=== PATIENT | female | born 1995 | race Caucasian/White ===

== ENCOUNTER → 2017-12-20 13:58 | Outpatient (CLI) | payer BC, MEDICAID, SELFPAY ==
[2017-12-20 13:04] VITALS: BP 137/67; BMI 50.1
[2017-12-20 15:01] LABS: Absolute Lymphocyte Count 2.05 X10^3/ul (0.83-4.51); Absolute Neutrophil Count 4.3 X10^3/uL (2.0-7.7); Basophil# 0.03 X10^3/uL; Basophil% 0.4 % (0-1); Eosinophil# 0.12 X10^3/uL; Eosinophils% 1.8 % (0-5); Hematocrit 33.7 % (37-47); Hemoglobin 10.8 g/dl (12.0-15.0); Lymphocyte # 2.05 X10^3/ul (4.0); Mean Corpuscular Hgb 23.4 pg (27.0-32.0); Mean Corpuscular Volume 72.9 fL (81-99); Mean Platelet Vol. 9.4 fl (6.2-12.0); Monocyte% 4.4 % (0-10); Neutrophil # 4.32 X10^3/uL (2.7-7.7); Neutrophil % 63.3 % (47-70); Platelet Count 311 K/mm3 (150-450); RBC Distribution Width CV 17.3 % (11.6-14.6); RBC Distribution Width SD 44.9 fl (35.1-43.9); Red Blood Count 4.62 M/mm3 (4.2-5.4); White Blood Count 6.8 K/mm3 (4.4-11.0)
[2017-12-20 15:02] LABS: POSITIVE COUNT NO; POSITIVE DIFFERENTIAL NO; POSITIVE MORPHOLOGY NO
[2017-12-20 15:17] LABS: Glucose Challenge Gest 1H 50g 105 mg/dL (70-140)
== END ==
PROVIDERS: Visit Provider Obstetrics & Gynecology
DX: Z34.90 Encounter for supervision of normal pregnancy, unspecified, unspecified trimester (principal)
CPT/HCPCS: 36415; 82950; 85025

== ENCOUNTER → 2018-01-10 18:23 | Outpatient (CLI) | payer BC, MEDICAID, SELFPAY | PROVIDERS: Visit Provider Nurse Practitioner Women's Health | DX: Z34.90 Encounter for supervision of normal pregnancy, unspecified, unspecified trimester (principal) | CPT/HCPCS: 87086; 87088 ==

== ENCOUNTER → 2018-01-18 20:34 | Outpatient (CLI) | payer BC, MEDICAID, SELFPAY | PROVIDERS: Visit Provider Obstetrics & Gynecology | DX: O23.41 Unspecified infection of urinary tract in pregnancy, first trimester (principal); Z3A.00 Weeks of gestation of pregnancy not specified | CPT/HCPCS: 87086; 87088 ==

== ENCOUNTER → 2018-01-23 18:42 | Outpatient (CLI) | payer BC, MEDICAID, SELFPAY ==
--- NOTE | 2018-01-23 18:52 | US_ITS ---
STUDY: RENAL ULTRASOUND - COMPLETE REASON FOR EXAM: Female, 22 years old. Left flank pain, TECHNIQUE: Transverse and longitudinal imaging of the kidneys and bladder was obtained using real-time ultrasound. COMPARISON: None. FINDINGS: RIGHT KIDNEY: The right kidney is normal in location. The right kidney measures 10.6 x 4.7 x 5.9 cm. The renal cortex is normal in appearance. The renal cortex measures 1.6 cm. There is a subcentimeter cyst in the upper pole of the right kidney. There is no significant dilatation of the collecting system. LEFT KIDNEY: The left kidney is normal in location. The left kidney measures 10.0 x 5.6 x 5.1 cm. The renal cortex is normal in appearance. The renal cortex measures 1.7 cm. There is no demonstrated renal mass. There is no dilatation of the collecting system. BLADDER: The urinary bladder has a volume of 44 ml. The bladder shows a normal wall thickness. There is no demonstrated mass in the bladder. The right ureteral jet was not demonstrated. The left ureteral jet was not demonstrated. US/Kidney and Bladder IMPRESSION: There is no hydronephrosis bilaterally. Electronically Signed: Rosanna Mccrary MD at 13:48 EDT Tel Direct: [phone], Service support ,
== END ==
PROVIDERS: Visit Provider Obstetrics & Gynecology
DX: Z34.90 Encounter for supervision of normal pregnancy, unspecified, unspecified trimester (principal)
CPT/HCPCS: 76770

== ENCOUNTER → 2018-02-07 16:21 | Outpatient (CLI) | payer BC, MEDICAID, SELFPAY ==
--- NOTE | 2018-02-07 16:22 | US_ITS ---
STUDY: SECOND AND THIRD TRIMESTER OBSTETRICAL ULTRASOUND REASON FOR EXAM: Female, 22 years old. anatomy. LMP: 09/17/2017 TECHNIQUE: Transabdominal PRIOR ULTRASOUND: None. FINDINGS: There is a single intrauterine fetus. The fetus is in a cephalic presentation. There is demonstrated cardiac activity with a heart rate of 170 bpm. There is a normal amniotic fluid volume. The largest amniotic fluid pocket measures 6.7 cm. The placenta is anterior in location and is not low lying. There are Grade 0 placental changes. The cervix measures 3.4 cm in length. The adnexal regions are not visualized. BIOMETRY: BPD: 4.8: 20 weeks, 3 days HC: 18.2: 20 weeks, 4 days AC: 15.5: 20 weeks, 5 days FL: 3.2: 20 weeks, 1 days CI: FL/BPD: FL/HC: FL/AC: HC/AC: age by current US: 20 weeks, 4 days. ADA by current US: 06/23/2018. Estimated weight: 353 grams, +/- 52 grams, 45 %. age by prior US: weeks, days. ADA by prior US: . Age by LMP: 20 weeks, 3 days. ADA by LMP: 06/24/2018. ANATOMY: Gender: Female Cranium: Normal lateral ventricles. Normal choroid plexus. Normal cerebellum. Normal cisterna magna. Normal face, nose and lips. Chest: Normal 4-chamber heart. Abdomen/Pelvis: Normal diaphragm. Normal stomach. Normal abdominal wall. Normal cord insertion. Normal 3 vessel cord. Normal kidneys. Normal bladder. Spine: Normal cervical spine. Normal thoracic spine. Normal lumbar spine. Normal sacrum. Extremities: Normal bilateral upper extremities. Normal bilateral lower extremities. US/OB Anatomy Scan IMPRESSION: Single live fetus in a vertex presentation. No demonstrated anatomic abnormality. Placenta is grade 0 and is not low-lying. Cervix is closed. age by current US: 20 weeks, 4 days. ADA by current US: 06/23/2018. Estimated weight: 353 grams, +/- 52 grams, 45 %. Electronically Signed: Cain Callahan MD at 0:02 EDT , Service support ,
== END ==
PROVIDERS: Visit Provider Obstetrics & Gynecology
DX: Z34.90 Encounter for supervision of normal pregnancy, unspecified, unspecified trimester (principal)
CPT/HCPCS: 76805

== ENCOUNTER 2018-02-22 16:52 | Outpatient (CLI) | payer BC, MEDICAID, SELFPAY ==
[2018-02-22] MEDS: Dextrose 5%-Lactated Ringers 1,000 ML 1000 ML IV (17:05)
[2018-02-22] MEDS: Ondansetron 4 MG/2 ML Vial IV (18:08)
[2018-02-22 18:24] VITALS: BP 137/69; PULSE 105; RESP 14; TEMP 36.8; O2SAT 14
== END 2018-02-22 18:32 | disposition home or self-care (01) ==
LOC: MEDOUTP 16:53 → MS3 16:59
PROVIDERS: Visit Provider Obstetrics & Gynecology
DX: E86.0 Dehydration (principal)
CPT/HCPCS: 96361; 96374; J2405

== ENCOUNTER → 2018-03-22 13:39 | Outpatient (CLI) | payer BC, MEDICAID, SELFPAY ==
[2018-03-22 14:34] LABS: Absolute Lymphocyte Count 2.25 X10^3/ul (0.83-4.51); Absolute Neutrophil Count 6.2 X10^3/uL (2.0-7.7); Basophil# 0.02 X10^3/uL; Basophil% 0.2 % (0-1); Eosinophil# 0.09 X10^3/uL; Hematocrit 31.8 % (37-47); Hemoglobin 9.8 g/dl (12.0-15.0); Lymphocyte # 2.25 X10^3/ul (4.0); Lymphocyte % 25.1 % (19-41); Mean Corp Hgb Conc 30.8 g/gl (32-36); Mean Corpuscular Hgb 22.8 pg (27.0-32.0); Mean Platelet Vol. 8.8 fl (6.2-12.0); Monocyte# 0.36 X10^3/uL; Neutrophil # 6.23 X10^3/uL (2.7-7.7); Neutrophil % 69.5 % (47-70); Platelet Count 307 K/mm3 (150-450); RBC Distribution Width CV 18.1 % (11.6-14.6); RBC Distribution Width SD 48.4 fl (35.1-43.9)
[2018-03-22 14:35] LABS: POSITIVE COUNT NO; POSITIVE DIFFERENTIAL NO
[2018-03-22 14:36] LABS: Differential Indicated SCAN CRITERIA MET; POSITIVE MORPHOLOGY YES
[2018-03-22 14:47] LABS: Glucose Challenge Gest 1H 50g 128 mg/dL (70-140)
[2018-03-22 15:41] LABS: Differential Comment SCANNED
== END ==
PROVIDERS: Family Provider Nurse Practitioner Adult Health; PCP Nurse Practitioner Adult Health; Visit Provider Obstetrics & Gynecology
DX: Z34.02 Encounter for supervision of normal first pregnancy, second trimester (principal)
CPT/HCPCS: 82950; 85025; 86850; 86900

== ENCOUNTER → 2018-04-05 14:13 | Outpatient (CLI) | payer BC, MEDICAID, SELFPAY ==
[2018-04-05 14:33] LABS: Protein, Urine (Random) 27.3 mg/dL (<11.9); Protein:Creat Ratio 110 mg/g CRE (0-200)
== END ==
PROVIDERS: Family Provider Nurse Practitioner Adult Health; PCP Nurse Practitioner Adult Health; Visit Provider Nurse Practitioner Women's Health
DX: R80.9 Proteinuria, unspecified (principal)
CPT/HCPCS: 82570; 84156

== ENCOUNTER → 2018-05-08 16:45 | Outpatient (CLI) | payer BC, MEDICAID, SELFPAY ==
[2018-05-08 17:13] LABS: Absolute Lymphocyte Count 2.34 X10^3/ul (0.83-4.51); Absolute Neutrophil Count 7.2 X10^3/uL (2.0-7.7); Basophil# 0.03 X10^3/uL; Basophil% 0.3 % (0-1); Hematocrit 31.5 % (37-47); Hemoglobin 9.8 g/dl (12.0-15.0); Lymphocyte # 2.34 X10^3/ul (4.0); Lymphocyte % 22.7 % (19-41); Mean Corp Hgb Conc 31.1 g/gl (32-36); Mean Corpuscular Hgb 22.7 pg (27.0-32.0); Mean Corpuscular Volume 72.9 fL (81-99); Mean Platelet Vol. 8.8 fl (6.2-12.0); Monocyte# 0.55 X10^3/uL; Monocyte% 5.3 % (0-10); Neutrophil # 7.22 X10^3/uL (2.7-7.7); Neutrophil % 70.2 % (47-70); Platelet Count 394 K/mm3 (150-450); RBC Distribution Width SD 44.3 fl (35.1-43.9); Red Blood Count 4.32 M/mm3 (4.2-5.4); White Blood Count 10.3 K/mm3 (4.4-11.0)
[2018-05-08 17:14] LABS: POSITIVE COUNT NO; POSITIVE DIFFERENTIAL NO; POSITIVE MORPHOLOGY NO
== END ==
PROVIDERS: Nurse Practitioner Women's Health; Family Provider Nurse Practitioner Adult Health; PCP Nurse Practitioner Adult Health; Visit Provider Obstetrics & Gynecology
DX: O99.019 Anemia complicating pregnancy, unspecified trimester (principal); Z3A.00 Weeks of gestation of pregnancy not specified
CPT/HCPCS: 36415; 85025

== ENCOUNTER → 2018-05-17 15:20 | Outpatient (CLI) | payer BC, MEDICAID, SELFPAY ==
--- NOTE | 2018-05-17 15:22 | US_ITS ---
STUDY: SECOND AND THIRD TRIMESTER OBSTETRICAL ULTRASOUND - LIMITED REASON FOR EXAM: Female, 22 years old. Follow-up LMP: PRIOR ULTRASOUND: February 07, 2018 TECHNIQUE: Transabdominal ultrasound evaluation was performed. FINDINGS: There is a single intrauterine fetus. The fetus is in a cephalic presentation. There is demonstrated cardiac activity with a heart rate of 145 bpm. There is a normal amniotic fluid volume. The largest amniotic fluid pocket measures 3.3 x 9.2 cm. The amniotic fluid index (CORAL) is 13 cm. The placenta is anterior in location There are Grade 1 placental changes. The cervix measures cm in length. BIOMETRY: BPD: 8.5 cm: 34 weeks, 3 days HC: 3.8 cm: 34 weeks, 3 days AC: 30.4 cm: 34 weeks, 3 days FL: 6.7 cm: 34 weeks, 2 days . age by current US: 34 weeks, 3 days. ADA by current US: 06/25/2018. Estimated weight: 2469 grams, +/- grams, 35 percentile. US/OB Limited With Biometrics IMPRESSION: There has been normal growth of the fetus is in last examination of February 07, 2018. The fetus is currently in a cephalic presentation and longitudinal lie with composite measurements averaging out to be equivalent to to 34 weeks 3 days +/- 5 days with an expected date of delivery of 06/25/2018. There is an estimated weight of 246 9 g. This is in the 35th percentile. There is an CORAL of 13 cm Electronically Signed: Anastacio Wray, at 7:11 EDT Tel , Service support ,
== END ==
PROVIDERS: Family Provider Nurse Practitioner Adult Health; PCP Nurse Practitioner Adult Health; Visit Provider Obstetrics & Gynecology
DX: Z36.89 Encounter for other specified antenatal screening (principal)
CPT/HCPCS: 76816

== ENCOUNTER → 2018-05-31 15:10 | Outpatient (CLI) | payer BC, MEDICAID, SELFPAY ==
[2018-05-31 16:44] LABS: Group B Strep DNA By PCR Negative (Negative); Internal Control PASS; Probe Check PASS; Specimen Processing Control PASS
== END ==
PROVIDERS: Visit Provider Obstetrics & Gynecology
DX: Z34.90 Encounter for supervision of normal pregnancy, unspecified, unspecified trimester (principal)
CPT/HCPCS: 87081; 87653

== ENCOUNTER 2018-06-27 17:15 | Outpatient (CLI) | payer BC, MEDICAID, SELFPAY ==
[2018-06-27 18:22] VITALS: BMI 51.7
--- NOTE | 2018-06-28 04:39 | OB.TRI.NOTE ---
- Problem List (1) False labor Status: Acute History of Present Illness Reason For Visit: R/O LABOR History of Present Illness: co ctx Allergies iodine Allergy (Verified 06/28/18 00:19) Rash - Pertinent Past Medical History Medical History: Past Medical History (Last Reviewed 06/20/18 @ 13:18 by Anupama Santos) Anxiety Surgical History: Past Surgical History (Last Reviewed 06/20/18 @ 13:18 by Anupama Santos) gallbladder surgery NST - FHR Rate Baby A Baseline: 140 Variability:: Moderate Accelerations:: 15 x 15 NST Reactive:: Yes FHR Category:: Category I Impression/Plan reactive nst false labor dc home
== END 2018-06-27 19:10 | disposition home or self-care (01) ==
LOC: WPOUT 17:35 → WP 17:35
PROVIDERS: Family Provider Nurse Practitioner Adult Health; PCP Nurse Practitioner Adult Health; Visit Provider Obstetrics & Gynecology
DX: O47.9 False labor, unspecified (principal); Z3A.00 Weeks of gestation of pregnancy not specified
CPT/HCPCS: 59025; 59050; 99218; G0378

== ENCOUNTER 2018-06-28 03:45 | Inpatient (IN) | payer BC, MEDICAID, SELFPAY ==
[2018-06-28 00:08] VITALS: BMI 51.7
[2018-06-28] MEDS: proMETHazine 25 MG Tablet 12.5 MG PO (01:36)
[2018-06-28] MEDS: Nalbuphine 10 MG/ML Ampul 5 MG IM (01:56)
--- NOTE | 2018-06-28 04:07 | PCM.HP.OB ---
- Problem List (1) Active labor at term Status: Acute (2) Anemia affecting Status: Acute Qualifiers: Comment: iron supplement monthly cbc (3) BMI 50.0-59.9, adult Status: Acute Comment: growth us after 32 weeks and weekly nsts (4) Supervision of normal Status: Acute Qualifiers: Comment: PRR ADA 06/24/18 Girl Yasmin Heaton declines STD testing; No HIV done History Date of Admission: 06/28/18 Final ADA: 06/24/18 Gestational age: 40 Weeks and 4 Days History of this : This is a 22 year-old, G [], P [], at weeks gestational age. Medical History: Medical History (Last Reviewed 06/20/18 @ 13:18 by Anupama Santos) Anxiety F41.9 Surgical History: Surgical History (Last Reviewed 06/20/18 @ 13:18 by Anupama Santos) gallbladder surgery Allergies iodine Allergy (Verified 06/28/18 00:19) Rash Home Medications: Home Medications vitamin #56-iron 35 mg and 5 mg-folic acid 1 mg-dha capsule 1 cap PO QHS 06/27/18 Smoking Status: Never smoker Alcohol: None Number of Fetus(es): 1 Heart Tracin - 140 moderate variability reactive cat I TOCO Analysis: q 3-4 History Past Pregnancies: Past Pregnancies Delivery Date Name GA/Weeks Outcome Route Weight Infant Gender Labor Length Anesthesia Delivery Location Provider FOB Labs: Social History Hx Smoking No Smoking Status Never smoker Expected Delivery Method: Spontaneous Vaginal Review of Systems Constitutional: Denies: Fever, Malaise Eyes: Denies: Blurred vision, Vision Change HEENT: Denies: Head Aches, Visual Changes Cardiovascular: Denies: Chest Pain, Palpitations Respiratory: Denies: Cough, Shortness of Breath, Wheezing Gastrointestinal: Denies: Abdominal Pain, Diarrhea, Nausea, Vomiting Genitourinary: Denies: Dysuria, Hematuria Musculoskeletal: Denies: Joint Pain, Muscle pain Skin: Denies: Lesions, Rash Neurological: Denies: Blurred vision, Focal weakness, Headaches Psychiatric: Denies: Anxiety, Depression Endocrine: Denies: Heat/ Cold Intolerance Hematologic/ Lymphatic: Denies: Easy Bruising, Easy Bleeding Physical Exam General: Alert, Cooperative, No apparent distress HEENT: Atraumatic, Normocephalic. Negative for: Thyromegaly, Lymphadenopathy Cardiovascular: Regular rate Lungs: Normal air movement Abdomen: Soft, Non Tender, Gravid Neurological: Deep Tendon Reflexes 2+/4 and Symmetrical, Neuro grossly intact. Negative for: Clonus CAR USHER: Normal external genitalia. Negative for: Vulvar lesions Estimated gestational size: Appropriate for gestational size Presentation: Cephalic Assessment/Plan All Active Problems (Last Reviewed 06/20/18 @ 13:18 by Anupama Santos) Active labor at term (Acute) Anemia affecting (Acute) BMI 50.0-59.9, adult (Acute) Left lateral abdominal pain (Acute) UTI in (Acute) Supervision of normal (Acute) 22 yo 40w4d IAL Patient presents IAL, plan expectant management for , pitocin/AROM PRN if needed. Pain management: plans epidural. GBS positive plan IV PCN. Management of any complications: none I have reviewed the [facility] and made any clinically relevant updates.
[2018-06-28] MEDS: Lactated Ringers 1,000 ML 50 ML IV ×5 (04:10→14:53)
[2018-06-28 04:25] LABS: Hematocrit 31.9 % (37-47); Mean Corp Hgb Conc 31.3 g/gl (32-36); Mean Corpuscular Hgb 21.6 pg (27.0-32.0); Mean Corpuscular Volume 68.8 fL (81-99); Mean Platelet Vol. 9.4 fl (6.2-12.0); Platelet Count 374 K/mm3 (150-450); RBC Distribution Width CV 18.1 % (11.6-14.6); RBC Distribution Width SD 44.7 fl (35.1-43.9); Red Blood Count 4.64 M/mm3 (4.2-5.4); White Blood Count 17.9 K/mm3 (4.4-11.0)
[2018-06-28 04:33] LABS: Scan Indicated on CBC? Y/N NO
[2018-06-28] MEDS: Oxytocin 30 units/NS 500 ml 30 UNITS/500 ML IV.SOLN IV (10:00)
[2018-06-28] MEDS: Amnioinfusion- 0.9% NS 1,000 ML IV.SOLN. INTRA-UTER (13:00)
[2018-06-28] MEDS: fentaNYL-bupivacaine (epidural) 100 ML BAG EPIDURAL (15:03)
[2018-06-28] MEDS: Oxytocin 30 units/NS 500 ml 30 UNITS/500 ML IV.SOLN 334 UNITS IV (17:55)
[2018-06-28] MEDS: Oxytocin 30 units/NS 500 ml 30 UNITS/500 ML IV.SOLN 167 UNITS IV (18:25)
[2018-06-28] MEDS: Acetaminophen 325 MG Tablet PO (18:25)
[2018-06-28] MEDS: 0.9% Saline Lock 10 ML Syringe IV (19:25)
[2018-06-28] MEDS: Naproxen 250 MG Tablet PO (22:10)
[2018-06-29] VITALS: BP 122/79; PULSE 122; RESP 19; TEMP 36.2
[2018-06-29] MEDS: oxyCODONE 5 MG Tablet PO ×2 (00:26→13:17)
[2018-06-29 03:30] VITALS: BP 117/73; PULSE 92; RESP 18; TEMP 36.3
[2018-06-29 09:40] VITALS: BP 132/82; PULSE 91; RESP 18; TEMP 36.1; O2SAT 97
[2018-06-29] MEDS: Naproxen 250 MG Tablet PO ×2 (09:51→18:30)
--- NOTE | 2018-06-29 10:35 | PCM.PN.OB ---
Patient Problems: Active and Suspected Problems (Last Reviewed 06/20/18 @ 13:18 by Anupama Santos) Active labor at term (Acute) Subjective: doing well n ocomplaints - Physical Exam General: Alert, Oriented x3 Vital Signs Temp Pulse Resp BP 97.3 F L 92 18 117/73 06/29/18 03:30 06/29/18 03:30 06/29/18 03:30 06/29/18 03:30 Oxygen Delivery Method Room Air Weight: 301 lb 9.478 oz Body Mass Index (BMI) 51.7 Intake and Output for Last 24 Hours 06/27/18 06/28/18 06/29/18 23:59 23:59 23:59 Output Total 600 / 600 Balance -600 / -600 Medical Necessity - Tobacco Use Smoking Status: Never smoker Assessment/Plan All Active Problems (Last Reviewed 06/20/18 @ 13:18 by Anupama Santos) Active labor at term (Acute) False labor (Acute) Anemia affecting (Acute) BMI 50.0-59.9, adult (Acute) Left lateral abdominal pain (Acute) UTI in (Acute) Supervision of normal (Acute) s/p routine care
[2018-06-29 13:00] VITALS: BP 125/60; PULSE 95; RESP 16; TEMP 36.2; O2SAT 98
[2018-06-29 16:30] VITALS: BP 129/66; PULSE 88; RESP 16; TEMP 36.6; O2SAT 97
[2018-06-29 20:24] VITALS: BP 148/73; PULSE 97; RESP 16; TEMP 36.4; O2SAT 98
[2018-06-29] MEDS: Acetaminophen 500 MG Tablet 1000 MG PO (22:42)
[2018-06-30 02:15] VITALS: BP 137/89; PULSE 89; RESP 18; TEMP 36.3; O2SAT 96
--- NOTE | 2018-06-30 03:22 | PCM.OB.VAG ---
- Problem List (1) Active labor at term Status: Acute (2) Anemia affecting Status: Acute Qualifiers: Comment: iron supplement monthly cbc (3) BMI 50.0-59.9, adult Status: Acute Comment: growth us after 32 weeks and weekly nsts (4) Supervision of normal Status: Acute Qualifiers: Comment: PRR ADA 06/24/18 Scar Heaton declines STD testing; No HIV done Vaginal Delivery Maternal Presentation: Active Labor ial 40w4d Amniotic Membrane Rupture Type: Artificial Amniotic Fluid Description: Clear Final ADA: 06/24/18 Gestational age: 40 Weeks and 4 Days Date of Procedure: 06/28/18 Pre-Operative Diagnosis: ial Post-Operative Diagnosis: same Surgery/ Procedure Performed: Spontaneous Vaginal Delivery Type of Anesthesia: Epidural Description of Procedure: Patient began pushing and delivered the head in the FREDDY presentation. The head was delivered atraumatically. The anterior and posterior shoulders delivered without complication followed by the rest of the infant and the infant was placed on the maternal abdomen. Delayed cord clamping was employed for approximately 60 seconds. Cord was clamped and cut and gentle traction was applied to the cord and the placenta delivered spontaneously immediately following it was noted to be intact with three-vessel cord. The perineum and vagina were inspected and noted to have a 1st degree laceration which was repaired in the usual fashion with 3-0 vicryl rapide. EBL was 200 cc. Patient and infant tolerated delivery well. Presentation: FREDDY Placental Delivery Description: Spontaneous Placenta Disposition: [facility] Cord Entanglement: None Estimated Blood Loss: 200 Episiotomy Description: None Laceration: Perineal Extension/lac, 1st degree Medications given after delivery: IV Pitocin Complications: None
[2018-06-30] MEDS: Naproxen 250 MG Tablet PO ×2 (04:36→16:32)
--- NOTE | 2018-06-30 06:51 | PCM.PN.OB ---
Patient Problems: Active and Suspected Problems (Last Reviewed 06/20/18 @ 13:18 by Anupama Santos) Active labor at term (Acute) Subjective: doing well no complaints pain controlled no CP SOB N V ambulating well tolerating po lochia moderate, going well - Physical Exam General: Alert, Oriented x3 Vital Signs Temp Pulse Resp BP Pulse Ox 97.3 F L 89 18 137/89 H 96 06/30/18 02:15 06/30/18 02:15 06/30/18 02:15 06/30/18 02:15 06/30/18 02:15 Oxygen Delivery Method Room Air Weight: 301 lb 9.478 oz Body Mass Index (BMI) 51.7 Intake and Output for Last 24 Hours 06/28/18 06/29/18 06/30/18 23:59 23:59 23:59 Output Total 600 / 600 Balance -600 / -600 Medical Necessity - Tobacco Use Smoking Status: Never smoker Assessment/Plan All Active Problems (Last Reviewed 06/20/18 @ 13:18 by Anupama Santos) Active labor at term (Acute) False labor (Acute) Anemia affecting (Acute) BMI 50.0-59.9, adult (Acute) Left lateral abdominal pain (Acute) UTI in (Acute) Supervision of normal (Acute) s/p PPD # 2 1. routine post delivery care 2. breast feeding- support given 3. rh positive 4. rubella immune
[2018-06-30 09:05] VITALS: BP 123/72; PULSE 68; RESP 16; TEMP 36.3; O2SAT 97
[2018-06-30 13:10] VITALS: BP 136/79; PULSE 86; RESP 16; TEMP 36.6
[2018-06-30] MEDS: Acetaminophen 500 MG Tablet 1000 MG PO (13:27)
--- NOTE | 2018-06-30 18:04 | PCM.DCVAG ---
Discharge Diet: No Restrictions Discharge Activity: Return to Normal Activity, May not drive while taking narcotic pain medications., May Shower May resume sexual activity in: 4-6 weeks Call your doctor if your incision/area has: Continuous Slow Oozing, Sudden Increased Bleeding, Increased Pain/ Swelling, Increased Redness, Foul Smelling Discharge Instructions: After a Vaginal , After Delivery: When to Call the Health Care Provider, Understanding Depression, : Caring for Yourself Additional Instructions: If you experience any of the following, contact your healthcare provider. Bleeding that soaks a pad every hour for 2 hours Fever 100.4 or higher Unrelieved incision or abdominal pain Swelling, redness, discharge or bleeding from your incision or episiotomy site Your incision begins to separate Problems urinating (including inability to urinate or burning while urinating). Visual changes Severe headache Flu-like symptoms Pain or redness in one of both of your breasts Pain, warmth, tenderness or swelling in your legs, especially the calf area Frequent nausea and vomiting Symptoms of depression or anxiety If you experience any of the following, call 911 or go to the nearest Emergency Room. Chest pain Problems breathing Seizure activity Partial or complete paralysis of a body part, slurred speech, weakness or drooping of the face, or a sudden inability to walk or hold your balance Allergies/Adverse Reactions: Allergies iodine Allergy (Verified 06/28/18 00:19) Rash Medications to take at Discharge vitamin #56-iron 35 mg and 5 mg-folic acid 1 mg-dha capsule 1 cap PO QHS 06/27/18 Please Follow Up With: Ellie Toledo MD - [phone] When: Call to make an appointment with your doctor in 6 weeks. If you had elevated Blood pressure or 4th degree laceration you will need to be seen in 2 weeks. Primary Care Physician: Cheli Simms NP-C [Primary Care Provider] - Test Results: Test results from this visit will be discussed in further detail at your follow-up appointment, if applicable.
[2018-06-30 18:10] VITALS: BP 134/76; PULSE 65; RESP 20; TEMP 36.4; O2SAT 98
[2018-06-30] MEDS: oxyCODONE 5 MG Tablet PO (18:46)
== END 2018-06-30 20:10 | disposition home or self-care (01) | DRG 775 ==
LOC: WPOUT 03:47
PROVIDERS: Admitting Provider Obstetrics & Gynecology; Family Provider Nurse Practitioner Adult Health; PCP Nurse Practitioner Adult Health; Visit Provider Obstetrics & Gynecology
DX: O99.02 Anemia complicating childbirth (principal); D64.9 Anemia, unspecified; O70.0 First degree perineal laceration during delivery; O99.824 Streptococcus B carrier state complicating childbirth; Z3A.40 40 weeks gestation of pregnancy; Z37.0 Single live birth
CPT/HCPCS: 59025; 59050; 85027; 86850; 86900; J7030; J7120; A4216

== ENCOUNTER 2018-07-01 15:47 | Outpatient (CLI) | payer BC, MEDICAID, SELFPAY ==
[2018-07-01 15:51] VITALS: BP 152/114; PULSE 66; RESP 20; O2SAT 96
--- NOTE | 2018-07-01 16:28 | ED.RN ---
PT PRESENTS WITH COLON, 3 DAYS POST . PT MEET CRITERIA TO [facility] AND WAS ESCORTED TO OB AT 1555. DR SLOAN WAS NOTIFIED OF PT SX AND HX AND AGREED PT NEEDED TO BE SEEN IN OB. CELINA RANDOLPH IN OB CALLED AND NOTIFIED.
[2018-07-01] MEDS: Lactated Ringers 1,000 ML 999 ML IV (17:05)
[2018-07-01 17:25] VITALS: BMI 50.8
--- NOTE | 2018-07-01 17:31 | NURSING ---
1555 pt received in room 11 via w/c from ER with c/o severe headache 10 0f 10 on pain scale. pt tearful and anxious. placed in bed flat on back states h/a slightly better a 6 of 10. BP 140/67 . [address] Toledo about pt c/o and BP order for anesthesia consult to r/o spinal headache.1625 Dr Natasha Ramos called for anesthesia consult. 1640 Dr Ramos in room for consult and planning to do epidural blood patch. 1705 IV blood patch completed and IV bolus LR started at 999cc/hr.
--- NOTE | 2018-07-01 17:47 | NURSING ---
Dr Toledo on floor notified of blood patch and pt stated h/a pain gone. states pt can be discharged per anesthesia orders. BP 142/68
--- NOTE | 2018-07-02 21:53 | OB.TRI.NOTE ---
- Problem List (1) Spinal headache Status: Acute History of Present Illness Reason For Visit: ELEVATED BLOOD PRESSURE History of Present Illness: spinal hedache ppd 4 Allergies iodine Allergy (Verified 06/28/18 00:19) Rash - Pertinent Past Medical History Medical History: Past Medical History (Last Reviewed 06/20/18 @ 13:18 by Anupama Santos) Anxiety Surgical History: Past Surgical History (Last Reviewed 06/20/18 @ 13:18 by Anupama Santos) gallbladder surgery Physical Exam Vitals: Vital Signs Pulse Resp BP Pulse Ox 66 20 H 152/114 H 96 07/01/18 15:51 07/01/18 15:51 07/01/18 15:51 07/01/18 15:51 Impression/Plan spinal headache- blood patch placed
== END 2018-07-01 18:45 | disposition home or self-care (01) ==
LOC: WPOUT 16:08 → WP 16:08
PROVIDERS: Family Provider Nurse Practitioner Adult Health; PCP Nurse Practitioner Adult Health; Visit Provider Obstetrics & Gynecology
DX: O89.4 Spinal and epidural anesthesia-induced headache during the puerperium (principal)
CPT/HCPCS: 62273; 99218; J7120; G0378

== ENCOUNTER 2018-07-04 13:10 | Outpatient (CLI) | payer BC, MEDICAID, SELFPAY | END 2018-07-04 14:10 | disposition home or self-care (01) | LOC: WPOUT 13:16 → WP 13:17 | PROVIDERS: Family Provider Nurse Practitioner Adult Health; PCP Nurse Practitioner Adult Health; Visit Provider Obstetrics & Gynecology | DX: Z39.1 Encounter for care and examination of lactating mother (principal) | CPT/HCPCS: 96152 ==

== ENCOUNTER → 2021-01-12 | Outpatient (CLI) | payer BC, SELFPAY ==
[2021-01-12 15:28] VITALS: BMI 54.1
[2021-01-15 14:09] LABS: Chlamydia By Nucleic Acid AMP Negative (Negative)
[2021-01-15 15:41] LABS: Gonococcus By Nucleic Acid AMP Negative (Negative)
[2021-01-17 15:52] LABS: HPV Reflexed? NOT INDICATED
== END | disposition home or self-care (01) ==
LOC: LABSPEC 16:58
PROVIDERS: PCP Nurse Practitioner Adult Health; Referring Provider Nurse Practitioner Women's Health; Visit Provider Nurse Practitioner Women's Health
DX: Z12.4 Encounter for screening for malignant neoplasm of cervix (principal); Z11.3 Encounter for screening for infections with a predominantly sexual mode of transmission; R30.9 Painful micturition, unspecified
CPT/HCPCS: 87086; 87088; 87186; 87491; 87591; 88175; G0145

== ENCOUNTER → 2021-06-21 16:30 | Outpatient (CLI) | payer BC, SELFPAY ==
[2021-01-19 14:02] VITALS: BMI 53.8
--- NOTE | 2021-06-21 16:33 | RAD_ITS ---
STUDY: X-RAY - CERVICAL SPINE REASON FOR EXAM: Female, 25 years old. PARESTHESIA TECHNIQUE: 5 view(s) of the cervical spine were obtained. COMPARISON: None FINDINGS: Normal anterior atlantoaxial articulation. Normal odontoid process. Normal cervical lordosis. Normal vertebral bodies and endplates. Normal disc space heights. Normal visualized intervertebral neuroforamina. The soft tissue structures are unremarkable. RAD/Cerv Spine 4 or 5 Views IMPRESSION: Normal x-ray examination of the visualized cervical spine. Electronically Signed: Chaparro Alexis MD at 8:06 EDT Tel , Service support ,
[2021-06-21 17:52] LABS: Hematocrit 39.5 % (37-47); Hemoglobin 11.6 g/dL (12.0-15.0); Mean Corp Hgb Conc 29.4 g/dL (32-36); Mean Corpuscular Hgb 22.3 pg (27.0-32.0); Mean Platelet Vol. 9.5 fl (6.2-12.0); Platelet Count 349 K/mm3 (150-450); RBC Distribution Width CV 16.9 % (11.6-14.6); RBC Distribution Width SD 46.1 fl (35.1-43.9); RET-HE 25.2 pg (30-35); Reticulocyte Count 0.99 % (0.5-1.5); White Blood Count 10.3 K/mm3 (4.4-11.0)
[2021-06-21 18:16] LABS: ALB/GLOB Ratio 0.9 RATIO (0.9-2.4); AST(SGOT) 13 U/L (15-37); Alanine Aminotransfer ALT/SGPT 22 U/L (13-56); Albumin, Serum 3.7 g/dL (3.2-5.0); Alkaline Phosphatase 82 U/L (45-117); Anion Gap 7 (5-15); BUN 11 mg/dL (7-18); Calcium,Total 8.8 mg/dL (8.5-10.1); Chloride 107 mmol/L (98-107); Creatinine, Serum 0.78 mg/dL (0.55-1.02); EST Glomerular Filtration Rate 96 mL/min (>60); Est Glom Filt Rate - Afr Amer 116 mL/min (>60); Ferritin 11 ng/mL (8-252); Globulin 4.2 g/dL (2.2-4.2); Glucose 88 mg/dL (74-106); Iron 23 ug/dL (50-170); Potassium 3.9 mmol/L (3.5-5.1); Protein, Total 7.9 g/dL (6.4-8.2); Sodium Level 139 mmol/L (136-145); Thyroid Stim Hormone (TSH) 1.06 uIU/mL (0.358-3.74)
[2021-06-21 19:07] LABS: Vitamin B12 > 2000 pg/mL (211-911); Vitamin D,25 Hydroxy 26.5 ng/mL
== END ==
PROVIDERS: PCP Family Medicine; Referring Provider Family Medicine; Visit Provider Family Medicine
DX: R20.2 Paresthesia of skin (principal); R53.83 Other fatigue; D64.9 Anemia, unspecified
CPT/HCPCS: 36415; 72050; 80053; 82306; 82607; 82728; 83540; 84443; 85027; 85045

== ENCOUNTER → 2021-07-26 | Outpatient (CLI) | payer BC, SELFPAY | END | disposition home or self-care (01) | LOC: MFPLAB 14:06 → LABSPEC 14:07 | PROVIDERS: PCP Family Medicine; Referring Provider Family Medicine; Visit Provider Family Medicine | DX: Z20.822 Contact with and (suspected) exposure to COVID-19 (principal) | CPT/HCPCS: 87635; U0005; U0003 ==

== ENCOUNTER → 2021-10-17 | Outpatient (CLI) | payer BC, SELFPAY ==
[2021-10-17 21:15] LABS: Probe Check PASS
== END | disposition home or self-care (01) ==
PROVIDERS: PCP Family Medicine; Referring Provider Family Medicine; Visit Provider Family Medicine
DX: Z20.822 Contact with and (suspected) exposure to COVID-19 (principal)
CPT/HCPCS: 87635; U0005; U0003

== ENCOUNTER 2021-11-24 16:17 | Emergency (ER) | payer BC, SELFPAY ==
[2021-11-24 16:18] VITALS: BP 119/90; PULSE 103; RESP 24; TEMP 36.9; O2SAT 100; BMI 52.9
--- NOTE | 2021-11-24 16:27 | EKG12_ITS ---
Test Reason : TRAUMA Blood Pressure : / mmHG Vent. Rate : 109 BPM Atrial Rate : 105 BPM P-R Int : 136 ms QRS Dur : 076 ms QT Int : 338 ms P-R-T Axes : 072 023 057 degrees QTc Int : 455 ms Undetermined rhythm : Consider Sinus vs Ectopic Atrial Rhythm Nonspecific T wave abnormality Abnormal ECG Confirmed by ELIZABETH ZHANG, GIACOMO ([id number]), photographic editor PITER SHARIF ([id number]) on 11/28/2021 11:26:18 AM Referred By: MEKA Confirmed By:GIACOMO JOHNSON MD
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
[2021-11-24] MEDS: Ondansetron 4 MG/2 ML Vial IV (16:42)
[2021-11-24] MEDS: HYDROmorphone 1 MG/ML Syringe IV (16:45)
[2021-11-24] MEDS: DiphenhydrAMINE 50 MG/ML Syringe 25 MG IV (16:45)
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
[2021-11-24] MEDS: Diphth,Pertuss(Acell),Tet Vac 0.5 ML Vial IM (16:53)
--- NOTE | 2021-11-24 16:55 | RAD_ITS ---
STUDY: X-RAY - RIGHT KNEE REASON FOR EXAM: Female, 26 years old. Injury/Pain TECHNIQUE: 2 view(s) of the knee. COMPARISON: None. FINDINGS: Normal visualized distal femur. Normal visualized proximal tibia and fibula. Normal proximal tibiofibular articulation. Normal medial femorotibial compartment. Normal lateral femorotibial compartment. Normal patellofemoral articulation. The soft tissue structures are unremarkable. RAD/Knee 1 or 2 Views IMPRESSION: Normal x-ray examination of the knee. Electronically Signed: Chaparro Alexis MD at 17:13 EST Tel , Service support ,
--- NOTE | 2021-11-24 16:55 | RAD_ITS ---
STUDY: X-RAY - RIGHT ANKLE REASON FOR EXAM: Female, 26 years old. Injury/Pain TECHNIQUE: 3 view(s) of the ankle. COMPARISON: None. FINDINGS: Acute comminuted laterally displaced oblique fracture of the distal tibia extending through the medial aspect of the tibial plafond with distal displacement of the tibia and fibula with a probable open fracture. Normal medial and lateral malleoli. Normal tibiotalar articulation and ankle mortise. Normal visualized talus and calcaneus. The visualized subtalar, talonavicular, calcaneocuboid and tarsal articulations are normal. Subcutaneous emphysema likely consistent with an open fracture. RAD/Ankle min 3 Views IMPRESSION: Acute comminuted open fracture of the distal tibia with significant distal and lateral displacement of the distal tibia and fibula. Electronically Signed: Chaparro Alexis MD at 17:12 EST Tel , Service support ,
--- NOTE | 2021-11-24 16:55 | RAD_ITS ---
STUDY: X-RAY CHEST REASON FOR EXAM: Female, 26 years old. Trauma TECHNIQUE: Single AP portable view of the chest. COMPARISON: None. FINDINGS: The lungs are clear and expanded. There is no demonstrated pleural abnormality. Normal size heart. Normal mediastinum and stefanie. Normal visualized pulmonary arteries. Normal visualized aortic arch and descending thoracic aorta. Normal visualized thoracic spine. Normal visualized ribs, clavicles, and shoulders. There is no demonstrated abnormality of the visualized soft tissue structures of the upper abdomen. RAD/Chest 1 View (Portable) IMPRESSION: Normal x-ray examination of the chest. Electronically Signed: Chaparro Alexis MD at 17:12 EST Tel , Service support ,
--- NOTE | 2021-11-24 16:55 | RAD_ITS ---
STUDY: X-RAY - RIGHT TIBIA AND FIBULA REASON FOR EXAM: Female, 26 years old. Injury/Pain TECHNIQUE: 2 view(s) of the tibia and fibula were obtained. COMPARISON: None. FINDINGS: Acute distally and laterally displaced oblique fracture of the distal tibia with subcutaneous emphysema likely consistent with an open fracture. Normal visualized fibula. The soft tissue structures are unremarkable. RAD/Tibia & Fibula 2 Views IMPRESSION: Acute open fracture of the distal tibia with significant lateral displacement. Electronically Signed: Chaparro Alexis MD at 17:14 EST Tel , Service support ,
[2021-11-24] MEDS: Cefazolin 1 GM/50 ML BAG IV (17:18)
[2021-11-24 17:20] LABS: Absolute Lymphocyte Count 2.89 X10^3/uL (0.83-4.51); Basophil# 0.04 X10^3/uL; Basophil% 0.5 % (0-1); Eosinophil# 0.13 X10^3/uL; Eosinophils% 1.5 % (0-5); Hematocrit 38.1 % (37-47); Hemoglobin 11.7 g/dL (12.0-15.0); Lymphocyte # 2.89 X10^3/ul (0.83-4.51); Lymphocyte % 34.2 % (19-41); Mean Corp Hgb Conc 30.7 g/dL (32-36); Mean Platelet Vol. 8.9 fl (6.2-12.0); Monocyte# 0.36 X10^3/uL; Monocyte% 4.3 % (0-10); NRBC Flagged by Analyzer 0 % (0-5); Neutrophil # 5.01 X10^3/uL (2.7-7.7); Neutrophil % 59.3 % (47-70); Platelet Count 289 K/mm3 (150-450); RBC Distribution Width CV 16.7 % (11.6-14.6); RBC Distribution Width SD 45.3 fl (35.1-43.9); Red Blood Count 5.08 M/mm3 (4.2-5.4); White Blood Count 8.5 K/mm3 (4.4-11.0)
[2021-11-24 17:32] LABS: Bacteria 0 SEEN /hpf (None Seen); Mucous, Urine 0 SEEN /hpf (<or=2+); Red Blood Cells-Urine 0 SEEN /hpf (0-5); White Blood Cells 0 SEEN /hpf (0-5)
[2021-11-24 17:33] LABS: Prothrombin Time (Protime)PT. 12.5 SECONDS (11.7-14.9)
[2021-11-24 17:37] VITALS: BP 100/59; PULSE 98; RESP 20; O2SAT 100
[2021-11-24 17:40] LABS: AST(SGOT) 10 U/L (15-37); Alanine Aminotransfer ALT/SGPT 19 U/L (13-56); Albumin, Serum 3.5 g/dL (3.2-5.0); Alkaline Phosphatase 72 U/L (45-117); Anion Gap 5 (5-15); BUN 12 mg/dL (7-18); BUN/Creat Ratio 17.2 RATIO (10-20); Bilirubin, Direct 0.09 mg/dL (0.00-0.30); Calcium,Total 8.9 mg/dL (8.5-10.1); Chloride 109 mmol/L (98-107); EST Glomerular Filtration Rate 109 mL/min (>60); Est Glom Filt Rate - Afr Amer 132 mL/min (>60); Estimated Creatinine Clearance 111.51 ml/min; Globulin 4.1 g/dL (2.2-4.2); Glucose 96 mg/dL (74-106); Potassium 3.5 mmol/L (3.5-5.1); Protein, Total 7.6 g/dL (6.4-8.2); Sodium Level 139 mmol/L (136-145)
[2021-11-24 17:43] LABS: Color, Urine Yellow (Yellow); Glucose, Dipstick Normal (Normal); Ketone-Dipstick Negative (Negative); Leukocyte Esterase-Dipstick Negative /ul (Negative); Nitrite-Dipstick Negative (Negative); Occult Blood-Urine Negative /ul (Negative); Protein-Dipstick Negative (Negative); Urine Bilirubin Dipstick Negative (Negative); Urine Clarity Clear (Clear); Urine Urobilinogen Normal (Normal)
[2021-11-24 18:39] LABS: Internal QC Validated? YES +Cl - CLEAR BKGD
[2021-11-24 18:40] LABS: Pregnancy, Serum, hCG Quali. NEGATIVE Negative
[2021-11-24 18:43] LABS: Alcohol, Blood (Medical)-Serum < 3.0 mg/dL
[2021-11-24 18:44] LABS: Squamous Epithelial Cells - UA 0-5 SEEN /hpf (5-10)
== END 2021-11-24 17:30 | disposition short-term general hospital (02) ==
PROVIDERS: Emergency Provider Emergency Medicine; PCP Family Medicine; Visit Provider Emergency Medicine
DX: S06.9X9A Unspecified intracranial injury with loss of consciousness of unspecified duration, initial encounter (principal); Z68.43 Body mass index [BMI] 50.0-59.9, adult; S39.91XA Unspecified injury of abdomen, initial encounter; S82.301B Unspecified fracture of lower end of right tibia, initial encounter for open fracture type I or II; S93.04XA Dislocation of right ankle joint, initial encounter; V03.90XA Pedestrian on foot injured in collision with car, pick-up truck or van, unspecified whether traffic or nontraffic accident, initial encounter; Y93.9 Activity, unspecified; Y92.9 Unspecified place or not applicable; E66.9 Obesity, unspecified
CPT/HCPCS: 27752; 51702; 70450; 71045; 71260; 72125; 73560; 73590; 73610; 74177; 80048; 80076; 81001; 82077; 84703; 85025; 85610; 85730; 87426; 90715; 93005; 96365; 96375; 99285; J7030; Q9967; A4216; J2405; J3490

== ENCOUNTER → 2022-06-06 | Outpatient (CLI) | payer BC, SELFPAY ==
--- NOTE | 2022-06-06 06:53 | RAD_ITS ---
EXAM: XR ABDOMEN, 2 VIEWS AND XR CHEST, 1 VIEW CLINICAL INDICATION: STOMACH PAIN TECHNIQUE: Frontal view of the chest, frontal view of the abdomen/pelvis and upright or decubitus view of the abdomen. This report was created using [employer] report generation technology. COMPARISON: None. FINDINGS: CHEST: LUNGS AND PLEURAL SPACES: Unremarkable. No consolidation or edema. No pneumothorax. No effusion. HEART: Unremarkable. Cardiac silhouette not enlarged. MEDIASTINUM: Central airways and mediastinal contour are unremarkable. ABDOMEN: INTRAPERITONEAL SPACE: No free air. GASTROINTESTINAL TRACT: There is moderate stool in the colon which may represent constipation. Non-obstructive. No bowel or stomach distention. ORGANS: Unremarkable as visualized. No organomegaly. No abnormal calcifications. TUBES, LINES AND DEVICES: None. BONES/JOINTS: Mild curvature of the thoracolumbar spine. SOFT TISSUES: No acute findings. RAD/Acute Abdomen Inc Chest IMPRESSION: Moderate stool in the colon which may represent constipation. No other abnormalities are identified. Electronically Signed: Angel Rivera MD at 1:23 EDT ,
== END | disposition home or self-care (01) ==
PROVIDERS: PCP Family Medicine; Referring Provider Family Medicine; Visit Provider Family Medicine
DX: R10.9 Unspecified abdominal pain (principal); K58.9 Irritable bowel syndrome, unspecified
CPT/HCPCS: 74022

== ENCOUNTER → 2022-06-16 | Outpatient (CLI) | payer BC, SELFPAY ==
[2022-06-16 12:12] LABS: Erythrocyte Sedimentation Rate 67 mm/hr (0-30)
[2022-06-16 12:34] LABS: ALB/GLOB Ratio 0.8 RATIO (0.9-2.4); AST(SGOT) 15 U/L (15-37); Alanine Aminotransfer ALT/SGPT 19 U/L (13-56); Albumin, Serum 3.5 g/dL (3.2-5.0); Alkaline Phosphatase 84 U/L (45-117); Anion Gap 7 (5-15); BUN 11 mg/dL (7-18); BUN/Creat Ratio 16.6 RATIO (10-20); Calcium,Total 9.2 mg/dL (8.5-10.1); Chloride 106 mmol/L (98-107); Creatinine, Serum 0.66 mg/dL (0.55-1.02); EST Glomerular Filtration Rate 116 mL/min (>60); Est Glom Filt Rate - Afr Amer 140 mL/min (>60); Globulin 4.3 g/dL (2.2-4.2); Glucose 86 mg/dL (74-106); Potassium 3.8 mmol/L (3.5-5.1); Protein, Total 7.8 g/dL (6.4-8.2); Sodium Level 137 mmol/L (136-145)
[2022-06-16 12:42] LABS: Absolute Lymphocyte Count 3.16 X10^3/uL (0.83-4.51); Absolute Neutrophil Count 4.5 X10^3/uL (2.0-7.7); Basophil# 0.07 X10^3/uL; Basophil% 0.8 % (0-1); Eosinophil# 0.19 X10^3/uL; Eosinophils% 2.3 % (0-5); Hematocrit 37.4 % (37-47); Hemoglobin 11.3 g/dL (12.0-15.0); Lymphocyte # 3.16 X10^3/ul (0.83-4.51); Lymphocyte % 38.1 % (19-41); Mean Corp Hgb Conc 30.2 g/dL (32-36); Mean Corpuscular Hgb 21.6 pg (27.0-32.0); Mean Corpuscular Volume 71.5 fL (81-99); Mean Platelet Vol. 9.4 fl (6.2-12.0); Monocyte# 0.35 X10^3/uL; Monocyte% 4.2 % (0-10); NRBC Flagged by Analyzer 0 % (0-5); Neutrophil % 54.2 % (47-70); Platelet Count 358 K/mm3 (150-450); RBC Distribution Width CV 17.2 % (11.6-14.6); RBC Distribution Width SD 43.5 fl (35.1-43.9); Red Blood Count 5.23 M/mm3 (4.2-5.4); White Blood Count 8.3 K/mm3 (4.4-11.0)
[2022-06-19 15:08] LABS: Endomysial Antibody IgA Negative (Negative)
[2022-06-19 16:56] LABS: Immunoglobulin A 217 mg/dL (87-352); t-Transglutaminase IgA <2 U/mL (0-3)
[2022-06-21 17:07] LABS: Alternaria alternata <0.10 kU/L (Class 0); Aspergillus fumigatus <0.10 kU/L (Class 0); Bahia Grass <0.10 kU/L (Class 0); Bermuda Grass <0.10 kU/L (Class 0); Bluegrass, Kentucky <0.10 kU/L (Class 0); Cat Hair/Dander, Standard <0.10 kU/L (Class 0); Cedar, Mountain <0.10 kU/L (Class 0); Cladosporium herbarum <0.10 kU/L (Class 0); Cockroach, American <0.10 kU/L (Class 0); D farinae Mite <0.10 kU/L (Class 0); D pteronyssinus <0.10 kU/L (Class 0); Dog Epithelia <0.10 kU/L (Class 0); Elm, American White <0.10 kU/L (Class 0); Hazelnut Tree <0.10 kU/L (Class 0); Hickory, White <0.10 kU/L (Class 0); Johnson Grass <0.10 kU/L (Class 0); Maple/Box Elder 0.14 kU/L (Class 0/I); Mucor racemosus <0.10 kU/L (Class 0); Mugwort <0.10 kU/L (Class 0); Mulberry, White <0.10 kU/L (Class 0); Oak, White <0.10 kU/L (Class 0); Penicillium chrysogen <0.10 kU/L (Class 0); Pigweed, Rough <0.10 kU/L (Class 0); Plantain, English <0.10 kU/L (Class 0); Ragweed, Short/Common 0.23 kU/L (Class 0/I); Sheep Sorrel(Dock) <0.10 kU/L (Class 0); Stemphylium herbarum <0.10 kU/L (Class 0); Sweet Gum <0.10 kU/L (Class 0); Sycamore, American <0.10 kU/L (Class 0)
[2022-06-21 17:58] LABS: Nettle <0.10 kU/L (Class 0)
== END | disposition home or self-care (01) ==
LOC: PAVLAB 11:38
PROVIDERS: PCP Family Medicine; Visit Provider Family Medicine
DX: K58.9 Irritable bowel syndrome, unspecified (principal)
CPT/HCPCS: 36415; 80053; 82784; 83516; 85025; 85652; 86003; 86255

== ENCOUNTER → 2022-06-17 | Outpatient (CLI) | payer BC, SELFPAY ==
[2022-06-20 17:45] LABS: Pancreatic Elastase, Fecal 331 (>200)
== END | disposition home or self-care (01) ==
LOC: LABSPEC 08:55
PROVIDERS: PCP Family Medicine; Visit Provider Family Medicine
DX: K58.9 Irritable bowel syndrome, unspecified (principal)
CPT/HCPCS: 82653

== ENCOUNTER 2022-06-20 16:30 | Outpatient (RCR) | payer BC, SELFPAY ==
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
--- NOTE | 2022-02-17 12:45 | HP.PTREVAL ---
LUCY WELDON, It has been my pleasure to treat GENNY GOODEN over the last 9 visits for displaced pilon fracture of R tibia with ORIF 11/25. Please see the progress note below for an update on the physical therapy plan of care! Subjective: Pt. reports overall doing a bit better. She is still having touble with walking in shoe at home. She reports being hesitant to increase walking due to being fearful. I have urged her to work on DF ROM as well. No pain noted pre treatment today. Objective/Function: ROM: R ankle: DF 2deg, PF 28deg, INV 4deg, EVR 4deg. Pt. continues to be very stiff with DF. I am concerned with her lack of progress with DF ROM. Consider dynamic splinting to increase constant stretching at home. Her strength is decent 4+/5 throughout RLE. GAIT: She is able to walk with shoe on, but has limited L step length with early R heel off and heavy use of AD. We have tried in // bars with similar success. She is working on stretching and wt shifting and walking at home. She does need to be more consistent with this and she reports she is. Plan Plan: Pt. is progress. Might benefit from dynamic splinting for DF ROM. Cont. to work on DF ROM and progress gait in shoe as tolerated. Balance/Gait/Functional tests - Balance/Special Test Scores Lower Extremity Functional Score: 14 Goals Goal 1:: LTG: Pt. to be I with HEP. Goal Time Frame: 4-6 Weeks Goal Progress: Progressing Goal 2:: STG: Pt. to have increased R ankle ROM to at least 10deg of DF allowing for increased tolerance with ambulation. Goal Time Frame: 2 Weeks Goal Progress: Progressing Goal 3:: STG: Pt. tolerate standing with FWW with foot flat on floor. Goal Time Frame: 2 Weeks Goal Progress: Goal Met Goal 4:: STG: Pt. to ambulate with normal pattern with FWW for 300' without increase in symptoms. Goal Time Frame: 2 Weeks Goal Progress: Progressing Goal 5:: LTG: Pt. to ambulate without AD without use of boot with normal gait pattern for 500'. Goal Time Frame: 4-6 Weeks Goal Progress: Progressing Goal 6:: LTG: Pt. to have increased MMT of RLE to 5/5 throughout. Goal Time Frame: 4-6 Weeks Anticipated Interventions Patient/Client Instruction: Educate patient on: Condition, Plan of Care, Risk Factors, Benefits of Fitness Program For the Purpose of:: To improve health and function, To foster healthy habits, To improve decision making, To facilitate caregiver knowledge, To improve self management, To prevent re-injury, To improve ability to perform tasks related to life management Therapeutic Exercise to Include: Strength training, Power training, Balance training, Coordination, Body mechanics, Postural training, Flexibilty training, Gait and locomotor training, Passive ROM, Active ROM For the Purpose of:: To decrease pain, To decrease swelling/inflammation, To increase ROM, To improve nutrient delivery to tissue, To increase oxygenation perfusion, To improve muscle performance and motor function, To improve ability to perform ADL's, To increase tolerance to activity/condition/position, To improve performance and independence with ADL's, To improve gait and locomotor functions, To improve health of tissue, To decrease soft tissue restriction, To increase flexibility/ROM, To improve endurance, To improve balance TENS: Yes Cryotherapy (ice pack, ice massage): Yes For the Purpose of:: To decrease pain, To increase ROM Please do not hesitate to contact me at [phone] by phone or if you have questions or concerns regarding this new plan of care! Sincerely, Ankur Simpson DPT
--- NOTE | 2022-07-20 13:23 | HP.PTREVAL ---
LUCY WELDON, It has been my pleasure to treat GENNY GOODEN over the last 30 visits for displaced pilon fracture of R tibia with ORIF 11/25. Please see the progress note below for an update on the physical therapy plan of care! Subjective: Pt. reports overall doing well. She reports she is walking better, but still need the cane with longer distances. She still reports increased edema throughout her leg. Not much pain at this point in time Objective/Function: ROM: R ankle: DF 8deg with passive over pressure. PF 41deg, INV 12deg, EVR 10deg. Pt. reports no pain with testing, but tightness in her calf. MMT: 5/5 throughout her R ankle, R knee is 5/5 as well. GAIT: with cane. Pt. had better step length lose to symmetrical. She dose have early heel off with R side and still appears slightly antalgic, but has improved. She does have increased R toeing out as well. WITHOUT AD, similar issues as above, but more antalgic like and decreased R stance phase. She continues to reports minimal pain with stance phase on R side. I talked with her about current limitations and suggested she continue to stretch frequently. She does have marked edema in her RLE and I would like her to talk to physician about this. She is to follow up with PCP. Plan Plan: Pt. to follow up with PCP and continue with exercises independently at this point in time. I will be in contact with PCP about her swelling. We will progress from there. Balance/Gait/Functional tests - Balance/Special Test Scores Lower Extremity Functional Score: 48 Goals Goal 1:: LTG: Pt. to be I with HEP. Goal Time Frame: 4-6 Weeks Goal Progress: Goal Met Goal 2:: STG: Pt. to have increased R ankle ROM to at least 10deg of DF allowing for increased tolerance with ambulation. Goal Time Frame: 2 Weeks Goal Progress: Goal Met Goal 3:: STG: Pt. tolerate standing with FWW with foot flat on floor. Goal Time Frame: 2 Weeks Goal Progress: Goal Met Goal 4:: STG: Pt. to ambulate with normal pattern with FWW for 300' without increase in symptoms. Goal Time Frame: 2 Weeks Goal Progress: Goal Met Goal 5:: LTG: Pt. to ambulate without AD without use of boot with normal gait pattern for 500'. Goal Time Frame: 4-6 Weeks Goal Progress: Progressing Goal 6:: LTG: Pt. to have increased MMT of RLE to 5/5 throughout. Goal Time Frame: 4-6 Weeks Goal Progress: Goal Met Anticipated Interventions Patient/Client Instruction: Educate patient on: Condition, Plan of Care, Risk Factors, Benefits of Fitness Program For the Purpose of:: To improve health and function, To foster healthy habits, To improve decision making, To facilitate caregiver knowledge, To improve self management, To prevent re-injury, To improve ability to perform tasks related to life management Therapeutic Exercise to Include: Strength training, Power training, Balance training, Coordination, Body mechanics, Postural training, Flexibilty training, Gait and locomotor training, Passive ROM, Active ROM For the Purpose of:: To decrease pain, To decrease swelling/inflammation, To increase ROM, To improve nutrient delivery to tissue, To increase oxygenation perfusion, To improve muscle performance and motor function, To improve ability to perform ADL's, To increase tolerance to activity/condition/position, To improve performance and independence with ADL's, To improve gait and locomotor functions, To improve health of tissue, To decrease soft tissue restriction, To increase flexibility/ROM, To improve endurance, To improve balance TENS: Yes Cryotherapy (ice pack, ice massage): Yes For the Purpose of:: To decrease pain, To increase ROM Please do not hesitate to contact me at [phone] by phone or if you have questions or concerns regarding this new plan of care! Sincerely, Ankur Simpson DPT
== END 2022-06-20 19:00 | disposition home or self-care (01) ==
LOC: PT 16:30
PROVIDERS: PCP Family Medicine
DX: S82.871 Displaced pilon fracture of right tibia (principal); X58.XXXD Exposure to other specified factors, subsequent encounter
CPT/HCPCS: 97110; 97161; 97164

== ENCOUNTER → 2022-07-07 | Outpatient (CLI) | payer BC, SELFPAY | END | disposition home or self-care (01) | LOC: MTLAB 10:22 | PROVIDERS: PCP Family Medicine; Referring Provider Family Medicine; Visit Provider Family Medicine | DX: D64.9 Anemia, unspecified (principal) | CPT/HCPCS: 36415; 86140 ==

== ENCOUNTER → 2022-08-02 | Outpatient (CLI) | payer BC, SELFPAY ==
--- NOTE | 2022-08-02 17:06 | RAD_ITS ---
STUDY: X-RAY - RIGHT ANKLE REASON FOR EXAM: Female, 27 years old. PAIN TECHNIQUE: 3 view(s) of the ankle. COMPARISON: November 24, 2021 left ankle x-ray FINDINGS: There is a side plate cortical screws in the medial aspect of the right tibia transfixing a prior fracture of the distal left tibia. There is improved alignment. There are persistent lucencies in the distal tibia compatible with residual fracture lines. There is soft tissue edema about the ankle. There is visualized degenerative change of the tibiotalar joint. Normal visualized talus and calcaneus. The visualized subtalar, talonavicular, calcaneocuboid and tarsal articulations are normal. RAD/Ankle min 3 Views IMPRESSION: Status post open reduction internal fixation left ankle in anatomic position and alignment however there is degenerative change of the left ankle joint. There residual visualized fracture lines. There is mild soft tissue edema. Electronically Signed: Neyda Stevens MD at 2:35 EDT ,
== END | disposition home or self-care (01) ==
LOC: MTRAD 16:55
PROVIDERS: PCP Family Medicine; Referring Provider Family Medicine; Visit Provider Family Medicine
DX: M19.072 Primary osteoarthritis, left ankle and foot (principal)
CPT/HCPCS: 73610

== ENCOUNTER → 2022-08-16 | Outpatient (CLI) | payer BC, OTHER, SELFPAY ==
--- NOTE | 2022-08-16 11:18 | US_ITS ---
STUDY: ULTRASOUND OF THE FEMALE PELVIS - COMPLETE REASON FOR EXAM: Female, 27 years old. Ovarian cyst LMP: Unknown. TECHNIQUE: Transabdominal and Transvaginal TECHNICAL QUALITY: Adequate. COMPARISON: None. FINDINGS: The uterus is anteverted and is in a midline position. The uterus measures 7 cm x 3.8 cm x 2.8 cm. Normal uterine cervix. The endometrium measures 4.7 mm in thickness, and is heterogeneous (striated). Small amount of fluid is seen within the cervical canal. There is no demonstrated endometrial mass. There is no demonstrated myometrial mass. I.U.D. - The patient does not have an I.U.D. The right ovary is visualized. The right ovary measures 3 cm x 2.3 cm x 2 cm. There is no right ovarian cyst or ovarian mass. There is no visualized right adnexal mass or complex lesion. There is normal arterial and normal venous vascularity. The left ovary is visualized. The left ovary is enlarged and measures 7.8 cm x 4.9 cm x 4.7 cm. There is evidence of a multiseptated complex solid and cystic mass measuring 7 cm x 4.2 side by 4.6 cm. Clinical correlation is suggested and further follow-up. There is no visualized left adnexal mass or complex lesion. There is normal arterial and normal venous vascularity. There is no fluid in the cul-de-sac. The pre void volume of the bladder was 59 ml. US/Pelvic (Non ) IMPRESSION: 7 cm x 4.2 cm x 4.6 cm complex solid and cystic mass with solid components and increased vascularity in the left ovary. A neoplastic process should be ruled out. Electronically Signed: Madi Collins MD at 14:17 EDT ,
--- NOTE | 2022-08-16 11:18 | US_ITS ---
STUDY: ULTRASOUND OF THE FEMALE PELVIS - COMPLETE REASON FOR EXAM: Female, 27 years old. Ovarian cyst LMP: Unknown. TECHNIQUE: Transabdominal and Transvaginal TECHNICAL QUALITY: Adequate. COMPARISON: None. FINDINGS: The uterus is anteverted and is in a midline position. The uterus measures 7 cm x 3.8 cm x 2.8 cm. Normal uterine cervix. The endometrium measures 4.7 mm in thickness, and is heterogeneous (striated). Small amount of fluid is seen within the cervical canal. There is no demonstrated endometrial mass. There is no demonstrated myometrial mass. I.U.D. - The patient does not have an I.U.D. The right ovary is visualized. The right ovary measures 3 cm x 2.3 cm x 2 cm. There is no right ovarian cyst or ovarian mass. There is no visualized right adnexal mass or complex lesion. There is normal arterial and normal venous vascularity. The left ovary is visualized. The left ovary is enlarged and measures 7.8 cm x 4.9 cm x 4.7 cm. There is evidence of a multiseptated complex solid and cystic mass measuring 7 cm x 4.2 side by 4.6 cm. Clinical correlation is suggested and further follow-up. There is no visualized left adnexal mass or complex lesion. There is normal arterial and normal venous vascularity. There is no fluid in the cul-de-sac. The pre void volume of the bladder was 59 ml. US/Transvaginal Non- IMPRESSION: 7 cm x 4.2 cm x 4.6 cm complex solid and cystic mass with solid components and increased vascularity in the left ovary. A neoplastic process should be ruled out. Electronically Signed: Madi Collins MD at 14:17 EDT ,
== END | disposition home or self-care (01) ==
LOC: US 11:17
PROVIDERS: PCP Family Medicine; Referring Provider Obstetrics & Gynecology; Visit Provider Obstetrics & Gynecology
DX: N83.292 Other ovarian cyst, left side (principal)
CPT/HCPCS: 76830; 76856

== ENCOUNTER → 2022-08-22 | Outpatient (CLI) | payer BC, OTHER, SELFPAY ==
[2022-08-24 10:38] LABS: Cancer Antigen 125 6.5 U/mL (0.0-38.1); Carcinoembryonic Antigen 0.3 ng/mL (0.0-4.7)
== END | disposition home or self-care (01) ==
LOC: LAB 12:09
PROVIDERS: PCP Family Medicine; Visit Provider Obstetrics & Gynecology
DX: N83.202 Unspecified ovarian cyst, left side (principal)
CPT/HCPCS: 36415; 82378; 86304

== ENCOUNTER 2022-09-15 08:50 | Day surgery (SDC) | payer BC, OTHER, SELFPAY ==
--- NOTE | 2022-09-11 22:55 | PCM.HP.BLA ---
History and Physical [facility] [address] [place] [address] OFFICE VISIT Date of Service:? 08/28/22 MR#: [id number] Acct: [id number] Name:VENUS BENÍTEZ Rep #: [id number] : 1995 ? ? Provider: Dr. Ellie Toledo MD Age/Sex:? 27/F ? ? Location: [facility] – [place] Status: Signed Intake Vital Signs ? 08/28/2216:30 08/28/2216:32 Height 5 ft 5 in 5 ft 5 in Weight: 331 lb 4 oz ? BMI 55.1 ? BP 133/85 H ? Intake Visit Reasons:?ovarian cystectomy possible oophorectomy Chief Complaint: ovarian cyst/ surgery consult Clinic Lead Required: No Is patient in pain?: Yes Pain scale (1-10): 4 Allergies iodine Allergy (Verified 08/28/22 16:31) Rash Medications sertraline 50 mg tablet (Zoloft) 50 mg PO DAILY 08/03/22 [History Confirmed 08/28/22] meloxicam 7.5 mg tablet 7.5 mg PO DAILY 08/28/22 [History Confirmed 08/28/22] Post menopausal: No Patient : No : No PFSH Medical History? Anemia Anxiety Bruises easily Diarrhea Difficulty balancing Fatigue Headache Surgical History? Hx of cholecystectomy Family History? Other Arthritis Cancer Diabetes Hypertension Social History? household members:? children number of children:? 1 current occupational status:? employed current occupation:? [employer] history of recent travel:? No sexually active:? No Smoking Status:? Never smoker alcohol intake:? never substance use type:? does not use caffeine:? No frequency:? 1-2 times per week seatbelt use:? always do you feel safe at home:? Yes HPI ovarian cystectomy possible oophorectomy Details: VENUS GOODEN is a 27 year old who presents for discussion of ovarian cyst.? she has a complex solid and cystic lesion and it has increased blood flow and has intermittent pain in that area.? nl cea and ca125.? she has had intermittent lower pelvic pain and it was originally seen on ct scan and now is getting bigger and has a solid and cystic component. she has pain with intercourse also likely due to this. History ? ? ? 1 ? Elective abortions ? Hx Para ? ? ? 1 ? Spontaneous abortions ? Hx # Term Pregnancies ? Ectopic pregnancies ? Hx # Pregnancies ? Multiple births ? # of living children ? ? ? 1 Past Pregnancies Del. Date Name GA/Weeks Outcome Route Bth Weight Infant Gen Labor Lgth Anesthesia Del Locatn Provider FOB 06/28/18 Yasmin 40 live - full term 6lbs 14oz Female ? epidural [facility] ELENA Harsh ROS Const Constitutional: Reports fatigue and weight gain; Denies fever(s) Cardio Card: Denies chest pain Resp Resp: Denies cough or dyspnea GI GI: Reports as per HPI : Reports as per HPI; Denies nipple discharge Skin Skin/Breast: Denies change in hair, breast mass, breast pain, breast skin changes or nipple discharge Exam Const General: cooperative, healthy appearing, comfortable, no acute distress, well developed and well groomed Nutritional Appearance: average body habitus Orientation: alert [facility] Head: normal to inspection and normocephalic Neck Neck: normal visual inspection and trachea midline Thyroid: thyroid normal Resp Effort & Inspection: normal respiratory effort GI Inspection: normal to inspection and non-distended Palpation: soft, no hepatosplenomegaly, not firm, no guarding, no masses and tender (generalized) Skin General: no rashes or lesions noted Coding Level of Care Code Off vis,est,level 4 Diagnoses Left ovarian cyst? N83.202 Dyspareunia? Assessment and Plan Assessment and Plan (1) Left ovarian cyst: ?Status:?Acute ?Comment: 7 cm complex plan laparoscopic cystectomy (2) Dyspareunia: ?Status:?Acute ?Comment: possibly due to ovarian cyst. Plan After discussing the patient's diagnosis and treatment plan options, patient wishes to proceed with surgical management.? I have discussed with the patient the risks, benefits, and alternatives of the procedure which include but are not limited to risks of anesthesia, bleeding, infection, possible damage to bowel, bladder, or surrounding vasculature which could lead to additional surgery to evaluate any complications.? Patient agrees to procedure and wishes to proceed.? ACOG/uptodate references given for additional information regarding procedure.? UPDATE- I have seen the patient and performed any clinically relevant updates to the history and physical exam. Ellie Toledo MD
--- NOTE | 2022-09-12 12:16 | EKG12_ITS ---
Test Reason : PREOP Blood Pressure : / mmHG Vent. Rate : 068 BPM Atrial Rate : 068 BPM P-R Int : 134 ms QRS Dur : 084 ms QT Int : 396 ms P-R-T Axes : 052 006 023 degrees QTc Int : 421 ms Sinus rhythm with marked sinus arrhythmia Otherwise normal ECG Confirmed by ELIZABETH ZHANG, GIACOMO ([id number]), scientific publications editor PITER SHARIF ([id number]) on 09/13/2022 9:32:45 AM Referred By: Ellie Toledo Confirmed By:GIACOMO JOHNSON MD
[2022-09-12 13:14] LABS: Hematocrit 37.7 % (37-47); Hemoglobin 11.7 g/dL (12.0-15.0); Mean Corpuscular Volume 70.7 fL (81-99); Mean Platelet Vol. 9.2 fl (6.2-12.0); Platelet Count 331 K/mm3 (150-450); RBC Distribution Width CV 17.3 % (11.6-14.6); RBC Distribution Width SD 43.8 fl (35.1-43.9); Red Blood Count 5.33 M/mm3 (4.2-5.4); White Blood Count 8.9 K/mm3 (4.4-11.0)
[2022-09-12 13:18] LABS: Partial Thromboplast Time 33.2 Seconds (24.1-36.2)
[2022-09-12 13:26] LABS: International Normalized Ratio 0.9; Prothrombin Time (Protime)PT. 12.3 SECONDS (11.7-14.9)
[2022-09-12 13:40] LABS: AST(SGOT) 12 U/L (15-37); Alanine Aminotransfer ALT/SGPT 20 U/L (13-56); Albumin, Serum 3.5 g/dL (3.2-5.0); Alkaline Phosphatase 83 U/L (45-117); Anion Gap 5 (5-15); BUN 13 mg/dL (7-18); BUN/Creat Ratio 22.1 RATIO (10-20); Bilirubin, Direct 0.14 mg/dL (0.00-0.30); Calcium,Total 9.1 mg/dL (8.5-10.1); Chloride 109 mmol/L (98-107); Creatinine, Serum 0.59 mg/dL (0.55-1.02); EST Glomerular Filtration Rate 133 mL/min (>60); Est Glom Filt Rate - Afr Amer 161 mL/min (>60); Globulin 4.3 g/dL (2.2-4.2); Glucose 83 mg/dL (74-106); Potassium 3.8 mmol/L (3.5-5.1); Protein, Total 7.8 g/dL (6.4-8.2); Sodium Level 139 mmol/L (136-145)
[2022-09-15] VITALS (7 sets, daily range): BP systolic 113–140; BP diastolic 63–120; PULSE 80–131; RESP 16–20; TEMP 36.3–37.1; O2SAT 94–99; BMI 53.5
[2022-09-15 09:38] LABS: Internal QC Validated? YES +Cl - CLEAR BKGD; Pregnancy, Urine Negative Negative
[2022-09-15] MEDS: Lactated Ringers 1,000 ML 125 ML IV (09:56)
--- NOTE | 2022-09-15 10:25 | CYST_PTH ---
PATIENT: GENNY FELDMAN LOC: [facility] – [place] U#:[id number] AGE/SX: 27/F ROOM: RE09/15/[address]: Dr. Ellie Toledo MD : 1995 BED: DIS: 09/15/2022 SPEC #: [id number] RECD: 09/15/22 13:39 STATUS: KATEY RAMIREZ #: [id number] ENRIQUE: 09/15/22 10:[address]: Ellie Toledo DEPT: SURGICAL PATHOLOGY RECD BY: Amy Cabrera ENTERED: 09/18/22 08:38 SP TYPE: Cyst OTHR DR: MD Dr. Tyler Lott MD Tissues: Left ovary Procedures: Surgery Specimen Level V HEADER OPERATION: Laparoscopic left ovarian cystectomy, left salpingo-oophorectomy PRE-OP DIAGNOSIS: Left ovarian cyst TISSUE SUBMITTED: Left ovary, fallopian tube and cyst MICROSCOPIC DIAGNOSIS Left ovary, fallopian tube and cyst, left salpingo-oophorectomy: Mature cystic teratoma (dermoid cyst). Fallopian tube with no pathologic change. AM:codie 09/19/2022 COMMENT Reference is made to corresponding cytology case [id number]. MICROSCOPIC DESCRIPTION Slides are reviewed. GROSS DESCRIPTION Received in fixative is one container labeled with the patient's name and designated left ovary, fallopian tube, cyst. The specimen consists of a cystic ovary that has previously been excised and measuring 7 x 4 x 2.5 cm. Adjacent to this is a fallopian tube with a normal appearing fimbrial end and the fallopian tube measures 4 cm in length and 0.5 cm in average diameter. Present free in the container are multiple irregular fragments of hair and pink-yellow fibrofatty tissue measuring in aggregate 5 x 3 x 1 cm. The external surface of the ovary is inked to reveal mobile cystic cut surfaces. Supervisor Hand Silvering sections of fallopian tube are submitted in cassette 4. / AM:codie 09/18/2022 TC:1 CPT: 97848
--- NOTE | 2022-09-15 10:25 | FLU_PTH ---
PATIENT: GENNY FELDMAN LOC: [facility] – [place] U#:[id number] AGE/SX: 27/F ROOM: RE09/15/[address]: Dr. Ellie Toledo MD : 1995 BED: DIS: 09/15/2022 SPEC #: [id number] RECD: 09/15/22 13:39 STATUS: KATEY REMisael #: [id number] ENRIQUE: 09/15/22 10:[address]: Ellie Toledo DEPT: CYTOLOGY RECD BY: Amy Cabrera ENTERED: 09/18/22 08:31 SP TYPE: Fluid OTHR DR: MD Dr. Tyler Lott MD Tissues: Left ovary Procedures: Special Stain Group II Surgery Specimen Level IV Cytospin Fluid HEADER OPERATION: Laparoscopic left ovarian cystectomy, left salpingo-oophorectomy PRE-OP DIAGNOSIS: Left ovarian cyst TISSUE SUBMITTED: Left ovarian cyst fluid for cytology DIAGNOSIS CYTOLOGY Left ovarian cyst fluid for cytology (cytospin and cell block): Macrophages consistent with benign cyst contents. AM:codie 09/19/2022 COMMENT Reference is made to corresponding surgical case [id number]. CYTOLOGY STUDY Slides are reviewed. CYTOLOGY GROSS Received is 60 ml of red cloudy fluid with fatty particles labeled with the patient's name and and designated per the requisition as left ovarian cyst. Submitted for cytology preparation including cell block. / codie 09/18/2022 TC:5 CPT: 68371, 55327
--- NOTE | 2022-09-15 10:29 | OP.PCM_ITS ---
Problems Associated Problem List Diagnoses (1) Left ovarian cyst: (2) Dyspareunia: (3) H/O oophorectomy: Report of Operation Date of Procedure: 09/15/22 Pre-Operative Diagnosis: see problem list Post-Operative Diagnosis: same Surgery/Procedure Performed:: laparoscopic LEFT salpingoo-ophorectomy Description of Surgical Findings:: enlarged left abnormal ovary Surgeon: Ellie Toledo reading interventionist: Felisa Andre Type of Anesthesia: General and Local Special Medications: none Specimen's removed: tube and ovary Drains: none Estimated Blood Loss (mL): 50 Fluids Replaced: crystalloid Description of Procedure: Patient was taken in the operating room and was placed under general anesthesia was prepped and draped in normal sterile fashion in the dorsal lithotomy position. Bladder was drained of clear urine and SCDs were on preoperatively. Uterus was sounded and a uterine manipulator was placed after dilating. Attention was then paid to the abdominal portion of the procedure and the umbilicus was elevated with towel clamps and injected with Marcaine and after a 5 mm incision was made and the Veress needle was entered into the abdomen confirmed to be intra-abdominal with a low opening pressure of less than 5 mmHg. Abdomen was insufflated with CO2 gas and a 5 mm optical trocar was placed under direct visualization. A right 5 and left lower 12mm quadrant ports were placed under direct visualization. Uterus was well visualized and bilateral fallopian tubes and ovaries were identified and the left infundibulopelvic ligament was transected across using the LigaSure device followed by transecting across the mesosalpinx to the attachment to the uterine corpus the left tube and ovary was removed without complication. Excellent hemostasis was noted. Specimens were removed through the umbilical port site through a bag without any intra- abdominal spillage of contents. dermoid contents were seen. The fascial incision was closed externally using o vicryl. ace placed over raw areas and hemostasis noted. Liver and upper abdomen were visualized notably within normal limits and no other gross abnormalities were seen in the abdomen. All instruments removed from the abdomen after gas was desufflated. Port sites were closed with 3-0 Monocryl Steri's and op sites were applied. All instruments removed from the vagina and patient was awoken and taken recovery in stable condition. Grafts/Implants Used: none Complications none Admit VTE Documentation VTE Present on Admission: No VTE Mechan Device Prophylaxis: SCD's Procedures Urinary/Genital 52xxx-59xxx: 61547 Laproscopic BS/O
--- NOTE | 2022-09-15 10:30 | DCINST_ITS ---
Discharge Instructions Diet Discharge Diet: No restrictions Activity Discharge Activity: Return to Normal Activity, May Drive (when pain free) and May Shower May resume sexual activity in: 1 week Weight Bearing Status: Full weight bearing Lifting Restrictions: 30 lbs for 2 weeks Dressing / Incision Call your doctor if your incision/area has: Continuous Slow Oozing, Sudden Increased Bleeding, Increased Pain/ Swelling, Increased Redness and Foul Smelling Discharge Call your doctor if you observe: Fever of 101 or Higher, Using more than 1 pad per hour, Shortness of breath, Chest pain and Uncontrolled pain Suture Line Care: Avoid Pulling/Pushing and Avoid Pinching/Bending Remove Dressing in: 1 week (if present) Cleanse incision/area with: Soap & Water and Keep Dressing Clean & Dry Follow Up Care Please Follow Up With: Ellie Toledo MD When: Call to make an appointment with your doctor for a postop visit in 2 weeks Test Results: Test results from this visit will be discussed in further detail at your follow- up appointment, if applicable. Discharge Plan Admission Attending Provider: Ellie Toledo Primary Care Provider: Zbigniew Mathis Consulting Providers: Karri Ramos Discharge Orders/Prescriptions Prescriptions: New oxycodone-acetaminophen [Percocet] 5-325 mg tablet 1 tab PO Q6H PRN (Reason: pain) 7 Days Qty: 20 0RF Continued sertraline [Zoloft] 50 mg tablet 50 mg PO DAILY meloxicam 7.5 mg tablet 7.5 mg PO DAILY Referrals / Follow Up: Zbigniew Mathis MD [Primary Care Provider] - Disposition Disposition (needs filled in before D/C Order can be placed): Home, Self Care
[2022-09-15] MEDS: HYDROcodone Bitartrate/Apap 5/325 Tablet PO (13:22)
== END 2022-09-15 15:06 | disposition home or self-care (01) ==
LOC: SDC 08:53 → AC 08:53
PROVIDERS: Anesthesiology; PCP Family Medicine; Referring Provider Obstetrics & Gynecology; Visit Provider Obstetrics & Gynecology
PROC: (CPT 58720; principal; 2022-09-15 10:10)
DX: D27.1 Benign neoplasm of left ovary (principal); N94.10 Unspecified dyspareunia; F32.A Depression, unspecified; F41.9 Anxiety disorder, unspecified; Z90.721 Acquired absence of ovaries, unilateral; Z79.899 Other long term (current) drug therapy; Z86.16 Personal history of COVID-19
CPT/HCPCS: 58661; 00840; 36415; 80048; 80076; 81025; 85027; 85610; 85730; 86850; 86900; 86901; 88108; 88305; 88307; 88313; 93005; J7120; J2405

== ENCOUNTER 2022-09-18 19:31 | Emergency (ER) | payer BC, OTHER, SELFPAY ==
[2022-09-18 19:32] VITALS: BP 169/90; PULSE 141; RESP 18; TEMP 36.7; O2SAT 97; BMI 53.4
[2022-09-18 19:45] VITALS: BP 169/90; PULSE 141; RESP 18; TEMP 36.7; O2SAT 97
--- NOTE | 2022-09-18 20:03 | EDS_ITS ---
HPI History of Present Illness Chief Complaint: Wound Check Narrative Narrative: Patient presents with concerns for an infection in one of her abdominal incision sites. She is post-op day 3 after having a laparoscopic left ovarian cyst removal. Patient states the incision site feels warm, painful, and tender. She had a 100.3 degree fever that she treated with Tylenol before coming to the ED. She denies discharge from the incision site, nausea, vomiting, difficulty urinating, and painful urination. PFSH PFS Medical History Ambulates with cane Anemia Anxiety Arthritis Depression Dermoid cyst Difficulty balancing History of edema History of steroid therapy Hx of fracture of ankle Migraine headache Non-smoker PTSD (post-traumatic stress disorder) Shortness of breath on exertion Wears glasses Home Medications sertraline 50 mg tablet (Zoloft) 50 mg PO DAILY 08/03/22 [History Last Taken Unknown] oxycodone-acetaminophen 5 mg-325 mg tablet (Percocet) 1 tab PO Q6H PRN pain 7 days #20 tabs 09/15/22 [Rx Last Taken Unknown] Allergy/AdvReac Type Severity Reaction Status Date / Time iodine Allergy Rash Verified 09/18/22 19:34 Family History Other Arthritis Cancer Diabetes Hypertension Surgical History Hx of cholecystectomy Hx of wisdom tooth extraction Social History household members: children number of children: 1 current occupational status: employed current occupation: [employer] history of recent travel: No sexually active: No Smoking Status: Never smoker alcohol intake: never substance use type: does not use caffeine: No frequency: 1-2 times per week seatbelt use: always do you feel safe at home: Yes ROS ROS ED Constitutional Constitutional ED: Reports fever(s); Denies chills or sweats Eyes Eyes: Denies change in vision ENT ENT ED: Denies rhinorrhea or sore throat Cardiovascular Cardiovascular: Denies chest pain Respiratory/Chest Respiratory/Chest: Denies cough, dyspnea, shortness of breath at rest or shortness of breath with exertion Gastrointestinal Gastrointestinal: Denies abdominal pain, constipation, diarrhea, nausea or vomiting Genitourinary Genitourinary ED: Denies dysuria or hematuria Musculoskeletal Musculoskeletal: Denies myalgias Integumentary Denies abscess, Abrasions or rash Neurologic Neurologic: Denies headache(s) or weakness Hematologic/Lymphatic Hematologic/Lymphatic: Denies easy bleeding or easy bruising EXAM Physical Exam Const Vital Signs: 09/18/22 19:32 09/18/22 19:45 Temperature 98.0 F 98.0 F Temperature Source Oral Oral Pulse Rate 141 H 141 H Respiratory Rate 18 18 Blood Pressure 169/90 H 169/90 H Blood Pressure Mean 116 116 Pulse Ox 97 97 Oxygen Delivery Method Room Air Room Air Positive well developed and obese General Appearance ED: well developed Nutritional Appearance: obese HEENT Reports moist mucous membranes Negative for trauma or tenderness Eyes PERRL and EOMs intact bilaterally Neck supple General: Negative for tenderness Resp normal respiratory effort and clear to auscultation bilaterally Auscultation: Negative for rales, rhonchi, wheezes or diminished lung sounds Cardio regular rate, regular rhythm and no murmurs GI normal to inspection, nondistended, normoactive bowel sounds; Negative for hepatosplenomegaly or no masses GI Narrative: Tenderness to palpation along lower left incision site. Extremity normal to inspection General Extremety ED: Negative for edema General Extremity: Negative for edema Neuro oriented x3 and no sensory deficits noted Sensorium / Orientation: alert Psych mental status grossly normal Skin Skin Narrative: Patient has 3 abdominal incision sites. Mild ecchymosis surrounding the left lower incision site. No purulent discharge, erythema, or signs of infection in any of the incision sites. Rashes: No rashes noted MDM MDM MDM Narrative Medical decision making narrative: Because patient had a fever postop, I have ordered basic labs and a UA. Because she is tachycardic with a heart rate of 141 I will be giving her normal saline IV. Lab Data Attestation: I reviewed the patient's lab results. Labs: Laboratory Results - last 24 hr 09/18/22 09/18/22 09/18/22 20:35 20:35 21:00 WBC 10.7 RBC 5.72 H Hgb 12.6 Hct 41.3 MCV 72.2 L MCH 22.0 L MCHC 30.5 L RDW Std Deviation 44.4 H RDW Coeff of [place]ed[place] 17.5 H Plt Count 319 MPV 9.7 Immature Gran % (Auto) 0.400 Neut % (Auto) 65.6 Lymph % (Auto) 26.2 Terrell % (Auto) 3.8 Eos % (Auto) 3.5 Baso % (Auto) 0.5 Absolute Neuts (auto) 7.0 Absolute Lymphs (auto) 2.79 Nucleated RBC % 0 Sodium 140 Potassium 3.4 L Chloride 109 H Carbon Dioxide 24.0 Anion Gap 7 BUN 10 Creatinine 0.97 Estim Creat Clear Calc 79.78 Est GFR (MDRD) Af Amer 90 Est GFR (MDRD) Non-Af 74 BUN/Creatinine Ratio 10.3 Glucose 86 Calcium 9.6 Total Bilirubin 0.60 AST 15 ALT 22 Alkaline Phosphatase 88 Total Protein 8.2 Albumin 3.6 Globulin 4.6 H Albumin/Globulin Ratio 0.8 L Urine Color Yellow Urine Clarity Clear Urine pH 6.0 Ur Specific [place] 1.025 Urine Protein 15 H Urine Glucose (UA) Normal Urine Ketones 5 H Urine Occult Blood 10 H Urine Nitrite Negative Urine Bilirubin Negative Urine Urobilinogen Normal Ur Leukocyte Esterase 100 H Discharge Plan Triage Chief Complaint: Wound Check ED Midlevel Provider: Annemarie Cortes ED Provider: Zack Hinds Dx/Rx/DC Orders Prescriptions: No Action sertraline [Zoloft] 50 mg tablet 50 mg PO DAILY oxycodone-acetaminophen [Percocet] 5-325 mg tablet 1 tab PO Q6H PRN (Reason: pain) 7 Days Qty: 20 0RF Primary Care Provider: Zbigniew Mathis Referrals: Zbigniew Mathis MD [Primary Care Provider] -
[2022-09-18] MEDS: 0.9% Normal Saline 1,000 ML 999 ML IV (20:37)
[2022-09-18 21:10] LABS: Absolute Lymphocyte Count 2.79 X10^3/uL (0.83-4.51); Basophil# 0.05 X10^3/uL; Basophil% 0.5 % (0-1); Eosinophil# 0.37 X10^3/uL; Eosinophils% 3.5 % (0-5); Hematocrit 41.3 % (37-47); Hemoglobin 12.6 g/dL (12.0-15.0); Lymphocyte # 2.79 X10^3/ul (0.83-4.51); Lymphocyte % 26.2 % (19-41); Mean Corp Hgb Conc 30.5 g/dL (32-36); Mean Corpuscular Volume 72.2 fL (81-99); Mean Platelet Vol. 9.7 fl (6.2-12.0); Monocyte# 0.41 X10^3/uL; Monocyte% 3.8 % (0-10); NRBC Flagged by Analyzer 0 % (0-5); Neutrophil % 65.6 % (47-70); Platelet Count 319 K/mm3 (150-450); RBC Distribution Width CV 17.5 % (11.6-14.6); RBC Distribution Width SD 44.4 fl (35.1-43.9); Red Blood Count 5.72 M/mm3 (4.2-5.4); White Blood Count 10.7 K/mm3 (4.4-11.0)
[2022-09-18 21:23] LABS: ALB/GLOB Ratio 0.8 RATIO (0.9-2.4); AST(SGOT) 15 U/L (15-37); Alanine Aminotransfer ALT/SGPT 22 U/L (13-56); Albumin, Serum 3.6 g/dL (3.2-5.0); Alkaline Phosphatase 88 U/L (45-117); Anion Gap 7 (5-15); BUN 10 mg/dL (7-18); BUN/Creat Ratio 10.3 RATIO (10-20); Calcium,Total 9.6 mg/dL (8.5-10.1); Chloride 109 mmol/L (98-107); Creatinine, Serum 0.97 mg/dL (0.55-1.02); EST Glomerular Filtration Rate 74 mL/min (>60); Est Glom Filt Rate - Afr Amer 90 mL/min (>60); Estimated Creatinine Clearance 79.78 ml/min; Globulin 4.6 g/dL (2.2-4.2); Glucose 86 mg/dL (74-106); Potassium 3.4 mmol/L (3.5-5.1); Protein, Total 8.2 g/dL (6.4-8.2); Sodium Level 140 mmol/L (136-145)
[2022-09-18 21:45] LABS: Red Blood Cells-Urine 0 SEEN /hpf (0-5)
[2022-09-18 21:58] LABS: Color, Urine Yellow (Yellow); Glucose, Dipstick Normal (Normal); Urine Bilirubin Dipstick Negative (Negative); Urine Clarity Clear (Clear)
[2022-09-18 21:59] LABS: Bacteria 1+ /hpf (None Seen); Ketone-Dipstick 5 mg/dl (Negative); Leukocyte Esterase-Dipstick 100 /ul (Negative); Mucous, Urine 1+ /hpf (<or=2+); Nitrite-Dipstick Negative (Negative); Occult Blood-Urine 10 /ul (Negative); Protein-Dipstick 15 mg/dl (Negative); Specific Gravity, Urine 1.025 (1.002-1.030); Squamous Epithelial Cells - UA 0-5 SEEN /hpf (5-10); Urine Urobilinogen Normal (Normal); White Blood Cells 0-5 SEEN /hpf (0-5)
== END 2022-09-18 22:29 | disposition home or self-care (01) ==
PROVIDERS: Physician Assistant; Emergency Provider Emergency Medicine; PCP Family Medicine; Visit Provider Emergency Medicine
DX: Z48.01 Encounter for change or removal of surgical wound dressing (principal); R50.9 Fever, unspecified; Z90.721 Acquired absence of ovaries, unilateral; M19.90 Unspecified osteoarthritis, unspecified site; F32.9 Major depressive disorder, single episode, unspecified; F41.9 Anxiety disorder, unspecified; F43.10 Post-traumatic stress disorder, unspecified; Z79.899 Other long term (current) drug therapy
CPT/HCPCS: 80053; 81001; 85025; 96360; 96361; 99282; J7030

== ENCOUNTER 2022-09-25 19:47 | Inpatient (IN) | payer BC, OTHER, SELFPAY ==
[2022-09-25 19:48] VITALS: BP 134/72; PULSE 133; RESP 22; TEMP 37.2; O2SAT 96; BMI 53.2
--- NOTE | 2022-09-25 20:38 | CT_ITS ---
INDICATION: pain, postop EXAMINATION: CT Abdomen And Pelvis W/ Contrast Injection TECHNIQUE: Helically acquired images were obtained of the abdomen and pelvis after IV contrast. A radiation dose optimization technique was used for this scan. IV Contrast dosage and agent: IV 100mL Isovue-370 Oral contrast: None. COMPARISON: None. FINDINGS: Visualized lung bases: Unremarkable Liver: Unremarkable Gallbladder: Unremarkable Spleen: Unremarkable Pancreas: Unremarkable Adrenal Glands: Unremarkable Kidneys: Unremarkable Vasculature: Unremarkable GI Tract: Unremarkable Lymphadenopathy: None Peritoneum: No ascites. Bladder: Unremarkable Reproductive organs: Unremarkable Bones/Soft tissues: Postsurgical changes in the subcutaneous tissue of the left lower anterior abdomen including a 4.9 x 7.7 x 7.[address]/Abdomen/Pelvis W IV Cont ONLY IMPRESSION: Postsurgical changes in the subcutaneous tissue of the left lower anterior abdomen including an 8 cm fluid collection which could represent an abscess versus seroma. Electronically Signed: Tyler Velazco MD at 23:25 EST ,
--- NOTE | 2022-09-25 20:38 | EKG12_ITS ---
Test Reason : DYSRHYTHMIA Blood Pressure : / mmHG Vent. Rate : 123 BPM Atrial Rate : 123 BPM P-R Int : 132 ms QRS Dur : 080 ms QT Int : 322 ms P-R-T Axes : 065 015 046 degrees QTc Int : 460 ms Sinus tachycardia Otherwise normal ECG Confirmed by ELIZABETH ZHANG, GIACOMO ([id number]), design editor PITER SHARIF ([id number]) on 09/26/2022 11:44:22 AM Referred By: RADHA Confirmed By:GIACOMO JOHNSON MD
--- NOTE | 2022-09-25 20:39 | CT_ITS ---
INDICATION: PE EXAMINATION: CTA Chest WO/W Contrast Injection TECHNIQUE: Helically acquired images were obtained of the chest following administration of IV contrast. A radiation dose optimization technique was used for this scan. 3D postprocessing images including MIPS were reviewed. IV Contrast dosage and agent: IV 100mL Isovue-370 COMPARISON: None. FINDINGS: Lungs: Unremarkable Mediastinum: The cardiomediastinal silhouette is not enlarged. No mediastinal, hilar or axillary adenopathy. The thoracic aorta is unremarkable. No obvious filling defect seen within the visualized pulmonary arteries. Pleura: Unremarkable Bones/Soft tissues: No suspicious osseous or soft tissue lesions Upper abdomen: No visualized abnormalities in the upper abdomen. CT/CTA Chest W/WO Contrast IMPRESSION: Very limited study for the evaluation of acute pulmonary emboli due to inadequate opacification of the pulmonary arteries. Despite limitations: No acute abnormalities in the chest. Specifically, no evidence of acute pulmonary emboli to the segmental level. Electronically Signed: Tyler Velazco MD at 23:20 EST ,
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
[2022-09-25 21:43] LABS: Lactic Acid 0.8 mmol/L (0.4-1.9)
[2022-09-25] MEDS: 0.9% Normal Saline 1,000 ML 1000 ML IV ×2 (21:44→23:29)
[2022-09-25] MEDS: DiphenhydrAMINE 50 MG/ML Syringe 25 MG IV (21:44)
[2022-09-25 21:47] VITALS: BP 130/77; PULSE 110; RESP 19; TEMP 37.2; O2SAT 99
[2022-09-25 21:56] LABS: Troponin-I HS 3 pg/mL (3.0-54.0)
[2022-09-26] VITALS (15 sets, daily range): BP systolic 116–149; BP diastolic 52–94; PULSE 99–130; RESP 16–21; TEMP 36.8–37.5; O2SAT 96–100; BMI 53.1
--- NOTE | 2022-09-26 00:29 | CT_ITS ---
PROCEDURE: CT DIRECTED ABSCESS DRAINAGE, left subcutaneous abscess collection. DATE OF EXAMINATION: 09/26/2022 INDICATION: Female, 27 years old. 5 cm x 7.7 cm abscess in the deep left lower quadrant subcutaneous tissues. PHYSICIAN: Dr. KEITH ZHANG CONSENT: Written informed consent was obtained having explained the risks, benefits and alternatives in detail with the patient who accepted the risks and agreed to proceed. Laboratory review and clinical assessment was performed. CONSCIOUS SEDATION PROTOCOL: The Drugs used were: 2 mg Versed, IV., and 75 mcg Fentanyl, IV. The sedation time was: 17 minutes. Conscious sedation was started at 9:10 AM and terminated at 9:27 AM. The conscious sedation protocol was independently monitored. RADIATION DOSAGE (If Supplied By Facility): CTDIvol = ( 29.14 ) mGy, DLP = ( 1461.93 ) mGycm Individualized dose optimization techniques were used for this CT. TECHNIQUE: CT sections were made through the abdomen and pelvis revealing an abscess in the deep subcutaneous tissues of the left lower anterior abdominal wall. The skin surface was prepped and draped in a sterile fashion. Puncture of this collection was performed initially with a 8 [place]oc[place] catheter and fluid was aspirated. A drainage catheter was then inserted into the collection and formed into position. Additional fluid was aspirated for a total of approximately 170 mL of cloudy red fluid. The catheter was sutured into position to allow for continued drainage. Followup CT reveals good position of the catheter. CT/CT Guidance Abscess Drg w/Cath IMPRESSION: 1. CT directed drainage of a fluid collection using CT image guidance and image documentation as described. 2. Conscious Sedation protocol utilized with independent monitoring Electronically Signed: Madi Collins MD at 10:00 EST ,
[2022-09-26] MEDS: 0.9% Saline Lock 10 ML Syringe IV ×2 (01:57→05:49)
[2022-09-26] MEDS: Acetaminophen 500 MG Tablet 1000 MG PO (02:00)
[2022-09-26 05:14] LABS: International Normalized Ratio 1.2
[2022-09-26 05:15] LABS: Partial Thromboplast Time 32.9 Seconds (24.1-36.2)
--- NOTE | 2022-09-26 06:58 | PCM.HP.STD ---
HPI - General General Date of Admission: 09/26/22 HPI Narrative GENNY GOODEN, is a 27 F who presents with left lower quadrant subcutaneous 4 x 7 cm abscess s/p laparoscopic oophorectomy dermoid cyst removal 10 days ago presented with tachyacardia and leukocytosis last night and ct scan with abscess. she co pain in the area and redness, warmth. [facility] Medical History Ambulates with cane Anemia Anxiety Arthritis Depression Dermoid cyst Difficulty balancing History of edema History of steroid therapy Hx of fracture of ankle Migraine headache Non-smoker PTSD (post-traumatic stress disorder) Shortness of breath on exertion Wears glasses Home Medications sertraline 50 mg tablet (Zoloft) 50 mg PO DAILY Check with primary doctor 08/03/22 [History Last Taken 09/24/22 21:00] oxycodone-acetaminophen 5 mg-325 mg tablet (Percocet) 1 tab PO Q6H PRN pain 7 days #20 tabs 09/15/22 [Rx Last Taken 09/22/22 20:00] Allergy/AdvReac Type Severity Reaction Status Date / Time iodine Allergy Rash Verified 09/25/22 19:48 Family History Other Arthritis Cancer Diabetes Hypertension Surgical History Hx of cholecystectomy Hx of wisdom tooth extraction S/P ovarian cystectomy Social History household members: children number of children: 1 current occupational status: employed current occupation: [employer] history of recent travel: No sexually active: No Smoking Status: Never smoker alcohol intake: never substance use type: does not use caffeine: No frequency: 1-2 times per week seatbelt use: always do you feel safe at home: Yes ROS Review of Systems ROS Unobtainable: due to mental status and other Constitutional Constitutional: Reports systems reviewed and no addt'l complaints, except as documented, fatigue and fever(s); Denies as per HPI, change in weight, malaise, weakness or other Eyes Eyes: Reports systems reviewed and no addt'l complaints, except as documented; Denies as per HPI, change in vision or other ENT HEENT: Reports systems reviewed and no addt'l complaints, except as documented Respiratory/Chest Respiratory/Chest: Reports systems reviewed and no addt'l complaints, except as documented Gastrointestinal Gastrointestinal: Reports systems reviewed and no addt'l complaints, except as documented and as per HPI Genitourinary Genitourinary: Reports as per HPI Musculoskeletal Musculoskeletal: Reports systems reviewed and no addt'l complaints, except as documented Neurologic Neurologic: Reports systems reviewed and no addt'l complaints, except as documented Psychiatric Psychiatric: Reports systems reviewed and no addt'l complaints, except as documented Endocrine Endocrinology: Reports systems reviewed and no addt'l complaints, except as documented Hematologic/Lymphatic Hematologic/Lymphatic: Reports systems reviewed and no addt'l complaints, except as documented Vital Signs Vital Signs Vital Signs: 09/25/22 19:48 09/25/22 21:47 09/25/22 21:47 Temperature 99 F 98.9 F 98.9 F Temperature Source Temporal Temporal Temporal Pulse Rate 133 H 110 H 110 H Respiratory Rate 22 H 19 H 19 H Respiratory Effort Respiratory Depth Respiratory Pattern Blood Pressure 134/72 H 130/77 H 130/77 H Blood Pressure Mean 92 94 94 Blood Pressure Source Blood Pressure Position Blood Pressure Location Pulse Ox 96 99 99 Oxygen Delivery Method Room Air Room Air Room Air 09/26/22 00:10 09/26/22 00:10 09/26/22 00:26 Temperature 98.7 F 99.5 F H Temperature Source Temporal Temporal Pulse Rate 130 H 130 H Respiratory Rate 20 H 21 H Respiratory Effort Respiratory Depth Respiratory Pattern Blood Pressure 149/90 H 149/90 H Blood Pressure Mean 109 109 Blood Pressure Source Blood Pressure Position Blood Pressure Location Pulse Ox 100 99 97 Oxygen Delivery Method Room Air Room Air Room Air 09/26/22 01:19 09/26/22 00:26 09/26/22 01:08 Temperature 99 F 99 F Temperature Source Temporal Temporal Pulse Rate 101 H 101 H Respiratory Rate 18 18 Respiratory Effort Normal Non-Labored Respiratory Depth Normal Respiratory Pattern Normal Blood Pressure 131/94 H 131/94 H Blood Pressure Mean 106 106 Blood Pressure Source Monitor Blood Pressure Position Semi-Fowlers Blood Pressure Location Left Forearm Pulse Ox 100 100 Oxygen Delivery Method Room Air Room Air Room Air 09/26/22 05:50 09/26/22 05:50 Temperature 99 F 99 F Temperature Source Temporal Temporal Pulse Rate 100 100 Respiratory Rate 16 16 Respiratory Effort Respiratory Depth Respiratory Pattern Blood Pressure 116/76 116/76 Blood Pressure Mean 89 89 Blood Pressure Source Monitor Blood Pressure Position Semi-Fowlers Blood Pressure Location Left Forearm Pulse Ox 98 98 Oxygen Delivery Method Room Air Room Air Weight Weight: 319 lb 6.4 oz Body Mass Index (BMI) 53.1 Physical Exam Const alert, oriented x3 and no apparent distress HEENT normocephalic Head and Scalp: atraumatic Eyes EOMs intact bilaterally and conjunctivae normal Neck full ROM, no lymphadenopathy, supple and thyroid normal General: trachea midline Lymph Lymphatic: no lymphadenopathy noted Resp normal respiratory effort, no retractions, no use of accessory muscles and clear to auscultation bilaterally Cardio Rate: tachycardic GI normal to inspection, nondistended, normoactive bowel sounds, soft to palpation, non-distended and no masses Inspection: Negative for abdominal distention Palpation: soft and other Other Details: left lower redness warmth tender swollen Back/Spine no CVA tenderness Extremity normal to inspection Skin no rashes or lesions noted Neuro moves all extremities and deep tendon reflexes 2+ bilaterally Psych mental status grossly normal Results Lab / Micro Data Result Diagrams: 09/26/22 04:23 09/26/22 04:23 Labs: Laboratory Results - last 24 hr 09/25/22 21:05: Lactic Acid 0.8 09/25/22 21:05: Troponin I High Sens 3 09/26/22 04:23: PT 15.0 H, INR 1.2, APTT 32.9 Radiology Impression Abdomen/Pelvis CT 09/25/22 20:38 IMPRESSION: Postsurgical changes in the subcutaneous tissue of the left lower anterior abdomen including an 8 cm fluid collection which could represent an abscess versus seroma. Electronically Signed: Tyler Velazco MD at 23:25 EST , Chest CTA 09/25/22 20:39 IMPRESSION: Very limited study for the evaluation of acute pulmonary emboli due to inadequate opacification of the pulmonary arteries. Despite limitations: No acute abnormalities in the chest. Specifically, no evidence of acute pulmonary emboli to the segmental level. Electronically Signed: Tyler Velazco MD at 23:20 EST , Assessment & Plan Assessment/Plan (1) Subcutaneous abscess: (2) Postoperative wound infection: (3) Tachycardia: (4) Sepsis: (5) H/O oophorectomy: (6) Class 3 severe obesity without serious comorbidity with body mass index (BMI) of 50.0 to 59.9 in adult: PLAN: Plan admit for IV zosyn, consult IR for ct guided drainage. npo for now with IVFs, scds. Charges/Coding Visit Charges Inpatient E&M: 70175 Init Hosp L3
[2022-09-26 07:44] LABS: Absolute Lymphocyte Count 2.51 X10^3/uL (0.83-4.51); Absolute Neutrophil Count 8.8 X10^3/uL (2.0-7.7); Basophil# 0.06 X10^3/uL; Basophil% 0.5 % (0-1); Eosinophils% 0.8 % (0-5); Hematocrit 33.3 % (37-47); Lymphocyte # 2.51 X10^3/ul (0.83-4.51); Lymphocyte % 20.2 % (19-41); Mean Corpuscular Hgb 21.6 pg (27.0-32.0); Mean Corpuscular Volume 71.9 fL (81-99); Mean Platelet Vol. 9.8 fl (6.2-12.0); Monocyte# 0.94 X10^3/uL; Monocyte% 7.6 % (0-10); NRBC Flagged by Analyzer 0 % (0-5); Neutrophil # 8.77 X10^3/uL (2.7-7.7); Neutrophil % 70.6 % (47-70); Platelet Count 292 K/mm3 (150-450); RBC Distribution Width CV 17.2 % (11.6-14.6); RBC Distribution Width SD 43.8 fl (35.1-43.9); Red Blood Count 4.63 M/mm3 (4.2-5.4); White Blood Count 12.4 K/mm3 (4.4-11.0)
[2022-09-26 07:49] LABS: ALB/GLOB Ratio 0.6 RATIO (0.9-2.4); AST(SGOT) 15 U/L (15-37); Alanine Aminotransfer ALT/SGPT 26 U/L (13-56); Albumin, Serum 2.6 g/dL (3.2-5.0); Alkaline Phosphatase 73 U/L (45-117); Anion Gap 4 (5-15); BUN 7 mg/dL (7-18); BUN/Creat Ratio 10.3 RATIO (10-20); Calcium,Total 8.7 mg/dL (8.5-10.1); Chloride 112 mmol/L (98-107); Creatinine, Serum 0.68 mg/dL (0.55-1.02); EST Glomerular Filtration Rate 112 mL/min (>60); Est Glom Filt Rate - Afr Amer 136 mL/min (>60); Globulin 4.5 g/dL (2.2-4.2); Glucose 129 mg/dL (74-106); Potassium 3.3 mmol/L (3.5-5.1); Protein, Total 7.1 g/dL (6.4-8.2); Sodium Level 142 mmol/L (136-145)
[2022-09-26] MEDS: Lactated Ringers 1,000 ML 999 ML IV (07:49)
[2022-09-26] MEDS: fentaNYL 100 MCG/2 ML Ampul IV ×2 (09:10→09:20)
[2022-09-26] MEDS: Midazolam 2 MG/2 ML Syringe IV (09:10)
[2022-09-26] MEDS: Lidocaine 2% (20 ml mdv) 20 ML Vial INFILT (09:12)
--- NOTE | 2022-09-26 10:20 | CASEMGMT ---
RN CM Face to Face with patient for initial transition planning/care coordination assessment. RN CM introduced self and role at [facility]. Patient lying in bed, alert and oriented. Patient willing to participate in assessment and is able to answer all questions appropriately. Care providers, pharmacy, and demographics verified. Patient wishes to discharge home, denies need for home health at this time. Patient states she has no further needs or concerns at this time. CM to follow for discharge planning needs that may arise. PCP: Delfina Specialists: Tre Sandra Pharmacy: [facility] Insurance: Bhavani Jimenes Prescription Benefit: yes Living Will/HPOA: none LNOK: Mother, Perez Living Arrangements: Patient lives with perez in a mobile home with 3 steps and railing to enter the home. Patient states she is independent at home. Transportation: self, fiance DME/HHC: Patient states she has cane at home. No previous HHC or SNF. Disposition Plan: Patient to discharge home with family support and follow-up plans in place. Lexii MACIAS, RN, CM
[2022-09-26] MEDS: Benzonatate 100 MG Capsule PO (11:54)
--- NOTE | 2022-09-26 14:00 | DCINST_ITS ---
Discharge Instructions Activity Discharge Activity: Return to Normal Activity Follow Up Care Test Results: Test results from this visit will be discussed in further detail at your follow- up appointment, if applicable. Discharge Plan Admission Admit Date/Time: 09/26/22 00:21 Attending Provider: Ellie Toledo Primary Care Provider: Zbigniew Mathis Instructions Patient Instructions: Spike Valadez Drain Tube Dc, Post Op Drain Emptying Steps, AN RN Procedural Sedation Discharge Orders/Prescriptions Prescriptions: New oxycodone-acetaminophen [Percocet] 5-325 mg tablet 1 tab PO Q6H PRN (Reason: pain) 7 Days Qty: 20 0RF amoxicillin-pot clavulanate 875-125 mg tablet 1 tab PO BID 14 Days Qty: 28 0RF ciprofloxacin HCl [Cipro] 500 mg tablet 500 mg PO BID 14 Days Qty: 28 0RF Continued sertraline [Zoloft] 50 mg tablet 50 mg PO DAILY oxycodone-acetaminophen [Percocet] 5-325 mg tablet 1 tab PO Q6H PRN (Reason: pain) 7 Days Qty: 20 0RF Referrals / Follow Up: Zbigniew Mathis MD [Primary Care Provider] - Disposition Disposition (needs filled in before D/C Order can be placed): Home, Self Care
== END 2022-09-26 16:15 | disposition home or self-care (01) | DRG 863 ==
LOC: ED 09-26 00:08 → MS3 09-26 04:21
PROVIDERS: Admitting Provider Obstetrics & Gynecology; Emergency Provider Emergency Medicine; PCP Family Medicine; Visit Provider Obstetrics & Gynecology
DX: T81.41XA Infection following a procedure, superficial incisional surgical site, initial encounter (principal); Z68.43 Body mass index [BMI] 50.0-59.9, adult; E66.01 Morbid (severe) obesity due to excess calories; F41.9 Anxiety disorder, unspecified; Z90.721 Acquired absence of ovaries, unilateral; Y83.6 Removal of other organ (partial) (total) as the cause of abnormal reaction of the patient, or of later complication, without mention of misadventure at the time of the procedure; F32.A Depression, unspecified; Z79.899 Other long term (current) drug therapy
CPT/HCPCS: 36415; 71275; 74177; 75989; 80053; 83605; 84484; 85025; 85610; 85730; 87040; 87070; 87075; 87077; 87186; 87205; 93005; 99156; 99284; J7030; J7050; J7120; Q9967; A4216

== ENCOUNTER → 2022-09-25 | Outpatient (CLI) | payer BC, OTHER, SELFPAY ==
--- NOTE | 2022-09-25 16:28 | RAD_ITS ---
EXAM: XR CHEST, 2 VIEWS CLINICAL INDICATION: SHORTNESS OF BREATH -- STAT TECHNIQUE: Frontal and lateral views of the chest. This report was created using [employer] report generation technology. COMPARISON: None. FINDINGS: LUNGS AND PLEURAL SPACES: Unremarkable. No consolidation or edema. No pneumothorax. No effusion. HEART: Unremarkable. Cardiac silhouette not enlarged. MEDIASTINUM: Central airways and mediastinal contour are unremarkable. BONES/JOINTS: Unremarkable. SOFT TISSUES: Unremarkable. RAD/Chest PA and Lateral IMPRESSION: No radiographic evidence of acute cardiopulmonary disease. Electronically Signed: Eduardo Jackson MD at 16:54 EST ,
[2022-09-25 18:21] LABS: Absolute Lymphocyte Count 2.87 X10^3/uL (0.83-4.51); Absolute Neutrophil Count 11.6 X10^3/uL (2.0-7.7); Basophil# 0.06 X10^3/uL; Basophil% 0.4 % (0-1); Eosinophil# 0.06 X10^3/uL; Eosinophils% 0.4 % (0-5); Hematocrit 38.6 % (37-47); Hemoglobin 11.6 g/dL (12.0-15.0); Lymphocyte # 2.87 X10^3/ul (0.83-4.51); Lymphocyte % 18.5 % (19-41); Mean Corp Hgb Conc 30.1 g/dL (32-36); Mean Corpuscular Hgb 21.5 pg (27.0-32.0); Mean Corpuscular Volume 71.6 fL (81-99); Mean Platelet Vol. 9.7 fl (6.2-12.0); Monocyte# 0.91 X10^3/uL; Monocyte% 5.9 % (0-10); NRBC Flagged by Analyzer 0 % (0-5); Neutrophil # 11.55 X10^3/uL (2.7-7.7); Neutrophil % 74.3 % (47-70); Platelet Count 356 K/mm3 (150-450); RBC Distribution Width CV 17.2 % (11.6-14.6); RBC Distribution Width SD 43.8 fl (35.1-43.9); Red Blood Count 5.39 M/mm3 (4.2-5.4); White Blood Count 15.5 K/mm3 (4.4-11.0)
[2022-09-25 18:47] LABS: D-Dimer Quantitative (DVT/PE) 1.49 FEU/ug/m (0.27-0.49)
== END | disposition home or self-care (01) ==
LOC: MTLAB 16:27
PROVIDERS: PCP Family Medicine; Referring Provider Family Medicine; Visit Provider Family Medicine
DX: R06.02 Shortness of breath (principal)
CPT/HCPCS: 36415; 71046; 85025; 85379; 86140

== ENCOUNTER → 2022-11-24 | Outpatient (CLI) | payer OTHER, BC, SELFPAY ==
--- NOTE | 2022-11-24 06:51 | MRI_ITS ---
STUDY: MRI RIGHT ANKLE WITHOUT CONTRAST REASON FOR EXAM: Female, 27 years old. Leg swelling TECHNIQUE: Standardized fat and water weighted pulse sequences were obtained in all 3 orthogonal planes. COMPARISON: X-ray August 02, 2022. FINDINGS: There is swelling and subcutaneous edema of the lower leg an dorsum of the foot.. There is susceptibility artifact associated with fixation plate and screws in the distal tibia. Normal posterior tibialis tendon. Normal flexor digitorum longus tendon. Normal flexor hallucis longus tendon. Normal peroneus longus and brevis tendons. Normal tibialis anterior tendon. Normal extensor hallucis longus tendon. Normal extensor digitorum longus tendons. Normal Achilles tendon and teno-osseous insertion. Normal plantar fascia. Normal plantar calcaneal tubercles. Normal intrinsic muscles of the rearfoot. Normal distal tibiofibular syndesmotic ligamentous complex. Normal lateral ligamentous complex. Normal subtalar ligaments and sinus tarsi. Normal deltoid ligamentous complexes. Normal plantar calcaneonavicular (spring) ligament. There is joint space narrowing and mild spurring of the tibiotalar articulation. There is cortical irregularity of the tibial plafond. Normal talar dome. Normal subtalar articulations. Normal talonavicular articulation. Normal calcaneocuboid articulation. Normal navicular-cuneiform articulations. MRI/Lower Ext Joint Only (Routine) IMPRESSION: Postoperative change. Irregularity of the tibial plafond. Electronically Signed: Alex Bernal MD at 10:58 EST ,
== END | disposition home or self-care (01) ==
PROVIDERS: PCP Family Medicine; Referring Provider Podiatrist; Visit Provider Podiatrist
DX: M19.071 Primary osteoarthritis, right ankle and foot (principal)
CPT/HCPCS: 73721

== ENCOUNTER → 2022-12-15 | Outpatient (CLI) | payer OTHER, BC, SELFPAY ==
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
== END | disposition home or self-care (01) ==
LOC: CT 06:34
PROVIDERS: PCP Family Medicine; Referring Provider Podiatrist; Visit Provider Podiatrist
DX: M19.071 Primary osteoarthritis, right ankle and foot (principal)
CPT/HCPCS: 73700

== ENCOUNTER → 2023-01-10 | Outpatient (CLI) | payer OTHER, BC, SELFPAY ==
[2023-01-10 15:33] LABS: International Normalized Ratio 0.9; Partial Thromboplast Time 30.6 Seconds (24.1-36.2)
[2023-01-10 15:37] LABS: Anion Gap 7 (5-15); BUN 12 mg/dL (7-18); BUN/Creat Ratio 15.6 RATIO (10-20); Calcium,Total 8.8 mg/dL (8.5-10.1); Chloride 109 mmol/L (98-107); Creatinine, Serum 0.77 mg/dL (0.55-1.02); EST Glomerular Filtration Rate 97 mL/min (>60); Est Glom Filt Rate - Afr Amer 117 mL/min (>60); Ferritin 13 ng/mL (8-252); Glucose 111 mg/dL (74-106); Iron 20 ug/dL (50-170); Potassium 4.1 mmol/L (3.5-5.1); Sodium Level 142 mmol/L (136-145)
[2023-01-10 16:14] LABS: Hematocrit 39.4 % (37-47); Hemoglobin 11.5 g/dL (12.0-15.0); Mean Corp Hgb Conc 29.2 g/dL (32-36); Mean Corpuscular Hgb 21.5 pg (27.0-32.0); Mean Corpuscular Volume 73.6 fL (81-99); Mean Platelet Vol. 9.5 fl (6.2-12.0); Platelet Count 382 K/mm3 (150-450); RBC Distribution Width CV 17.2 % (11.6-14.6); RBC Distribution Width SD 45.3 fl (35.1-43.9); Red Blood Count 5.35 M/mm3 (4.2-5.4); White Blood Count 8.8 K/mm3 (4.4-11.0)
[2023-01-10 16:22] LABS: Vitamin D,25 Hydroxy 14.3 ng/mL
== END | disposition home or self-care (01) ==
LOC: PAVLAB 15:07
PROVIDERS: PCP Family Medicine; Referring Provider Family Medicine; Visit Provider Family Medicine
DX: Z01.818 Encounter for other preprocedural examination (principal); F41.9 Anxiety disorder, unspecified; D64.9 Anemia, unspecified; E55.9 Vitamin D deficiency, unspecified
CPT/HCPCS: 36415; 80048; 82306; 82728; 83540; 85027; 85610; 85730

== ENCOUNTER 2023-02-02 05:43 | Day surgery (SDC) | payer OTHER, BC, SELFPAY ==
[2023-02-02 06:11] LABS: Internal QC Validated? YES +Cl - CLEAR BKGD; Pregnancy, Urine Negative Negative
[2023-02-02 06:21] VITALS: BP 129/90; PULSE 108; RESP 16; TEMP 36.8; O2SAT 96; BMI 56.8
[2023-02-02] MEDS: Lactated Ringers 1,000 ML 15 ML IV ×2 (06:21→09:01)
[2023-02-02] MEDS: Bacitracin 500 UNITS/GM PACKET (09:30)
[2023-02-02 09:36] VITALS: BP 129/90; BP 131/81; PULSE 109; RESP 16; TEMP 37.2; O2SAT 97
--- NOTE | 2023-02-02 09:41 | PCM.OPRPT ---
Problems Associated Problem List Diagnoses (1) Other acute postprocedural pain: (2) Right ankle pain: (3) Primary osteoarthritis, right ankle and foot: (4) Equinus contracture of right ankle: Report of Operation Date of Procedure: 02/02/23 Pre-Operative Diagnosis: 1) Right lower extremity Equinus 2) Anterior ankle impingement in setting of post-traumatic right ankle osteoarthritis Post-Operative Diagnosis: same Surgery/Procedure Performed:: 1) Right Lower Extremity Gastrocnemius Recession (endoscopic) 2) Arthroscopic debridement, Right ankle Joint Description of Surgical Findings:: Upon release of gastrocnemius aponeurosis there is noted to be slight improvement in ankle joint dorsiflexion going from approximately 5 degrees of plantarflexion limited to 90 degrees with the foot relative to the leg. The remaining limitation of the ankle joint appeared to have an osseous and stopped. Arthroscopic debridement of the ankle joint yielded diffuse scarring and chronic and acute synovitis throughout the ankle joint with severe loss of tibial articular surface articular cartilage. There is a bleeder upon initial incision which was initially cauterized. Throughout the case it started bleeding again at the end of the case. Hemostasis obtained with application of Ace topical thrombin and compression. Surgeon: Francisco Goodrich unified communications architect: None (Devang Ugarte, PGYIII) Type of Anesthesia: General/Regional Estimated Blood Loss (mL): 100cc Description of Procedure: Patient was brought back the operating placed comfortably in supine position on the operating room table. Patient was induced under general anesthesia. Right lower extremity had a well-padded thigh tourniquet applied a hip bump was placed to knock out any external rotation of the hip. Right lower extremity was scrubbed prepped and draped using typical aseptic fashion. Right lower extremity was elevated exsanguinated tourniquet was inflated to 300 mmHg total tourniquet time was noted to be 84 minutes. Once cleared by anesthesia the gastroc aponeurosis was palpated after palpation of the gastrocnemius muscle belly was noted. A superficial incision was stab incision was made with a #15 blade through epidermis dermis into subcutaneous tissue blunt dissection was taken from the level of subcutaneous tissue down to the gastroc aponeurosis. An obturator with trocar were supplied just superficial to the gastrocnemius aponeurosis and placed from medial to lateral across the leg a second portal was made along the lateral incision at the site of trocar penetration. Trocar was placed from medial lateral across the leg just superficial to the gastrocnemius aponeurosis this was cleansed with multiple sterile Q-tips. Endoscope was applied and the gastrocnemius aponeurosis was able to be visualized completely from medial to lateral. This was then recessed using a hook blade until there is herniation of the underlying soleus muscle belly. Care was taken to avoid the sural nerve as well as any deep vasculature penetration of the deep soleus muscle belly. Upon release of the gastrocnemius aponeurosis this was confirmed using the endoscope and range of motion did improve from limitation to 5 degrees of plantarflexion to 0 degrees of dorsiflexion with the foot is perpendicular relative to the leg. The incisional sites were flushed with copious amounts of normal sterile saline and closed with 3-0 Prolene. Attention was taken to the ankle joint where the medial talar dome was palpated and using a spinal needle the joint was penetrated atraumatically. Joint was insufflated with 25 cc of normal sterile saline. Approximately 7 and half cc of quarter percent Marcaine plain was applied into the ankle joint itself for local anesthesia a stab incision was made with a 15 blade to this site. Initially there is noted to be a superficial bleeder noted. This was cauterized at this time deeper dissection was extended down to the level of joint capsule using blunt hemostats. Ankle joint was then penetrated with obturator and trocar in the ankle joint was difficult to access due to diffuse scarring to the site. Upon penetration with the trocar and obturator and a camera was applied and the ankle joint could be visualized from the medial gutter across the anterior surface to the lateral gutter. Camera was then transversed from medial to lateral across the ankle joint and a second stab incision was made for an anterior lateral ankle portal avoiding the superficial peroneal nerve. Once this was performed, a shaver was applied in the anterolateral ankle portal. Once the shaver was triangulated there is noted to be diffuse chronic and acute synovitis throughout the anterior lateral ankle joint with significant scarring across the joint limiting joint exposure. Examination of the distal tibial articular surface demonstrates severe loss of articular surface cartilage. No obvious areas that could be drilled or penetrated to allow for fibrocartilage formation as the loss was too severe. Approximately 30 minutes was taken debrided diffuse synovitic tissue throughout the course of the ankle joint. Upon removal of our arthroscopic devices there is noted be some bleeding to the anterior medial incision at site of initial bleeder. Attempted cauterization was performed but was unable to be performed. Topical Ace was applied to the site along with compression hemostasis was then noted. Sites were flushed with copious july normal sterile saline. Incisional sites closed with simple interrupted 3-0 Prolene. Sites were dressed with bacitracin Adaptic 4 x 4's Kerlix ABD pads 8 and a Jozef bandage and a well-padded Garner posterior splint tourniquet was deflated total time was noted to be 84 minutes. Patient tolerated procedure and anesthesia well in apparent satisfactory condition. Patient was transferred to PACU vital signs stable vascular status intact all digits for further monitoring prior to discharge. Due to severity of articular cartilage loss patient may require additional reconstructive surgery to restore function of the ankle for the patient to return to normal activities of daily living. Patient is difficult to brace due to contour leg secondary to obesity but this was to be considered in the meantime is conservative treatment. We will keep a close eye on the patient consider referral for additional reconstruction if recovery from this procedure does not provide adequate relief to return to activities of daily living. Patient's initial injury was severe as well as an open pilon fracture which required emergent treatment. It is expected that after an injury such patient would have significant pain and dysfunction despite ORIF. My attempt today was to clean out any anterior ankle impingement and lengthen posterior musculature to allow the patient to ambulate better with less pain. He did slightly improve the patient's ability to dorsiflex the foot; however, due to extent of articular injury from initial patient may have significant dysfunction after this procedure. Grafts/Implants Used: topical ace Complications some bleeding, hemostasis obtained after failed cauterization with use of topical ace and compression. Admit VTE Documentation VTE Present on Admission: Yes
[2023-02-02 09:45] VITALS: BP 129/90; BP 132/64; PULSE 115; RESP 16; O2SAT 99
[2023-02-02 10:00] VITALS: BP 123/80; BP 129/90; PULSE 94; RESP 16; O2SAT 94
[2023-02-02 10:15] VITALS: BP 117/84; BP 129/90; PULSE 87; RESP 16; TEMP 37.2; O2SAT 99
[2023-02-02 12:00] VITALS: BP 129/90; BP 133/63; PULSE 88; RESP 18; TEMP 36.8; O2SAT 98
== END 2023-02-02 12:18 | disposition home or self-care (01) ==
LOC: SDC 05:44 → AC 05:45
PROVIDERS: Anesthesiology; PCP Family Medicine; Referring Provider Podiatrist; Visit Provider Podiatrist
PROC: (CPT 29999; principal; 2023-02-02 07:15)
DX: M19.071 Primary osteoarthritis, right ankle and foot (principal); M25.871 Other specified joint disorders, right ankle and foot; G89.18 Other acute postprocedural pain; M24.571 Contracture, right ankle; F41.9 Anxiety disorder, unspecified; F32.A Depression, unspecified; E66.9 Obesity, unspecified; Z79.899 Other long term (current) drug therapy; Z86.16 Personal history of COVID-19
CPT/HCPCS: 29897; 29999; 01464; 64445; 81025; J7120; J2405

== ENCOUNTER → 2023-03-13 | Outpatient (CLI) | payer OTHER, BC, SELFPAY ==
[2023-03-13 16:04] LABS: Hemoglobin A1c 5.2 % (3.8-5.6)
== END | disposition home or self-care (01) ==
LOC: PAVLAB 15:07
PROVIDERS: PCP Family Medicine; Referring Provider Family Medicine; Visit Provider Family Medicine
DX: E66.9 Obesity, unspecified (principal)
CPT/HCPCS: 36415; 83036

== ENCOUNTER 2023-07-02 15:30 | Outpatient (RCR) | payer OTHER, BC, SELFPAY ==
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
--- NOTE | 2023-04-23 16:06 | HP.PTREVAL ---
Dr. Francisco Goodrich, DPM, It has been my pleasure to treat GENNY GOODEN over the last 16 visits for R ankle arthroscopy with gastrocnemius recession 02/02/23. Please see the progress note below for an update on the physical therapy plan of care! Subjective: PATIENT REPORTS SHE IS WORKING [employer] FULL DUTY. STATES THE FIRST WEEKEND OF APRIL WENT TO [employer] AT [facility] AND DID BETTER THAN SHE THOUGHT SHE WOULD BUT PAID FOR IT THE NEXT DAY. [place]ACH TRIP PENDING JUL 2023. [place] PENDING AUG 2023. PATIENT REPORTS THAT ABOUT 1-2 HOURS AFTER STRETCHING IT STIFFENS RIGHT BACK UP. PATIENT REPORTS SHE IS WALKING WITHOUT HER CANE MORE AND REALLY DOESN'T USE HER CANE IN HER HOME ANYMORE. USING QUAD CANE OUTDOORS. GOING UP AND DOWN STEPS INTO HOME WITH HANDRAIL AND CANE. PATIENT REPORTS FOLLOW UP WITH DR. GOODRICH IS PENDING IN JUNE. PATIENT REPORTS SHE IS BUSY AT HOME WITH 6 YEAR OLD AND DOESN'T ALWAYS GET STRETCHED OUT AT HOME MUCH SHE SHOULD. FEELS SHE IS benefitting FROM PHYSICAL THERAPY. Objective/Function: PATIENT WAS SEEN TODAY FOR RE-ASSESSMENT OF PROGRESS TOWARD THE SET PT GOALS AND THE NEED FOR FURTHER PHYSICAL THERAPY VS READINESS FOR DISCHARGE. PATIENT IS MAKING SLOW PROGRESS TOWARD ALL PT GOALS AND IS A GOOD CANDIDATE TO CONTINUE PT BASED ON PROGRESS MADE AND ROOM FOR FURHTER IMPROVEMENT. PATIENT IS AGREEABLE. UPON EXAM TODAY: ROM: PROM: R ankle: DF 6 deg, PF 35deg, INV 8deg, EVR 8deg. GAIT: Pt. ambulates with quad cane with R hip in ER positioning. She is not dependent upon the cane on level surfaces into PT today. Pt. is able to partially correct. Patient locks knee in extension during RLE stance phase. [ End ] Plan Plan: Continue PT 2x's a wk x 5 wks for stretching into DF, ankle strengthening and gait progression. Patient agreeable. Balance/Gait/Functional tests - Balance/Special Test Scores Lower Extremity Functional Score: 53 Goals Goal 1:: LTG: Pt. to be I with HEP. Goal Time Frame: 4-6 Weeks Goal Progress: Progressing Goal 2:: STG: Pt. to have increased R ankle DF to 10deg. Goal Time Frame: 2-4 Weeks Goal Progress: Progressing Goal 3:: STG: Pt. to be able to walk with normal gait pattern with use of quad cane. Goal Time Frame: 2-4 Weeks Goal Progress: Progressing Goal 4:: LTG: Pt. to ambulate with normal gait pattern without AD. Goal Time Frame: 4-6 Weeks Goal 5:: LTG: Pt. to have 5/5 strength throuhgout BLEs. Goal Time Frame: 4-6 Weeks Goal 6:: LTG: Pt. to negotiate steps with reciprocal pattern with use of 1 hR. Goal Time Frame: 4-6 Weeks Anticipated Interventions Patient/Client Instruction: Educate patient on: Condition, Plan of Care, Risk Factors, Benefits of Fitness Program For the Purpose of:: To improve health and function, To foster healthy habits, To improve decision making, To facilitate caregiver knowledge, To improve self management, To prevent re-injury, To improve ability to perform tasks related to life management, To improve tolerance to ADL's Therapeutic Exercise to Include: Strength training, Power training, Endurance training, Balance training, Postural training, Flexibilty training, Gait and locomotor training, Passive ROM, Active ROM For the Purpose of:: To decrease pain, To decrease swelling/inflammation, To increase ROM, To improve nutrient delivery to tissue, To increase oxygenation perfusion, To improve muscle performance and motor function, To improve ability to perform ADL's, To increase tolerance to activity/condition/position, To improve performance and independence with ADL's, To improve ability of physical actions for home/community/work/leisure, To improve gait and locomotor functions, To decrease soft tissue restriction, To increase flexibility/ROM Manual Therapy Techniques to Include: Mobilization, Passive ROM For the Purpose of:: To decrease pain, To decrease swelling/inflammation, To increase ROM, To improve nutrient delivery to tissue, To increase oxygenation perfusion, To improve muscle performance and motor function, To improve ability to perform ADL's Please do not hesitate to contact me at [phone] by phone or if you have questions or concerns regarding this new plan of care! Sincerely, Amelia Stroud, PT, Cert MDT
--- NOTE | 2023-05-18 14:27 | HP.PTREVAL_ITS ---
Re-Evaluation Intro: Dr. Francisco Goodrich, DPM, It has been my pleasure to treat GENNY GOODEN over the last 22 visits for R ankle arthroscopy with gastrocnemius recession 02/02/23. Please see the progress note below for an update on the physical therapy plan of care! Subjective Subjective: Pt. reports overall doing well, no major pain today. She does continue to report increased stiffness in her ankle. Pt. still using a cane for stability, but does walk a little bit without it. Objective Objective/Function: R ankle ROM: pt. has 7 deg of DF, 32deg ankle PF, INV and EVR 6deg. Pt. has slight increase in ROM with PT over pressure, but not a ton. Pt. is tight. She reports most of her issues are at anterior ankle with increased DF. Pt. is walking better, but still lacks appropriate rocker moment on her R ankle going from stance to pre swing. She does more of knee hyper extension to make up for this loss. STAIRS: Ascending with 1 HR with minimal issues. pt. descending as difficulty with rocker moment when loading the R ankle. I would like to work on more aggressive ankle mobilizations to increase DF/PF, progressing gait without AD. Plan Plan Plan: Work on more aggressive ankle mobilizations with focus on improving DF and PF. Progress gait to no AD as tolerated. Balance/Gait/Functional tests Balance/Special Test Scores Lower Extremity Functional Score: 53 Goals Goals Goal 1:: LTG: Pt. to be I with HEP. Goal Time Frame: 4-6 Weeks Goal Progress: Progressing Goal 2:: STG: Pt. to have increased R ankle DF to 10deg. Goal Time Frame: 2-4 Weeks Goal Progress: Progressing Goal 3:: STG: Pt. to be able to walk with normal gait pattern with use of quad cane. Goal Time Frame: 2-4 Weeks Goal Progress: Progressing Goal 4:: LTG: Pt. to ambulate with normal gait pattern without AD. Goal Time Frame: 4-6 Weeks Goal Progress: Progressing Goal 5:: LTG: Pt. to have 5/5 strength throuhgout BLEs. Goal Time Frame: 2-4 Weeks Goal Progress: Goal Met Goal 6:: LTG: Pt. to negotiate steps with reciprocal pattern with use of 1 hR. Goal Time Frame: 4-6 Weeks Goal Progress: Progressing Anticipated Interventions Anticipated Interventions Patient/Client Instruction: Educate patient on: Condition, Plan of Care, Risk Factors and Benefits of Fitness Program For the Purpose of:: To improve health and function, To foster healthy habits, To improve decision making, To facilitate caregiver knowledge, To improve self management, To prevent re-injury, To improve ability to perform tasks related to life management and To improve tolerance to ADL's Therapeutic Exercise to Include: Strength training, Power training, Endurance training, Balance training, Postural training, Flexibilty training, Gait and locomotor training, Passive ROM and Active ROM For the Purpose of:: To decrease pain, To decrease swelling/inflammation, To increase ROM, To improve nutrient delivery to tissue, To increase oxygenation perfusion, To improve muscle performance and motor function, To improve ability to perform ADL's, To increase tolerance to activity/condition/position, To improve performance and independence with ADL's, To improve ability of physical actions for home/community/work/leisure, To improve gait and locomotor functions, To decrease soft tissue restriction and To increase flexibility/ROM Manual Therapy Techniques to Include: Mobilization and Passive ROM For the Purpose of:: To decrease pain, To decrease swelling/inflammation, To increase ROM, To improve nutrient delivery to tissue, To increase oxygenation perfusion, To improve muscle performance and motor function and To improve ability to perform ADL's Re-Evaluation Ending Re-evaluation ending: Please do not hesitate to contact me at [phone] by phone or Fax: if you have questions or concerns regarding this new plan of care! Sincerely, Ankur Simpson DPT
--- NOTE | 2023-05-28 16:41 | HP.PTREVAL ---
Re-Evaluation Intro: Dr. Francisco Goodrich, DPM, It has been my pleasure to treat VENUS GOODEN over the last 24 visits for R ankle arthroscopy with gastrocnemius recession 02/02/23. Please see the progress note below for an update on the physical therapy plan of care! Subjective Subjective: Venus came in today and was reporting increased R ankle pain. She reports that she has been having some increased pain for ~3-4 weeks now, but has been gradual. Pt. Objective Objective/Function: Due to patient having some increased symptoms with pain when walking, but also reports I feel like the hai is wiggly, I did recommend that she follow up with physician. We talked and in the mean time we are going to try some mobility exercises and progress walking tolerance to strengthening in the aquatic setting. She is still able to tolerate walking and work activities, but she feels like her symptoms are going slightly in the wrong direction. Due to this I recommended that she follow up with her physician. Plan Plan Plan: Try gait, R ankle mobility, functional strengthening in aquatic setting. pt. to call physician to determine if further imaging is needed or to determine how to proceed. Balance/Gait/Functional tests Balance/Special Test Scores Lower Extremity Functional Score: 53 Goals Goals Goal 1:: LTG: Pt. to be I with HEP. Goal Time Frame: 4-6 Weeks Goal Progress: Progressing Goal 2:: STG: Pt. to have increased R ankle DF to 10deg. Goal Time Frame: 2-4 Weeks Goal Progress: Progressing Goal 3:: STG: Pt. to be able to walk with normal gait pattern with use of quad cane. Goal Time Frame: 2-4 Weeks Goal Progress: Progressing Goal 4:: LTG: Pt. to ambulate with normal gait pattern without AD. Goal Time Frame: 4-6 Weeks Goal Progress: Progressing Goal 5:: LTG: Pt. to have 5/5 strength throuhgout BLEs. Goal Time Frame: 2-4 Weeks Goal Progress: Goal Met Goal 6:: LTG: Pt. to negotiate steps with reciprocal pattern with use of 1 hR. Goal Time Frame: 4-6 Weeks Goal Progress: Progressing Anticipated Interventions Anticipated Interventions Patient/Client Instruction: Educate patient on: Condition, Plan of Care, Risk Factors and Benefits of Fitness Program For the Purpose of:: To improve health and function, To foster healthy habits, To improve decision making, To facilitate caregiver knowledge, To improve self management, To prevent re-injury, To improve ability to perform tasks related to life management and To improve tolerance to ADL's Therapeutic Exercise to Include: Strength training, Power training, Endurance training, Balance training, Postural training, Flexibilty training, Gait and locomotor training, Passive ROM and Active ROM For the Purpose of:: To decrease pain, To decrease swelling/inflammation, To increase ROM, To improve nutrient delivery to tissue, To increase oxygenation perfusion, To improve muscle performance and motor function, To improve ability to perform ADL's, To increase tolerance to activity/condition/position, To improve performance and independence with ADL's, To improve ability of physical actions for home/community/work/leisure, To improve gait and locomotor functions, To decrease soft tissue restriction and To increase flexibility/ROM Manual Therapy Techniques to Include: Mobilization and Passive ROM For the Purpose of:: To decrease pain, To decrease swelling/inflammation, To increase ROM, To improve nutrient delivery to tissue, To increase oxygenation perfusion, To improve muscle performance and motor function and To improve ability to perform ADL's Re-Evaluation Ending Re-evaluation ending: Please do not hesitate to contact me at [phone] by phone or if you have questions or concerns regarding this new plan of care! Sincerely, Ankur Simpson DPT
== END 2023-07-02 19:00 | disposition home or self-care (01) ==
LOC: PT 15:30
PROVIDERS: PCP Family Medicine; Referring Provider Podiatrist; Visit Provider Podiatrist
DX: M25.571 Pain in right ankle and joints of right foot (principal)
CPT/HCPCS: 97110; 97113; 97140; 97161; 97164; 97530

== ENCOUNTER → 2023-10-16 | Outpatient (CLI) | payer OTHER, SELFPAY ==
--- NOTE | 2023-10-16 15:18 | US_ITS ---
STUDY: ULTRASOUND OF THE FEMALE PELVIS - COMPLETE REASON FOR EXAM: Female, 28 years old. Right pelvic pain, history of ovarian cyst LMP: TECHNIQUE: Transabdominal and Transvaginal TECHNICAL QUALITY: Adequate. COMPARISON: None. FINDINGS: The uterus is anteverted and is tilted to the right side of the pelvis. The uterus measures 7.5 x 4.0 x 3.1 cm. Normal uterine cervix. The endometrium measures 4 mm in thickness, and is hyperechoic. There is no demonstrated endometrial mass. There is no demonstrated myometrial mass. I.U.D. - The patient does not have an I.U.D. The right ovary is visualized. The right ovary measures 2.6 x 2.4 x 1.9 cm. There is no right ovarian cyst or ovarian mass. There is no visualized right adnexal mass or complex lesion. There is a simple 1.1 cm follicular cyst. No specific follow-up is needed. There is normal arterial and normal venous vascularity. The left ovary is was previously removed There is no fluid in the cul-de-sac. The bladder is sonographically normal with estimated capacity of 420.46 mL US/Pelvic w/ Transvaginal IMPRESSION: No suspicious sonographic findings Electronically Signed: Roland Tapia MD at 15:08 EST ,
== END | disposition home or self-care (01) ==
LOC: OPUS 15:17
PROVIDERS: PCP Family Medicine; Referring Provider Family Medicine; Visit Provider Family Medicine
DX: R10.31 Right lower quadrant pain (principal)
CPT/HCPCS: 76830; 76856

== ENCOUNTER → 2024-02-12 | Outpatient (CLI) | payer OTHER, SELFPAY | END | disposition home or self-care (01) | LOC: SL 13:23 | PROVIDERS: PCP Family Medicine; Referring Provider Nurse Practitioner Acute Care; Visit Provider Nurse Practitioner Acute Care | DX: G47.10 Hypersomnia, unspecified (principal) | CPT/HCPCS: 95806 ==

== ENCOUNTER → 2024-03-21 | Outpatient (CLI) | payer OTHER, SELFPAY | END | disposition home or self-care (01) | LOC: SL 20:40 | PROVIDERS: PCP Family Medicine; Referring Provider Nurse Practitioner Acute Care; Visit Provider Nurse Practitioner Acute Care | DX: G47.33 Obstructive sleep apnea (adult) (pediatric) (principal) | CPT/HCPCS: 95811 ==

== ENCOUNTER → 2024-04-25 | Outpatient (CLI) | payer OTHER, SELFPAY ==
[2024-04-28 20:08] LABS: Chlamydia By Nucleic Acid AMP Negative (Negative); Gonococcus By Nucleic Acid AMP Negative (Negative)
[2024-05-01 18:25] LABS: HPV Reflexed? NOT INDICATED
== END | disposition home or self-care (01) ==
LOC: LABSPEC 17:11
PROVIDERS: PCP Family Medicine; Referring Provider Registered Nurse; Visit Provider Registered Nurse
DX: O09.90 Supervision of high risk pregnancy, unspecified, unspecified trimester (principal); Z3A.00 Weeks of gestation of pregnancy not specified
CPT/HCPCS: 87086; 87088; 87491; 87591; 88175; G0145

== ENCOUNTER → 2024-05-27 | Outpatient (CLI) | payer OTHER, SELFPAY ==
[2024-05-27 16:16] LABS: Absolute Lymphocyte Count 2.62 X10^3/uL (0.83-4.51); Absolute Neutrophil Count 5.2 X10^3/uL (2.0-7.7); Basophil# 0.05 X10^3/uL; Basophil% 0.6 % (0-1); Eosinophil# 0.12 X10^3/uL; Eosinophils% 1.4 % (0-5); Hematocrit 34.6 % (37-47); Hemoglobin 10.3 g/dL (12.0-15.0); Lymphocyte # 2.62 X10^3/ul (0.83-4.51); Lymphocyte % 31.2 % (19-41); Mean Corp Hgb Conc 29.8 g/dL (32-36); Mean Corpuscular Hgb 20.2 pg (27.0-32.0); Mean Corpuscular Volume 67.7 fL (81-99); Monocyte% 4.8 % (0-10); NRBC Flagged by Analyzer 0 % (0-5); Neutrophil # 5.18 X10^3/uL (2.7-7.7); Neutrophil % 61.8 % (47-70); Platelet Count 355 K/mm3 (150-450); RBC Distribution Width CV 19.1 % (11.6-14.6); RBC Distribution Width SD 45.1 fl (35.1-43.9); Red Blood Count 5.11 M/mm3 (4.2-5.4); White Blood Count 8.4 K/mm3 (4.4-11.0)
[2024-05-27 16:43] LABS: Hemoglobin A1c 4.9 % (3.8-5.6)
[2024-05-27 17:22] LABS: HIV - WCH Non-Reactive (Nonreactive); Hepatitis B Surface Antigen Non-Reactive (Nonreactive); Hepatitis C Antibody Non-Reactive (Nonreactive); Rubella IgG Reactive (Nonreactive); Syphilis Antibodies Non-reactive
== END | disposition home or self-care (01) ==
PROVIDERS: PCP Family Medicine; Referring Provider Registered Nurse; Visit Provider Registered Nurse
DX: O09.90 Supervision of high risk pregnancy, unspecified, unspecified trimester (principal); Z3A.00 Weeks of gestation of pregnancy not specified
CPT/HCPCS: 36415; 83036; 85025; 86703; 86762; 86780; 86803; 86850; 86900; 86901; 87340

== ENCOUNTER → 2024-06-23 | Outpatient (CLI) | payer OTHER, SELFPAY ==
[2024-06-23 16:41] LABS: Absolute Lymphocyte Count 2.39 X10^3/uL (0.83-4.51); Absolute Neutrophil Count 4.3 X10^3/uL (2.0-7.7); Basophil# 0.03 X10^3/uL; Basophil% 0.4 % (0-1); Eosinophil# 0.12 X10^3/uL; Eosinophils% 1.7 % (0-5); Hematocrit 32.2 % (37-47); Hemoglobin 9.4 g/dL (12.0-15.0); Lymphocyte # 2.39 X10^3/ul (0.83-4.51); Lymphocyte % 33.3 % (19-41); Mean Corp Hgb Conc 29.2 g/dL (32-36); Mean Corpuscular Hgb 19.8 pg (27.0-32.0); Mean Corpuscular Volume 67.8 fL (81-99); Mean Platelet Vol. 9.1 fl (6.2-12.0); Monocyte# 0.31 X10^3/uL; Monocyte% 4.3 % (0-10); NRBC Flagged by Analyzer 0 % (0-5); Neutrophil # 4.29 X10^3/uL (2.7-7.7); Neutrophil % 59.9 % (47-70); Platelet Count 341 K/mm3 (150-450); RBC Distribution Width CV 19.1 % (11.6-14.6); RBC Distribution Width SD 46.6 fl (35.1-43.9); Red Blood Count 4.75 M/mm3 (4.2-5.4); White Blood Count 7.2 K/mm3 (4.4-11.0)
[2024-06-23 17:32] LABS: ALB/GLOB Ratio 0.6 RATIO (0.9-2.4); AST(SGOT) 12 U/L (15-37); Alanine Aminotransfer ALT/SGPT 19 U/L (13-56); Albumin, Serum 2.6 g/dL (3.2-5.0); Alkaline Phosphatase 77 U/L (45-117); Anion Gap 7 (5-15); BUN 7 mg/dL (7-18); BUN/Creat Ratio 11.6 RATIO (10-20); Chloride 108 mmol/L (98-107); EST Glomerular Filtration Rate 127 mL/min (>60); Est Glom Filt Rate - Afr Amer 154 mL/min (>60); Globulin 4.4 g/dL (2.2-4.2); Glucose 106 mg/dL (74-106); Potassium 3.4 mmol/L (3.5-5.1); Sodium Level 137 mmol/L (136-145)
[2024-06-23 18:16] LABS: Protein, Urine (Random) 20.6 mg/dL (<11.9); Protein:Creat Ratio 73 mg/g CRE (0-200)
== END | disposition home or self-care (01) ==
PROVIDERS: PCP Family Medicine; Referring Provider Nurse Practitioner Women's Health; Visit Provider Nurse Practitioner Women's Health
DX: I10 Essential (primary) hypertension (principal); D64.9 Anemia, unspecified
CPT/HCPCS: 36415; 80053; 82570; 84156; 85025

== ENCOUNTER → 2024-06-30 | Outpatient (CLI) | payer OTHER, SELFPAY ==
[2024-06-30 16:44] LABS: Ferritin 4 ng/mL (8-252); Iron 25 ug/dL (50-170); Iron Binding Capacity,Total 555 ug/dL (250-450); PERCENT IRON SATURATION 4.5 % (15.0-55.0)
== END | disposition home or self-care (01) ==
PROVIDERS: PCP Family Medicine; Referring Provider Obstetrics & Gynecology; Visit Provider Nurse Practitioner Women's Health
DX: O09.92 Supervision of high risk pregnancy, unspecified, second trimester (principal); D50.9 Iron deficiency anemia, unspecified; O99.019 Anemia complicating pregnancy, unspecified trimester; Z3A.00 Weeks of gestation of pregnancy not specified
CPT/HCPCS: 36415; 82728; 83540; 83550

== ENCOUNTER → 2024-07-11 | Outpatient (CLI) | payer OTHER, SELFPAY ==
--- NOTE | 2024-07-11 12:19 | US_ITS ---
EXAM: US SECOND OR THIRD TRIMESTER , TRANSABDOMINAL CLINICAL INDICATION: anatomy TECHNIQUE: Transabdominal obstetrical ultrasound of the maternal pelvis and a second or third trimester with image documentation. COMPARISON: 10/16/2023 FINDINGS: Examination is limited due to patient body habitus and positioning. FETUS: Single viable IUP. HEART RATE: heart rate: 130 bpm. PRESENTATION: Breech presentation. PLACENTA: Anterior fundal placenta. No placenta previa. AMNIOTIC FLUID: Amniotic fluid volume appears normal with large vertical pocket of 6.6 cm. ANATOMY: Intracranial structures including the cerebellum appear normal. Bilateral kidneys appear normal. Poor visualization of the four-chamber heart. Three-vessel umbilical cord with normal cord insertion. Spine is poorly visualized. BIOMETRICS GESTATIONAL AGE: Estimated gestational age: 19 weeks, 6 days. ADA: 11/29/2024. EFW: Estimated weight: 324 g. BPD: 4.1 cm. HC: 17.53 cm. AC: 15.03 cm. FL: 3.02 cm. MATERNAL: UTERUS: No significant abnormality. No myometrial mass. CERVIX: The cervix is closed measuring 3.8 cm. ADNEXA: No significant abnormality. No adnexal masses. FREE FLUID: None. US/OB Anatomy Scan IMPRESSION: 1. Examination is limited due to patient body habitus and positioning. 2. Single viable IUP with a weight of 324 g. No definite acute abnormality. Limited anatomic assessment. Electronically Signed: Ishaan Farooq DO at 15:33 EDT ,
== END | disposition home or self-care (01) ==
LOC: OPUS 12:18
PROVIDERS: PCP Family Medicine; Referring Provider Obstetrics & Gynecology; Visit Provider Obstetrics & Gynecology
DX: O09.90 Supervision of high risk pregnancy, unspecified, unspecified trimester (principal)
CPT/HCPCS: 76805; 76817

== ENCOUNTER → 2024-08-14 | Outpatient (CLI) | payer OTHER, SELFPAY ==
[2024-08-14 16:14] LABS: Absolute Lymphocyte Count 2.05 X10^3/uL (0.83-4.51); Absolute Neutrophil Count 6.4 X10^3/uL (2.0-7.7); Basophil# 0.04 X10^3/uL; Basophil% 0.4 % (0-1); Eosinophil# 0.09 X10^3/uL; Hematocrit 30.5 % (37-47); Hemoglobin 9.2 g/dL (12.0-15.0); Lymphocyte # 2.05 X10^3/ul (0.83-4.51); Lymphocyte % 22.8 % (19-41); Mean Corp Hgb Conc 30.2 g/dL (32-36); Mean Corpuscular Hgb 20.2 pg (27.0-32.0); Mean Platelet Vol. 8.6 fl (6.2-12.0); Monocyte# 0.44 X10^3/uL; Monocyte% 4.9 % (0-10); NRBC Flagged by Analyzer 0 % (0-5); Neutrophil # 6.35 X10^3/uL (2.7-7.7); Neutrophil % 70.6 % (47-70); Platelet Count 374 K/mm3 (150-450); RBC Distribution Width SD 44.8 fl (35.1-43.9); Red Blood Count 4.55 M/mm3 (4.2-5.4)
[2024-08-14 16:30] LABS: Glucose Challenge Gest 1H 50g 93 mg/dL (70-140)
[2024-08-14 17:02] LABS: HIV - WCH Non-Reactive (Nonreactive); Syphilis Antibodies Non-reactive
== END | disposition home or self-care (01) ==
LOC: LAB 15:35
PROVIDERS: PCP Family Medicine; Referring Provider Obstetrics & Gynecology; Visit Provider Obstetrics & Gynecology
DX: O09.92 Supervision of high risk pregnancy, unspecified, second trimester (principal); Z13.1 Encounter for screening for diabetes mellitus; Z3A.00 Weeks of gestation of pregnancy not specified
CPT/HCPCS: 36415; 82950; 85025; 86703; 86780

== ENCOUNTER 2024-08-25 11:04 | Outpatient (CLI) | payer OTHER, SELFPAY ==
[2024-08-25] VITALS (11 sets, daily range): BP systolic 125–142; BP diastolic 72–92; PULSE 96–134; BMI 59.1
--- NOTE | 2024-08-25 12:13 | US_ITS ---
INDICATION: decreased movement EXAMINATION: Ultrasound US Biophysical Profile W/O Nonst TECHNIQUE: Transabdominal pelvic ultrasound was performed. COMPARISON: July 11, 2024 FINDINGS: INTRAUTERINE GESTATION(s): Single. HEART MOTION is 145 bpm. AMNIOTIC FLUID INDEX (CORAL): 17.49 BIOPHYSICAL PROFILE (BPP): 6/8 -- Breathin/2. -- Movement: 2/2. -- Tone: 2/2. --CORAL: 2/2. PRESENTATION: Cephalic PLACENTA: Anterior. US/Biophysical Prof W/O Non Stres IMPRESSION: Single live intrauterine with biophysical profile of 6/8. Electronically Signed: Christina Victor MD at 14:11 EDT ,
[2024-08-25] MEDS: Acetaminophen 500 MG Tablet 1000 MG PO (13:48)
--- NOTE | 2024-08-25 14:02 | OB.TRI.PN ---
Progress Notes Progress Note: Patient presents for triage evaluation secondary to elevated bps, goldman improved with tylenol FHT: 150 Moderate variability 10x 10reactive no decelerations category I tracing GA appropriate [place]: no regular Contractions Assessment and plan: 04/19 bpp 26 weeks elevated bps htn in Reactive NST, reassuring maternal and status patient discharged to home to follow-up as scheduled start on procardia monitor bps. See problem list details for additional plan information. Charges/Coding Procedures Urinary/Genital [id number]: [id number] non-stress test Interp Assessment & Plan (1) : QUALIFIERS: Weeks of gestation: 26 weeks Qualified Code(s): Z3A.26 - 26 weeks gestation of COMMENT: NIPT low risk, discussed carrier testing. nl anatomy (2) Supervision of high-risk : QUALIFIERS: Trimester: second trimester Qualified Code(s): O09.92 - Supervision of high risk , unspecified, second trimester COMMENT: [id number], ADA 11/27/24, PC ion, Harsh, anatomy at [facility] (3) HTN (hypertension): QUALIFIERS: Hypertension type: unspecified Qualified Code(s): I10 - Essential (primary) hypertension COMMENT: started on Procardia 08/25. Pre E labs WNL. Will check at work(pulmonary). Set up home BP monitoring. recommend 81 mg ASA. growth US q 4 weeks. weekly bpp after 32. delivery at 37-38
== END 2024-08-25 15:03 | disposition home or self-care (01) ==
LOC: WPOUT 11:10 → WP 11:10
PROVIDERS: PCP Family Medicine; Referring Provider Advanced Practice Midwife; Visit Provider Advanced Practice Midwife
DX: O10.012 Pre-existing essential hypertension complicating pregnancy, second trimester (principal); O09.92 Supervision of high risk pregnancy, unspecified, second trimester; O36.8120 Decreased fetal movements, second trimester, not applicable or unspecified; O99.212 Obesity complicating pregnancy, second trimester; O99.012 Anemia complicating pregnancy, second trimester; D50.9 Iron deficiency anemia, unspecified; O99.352 Diseases of the nervous system complicating pregnancy, second trimester; G47.33 Obstructive sleep apnea (adult) (pediatric); Z3A.24 24 weeks gestation of pregnancy
CPT/HCPCS: 59025; 59050; 76819; 99221; G0378

== ENCOUNTER → 2024-08-25 | Outpatient (CLI) | payer OTHER, SELFPAY ==
[2024-08-25 12:28] LABS: Absolute Lymphocyte Count 1.91 X10^3/uL (0.83-4.51); Absolute Neutrophil Count 6.7 X10^3/uL (2.0-7.7); Basophil# 0.04 X10^3/uL; Basophil% 0.4 % (0-1); Eosinophil# 0.11 X10^3/uL; Eosinophils% 1.2 % (0-5); Hematocrit 31.3 % (37-47); Hemoglobin 8.9 g/dL (12.0-15.0); Lymphocyte # 1.91 X10^3/ul (0.83-4.51); Lymphocyte % 20.8 % (19-41); Mean Corp Hgb Conc 28.4 g/dL (32-36); Mean Corpuscular Hgb 19.5 pg (27.0-32.0); Mean Corpuscular Volume 68.5 fL (81-99); Mean Platelet Vol. 9.2 fl (6.2-12.0); Monocyte# 0.37 X10^3/uL; NRBC Flagged by Analyzer 0 % (0-5); Neutrophil # 6.68 X10^3/uL (2.7-7.7); Neutrophil % 72.9 % (47-70); Platelet Count 399 K/mm3 (150-450); RBC Distribution Width CV 18.9 % (11.6-14.6); Red Blood Count 4.57 M/mm3 (4.2-5.4); White Blood Count 9.2 K/mm3 (4.4-11.0)
[2024-08-25 13:18] LABS: Protein, Urine (Random) < 6.0 mg/dL (<11.9)
[2024-08-25 13:20] LABS: ALB/GLOB Ratio 0.5 RATIO (0.9-2.4); AST(SGOT) 8 U/L (15-37); Alanine Aminotransfer ALT/SGPT 9 U/L (13-56); Albumin, Serum 2.4 g/dL (3.2-5.0); Alkaline Phosphatase 98 U/L (45-117); Anion Gap 7 (5-15); BUN 6 mg/dL (7-18); BUN/Creat Ratio 11.2 RATIO (10-20); Calcium,Total 9.2 mg/dL (8.5-10.1); Chloride 108 mmol/L (98-107); Creatinine, Serum 0.54 mg/dL (0.55-1.02); EST Glomerular Filtration Rate 145 mL/min (>60); Est Glom Filt Rate - Afr Amer 175 mL/min (>60); Globulin 4.8 g/dL (2.2-4.2); Glucose 112 mg/dL (74-106); Potassium 3.6 mmol/L (3.5-5.1); Protein, Total 7.2 g/dL (6.4-8.2); Sodium Level 135 mmol/L (136-145)
== END | disposition home or self-care (01) ==
LOC: WOBLAB 10:51
PROVIDERS: PCP Family Medicine; Referring Provider Nurse Practitioner Women's Health; Visit Provider Nurse Practitioner Women's Health
DX: O10.012 Pre-existing essential hypertension complicating pregnancy, second trimester (principal); Z3A.24 24 weeks gestation of pregnancy
CPT/HCPCS: 36415; 80053; 82570; 84156; 85025

== ENCOUNTER 2024-09-03 15:30 | Outpatient (CLI) | payer OTHER, SELFPAY ==
[2024-09-03 16:05] VITALS: BP 124/67; PULSE 110; RESP 16; TEMP 36.6; O2SAT 99
[2024-09-03 16:06] VITALS: PULSE 113; O2SAT 98
[2024-09-03 16:08] VITALS: RESP 16; TEMP 36.6; O2SAT 98
[2024-09-03 16:20] VITALS: BP 122/69; PULSE 100
[2024-09-03 16:24] LABS: Hematocrit 30.9 % (37-47); Hemoglobin 8.9 g/dL (12.0-15.0); Mean Corp Hgb Conc 28.8 g/dL (32-36); Mean Corpuscular Hgb 19.5 pg (27.0-32.0); Mean Corpuscular Volume 67.8 fL (81-99); Mean Platelet Vol. 9.1 fl (6.2-12.0); Platelet Count 407 K/mm3 (150-450); RBC Distribution Width SD 46.2 fl (35.1-43.9); Red Blood Count 4.56 M/mm3 (4.2-5.4); White Blood Count 9.3 K/mm3 (4.4-11.0)
[2024-09-03 16:39] LABS: AST(SGOT) 8 U/L (15-37); Alanine Aminotransfer ALT/SGPT 13 U/L (13-56); Creatinine, Serum 0.55 mg/dL (0.55-1.02); EST Glomerular Filtration Rate 140 mL/min (>60); Est Glom Filt Rate - Afr Amer 170 mL/min (>60); Uric Acid 2.9 mg/dL (2.6-6.0)
--- NOTE | 2024-09-03 16:39 | US_ITS ---
STUDY: SECOND AND THIRD TRIMESTER OBSTETRICAL ULTRASOUND - LIMITED REASON FOR EXAM: Female, 29 years old growth -- 28 weeks LMP: 02/21/2024 PRIOR ULTRASOUND: Prior study dated: 07/11/2024 TECHNIQUE: Transabdominal TECHNICAL QUALITY: Adequate. FINDINGS: There is a single intrauterine fetus. The fetus is in a cephalic presentation. There is demonstrated cardiac activity with a heart rate of 129 bpm. There is a normal amniotic fluid volume. The largest amniotic fluid pocket measures 9.7 cm. The amniotic fluid index (CORAL) is 15.8 cm. The placenta is anterior in location and is not low lying. There are Grade 1 placental changes. The cervix measures 3 cm in length. BIOMETRY: BPD: 7.3 cm: 29 weeks, 1 days HC: 27.1 cm: 29 weeks, 4 days OFD: 9.4 cm, 28 weeks, 6 days AC: 23.1 cm: 27 weeks, 3 days FL: 5 cm: 27 weeks, 0 days Age by LMP: 27 weeks, 6 days. ADA by LMP: 11/27/2024. age by current US: 28 weeks, 3 days. ADA by current US: 11/23/2024. Estimated weight: 1099 grams, +/- 165 grams, 29 percentile. US/OB Limited With Biometrics IMPRESSION: Single live intrauterine fetus in cephalic presentation with an estimated gestational age of 28 weeks and 3 days. Electronically Signed: Conor Benson MD at 9:40 EDT ,
[2024-09-03 16:40] LABS: Protein:Creat Ratio 85 mg/g CRE (0-200)
--- NOTE | 2024-09-03 16:40 | OB.TRI.HP_ITS ---
HPI - General HPI Narrative VENUS FELDMAN, is a 29 F who presents with dizziness and seeing some spots in her vision, not feelign well. no COLON. bps borderline eleveted at work. she has been taking her medicine. Maternal Data Information ADA Calculator Estimated Delivery Date Method Current WG Current Estimate 11/27/24 LMP (Certain) 28w 4d PFSH PFSH Medical History Dyspareunia Left ovarian cyst Bone spur of right ankle Contraceptive management Low iron Dermoid cyst Wears glasses PTSD (post-traumatic stress disorder) Depression Ambulates with cane Arthritis Migraine headache Non-smoker Shortness of breath on exertion History of edema Hx of fracture of ankle Difficulty balancing Anemia Anxiety Home Medications ?Medication ?Instructions ?Recorded ?Last Taken ?Type multivitamin no.47-iron fum 27 cap PO 04/25/24 Unknown History mg-folate no.1 1 mg-dha 300 mg capsule (PNV-DHA) promethazine 12.5 mg tablet 12.5 mg PO Q6H PRN headache and 05/29/24 Unknown Rx nausea #30 tabs labetalol 100 mg tablet 100 mg PO BID #60 tabs 08/27/24 Unknown Rx Allergy/AdvReac Type Severity Reaction Status Date / Time iodine Allergy Rash Verified 08/25/24 10:32 Family History Mother Hypertension Cancer leg Grandmother Diabetes Maternal Other Arthritis Surgical History History of ankle surgery S/P ovarian cystectomy Hx of wisdom tooth extraction Hx of cholecystectomy Social History adopted: No household members: spouse and children number of children: 1 current occupational status: employed current occupation: Formerly [employer] current occupational exposures/hazards: No pets and animals: Yes (Avoid litterbox) pets and animals: cat(s) history of recent [place]: [place] ([place]) out of state: Yes out of country: No sexually active: Yes Smoking Status: Never smoker alcohol intake: never substance use type: does not use well-balanced diet: daily or most days caffeine: No eating out: 1-3 times/week during the past year weight has: increased > 10 lbs what type of physical activity do you participate in: walking and bicycling frequency: 1-2 times per week duration: 45-60 minutes/day britta/confucianist: Tenriism seatbelt use: always do you feel safe at home: Yes additional social history: - Harsh History 2 Elective abortions Hx Para 1 Spontaneous abortions Hx # Term Pregnancies Ectopic pregnancies Hx # Pregnancies Multiple births # of living children 1 Past Pregnancies Del. Date Name GA/Weeks Outcome Route Bth Weight Gen Labor Lgth Anesthesia Del Locatn Provider FOB 06/28/18 Yasmin 40 live - full term 6lbs 14oz Female epidural WC ROSA ELENA Harsh Visit Details Expected Delivery Route/Plan Labor Preferences- CB/BF classes: [] labor support person: [] labor intervention preferences: no right ankle manipulation pain management options preferred: [] cut cord/dad catch: [] : [] PP control planned: [] discussed possible routes of delivery and associated risks: [] special requests: [] Plans Covid status: [] Flu vaccine: [] Tdap vaccine: [] Rhogam: [] LARC form signed: [] Problem list reviewed and updated with the most current plan of care details and appropriate orders placed. Relevant counseling for the gestational age provided. Continue routine care and follow up unless otherwise noted in visit notes/problem list details OB Flowsheet Initial Weight: 351 lb Date -?-?-?-?-?-?-?-?-?-?-?-?- EGA Weight BP Urine Prot -?-?-?-?-?-?-?-?-?-?-?-?- Glucose FHR FuHt Pres Dilation -?-?-?-?-?-?-?-?-?-?-?-?- Effaced St Visit Note 04/25/24 -?-?-?-?-?-?-?-?-?-?-?-?- 9w 1d 351 lb (+0 oz) 142/80 -?-?-?-?-?-?-?-?-?-?-?-?- 180 -?-?-?-?-?-?-?-?-?-?-?-?- LC- CRL con with LMP. desires nipt. obtain hgba1c with nob labs for obesity. 05/29/24 -?-?-?-?-?-?-?-?-?-?-?-?- 14w 0d 349 lb (-2 lb) 133/82 Negative -?-?-?-?-?-?-?-?-?-?-?-?- Negative 145 -?-?-?-?-?-?-?-?-?-?-?-?- JV-no complaints other than headaches. JV-no complaints other than headaches. will start slow FE. results of new ob labs reviewed. nipt pending. 06/23/24 -?-?-?-?-?-?-?-?-?-?-?-?- 17w 4d 347 lb (-4 lb) 146/64 Trace -?-?-?-?-?-?-?-?-?-?-?-?- Negative 149 -?-?-?-?-?-?-?-?-?-?-?-?- MH-No VB. No he adache today but does have off and on with dizziness. Persistent elevated BP large cuff/electronic and manual. Pre E labs. 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 Reviewed Pre E S&S. Arrange for home BP monitoring. 07/23/24 -?-?-?-?-?-?-?-?-?-?-?-?- 21w 6d 347 lb (-4 lb) 144/85 -?-?-?-?-?-?-?-?-?-?-?-?- 145 -?-?-?-?-?-?-?-?-?-?-?-?- SM- no vb crampi ng, bps at home all WNL. 08/13/24 -?-?-?-?-?-?-?-?-?-?-?-?- 24w 6d 351 lb (+0 oz) 137/79 Negative -?-?-?-?-?-?-?--?-?-?-?-?- Negative 160 -?-?-?-?-?-?-?-?-?-?-?-?- SM- having heada ches, and some intermittent upper abdominal pain intermittently at night. 08/25/24 -?-?-?-?-?-?-?-?-?-?-?-?- 26w 4d 352 lb (+16 oz) 142/88 Negative -?-?-?-?-?-?-?-?-?-?-?-?- Negative 148 -?-?-?-?-?-?-?-?-?-?-?--?- MH-No VB, LOF. W ork in for headache, seeing spots and home BP elevated 175/103 then with rest 155/85. Did not report until this AM. MH-No VB, LOF. Work in for h eadache, seeing spots and home BP elevated 175/103 then with rest 155/85. Did not report until this AM. Pre E labs and to for monitoring. Some dec movement. Physical Exam Const alert, oriented x3 and no apparent distress HEENT Head and Scalp: normocephalic and atraumatic Eyes EOMs intact bilaterally Neck full ROM and no lymphadenopathy Chest inspection of chest normal Resp normal respiratory effort GI GI Narrative: gravid, abdomen nontender, AGA Neuro no focal motor deficits Motor Exam: clonus absent NST FHR Rate Baby A Baseline: 140 Variability:: Moderate Accelerations:: 15 x 15 Decelerations:: None NST Reactive:: Yes FHR Category:: Category I Uterine Activity:: no regular Assessment & Plan (1) : QUALIFIERS: Weeks of gestation: 26 weeks Qualified Code(s): Z3A.26 - 26 weeks gestation of COMMENT: NIPT low risk, discussed carrier testing. anatomy (2) Supervision of high-risk : QUALIFIERS: Trimester: second trimester Qualified Code(s): O09.92 - Supervision of high risk , unspecified, second trimester COMMENT: [id number], ADA 11/27/24, IRINEO lemon, Harsh, anatomy at [facility] (3) HTN (hypertension): QUALIFIERS: Hypertension type: unspecified Qualified Code(s): I10 - Essential (primary) hypertension COMMENT: started on Procardia 08/25. Pre E labs WNL. Will check at work(pulmonary). Set up home BP monitoring. recommend 81 mg ASA. growth US q 4 weeks. weekly bpp after 32. delivery at 37-38 (4) Obesity affecting : QUALIFIERS: Obesity type affecting : unspecified obesity Trimester: second trimester Qualified Code(s): O99.212 - Obesity complicating , second trimester COMMENT: BMI 58. HgA1C in 1 TM. PLAN: Plan monitored, bps stable and labs WNL. reviewed would recommend reduced work hours and close follow up. Charges/Coding Procedures Urinary/Genital [id number]: 70482-10 non-stress test Interp Multi Select Codes Visit Charges Office Visit/Consults: 82073 OV L3 Est 20min
== END 2024-09-03 18:55 | disposition home or self-care (01) ==
LOC: WPOUT 15:34 → WP 15:35
PROVIDERS: PCP Family Medicine; Referring Provider Obstetrics & Gynecology; Visit Provider Obstetrics & Gynecology
DX: O13.2 Gestational [pregnancy-induced] hypertension without significant proteinuria, second trimester (principal); O09.92 Supervision of high risk pregnancy, unspecified, second trimester; O99.212 Obesity complicating pregnancy, second trimester; Z3A.26 26 weeks gestation of pregnancy
CPT/HCPCS: 59025; 59050; 76816; 82565; 82570; 84156; 84450; 84460; 84550; 85027; 99221; G0378

== ENCOUNTER → 2024-09-11 | Outpatient (CLI) | payer OTHER, SELFPAY ==
--- OUTSIDE RECORDS SUMMARY | 2024-09-11 09:37 | XMS RPT_ITS | CCD ---
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 138.1 kg (304 lb 6.4 oz) LMP 09/12/2017 SpO2 98% BMI 52.25 kg/m? Hr 92 Review of Systems Constitutional: Negative for chills, fever and malaise/fatigue. HENT: Negative for congestion, ear discharge, ear pain, sinus pain and sore throat. Eyes: Negative for blurred vision, pain, discharge and redness. Respiratory: Negative for cough, sputum production, shortness of breath and wheezing. Cardiovascular: Negative for chest pain. Gastrointestinal: Positive for nausea and vomiting. Negative for abdominal pain and diarrhea. Musculoskeletal: Negative for myalgias. Skin: Negative for itching and rash. Neurological: Positive for headaches. Negative for dizziness. Objective Physical Exam Constitutional: General: She is not in acute distress. Appearance: She is not diaphoretic. HENT: Head: Normocephalic. Mouth/Throat: Mouth: Mucous membranes are moist. Eyes: Extraocular Movements: Extraocular movements intact. Conjunctiva/sclera: Conjunctivae normal. Pupils: Pupils are equal, round, and reactive to light. Cardiovascular: Rate and Rhythm: Normal rate and regular rhythm. Heart sounds: Normal heart sounds. Pulmonary: Effort: Pulmonary effort is normal. No tachypnea, accessory muscle usage or respiratory distress. Breath sounds: Normal breath sounds. Abdominal: General: Bowel sounds are normal. Palpations: Abdomen is soft. Tenderness: There is no abdominal tenderness. Musculoskeletal: General: Normal range of motion. Cervical back: Normal range of motion and neck supple. No rigidity or tenderness. Lymphadenopathy: Cervical: No cervical adenopathy. Skin: General: Skin is warm and dry. Neurological: Mental Status: She is alert and oriented to person, place, and time. ASSESSMENT/PLAN: 1. Headache, unspecified headache type - ICD9: 784.0, ICD10: R51.9 - KETOROLAC 60 MG/2 ML INTRAMUSCULAR SOLUTION Headache pattern and severity similar to previous migraine. No acute onset. No blood in vomit. No abdominal pain with palpatio (more content not included)... Normal [facility] No Panel Information [facility] Vital Signs Date Time Vital Sign Value Performing Clinician John luke 08-10-2022 15:16-0400 Body height 165.1 cm Sagar Simons MD Work Phone: [facility] 08-10-2022 15:16-0400 Body weight 146.06 kg Sagar Simons MD Work Phone: [facility] 08-10-2022 15:16-0400 Respiratory rate 20 /min Sagar Simons MD Work Phone: [facility] 04-20-2022 13:57-0400 Body height 165.1 cm Sagar Simons MD Work Phone: [facility] 04-20-2022 13:57-0400 Body weight 134.26 kg Sagar Simons MD Work Phone: [facility] 04-20-2022 13:57-0400 Respiratory rate 20 /min Sagar Simons MD Work Phone: [facility] 02-16-2022 14:03-0400 Body height 165.1 cm Sagar Simons MD Work Phone: [facility] 02-16-2022 14:03-0400 Body weight 134.26 kg Sagar Simons MD Work Phone: [facility] 02-16-2022 14:03-0400 Respiratory rate 16 /min Sagar Simons MD Work Phone: [facility] Encounters Encounter Date Encounter Type Care Provider Facility Start: 07-28-2024 End: 07-28-2024 ambulatory ASHLEY MATHIS [facility] Start: 10-12-2023 End: 10-12-2023 ambulatory ALEX ESPAÑA Facility:[facility] Start: 09-20-2023 Telephone encounter Alex España DPTonya Work Phone: [facility] Comment on above: Appointment Start: 06-25-2023 Telephone encounter Alex royal Taco DPM Work Phone: [facility] Comment on above: Appointment Start: 08-10-2022 End: 08-10-2022 Patient encounter procedure Sagar Simons MD Work Phone: [facility] Comment on above: Type I or II open di splaced pilon fracture of right tibia with routine healing, subsequent encounter (Primary Dx); Post-traumatic arthritis of ankle, right Start: 08-04-2022 Telephone encounter Ag Orth Work Phone: [facility] Comment on above: Xray Results Start: 06-19-2022 Telephone encounter Ag Orth Work Phone: [facility] Comment on above: Letter Start: 06-02-2022 Telephone encounter Ag Orth Work Phone: [facility] Comment on above: Patient Update Start: 04-20-2022 End: 04-20-2022 Patient encounter procedure Sagar Simons MD Work Phone: [facility] Comment on above: Type I or II open di splaced pilon fracture of right tibia with routine healing, subsequent encounter (Primary Dx) Start: 03-16-2022 Telephone encounter Sagar Simons MD Work Phone: [facility] Comment on above: Patient Request Start: 02-16-2022 End: 02-16-2022 Patient encounter procedure Sagar Simons MD Work Phone: [facility] Comment on above: Type I or II open di splaced pilon fracture of right tibia with routine healing, subsequent encounter (Primary Dx) Start: 10-30-2017 End: 10-31-2017 Ambulatory Tree Ibanez [place] Date Procedure Procedure Detail Performing Clinician Start: 04-20-2022 Radex ankle complete minimum 3 views Sagar Simons MD Work Phone: Start: 03-01-2022 Radex ankle complete minimum 3 views Sagar Simons MD Work Phone: Start: 06-22-2017 Adult depression screening assessment Sagar Simons MD Work Phone: Plan of Treatment Date Care Activity Detail Author Start: 11-24-2031 Urine microalbumin profile DTa P,Tdap,Td Vaccine (5 - Td or Tdap) [facility] Start: 01-13-2024 PAP TESTING PAP TESTING [facility] Start: 07-13-2023 Covid-19 Vaccine ( season) Covid-19 Vaccine ( season) [facility] Start: 07-13-2023 Influenza vaccination C [facility] Start: 11-12-2022 [facility] Start: 07-13-2022 Influenza vaccination C [facility] Start: 05-03-2022 COVID-19 VACCINE (2 - Moderna series) COVID-19 VACCINE (2 - Moderna series) [facility] Start: 04-05-2022 COVID-19 VACCINE (2 - Moderna series) COVID-19 VACCINE (2 - Moderna series) [facility] Start: 11-12-2021 [facility] Start: 06-22-2018 Adult depression scr [facility] assessment DEPRESSION SCREENING [facility] Start: 2016 Urine microalbumin profile DTAP,TDAP ,TD (1 - Tdap) [facility] Start: 2015 HEPATITIS C SCREENING HEPATITIS C SC REENING [facility] Start: 2015 HIV SCREENING HIV SCREENING [facility] Start: 2011 PEDS TO ADULT TRANSI TION ANNUAL ASSESSMENT PEDS TO ADULT TRANSITION ANNUAL ASSESSMENT [facility] Start: 2009 PEDS TO ADULT TRANSI TION INITIAL DISCUSSION PEDS TO ADULT TRANSITION INITIAL DISCUSSION [facility] Start: 2008 HPV VACCINE (1 - 2-d ose series) HPV VACCINE (1 - 2-dose series) [facility] Start: 2007 MENINGOCOCCAL B: Con medical records auditor based on risk (1 of 2 - Risk Bexsero 2-dose series) MENINGOCOCCAL B: Consider based on risk (1 of 2 - Risk Bexsero 2-dose series) [facility] Start: 2006 HPV VACCINE (1 - 2-d ose series) HPV VACCINE (1 - 2-dose series) [facility] Start: 2002 COVID-19 VACCINE (1) COVID-19 VACCIN E (1) [facility] Start: 1997 HEPATITIS B (1 of 3 - 3-dose series) HEPATITIS B (1 of 3 - 3-dose series) [facility] Start: 1997 Hepatitis B Vaccine (1 of 3 - 3-dose series) Hepatitis B Vaccine (1 of 3 - 3-dose series) [facility] Immunizations Immunization Date Immunization Notes Care Provider Fa cili 11-21-2017 influenza virus vacc ine, unspecified formulation Alex España DPM Work Phone: [facility] Payers Date Payer Category Payer Private Health Insurance [employer] 20/20 [employer] [id number] 2022-Present [phone] [address] [place] [address] PPO [id number] 2022 Private Health Insurance [id number] 2020 Unknown [employer] PPO OOS [id number] 2020-Present [phone] [address] [place] [address] PPO [id number] 2017 Unknown 1995 Unknown [id number] Social History Date Type Detail Facility Start: 10-23-2013 End: 08-10-2022 Tobacco smoking status NHIS Never smoked tobacco [facility] Work Phone: Start: 10-23-2013 End: 08-10-2022 Tobacco use and exposure Smokeless tobacco non-user [facility] Work Phone: Start: 02-16-2022 End: 08-10-2022 Alcohol intake Current non-drinker of alcohol (finding) [facility] Start: 1995 Sex Assigned At Not on file C [facility] Start: 02-06-2022 End: 08-10-2022 Exposure to SARS-CoV-2 (event) Not sure [facility] Start: 07-28-2022 End: 08-07-2022 Exposure to SARS-CoV-2 (event) Unable to assess [facility] Start: 08-10-2022 End: 09-20-2023 History of Social function [facility] Start: 08-10-2022 End: 09-20-2023 Tobacco use panel [facility] National Score (1-100), lower number is lower risk 70 [facility] Medical Equipment Procedure Code Equipment Code Equipment Origin al Text Equipment Identifier Dates Medial Distal Ti douglas Plate 8 Hole [id number] Start: 11-25-2021 Screw Lcp 3.5mm Stainless Steel 24mm Bone Self Tapping Small Fragment - [id number] Start: 11-25-2021 Screw Dcp Lc-Dcp 3.5mm Stainless Steel 28mm Bone Self Tapping Hexagonal - [id number] Start: 11-25-2021 Screw Lc-Dcp Dcp 3.5mm 6mm Full Thread Hexagon Stainless Steel 30mm Bone - [id number] Start: 11-25-2021 Screw Lcp 3.5mm T15 Full Thread Cone Low Profile Stainless Steel 35mm Bone - [id number] Start: 11-25-2021 Screw Lcp 3.5mm Full Thread Stainless Steel 36mm Bone T15 Stardrive Self - [id number] Start: 11-25-2021 Screw Lcp 3.5mm Full Thread Stainless Steel 38mm Bone T15 [employer] Self - [id number] Start: 11-25-2021 Screw Lcp 3.5mm Full Thread Stainless Steel 45mm Bone [employer] Self Tap - [id number] Start: 11-25-2021 Clinical Notes 06-07-2021 to 10-12-2023 Telephone Encounter - Merna Pringle - 09/20/2023 11:52 AM ESTTelephone Encounter - Nasreen Bowie Jessica White - 06/25/2023 3:44 PM EDTPatient InstructionsPatient Instructions Note Date & Type Note Facility 10-12-2023 Note HNO ID: [id number] Author: Florinda Ronquillo LPN Service: ? Author Type: LICENSED NURSE Type: Progress Notes Filed: 10/17/2023 10:11 AM Note Text: Prepared 3 cc syringe with 2 cc Bupivacaine and 0.5 cc Depo Medrol and 0.5 cc Kenalog with 25 gauge needle and gave to MD for injection - Florinda Ronquillo LPN [facility] 10-12-2023 Note HNO ID: [id number] Author: Alex España DPM Service: ? Author Type: Physician Type: Progress Notes Filed: 10/17/2023 10:11 AM Note Text: Chief Complaint: right ankle pain HPI: This 28 year old female with PMH indicated below presents complaining of right ankle pain for second opinion. She states that she broke the ankle in November 2021 and it was fixed by Dr. Simons. She had a pilon fx. Has since followed up and went through the post operative care. Had an ankle scope done by [facility]. States that did not provide any relief either. Has tried lace up ankle brace to the ankle and didn't get much relief. She has gotten a rx for custom brace but was not able to fill in secondary to cost. She is here for further options. PCP: Ashley Mathis MD: PAST MEDICAL HISTORY Diagnosis Date Migraine : Current Outpatient Medications Medication Sig cyclobenzaprine (FLEXERIL) 10 mg tablet Take 1 tablet by mouth twice daily as needed for muscle spasm. Wheel Chair hien 1 bariatric wheelchair; Elevated legs; Desk length arms etonogestrel (NEXPLANON) 68 mg impl subdermal implant 68 mg by SUBDERMAL route. ondansetron orally disintegrating (ZOFRAN ODT) 4 mg disintegrating tablet Take 1 tablet by mouth every 6 hours as needed for nausea/vomiting. sertraline (ZOLOFT) 100 mg tablet Take 1 tablet by mouth once daily. No current facility-administered medications for this visit. : ALLERGIES Allergen Reactions Iodine Hives, Rash : PAST SURGICAL HISTORY Procedure Laterality Date LAPS SURG CHOLECYSTECTOMY W/CHOLANGIOGRAPHY 11/10/2013 PAST SURGICAL HISTORY OF Right ankle Dr. Simons 2021 FAMILY HISTORY Problem Relation Age of Onset Heart Mother issue with rapid arrhythmia, needs heart surgery None Father Diabetes Maternal Grandmother Cancer Maternal Aunt lung : Social History Tobacco Use Smoking status: Never Smokeless tobacco: Never Substance Use Topics Alcohol use: No Drug use: No REVIEW OF SYSTEMS See tech note MSK: + as noted in HPI. Physical Exam: Patient is alert and oriented x 3 in NAD. Patient is a 28 year old female who appears well developed, well nourished and with good attention to hygiene and body habitus. Resp 16 Ht 165.1 cm (5' 5 ) Wt (!) 146.1 kg (322 lb) LMP 09/12/2017 BMI 53.58 kg/m? Vascular: DP and PT pulses are palpable. CFT less than 3 seconds to all digits bilateral. Skin temperature is warm to warm from proximal to distal bilateral. Hair growth is noted. edema noted b/l. No varicosities noted. Neuro: Light touch intact bilateral. Protective sensation intact at all pedal sites via [place] 5.07 monofilament bilateral. Derm: Skin texture and turgor within normal limits. Toenails normal in appearance. Webspaces 1-4 clean, dry, intact b/l. No rashes, subcutaneous nodules, or open lesions noted. No hyperkeratotic tissue. Well healed surgical scars around the ankle. Musculoskeletal/Orthopaedic: +5/5 muscle strength Dorsiflexion, Plantarflexion, Inversion, Eversion bilateral ROM of the 1st MTPJ is full without pain or crepitus b/l. Ankle joint ROM is decreased B/L (R>L). Pain with ROM of the ankle. Pain with palpation of global ankle. Negative syndesmotic squeeze and external rotation test. Ankle ligaments stable to testing. Mild pain with palpation of the stj. Radiographs: 3 views AP, MO, Lat of the Right ankle were taken and evaluated. Radiographic evaluation: No soft tissue gas. No discernible mass noted. Bone density appear typical for age of patient. S/p pilon fracture ORIF. Tibial fracture lines apparent. Hardware intact without breakage or lucency. Joint space narrowing of the ankle joint. ASSESSMENT: This 28 year old female patient presents today with post traumatic arthritis of right ankle, equinus, and obesity Plan: - A comprehensive history and physical examination were preformed. The patient was educated on clinical and radiographic findings, diagnosis and treatment plans. Patient state that she understands all that has been explained and all questions were answered to her apparent satisfaction. - Etiology and treatment options were discussed with the patient. - xrays taken and discussed with patient - Rx for Solid AFO - Use lace up ankle brace if will now tolerate - OTC meds prn for pain - Discussed risks, benefits, complications, and post injection course of steroid shot to the right ankle. Patient elects to proceed. See procedure note below. Shot #1. - Activities as dictated by symptoms. - Discussed good supportive shoe gear. - RTC 6 weeks Medium Joint Arthro/Inj: R ankle joint Informed Consent Consent Obtained: Verbal Heth Protocol SIGN IN Sign in communication not applicable due to emergent procedure. Special Equipment: N/A Patient/Surrogate Stated/Verified: Patient name, Date of , Relevant allergies and In (more content not included)... [facility] 09-20-2023 Miscellaneous Notes Called to reschedule PT's cancelled appt for 2nd opinion with Dr. España ([facility]). Scheduled 10/12/23. Merna Pringle ----- Message from Anastasia Dexter sent at 09/20/2023 8:22 AM EST ----- Regarding: Orthopedics / [facility], Ankle: Pain / Est. Pt. Non RFV Reason/[facility] Contact: Subject Line Format: Orthopedics / [Provider Name or Open & Body Part ] / [Issue] Patient has been identified by name and Date of (Y/N): Y Patient: Venus Black Date of : 1995 Previous Provider Seen: Dr Simons Body Part(s) Identified: Right ankle Diagnosis/Reason For Visit: pain Reason for the call/escalation: can not schedule per tool If reason for call/escalation is discharge from ED/ER or Hospital, which facility was the patient seen at: N Was an appointment scheduled (Y/N): N Person calling if other than patient: PT Return call to if other than patient: PT Best contact number: [phone] Patient would like to see Dr España for a second opinion at the [facility] Thank you, Anastasia Dexter September 20, 2023 8:22 AM documented in this encounter [facility] 06-25-2023 Miscellaneous Notes Returned call to make the appointment for the 2nd opinion Spoke with patient she need to work out things with her work then call us back Jessica White ----- Message from Mayelin Enriquez sent at 06/22/2023 3:31 PM EDT ----- Regarding: Orthopedics / Sagar Simons) R Ankle: Pain / Prev SX - Non RFV Reason Contact: Patient has been identified by name and Date of (Y/N): y Patient: Venus Black Date of : 1995 Previous Provider Seen: Dr Simons Body Part(s) Identified: Right Ankle Diagnosis/Reason For Visit: R Ankle Reason for the call/escalation: Right Ankle SX 11/25/2021 then went to [facility] and had surgery again January 2023 referred to [facility]/ Please reach out If reason for call/escalation is discharge from ED/ER or Hospital, which facility was the patient seen at: n/a Was an appointment scheduled (Y/N): n Person calling if other than patient: n Return call to if other than patient: n Best contact number: [phone] Thank you, Mayelin Enriquez June 22, 2023 3:31 PM documented in this encounter [facility] 08-10-2022 Instructions Sagar Simons MD - 08/10/2022 3:47 PM EDT Office will contact you with information for the [facility] referral or follow-up with one of our foot and ankle surgeons. documented in this encounter [facility] 08-10-2022 History of Presen t illness Narrative Images from the original note were not included. ORTHOPAEDIC OFFICE NOTE CHIEF COMPLAINT: right ankle stiffness, swelling HISTORY OF PRESENT ILLNESS: Venus Black is a 27 year old female who presents for reevaluation after irrigation and debridement and operative stabilization open right tibial pilon fracture 11/25/2021. She continues to note swelling in the ankle with activity and stiffness with extended use. Uses a quad cane for assistance with ambulation. Obtained imaging through primary care office and had questions prompting follow-up scheduling. Noted previously 02/2022 to have appearance of early post-traumatic arthritis of the ankle imaging secondary to severe joint injury. No wound problems, including redness and drainage. No new injury mechanism. 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 Reviewed nursing note and current pain scale. PAST MEDICAL HISTORY Diagnosis Date Migraine PAST SURGICAL HISTORY Procedure Laterality Date LAPS SURG CHOLECYSTECTOMY W/CHOLANGIOGRAPHY 11/10/2013 PAST SURGICAL HISTORY OF Right ankle Dr. Simons 2021 FAMILY HISTORY Problem Relation Age of Onset Heart Mother issue with rapid arrhythmia, needs heart surgery None Father Diabetes Maternal Grandmother Cancer Maternal Aunt lung Social History Tobacco Use Smoking status: Never Smokeless tobacco: Never Substance Use Topics Alcohol use: No Drug use: No MEDICATIONS: Current Outpatient Medications Medication Sig cyclobenzaprine (FLEXERIL) 10 mg tablet Take 1 tablet by mouth twice daily as needed for muscle spasm. Wheel Chair hien 1 bariatric wheelchair; Elevated legs; Desk length arms etonogestrel (NEXPLANON) 68 mg impl subdermal implant 68 mg by SUBDERMAL route. ondansetron orally disintegrating (ZOFRAN ODT) 4 mg disintegrating tablet Take 1 tablet by mouth every 6 hours as needed for nausea/vomiting. sertraline (ZOLOFT) 100 mg tablet Take 1 tablet by mouth once daily. meloxicam (MOBIC) 15 mg tablet Take 1 tablet by mouth once daily. Take with breakfast. No current facility-administered medications for this visit. ALLERGIES: ALLERGIES Allergen Reactions Iodine Hives, Rash PHYSICAL EXAMINATION: Resp 20 Ht 5' 5 (1.65m) Wt 322 lb (146.1kg) LMP 09/12/2017 BMI 53.58 kg/(m^2). General Appearance: Well appearing, alert, in no acute distress, well-hydrated, well nourished. Morbid obesity. Skin: Skin color, texture, turgor normal, no suspicious rashes or lesions. Extremities: Right ankle with global edema and obese habitus. Incision well healed. No erythema. Right leg and foot compartments soft and compressible. Passive right foot DF/PF in functional arc of motion with occasional crepitance. Has less arc of active motion. Guards with passive foot eversion and inversion. Ambulatory with antalgic gait right side. Peripheral Pulses: Normal. Neurologic: Intact light touch sensation right lower extremity. IMAGES: No results found for this or any previous visit (from the past 36 hour(s)). Outside ankle imaging 07/2022 reviewed demonstrating no change in hardware position compared to prior films. Alignment of ankle maintained with evidence of healing throughout metaphyseal region of prior comminution. The plafond has subsided consistent with initial appearance of articular fracture, consistent with post-traumatic arthritis of the joint. ASSESSMENT AND PLAN: 1. Type I or II open displaced pilon fracture of right tibia with routine healing, subsequent encounter - ICD9: V54.19, ICD10: S82.871E (primary diagnosis) 2. Post-traumatic arthritis of ankle, right - ICD9: 716.17, ICD10: M19.171 Functional Plan: No restrictions with weight bearing or range of motion right lower extremity. Assistance Devices: Cane as above. Boot discontinued previously. Physical/Occupational Therapy: Has performed therapy extensively. Wound Care: None. Pain Control: Discussed short consistent use of NSAID to address current symptoms; recommended meloxicam once daily with breakfast and discontinuation of OTC NSAIDs. Reviewed risks and benefits. Discussed short versus senior living use, would try not to take as chronic medication. Administered prescription. Fragility Fracture: Not applicable. Additional: Again reviewed severity of joint injury with patient and progression to post-traumatic arthritis. Discussed senior living ramifications in context of joint appearance, weight, activity. May respond to corticosteroid injection but will not change joint appearance. May benefit from brace wear. Recommended referral to foot/ankle surgeon; patient wants to remain close to home and requests referral to [facility] [place] (they are not known). If that facility is unable to provide care, recommended available foot/ankle surgeons at [facility]. Answered all questions. Return if symptoms worsen or fail to improve. Medical Decision Making: Problems: Moderate: 1+ chronic illnesses with change Data: Unique source(s) for external note(s) reviewed: 1 Risk: Low: Low risk from testing/treatment Moderate: Drug management Medical Decision Making Level: 4 - Moderate Sagar Simons MD documented in this encounter [facility] 08-07-2022 Miscellaneous Notes Patient contacted and scheduled in office on 08/10/22 at 3:15 pm. Maria Del Carmen Hernandez Bowie Ppg August 07, 2022 8:41 AM Electronically signed by Maria Del Carmen Hernandez Bowie [facility] at 08/07/2022 8:41 AM EDT Images from the original note were not included. Sagar Simons MD You 2 days ago Yes, an office visit would be best for her to review the images and symptoms of post traumatic arthritis after tibial pilon fracture. NJD Electronically signed by Maria Del Carmen Whtiear Filter Tender Jelly [facility] at 08/07/2022 8:41 AM EDT Patient's ankle xrays from [place] are in Epic and viewable. Would you still like to see her in office? Maria Del Carmen Hernandez Filter Tender Jelly Ppg August 04, 2022 4:18 PM documented in this encounter [facility] 06-22-2022 Miscellaneous Notes Letter completed and routed in [employer] to the patient. Maria Del Carmen Hernandez Bowie Ppg June 22, 2022 10:15 AM Patient called stating that she is scheduled for Jury Duty and she does not believe she can physically participate. She claims she can not sit that long. 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 She also states she can not walk the distance required from the parking lot to the courtroom (has a handicapped placard from you). She currently has no orthopedic restrictions, but states this is an issue that you should write her off for and not her PCP. Are you agreeable to excusing her from Jury Duty? Maria Del Carmen Hernandez Bowie Ppg June 19, 2022 3:33 PM documented in this encounter [facility] 06-02-2022 Miscellaneous Notes Images from the original note were not included. Sagar Simons MD You 24 minutes ago (10:24 AM) Patient had traumatic injury to ankle and has post-traumatic arthritis of ankle. She may also benefit from other modalities to address ankle edema with baseline BMI 48. NJD Message text The patient's PCP called because she has presented there with some edema and pitting in her right ankle and foot. They are requesting her medical records to see if this is related to her original injury in 2021. Maria Del Carmen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 protected by the Federal Confidentiality of Alcohol and Drug Abuse Patient Records regulations: The Federal rules restrict any use of the information to criminally investigate or prosecute any alcohol or drug abuse patient.[facility] the event this information is protected by the Federal Confidentiality of Alcohol and Drug Abuse Patient Records regulations: The Federal rules restrict any use of the information to criminally investigate or prosecute any alcohol or drug abuse patient.[facility] the event this information is protected by the Federal Confidentiality of Alcohol and Drug Abuse Patient Records regulations: The Federal rules restrict any use of the information to criminally investigate or prosecute any alcohol or drug abuse patient.[facility] the event this information is protected by the Federal Confidentiality of Alcohol and Drug Abuse Patient Records regulations: The Federal rules restrict any use of the information to criminally investigate or prosecute any alcohol or drug abuse patient.[facility] the event this information is protected by the Federal Confidentiality of Alcohol and Drug Abuse Patient Records regulations: The Federal rules restrict any use of the information to criminally investigate or prosecute any alcohol or drug abuse patient.[facility] the event this information is protected by the Federal Confidentiality of Alcohol and Drug Abuse Patient Records regulations: The Federal rules restrict any use of the information to criminally investigate or prosecute any alcohol or drug abuse patient.[facility] the event this information is protected by the Federal Confidentiality of Alcohol and Drug Abuse Patient Records regulations: The Federal rules restrict any use of the information to criminally investigate or prosecute any alcohol or drug abuse patient.[facility] the event this information is protected by the Federal Confidentiality of Alcohol and Drug Abuse Patient Records regulations: The Federal rules restrict any use of the information to criminally investigate or prosecute any alcohol or drug abuse patient.[facility] Reason for Visit (unrecogniz ed section and content) Reason Comments Established Patient Reason Comments Patient Request Reason Comments Follow Up Reason Comments Patient Update Reason Comments Letter Reason Comments Xray Results Reason Comments Established Patient Follow Up Reason Comments Appointment Care Teams (unrecognized sec tion and content) 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 Start Date End Date Ashley Mathis MD [address] [place] [address] PCP - General Family Practice 11/25/21 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 Start Date End Date Ashley Mathis MD [address], [place] [id number] PCP - General Family Practice 11/25/21 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 Start Date End Date Ashley Mathis MD [address] [facility] [place] [address] PCP - General Family Practice 11/25/21 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 Start Date End Date Ashley Mathis MD [address] [facility] [place] [address] PCP - General Family Practice 11/25/21 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 Start Date End Date Ashley Mathis MD [address] [facility] [place], [place] [id number] PCP - General Family Practice 11/25/21 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 Start Date End Date Ashley Mathis MD [address] [facility] [place], [place] [id number] PCP - General Family Medicine 11/25/21 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 Start Date End Date Ashley Mathis MD [address] [place], [place] [address] [phone] PCP - General Family Medicine 11/25/21 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 This clinical summary was aggregated from multiple sources. Caution should be exercised in using it in the provision of clinical care. This summary normalizes information from multiple sources, and as a consequence, information in this document may materially change the coding, format and clinical context of patient data. In addition, data may be omitted in some cases. CLINICAL DECISIONS SHOULD BE BASED ON THE PRIMARY CLINICAL RECORDS. [employer] [facility]. provides no warranty or guarantee of the accuracy or completeness of information in this document.
[2024-09-11 10:29] LABS: Glucose Challenge Gest 1H 50g 145 mg/dL (70-140)
[2024-09-11 11:10] LABS: HIV - WCH Non-Reactive (Nonreactive); Syphilis Antibodies Non-reactive
== END | disposition home or self-care (01) ==
LOC: WOBLAB 08:59
PROVIDERS: PCP Family Medicine; Referring Provider Obstetrics & Gynecology; Visit Provider Obstetrics & Gynecology
DX: O09.92 Supervision of high risk pregnancy, unspecified, second trimester (principal); Z13.1 Encounter for screening for diabetes mellitus; Z3A.00 Weeks of gestation of pregnancy not specified
CPT/HCPCS: 36415; 82950; 86703; 86780

== ENCOUNTER → 2024-09-15 | Outpatient (CLI) | payer OTHER, SELFPAY ==
[2024-09-15 07:49] LABS: Bedside Glucose 88 mg/dL (74-106)
[2024-09-15 08:20] LABS: Glucose GTT-Gestation. Fasting 91 mg/dL (<105)
[2024-09-15 08:45] LABS: Glucose GTT-Gestational 1 Hr 174 mg/dL (<190)
[2024-09-15 10:27] LABS: Glucose GTT-Gestational 2 Hr 153 mg/dL (<165)
[2024-09-15 11:30] LABS: Glucose GTT-Gestational 3 Hr 140 L (<145)
== END | disposition home or self-care (01) ==
LOC: LAB 06:58
PROVIDERS: PCP Family Medicine; Referring Provider Obstetrics & Gynecology; Visit Provider Obstetrics & Gynecology
DX: R73.09 Other abnormal glucose (principal)
CPT/HCPCS: 36415; 82951; 82952; 82962

== ENCOUNTER → 2024-10-01 | Outpatient (CLI) | payer OTHER, SELFPAY ==
--- NOTE | 2024-10-01 16:14 | US_ITS ---
EXAM: US BIOPHYSICAL PROFILE WITHOUT NON-STRESS TESTING CLINICAL INDICATION: 32 weeks -- well being TECHNIQUE: Real-time ultrasound of the maternal pelvis for biophysical profile evaluation with image documentation. COMPARISON: September 03, 2024, at sonographic age estimated to be 28 weeks 3 days. FINDINGS: heart rate 149 bpm. 4 quadrant CORAL 19.1 cm. Anterior grade 0 placenta. BREATHING MOVEMENTS: Present. Score 2/2. GROSS BODY MOVEMENTS: Present. Score 2/2. TONE: Present. Score 2/2. QUALITATIVE AMNIOTIC FLUID VOLUME: Within normal limits. Score 2/2. IMPRESSION: Normal biophysical profile ultrasound. Score 8/8. Electronically Signed: Tracy Pascual MD at 2:45 EST , EXAM: US SECOND OR THIRD TRIMESTER , TRANSABDOMINAL CLINICAL INDICATION: 32 weeks -- well being TECHNIQUE: Transabdominal obstetrical ultrasound of the maternal pelvis and a second or third trimester with image documentation. COMPARISON: September 03, 2024. FINDINGS: FETUS: HEART RATE: 149 bpm. PRESENTATION: Cephalic. PLACENTA: Anterior. Grade 0. No placenta previa. No abruption. AMNIOTIC FLUID: Unremarkable. 4 quadrant CORAL 19.1 cm. ANATOMY: Stomach is seen. Anatomy was not specifically evaluated. BIOMETRICS GESTATIONAL AGE: 32 weeks 3 days. Consistent with previous sonographically estimated age. ADA: November 23, 2024. EFW: 1949 g +/- 292 g, 54th percentile. BPD: 33 weeks 3 days. HC: 32 weeks 6 days. AC: 32 weeks 4 days. FL: 31 weeks 0 days. MATERNAL: UTERUS: Unremarkable. No myometrial mass. CERVIX: Not seen. ADNEXA: Not seen. FREE FLUID: None. BIOPHYSICAL PROFILE: 88. US/Biophysical Prof W/O Non Stres IMPRESSION: Single live intrauterine fetus. Cephalic presentation. Symmetric measurements. Appropriate interval change. Electronically Signed: Tracy Pascual MD at 2:52 EST ,
== END | disposition home or self-care (01) ==
LOC: US 16:12
PROVIDERS: PCP Family Medicine; Referring Provider Obstetrics & Gynecology; Visit Provider Obstetrics & Gynecology
DX: O10.013 Pre-existing essential hypertension complicating pregnancy, third trimester (principal); Z3A.32 32 weeks gestation of pregnancy
CPT/HCPCS: 76816; 76819

== ENCOUNTER 2024-10-07 15:48 | Outpatient (CLI) | payer OTHER, SELFPAY ==
[2024-10-07] VITALS (12 sets, daily range): BP systolic 125–166; BP diastolic 57–84; PULSE 86–121; RESP 18; TEMP 36.9; BMI 58.9
[2024-10-07 16:06] LABS: Absolute Lymphocyte Count 2.29 X10^3/uL (0.83-4.51); Absolute Neutrophil Count 6.7 X10^3/uL (2.0-7.7); Basophil# 0.04 X10^3/uL; Basophil% 0.4 % (0-1); Eosinophil# 0.07 X10^3/uL; Eosinophils% 0.7 % (0-5); Hematocrit 29.9 % (37-47); Hemoglobin 8.6 g/dL (12.0-15.0); Lymphocyte # 2.29 X10^3/ul (0.83-4.51); Lymphocyte % 24.2 % (19-41); Mean Corp Hgb Conc 28.8 g/dL (32-36); Mean Corpuscular Hgb 19.1 pg (27.0-32.0); Mean Corpuscular Volume 66.3 fL (81-99); Mean Platelet Vol. 8.5 fl (6.2-12.0); Monocyte# 0.39 X10^3/uL; Monocyte% 4.1 % (0-10); NRBC Flagged by Analyzer 0 % (0-5); Neutrophil # 6.65 X10^3/uL (2.7-7.7); Neutrophil % 70.2 % (47-70); Platelet Count 418 K/mm3 (150-450); RBC Distribution Width CV 19.2 % (11.6-14.6); RBC Distribution Width SD 44.6 fl (35.1-43.9); Red Blood Count 4.51 M/mm3 (4.2-5.4); White Blood Count 9.5 K/mm3 (4.4-11.0)
[2024-10-07 16:16] LABS: Protein, Urine (Random) 28.4 mg/dL (<11.9); Protein:Creat Ratio 116 mg/g CRE (0-200)
[2024-10-07 16:17] LABS: ALB/GLOB Ratio 0.5 RATIO (0.9-2.4); AST(SGOT) 8 U/L (15-37); Alanine Aminotransfer ALT/SGPT 12 U/L (13-56); Albumin, Serum 2.4 g/dL (3.2-5.0); Alkaline Phosphatase 119 U/L (45-117); Anion Gap 9 (5-15); BUN 7 mg/dL (7-18); BUN/Creat Ratio 13.8 RATIO (10-20); Calcium,Total 8.9 mg/dL (8.5-10.1); Chloride 108 mmol/L (98-107); Creatinine, Serum 0.51 mg/dL (0.55-1.02); EST Glomerular Filtration Rate 155 mL/min (>60); Est Glom Filt Rate - Afr Amer 187 mL/min (>60); Globulin 4.7 g/dL (2.2-4.2); Glucose 121 mg/dL (74-106); Potassium 3.4 mmol/L (3.5-5.1); Protein, Total 7.1 g/dL (6.4-8.2); Sodium Level 137 mmol/L (136-145)
[2024-10-07] MEDS: Betamethasone/Betamethasone 30 MG/5 ML Vial 12 MG IM (17:34)
--- NOTE | 2024-10-07 18:32 | US_ITS ---
We are attempting to reach an attending provider to discuss findings. An addendum with communication details will be sent when the communication is complete. INDICATION: BP EXAMINATION: Ultrasound US Biophysical Profile W/O Nonst TECHNIQUE: Transabdominal pelvic ultrasound was performed. COMPARISON: Prior study dated: 10/01/2024 LMP: 02/21/2024. FINDINGS: Single fetus identified in the uterus. Cephalic presentation. heart rate: 133 bpm. Amniotic fluid index: 14.1 cm. Placenta: Anterior. Not low-lying. BIOPHYSICAL PROFILE (BPP): -- Breathin. -- Movement: 2. -- Tone: 2. --Fluid: 2. Total: 04/19. US/Biophysical Prof W/O Non Stres IMPRESSION: Biophysical profile score 6 out of 8. 0 for breathing. Prior study was 8 out of 8. Electronically Signed: Loretta Saini MD at 21:56 EST ,
[2024-10-07] MEDS: proMETHazine 25 MG Tablet PO (19:07)
[2024-10-07] MEDS: Acetaminophen 500 MG Tablet 1000 MG PO (19:08)
--- NOTE | 2024-10-07 20:00 | OB.TRI.HP_ITS ---
HPI - General HPI Narrative VENUS FELDMAN, is a 29 F who presents with headache and elevated bps. she has chtn on labetalol, ove rhte last week she has a history of migraines but has been having headaches and today had elevate dbps in the office. Maternal Data Information AAD Calculator Estimated Delivery Date Method Current WG Current Estimate 11/27/24 LMP (Certain) 32w 6d PFSH PFSH Medical History Dyspareunia Left ovarian cyst Bone spur of right ankle Contraceptive management Low iron Dermoid cyst Wears glasses PTSD (post-traumatic stress disorder) Depression Ambulates with cane Arthritis Migraine headache Non-smoker Shortness of breath on exertion History of edema Hx of fracture of ankle Difficulty balancing Anemia Anxiety Home Medications ?Medication ?Instructions ?Recorded ?Last Taken ?Type multivitamin no.47-iron fum 27 cap PO 04/25/24 Unknown History mg-folate no.1 1 mg-dha 300 mg capsule (PNV-DHA) promethazine 12.5 mg tablet 12.5 mg PO Q6H PRN headache and 05/29/24 Unknown Rx nausea #30 tabs labetalol 100 mg tablet 100 mg PO BID blood pressure #60 08/27/24 10/07/24 07:00 Rx tabs aspirin 81 mg capsule 81 mg PO DAILY 10/07/24 10/06/24 History Allergy/AdvReac Type Severity Reaction Status Date / Time iodine Allergy Rash Verified 10/07/24 17:04 Family History Mother Hypertension Cancer leg Grandmother Diabetes Maternal Other Arthritis Surgical History History of ankle surgery S/P ovarian cystectomy Hx of wisdom tooth extraction Hx of cholecystectomy Social History adopted: No household members: spouse and children number of children: 1 current occupational status: employed current occupation: [employer] current occupational exposures/hazards: No pets and animals: Yes (Avoid litterbox) pets and animals: cat(s) history of recent [place]) out of state: Yes out of country: No sexually active: Yes Smoking Status: Never smoker alcohol intake: never substance use type: does not use well-balanced diet: daily or most days caffeine: No eating out: 1-3 times/week during the past year weight has: increased > 10 lbs what type of physical activity do you participate in: walking and bicycling frequency: 1-2 times per week duration: 45-60 minutes/day britta/anabaptism: Anabaptist seatbelt use: always do you feel safe at home: Yes additional social history: - Harsh History 2 Elective abortions Hx Para 1 Spontaneous abortions Hx # Term Pregnancies Ectopic pregnancies Hx # Pregnancies Multiple births # of living children 1 Past Pregnancies Del. Date Name GA/Weeks Outcome Route Bth Weight Gen Labor Lgth Anesthesia Del Locatn Provider FOB 06/28/18 Yasmin 40 live - full term 6lbs 14oz Female epidural [facility] Harsh Visit Details Expected Delivery Route/Plan Labor Preferences- CB/BF classes: [] labor support person: [] labor intervention preferences: no right ankle manipulation pain management options preferred: [] cut cord/dad catch: [] : [] PP control planned: [] discussed possible routes of delivery and associated risks: [] special requests: [] Plans Covid status: [] Flu vaccine: [] Tdap vaccine: [] Rhogam: [] LARC form signed: [] Problem list reviewed and updated with the most current plan of care details and appropriate orders placed. Relevant counseling for the gestational age provided. Continue routine care and follow up unless otherwise noted in visit notes/problem list details OB Flowsheet Initial Weight: 351 lb Date -?-?-?-?-?-?-?-?-?-?-?-?- EGA Weight BP Urine Prot -?-?-?-?-?-?-?-?-?-?-?-?- Glucose FHR FuHt Pres Dilation -?-?-?-?-?-?-?-?-?-?-?-?- Effaced St Visit Note 04/25/24 -?-?-?-?-?-?-?-?-?-?-?-?- 9w 1d 351 lb (+0 oz) 142/80 -?-?-?-?-?-?-?-?-?-?-?-?- 180 -?-?-?-?-?-?-?-?-?-?-?-?- LC- CRL con with LMP. desires nipt. obtain hgba1c with nob labs for obesity. 05/29/24 -?-?-?-?-?-?-?-?-?-?-?-?- 14w 0d 349 lb (-2 lb) 133/82 Negative -?-?-?-?-?-?-?-?--?-?-?-?- Negative 145 -?-?-?-?-?-?-?-?-?-?-?-?- JV-no complaints other than headaches. JV-no complaints other than headaches. will start slow FE. results of new ob labs reviewed. nipt pending. 06/23/24 -?-?-?-?-?-?-?-?-?-?-?-?- 17w 4d 347 lb (-4 lb) 146/64 Trace -?-?-?-?-?-?-?-?-?-?-?-?- Negative 149 -?-?-?-?-?-?-?-?-?-?-?-?- MH-No VB. No he adache today but does have off and on with dizziness. Persistent elevated BP large cuff/electronic and manual. Pre E labs. 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 Reviewed Pre E S&S. Arrange for home BP monitoring. 07/23/24 -?-?-?-?-?-?-?-?-?-?-?-?- 21w 6d 347 lb (-4 lb) 144/85 -?-?-?-?-?-?-?-?-?-?-?-?- 145 -?-?-?-?-?-?-?-?-?-?-?-?- SM- no vb crampi ng, bps at home all WNL. 08/13/24 -?-?-?-?-?-?-?-?-?-?-?-?- 24w 6d 351 lb (+0 oz) 137/79 Negative -?-?-?-?-?-?-?-?-?-?-?-?- Negative 160 -?-?-?-?-?-?-?-?-?-?-?-?- SM- having heada ches, and some intermittent upper abdominal pain intermittently at night. 08/25/24 -?-?-?-?-?-?-?-?-?-?-?-?- 26w 4d 352 lb (+16 oz) 142/88 Negative -?-?-?-?-?-?-?-?-?-?-?-?- Negative 148 -?-?-?-?-?-?-?-?-?-?-?-?- MH-No VB, LOF. W ork in for headache, seeing spots and home BP elevated 175/103 then with rest 155/85. Did not report until this AM. MH-No VB, LOF. Work in for h eadache, seeing spots and home BP elevated 175/103 then with rest 155/85. Did not report until this AM. Pre E labs and to for monitoring. Some dec movement. 09/11/24 -?-?-?-?-?-?-?-?-?-?-?-?- 29w 0d 351 lb (+0 oz) 128/71 Negative -?-?-?-?-?-?-?-?-?-?-?-?- Negative 150 -?-?-?-?-?-?-?-?-?-?-?-?- SM- no vb lof go od fm no regular ctx SM- no vb lof good fm no reg ular ctx bps better with reduced hours, goldman yesterday but resovled. 09/25/24 -?-?-?-?-?-?-?-?-?-?-?-?- 31w 0d 354 lb (+3 lb) 113/74 Negative -?-?-?-?-?--?-?-?-?-?-?-?- Negative 133 -?-?-?-?-?-?-?-?-?-?-?-?- JV- bp's are sta ble. Pt still walking with a cane. No coplaints today. JV- bp's are stable. Pt stil l walking with a cane. No coplaints today. passed 3 hr gtt 10/07/24 -?-?-?-?-?-?-?-?-?-?-?-?- 32w 5d 352 lb 4 oz (+1 lb 4 oz) 138/92 Trace -?-?-?-?-?-?-?-?-?-?-?-?- Negative -?-?-?-?-?-?-?-?-?-?-?-?- MH-Headache toda y not relieved with tylenol. No vision changes. Trace protein in urine and elevated BP: consult SM: to for prolonged monitoring. Pre E labs pending. Physical Exam Const alert, oriented x3 and no apparent distress HEENT Head and Scalp: normocephalic and atraumatic Eyes EOMs intact bilaterally Neck full ROM and no lymphadenopathy Chest inspection of chest normal Resp normal respiratory effort GI GI Narrative: gravid, abdomen nontender, AGA Neuro no focal motor deficits Motor Exam: clonus absent NST FHR Rate Baby A Baseline: 140 Variability:: Moderate Accelerations:: 15 x 15 Decelerations:: None NST Reactive:: Yes FHR Category:: Category I Uterine Activity:: no regular Assessment & Plan (1) HTN (hypertension): QUALIFIERS: Hypertension type: unspecified Qualified Code(s): I10 - Essential (primary) hypertension COMMENT: started on labetalol. Pre E labs WNL. Will check at work(pulmonary). Set up home BP monitoring. recommend 81 mg ASA. growth US q 4 weeks. weekly bpp after 32. delivery at 37 weeks (2) Obesity affecting : QUALIFIERS: Trimester: second trimester Obesity type affecting : unspecified obesity Qualified Code(s): O99.212 - Obesity complicating , second trimester COMMENT: BMI 58. HgA1C in 1 TM. (3) Abnormal glucose: COMMENT: nl 3 hr GTT (4) THONG (obstructive sleep apnea): COMMENT: AHI 90 (5) : QUALIFIERS: Weeks of gestation: 31 weeks Qualified Code(s): Z3A.31 - 31 weeks gestation of COMMENT: NIPT low risk, discussed carrier testing. nl anatomy (6) Supervision of high-risk : QUALIFIERS: Trimester: second trimester Qualified Code(s): O09.92 - Supervision of high risk , unspecified, second trimester COMMENT: [id number], ADA 11/27/24, IRINEO lemon, Harsh, anatomy at [facility] (7) Anemia: QUALIFIERS: Anemia type: iron deficiency Iron deficiency anemia type: unspecified iron deficiency Qualified Code(s): D50.9 - Iron deficiency anemia, unspecified COMMENT: iron supplement. repeat cbc in 4 weeks (06/30), iron studies ordered. PLAN: Plan normal labs, STO overnight for BMZ and bp monitoring due to initial severe elevation. now nl to mildly elevated. goldman improved with tylenol and phenergan. Charges/Coding Procedures Urinary/Genital [id number]: [id number] non-stress test Interp Multi Select Codes
[2024-10-07] MEDS: Labetalol 200 MG Tablet PO (22:34)
[2024-10-07] MEDS: DiphenhydrAMINE 25 MG Capsule 50 MG PO (22:35)
[2024-10-08] VITALS (21 sets, daily range): BP systolic 114–170; BP diastolic 58–87; PULSE 79–115; RESP 15–18; TEMP 36.6–37.1; O2SAT 97
[2024-10-08] MEDS: Acetaminophen 500 MG Tablet 1000 MG PO ×3 (02:02→16:16)
[2024-10-08] MEDS: proMETHazine 25 MG Tablet PO ×2 (02:03→07:58)
[2024-10-08] MEDS: Aspirin 81 MG TAB.CHEW PO (06:09)
[2024-10-08 06:29] LABS: Absolute Lymphocyte Count 1.18 X10^3/uL (0.83-4.51); Absolute Neutrophil Count 7.9 X10^3/uL (2.0-7.7); Basophil# 0.01 X10^3/uL; Basophil% 0.1 % (0-1); Hematocrit 27.3 % (37-47); Lymphocyte # 1.18 X10^3/ul (0.83-4.51); Lymphocyte % 12.5 % (19-41); Mean Corp Hgb Conc 29.3 g/dL (32-36); Mean Corpuscular Hgb 19.4 pg (27.0-32.0); Mean Corpuscular Volume 66.1 fL (81-99); Monocyte# 0.26 X10^3/uL; Monocyte% 2.8 % (0-10); NRBC Flagged by Analyzer 0 % (0-5); Neutrophil # 7.87 X10^3/uL (2.7-7.7); Neutrophil % 83.2 % (47-70); Platelet Count 385 K/mm3 (150-450); RBC Distribution Width CV 18.9 % (11.6-14.6); RBC Distribution Width SD 44.2 fl (35.1-43.9); Red Blood Count 4.13 M/mm3 (4.2-5.4); White Blood Count 9.5 K/mm3 (4.4-11.0)
[2024-10-08 06:48] LABS: ALB/GLOB Ratio 0.5 RATIO (0.9-2.4); AST(SGOT) 8 U/L (15-37); Alanine Aminotransfer ALT/SGPT 8 U/L (13-56); Albumin, Serum 2.3 g/dL (3.2-5.0); Alkaline Phosphatase 117 U/L (45-117); Anion Gap 6 (5-15); BUN 8 mg/dL (7-18); BUN/Creat Ratio 16.9 RATIO (10-20); Calcium,Total 8.7 mg/dL (8.5-10.1); Chloride 111 mmol/L (98-107); Creatinine, Serum 0.47 mg/dL (0.55-1.02); EST Glomerular Filtration Rate 167 mL/min (>60); Est Glom Filt Rate - Afr Amer 202 mL/min (>60); Estimated Creatinine Clearance 279.41 ml/min; Globulin 4.4 g/dL (2.2-4.2); Glucose 134 mg/dL (74-106); Potassium 3.8 mmol/L (3.5-5.1); Protein, Total 6.7 g/dL (6.4-8.2); Sodium Level 137 mmol/L (136-145)
--- NOTE | 2024-10-08 07:30 | US_ITS ---
EXAM: US SECOND OR THIRD TRIMESTER , TRANSABDOMINAL CLINICAL INDICATION: BP TECHNIQUE: Transabdominal obstetrical ultrasound of the maternal pelvis and a second or third trimester with image documentation. COMPARISON: No relevant prior studies available. FINDINGS: FETUS: Single fetus. Composite menstrual age by measurements is 33 weeks 3 days. HEART RATE: cardiac rate is 164 bpm. PRESENTATION: Cephalic presentation. PLACENTA: Anterior placenta. No placenta previa. No abruption. AMNIOTIC FLUID: Amniotic fluid index is 14 cm. BIOMETRICS GESTATIONAL AGE: Clinical gestational age is 32 weeks 6 days. ADA: The established ADA is November 27, 2024. Normal interval growth. EFW: Estimated weight is 2198 g which is at the 60th percentile. BPD: Biparietal diameter is 8.5 cm. HC: Head circumference is 30.6 cm. AC: Abdominal circumference is 29.9 cm. FL: Femur length is 6.1 cm. MATERNAL: UTERUS: Normal. No myometrial mass. CERVIX: Cervix is not imaged. ADNEXA: Normal. No adnexal masses. FREE FLUID: None. US/OB Limited With Biometrics IMPRESSION: Single live third trimester intrauterine gestation as described above. Normal interval growth. Electronically Signed: Luis Manuel Umanzor MD at 11:41 EST ,
--- NOTE | 2024-10-08 07:40 | PCM.PN.OB ---
Subjective Subjective patient is sitting up in bed. She states that her headache is just mild as it has been for most of the . We reviewed that her labs are all so far normal this am. Her 24 hour urine is completed tonight around 6p and that is also when she is due for her 2nd dose of celestone. She denies nausea, ruq pain, or visual changes. Objective Data Objective Data Vital Signs: Vital Signs Temp Pulse Resp BP 98.5 F 100 18 142/84 H 10/07/24 17:11 10/08/24 07:08 10/07/24 17:11 10/08/24 07:08 Weight: 354 lb 0.998 oz Body Mass Index (BMI) 58.9 Lab / Micro Data 10/08/24 06:10 10/08/24 06:10 Labs: Laboratory Results - last 24 hr 10/07/24 15:49: WBC 9.5, RBC 4.51, Hgb 8.6 L, Hct 29.9 L, MCV 66.3 L, MCH 19.1 L, MCHC 28.8 L, RDW Std Deviation 44.6 H, RDW Coeff of Enedina 19.2 H, Plt Count 418, MPV 8.5, Immature Gran % (Auto) 0.400, Neut % (Auto) 70.2 H, Lymph % (Auto) 24.2, Villalba % (Auto) 4.1, Eos % (Auto) 0.7, Baso % (Auto) 0.4, Absolute Neuts (auto) 6.7, Absolute Lymphs (auto) 2.29, Nucleated RBC % 0, Sodium 137, Potassium 3.4 L, Chloride 108 H, Carbon Dioxide 19.0 L, Anion Gap 9, BUN 7, Creatinine 0.51 L, Est GFR (MDRD) Af Amer 187, Est GFR (MDRD) Non-Af 155, BUN/Creatinine Ratio 13.8, Glucose 121 H, Calcium 8.9, Total Bilirubin 0.40, AST 8 L, ALT 12 L, Alkaline Phosphatase 119 H, Total Protein 7.1, Albumin 2.4 L, Globulin 4.7 H, Albumin/Globulin Ratio 0.5 L 10/07/24 : U Random Total Protein 28.4 H, Urine Creatinine 245.00, Protein/Creatinin Ratio 116 10/08/24 06:10: WBC 9.5, RBC 4.13 L, Hgb 8.0 L, Hct 27.3 L, MCV 66.1 L, MCH 19.4 L, MCHC 29.3 L, RDW Std Deviation 44.2 H, RDW Coeff of Enedina 18.9 H, Plt Count 385, MPV 9.0, Immature Gran % (Auto) 1.400 H, Neut % (Auto) 83.2 H, Lymph % (Auto) 12.5 L, Villalba % (Auto) 2.8, Eos % (Auto) 0.0, Baso % (Auto) 0.1, Absolute Neuts (auto) 7.9 H, Absolute Lymphs (auto) 1.18, Nucleated RBC % 0, Sodium 137, Potassium 3.8, Chloride 111 H, Carbon Dioxide 20.0 L, Anion Gap 6, BUN 8, Creatinine 0.47 L, Estim Creat Clear Calc 279.41, Est GFR (MDRD) Af Amer 202, Est GFR (MDRD) Non-Af 167, BUN/Creatinine Ratio 16.9, Glucose 134 H, Calcium 8.7, Total Bilirubin 0.30, AST 8 L, ALT 8 L, Alkaline Phosphatase 117, Total Protein 6.7, Albumin 2.3 L, Globulin 4.4 H, Albumin/Globulin Ratio 0.5 L Radiography Diagnostic Testing: Radiology Impression Biophysical Profile Ultrasound 10/07/24 18:32 IMPRESSION: Biophysical profile score 6 out of 8. 0 for breathing. Prior study was 8 out of 8. Electronically Signed: Loretta Saini MD at 21:56 EST Reading Location ID and State: [facility] in [place] / [place] Tel , Service support , ADDENDUM: 10/07/24 [id number] IMPRESSION: Biophysical profile score 6 out of 8. 0 for breathing. Prior study was 8 out of 8. N.B. : The above Results were Read Back by Loretta Saini MD to DAVIN STEVEN RN, and understanding confirmed on 10/07/2024 22:24:16 (ET). Electronically Signed: Loretta Saini MD at 21:56 EST Reading Location ID and State: [facility] in [place] / [place] Tel , Service support , ROS Constitutional Constitutional: Denies chills, fatigue, fever(s), poor appetite or weakness Eyes Eyes: Denies blurry vision, change in vision, seeing flashes or spots in vision ENT HEENT: Denies dizziness, headache(s), loss taste/smell or sore throat Cardiovascular Cardiovascular: Denies chest pain, dizziness, dyspnea, irregular heart rhythm, palpitations or rapid heart rate Respiratory/Chest Respiratory/Chest: Denies chest tightness, cough, dyspnea or breast pain Gastrointestinal Gastrointestinal: Denies abdominal pain, constipation or vomiting Genitourinary Genitourinary: Denies dysuria or flank pain Musculoskeletal Musculoskeletal: Denies difficulty walking, joint pain, limited range of motion or numbness Neurologic Neurologic: Denies abnormal movements, abnormal speech, dizziness, numbness, seizure-like activity or syncope Psychiatric Psychiatric: Denies anxiety, behavioral changes, change in appetite, confusion, depression or suicidal thoughts Physical Exam Const alert, oriented x3 and no apparent distress General Appearance: cooperative and comfortable Resp normal respiratory effort Back/Spine no CVA tenderness and thoraco-lumbar ROM normal Extremity normal to inspection, no clubbing, cyanosis or edema, no calf tenderness and no pedal edema Psych mental status grossly normal, thought process normal, cooperative, affect normal, speech normal, activity/motor behavior normal, denies homicidal ideation and denies suicidal ideation NST FHR Rate Baby A Baseline: 140 Variability:: Moderate Accelerations:: 15 x 15 Decelerations:: None NST Reactive:: Yes FHR Category:: Category I Uterine Activity:: no contractions Assessment & Plan (1) Abnormal glucose: COMMENT: nl 3 hr GTT (2) Obesity affecting : QUALIFIERS: Trimester: second trimester Obesity type affecting : unspecified obesity Qualified Code(s): O99.212 - Obesity complicating , second trimester COMMENT: BMI 58. HgA1C in 1 TM. (3) HTN (hypertension): QUALIFIERS: Hypertension type: unspecified Qualified Code(s): I10 - Essential (primary) hypertension COMMENT: started on labetalol. Pre E labs WNL. Will check at work(pulmonary). Set up home BP monitoring. recommend 81 mg ASA. growth US q 4 weeks. weekly bpp after 32. delivery at 37 weeks (4) Anemia: QUALIFIERS: Anemia type: iron deficiency Iron deficiency anemia type: unspecified iron deficiency Qualified Code(s): D50.9 - Iron deficiency anemia, unspecified COMMENT: iron supplement. repeat cbc in 4 weeks (06/30), iron studies ordered. (5) Supervision of high-risk : QUALIFIERS: Trimester: second trimester Qualified Code(s): O09.92 - Supervision of high risk , unspecified, second trimester COMMENT: [id number], ADA 11/27/24, IRINEO lemon, Harsh, anatomy at [facility] (6) : QUALIFIERS: Weeks of gestation: 31 weeks Qualified Code(s): Z3A.31 - 31 weeks gestation of COMMENT: NIPT low risk, discussed carrier testing. nl anatomy (7) THONG (obstructive sleep apnea): COMMENT: AHI 90 (8) Headache in : PLAN: Plan Suspect the headache could be due to severe anemia. hg down to 8 today- starting iron infusion therapy today. plan to complete the 24 hour urine either outpatient or in house. patient may decide. Bp's are her baseline.
[2024-10-08] MEDS: Iron Sucrose Complex 200 MG in 0.9% Normal Saline (100mL Bag) 100 ML 220 MG IV (08:45)
[2024-10-08] MEDS: Labetalol 200 MG Tablet PO (10:49)
[2024-10-08] MEDS: Ondansetron 4 MG/2 ML Vial IV (16:08)
[2024-10-08] MEDS: Lactated Ringers 1,000 ML 999 ML IV (16:09)
[2024-10-08] MEDS: Betamethasone/Betamethasone 30 MG/5 ML Vial 12 MG IM (17:15)
[2024-10-08] MEDS: cycloBENZAPRine HCl 10 MG Tablet PO (17:16)
[2024-10-08 20:41] LABS: 24HR. UA Prot. Total Volume 750 mL; Creat.Clear Total Volume 750 mL; Creatinine Clearance 248 ml/min (100-200); Creatinine Serum Creat 0.5 mg/dL (0.6-1.0); EST Glomerular Filtration Rate 169 mL/min (>60); Est Glom Filt Rate - Afr Amer 204 mL/min (>60)
== END 2024-10-08 09:31 | disposition home or self-care (01) ==
LOC: BWCLAB 15:48 → WPOUT 16:30 → WP 16:32
PROVIDERS: PCP Family Medicine; Referring Provider Nurse Practitioner Women's Health; Visit Provider Obstetrics & Gynecology
DX: O10.913 Unspecified pre-existing hypertension complicating pregnancy, third trimester (principal); O99.213 Obesity complicating pregnancy, third trimester; O99.353 Diseases of the nervous system complicating pregnancy, third trimester; G47.33 Obstructive sleep apnea (adult) (pediatric); O99.013 Anemia complicating pregnancy, third trimester; D50.9 Iron deficiency anemia, unspecified; O99.891 Other specified diseases and conditions complicating pregnancy; R51.9 Headache, unspecified; Z3A.31 31 weeks gestation of pregnancy; Z79.899 Other long term (current) drug therapy
CPT/HCPCS: 96365; 96361; 96375; 96372 ×2; 36415; 59025; 59050; 76816; 76819; 80053; 81050; 82570; 82575; 84156; 85025; J1756; J7120; J0702; J2405

== ENCOUNTER → 2024-10-15 | Outpatient (CLI) | payer OTHER, SELFPAY ==
--- NOTE | 2024-10-15 16:48 | US_ITS ---
STUDY: OBSTETRICAL ULTRASOUND - BIOPHYSICAL PROFILE REASON FOR EXAM: Female, 29 years old well being -- 34 weeks LMP: 02/21/2024 PRIOR ULTRASOUND: 10/08/2024 TECHNIQUE: Transabdominal TECHNICAL QUALITY: Adequate. FINDINGS: There is a single intrauterine fetus. The fetus is in a cephalic presentation. There is demonstrated cardiac activity with a heart rate of 152 bpm. There is a normal amniotic fluid volume. The largest amniotic fluid pocket measures 6.3 cm. The amniotic fluid index (CORAL) is 14.3 cm. The placenta is anterior in location and is not low lying. There are Grade 0 placental changes. Age by LMP: 33 weeks, 6 days. ADA by LMP: 11/27/2024. BIOPHYSICAL PROFILE: Breathing Movements (FBM): 2 Gross Body Movements (GBM): 2 Tone (FT): 2 Amniotic Fluid Volume (AFV): 2 TOTAL SCORE: US/Biophysical Prof W/O Non Stres IMPRESSION: Normal biophysical profile of 06/19. Electronically Signed: Chaparro Alexis MD at 13:08 EST ,
== END | disposition home or self-care (01) ==
LOC: US 16:46
PROVIDERS: PCP Family Medicine; Referring Provider Obstetrics & Gynecology; Visit Provider Obstetrics & Gynecology
DX: O10.013 Pre-existing essential hypertension complicating pregnancy, third trimester (principal); Z3A.34 34 weeks gestation of pregnancy
CPT/HCPCS: 76819

== ENCOUNTER → 2024-10-22 | Outpatient (CLI) | payer OTHER, SELFPAY ==
--- NOTE | 2024-10-22 13:36 | VDLE_ITS ---
Reason For Study: Swelling RIGHT LEFT GSV is normal. CFV is compressible, spontaneous, phasic, CFV is compressible, spontaneous, phasic, competent, and demonstrates normal competent and demonstrates normal augmentation. augmentation. FV is compressible, spontaneous, phasic, competent and demonstrates normal augmentation. POP V is compressible, spontaneous, phasic, competent and demonstrates normal augmentation. T/P Trunk is compressible. PTV is compressible. RT PerV is compressible. Procedure This is a venous duplex using B-mode, color flow and spectral Doppler. Exam performed in department. A preliminary report was called and/or faxed to Dr. Yuan. VL/Venous Duplex US, Unilateral Interpretation Summary Deep veins of the right lower extremity are patent and compressible segmentally . There is no evidence of right lower extremity deep vein thrombosis. The right great sapheno us vein appears patent and compressible segmentally. Ordering Physician: Rosanna Hudson Referring Physician: Tyler Mathis MD Performed By: Lexii Means RVT and Student
--- NOTE | 2024-10-22 13:37 | US_ITS ---
EXAM: US BIOPHYSICAL PROFILE WITHOUT NON-STRESS TESTING CLINICAL INDICATION: well being -- 35 weeks TECHNIQUE: Real-time ultrasound of the maternal pelvis for biophysical profile evaluation with image documentation. COMPARISON: 10/15/2024 FINDINGS: BREATHING MOVEMENTS: Present. Score 2/2. GROSS BODY MOVEMENTS: Present. Score 2/2. TONE: Present. Score 2/2. QUALITATIVE AMNIOTIC FLUID VOLUME: Amniotic fluid volume is normal at 14.9 cm with largest pocket measuring 6.4 cm. FETUS: Single viable IUP. HEART RATE: heart rate: 137 bpm. PRESENTATION: Cephalic presentation. PLACENTA: Anterior placenta. US/Biophysical Prof W/O Non Stres IMPRESSION: No acute findings. Normal biophysical profile with score of 8/8. Electronically Signed: Ishaan Farooq DO at 22:46 EST ,
== END | disposition home or self-care (01) ==
PROVIDERS: PCP Family Medicine; Referring Provider Obstetrics & Gynecology; Visit Provider Obstetrics & Gynecology
DX: M79.89 Other specified soft tissue disorders (principal); M79.671 Pain in right foot
CPT/HCPCS: 76819; 93971

== ENCOUNTER → 2024-10-23 | Outpatient (CLI) | payer OTHER, SELFPAY | END | disposition home or self-care (01) | LOC: LABSPEC 17:00 | PROVIDERS: PCP Family Medicine; Referring Provider Obstetrics & Gynecology; Visit Provider Obstetrics & Gynecology | DX: O09.92 Supervision of high risk pregnancy, unspecified, second trimester (principal); Z3A.00 Weeks of gestation of pregnancy not specified | CPT/HCPCS: 87081 ==

== ENCOUNTER → 2024-10-29 | Outpatient (CLI) | payer OTHER, SELFPAY ==
[2024-10-29 13:10] LABS: Absolute Lymphocyte Count 2.02 X10^3/uL (0.83-4.51); Absolute Neutrophil Count 6.5 X10^3/uL (2.0-7.7); Basophil# 0.05 X10^3/uL; Basophil% 0.6 % (0-1); Eosinophil# 0.09 X10^3/uL; Hematocrit 31.8 % (37-47); Hemoglobin 9.1 g/dL (12.0-15.0); Lymphocyte # 2.02 X10^3/ul (0.83-4.51); Lymphocyte % 22.2 % (19-41); Mean Corp Hgb Conc 28.6 g/dL (32-36); Mean Corpuscular Hgb 19.2 pg (27.0-32.0); Mean Corpuscular Volume 67.2 fL (81-99); Mean Platelet Vol. 8.6 fl (6.2-12.0); Monocyte# 0.43 X10^3/uL; Monocyte% 4.7 % (0-10); NRBC Flagged by Analyzer 0 % (0-5); Neutrophil # 6.45 X10^3/uL (2.7-7.7); Neutrophil % 71.1 % (47-70); POSITIVE MORPHOLOGY YES; Platelet Count 424 K/mm3 (150-450); RBC Distribution Width CV 20.8 % (11.6-14.6); RBC Distribution Width SD 48.6 fl (35.1-43.9); Red Blood Count 4.73 M/mm3 (4.2-5.4); White Blood Count 9.1 K/mm3 (4.4-11.0)
[2024-10-29 13:37] LABS: Differential Indicated SCAN CRITERIA MET
[2024-10-29 13:40] LABS: Anisocytosis 1+; Platelet Estimate ADEQUATE (ADEQ)
--- NOTE | 2024-10-29 16:53 | US_ITS ---
INDICATION: well being -- 36 weeks EXAMINATION: Ultrasound US Biophysical Profile W/O Nonst TECHNIQUE: Transabdominal pelvic ultrasound was performed. COMPARISON: Prior study dated: 10/22/2024 LMP: 02/21/2024 Beta-hCG: Unknown. Provided EGA: 36 weeks 6 days FINDINGS: INTRAUTERINE GESTATION(s): Single. HEART MOTION is 153 bpm. AMNIOTIC FLUID INDEX (CORAL): 13.3 cm BIOPHYSICAL PROFILE (BPP): 06/19 -- Breathin/2. -- Movement: 2/2. -- Tone: 2/2. --CORAL: 2/2. PRESENTATION: Cephalic PLACENTA: Anterior. There is no placenta previa or abruption. CERVIX: The cervix is not visualized. FREE FLUID: None. US/Biophysical Prof W/O Non Stres IMPRESSION: Single live intrauterine with biophysical profile 06/19. No acute abnormality. Electronically Signed: Lucio Wilson MD at 7:07 EST ,
--- NOTE | 2024-10-29 16:53 | US_ITS ---
STUDY: SECOND AND THIRD TRIMESTER OBSTETRICAL ULTRASOUND - LIMITED REASON FOR EXAM: Female, 29 years old growth -- 36 weeks LMP: 02/21/2024 PRIOR ULTRASOUND: Prior study dated: 10/22/2024 TECHNIQUE: Abdominal pelvic ultrasound. TECHNICAL QUALITY: Adequate. FINDINGS: There is a single intrauterine fetus. The fetus is in a cephalic presentation. There is demonstrated cardiac activity with a heart rate of 141 bpm. There is a normal amniotic fluid volume. The largest amniotic fluid pocket measures 6.6 cm. The amniotic fluid index (CORAL) is 13.5 cm. The placenta is anterior in location and is not low lying. There are Grade 1 placental changes. The cervix is not visualized. BIOMETRY: BPD: 8.85 cm: 35 weeks, 5 days HC: 32.19 cm: 36 weeks, 2 days AC: 33.01 cm: 36 weeks, 6 days FL: 6.87 cm: 35 weeks, 2 days Age by LMP: 35 weeks, 6 days. ADA by LMP: 11/27/2024. age by current US: 35 weeks, 6 days. ADA by current US: 11/27/2024. Estimated weight: 2931 grams, +/- 440 grams, 66 percentile. US/OB Limited With Biometrics IMPRESSION: Single live intrauterine with gestational age by ultrasound of 35 weeks 6 days. Electronically Signed: Lucio Wilson MD at 7:09 EST ,
== END | disposition home or self-care (01) ==
LOC: US 16:52
PROVIDERS: PCP Family Medicine; Referring Provider Obstetrics & Gynecology; Visit Provider Obstetrics & Gynecology
DX: O10.013 Pre-existing essential hypertension complicating pregnancy, third trimester (principal); O99.810 Abnormal glucose complicating pregnancy; O99.213 Obesity complicating pregnancy, third trimester; O99.013 Anemia complicating pregnancy, third trimester; D50.9 Iron deficiency anemia, unspecified; Z3A.35 35 weeks gestation of pregnancy
CPT/HCPCS: 36415; 76816; 76819; 85025

== ENCOUNTER 2024-11-06 19:13 | Inpatient (IN) | payer OTHER, SELFPAY ==
[2024-11-06 19:08] VITALS: BMI 60.5
[2024-11-06 19:48] VITALS: BP 127/72; PULSE 88
[2024-11-06 19:49] VITALS: PULSE 93; O2SAT 98
[2024-11-06 20:04] LABS: Absolute Lymphocyte Count 2.07 X10^3/uL (0.83-4.51); Absolute Neutrophil Count 7.6 X10^3/uL (2.0-7.7); Basophil# 0.06 X10^3/uL; Basophil% 0.6 % (0-1); Eosinophil# 0.08 X10^3/uL; Eosinophils% 0.8 % (0-5); Hematocrit 30.2 % (37-47); Hemoglobin 8.7 g/dL (12.0-15.0); Lymphocyte # 2.07 X10^3/ul (0.83-4.51); Lymphocyte % 20.1 % (19-41); Mean Corp Hgb Conc 28.8 g/dL (32-36); Mean Corpuscular Hgb 19.3 pg (27.0-32.0); Mean Corpuscular Volume 67.1 fL (81-99); Mean Platelet Vol. 8.8 fl (6.2-12.0); Monocyte# 0.44 X10^3/uL; Monocyte% 4.3 % (0-10); NRBC Flagged by Analyzer 0 % (0-5); Neutrophil # 7.58 X10^3/uL (2.7-7.7); Neutrophil % 73.7 % (47-70); POSITIVE MORPHOLOGY YES; Platelet Count 432 K/mm3 (150-450); RBC Distribution Width CV 20.9 % (11.6-14.6); RBC Distribution Width SD 47.9 fl (35.1-43.9); White Blood Count 10.3 K/mm3 (4.4-11.0)
[2024-11-06 20:40] LABS: Syphilis Antibodies Non-reactive
[2024-11-06 20:45] LABS: Differential Indicated SCAN CRITERIA MET
[2024-11-06] MEDS: miSOPROStol 25 MCG TABLET VAGINAL (20:50)
[2024-11-06] MEDS: 0.9% Saline Lock 10 ML Syringe IV (20:52)
[2024-11-06 20:58] VITALS: BP 137/72; PULSE 89
[2024-11-06 20:59] VITALS: PULSE 88; RESP 16; RESP 17; TEMP 36.3; TEMP 36.6; O2SAT 98
[2024-11-06 21:20] LABS: Differential Comment SCANNED
[2024-11-06 21:21] LABS: Anisocytosis 2+; Polychromasia RARE
[2024-11-06 21:22] LABS: Ovalocyte RARE; Tear Drop Cell RARE
[2024-11-06 21:23] LABS: Microcytosis 2+
[2024-11-06] MEDS: Labetalol 200 MG Tablet PO (21:36)
[2024-11-07] VITALS (66 sets, daily range): BP systolic 109–149; BP diastolic 57–93; PULSE 64–110; RESP 16–19; TEMP 36.1–36.6; O2SAT 97–100
[2024-11-07] MEDS: miSOPROStol 50 MCG TABLET VAGINAL (00:59)
[2024-11-07] MEDS: Lactated Ringers 1,000 ML 999 ML IV (07:01)
--- NOTE | 2024-11-07 07:46 | HP.PCM.OB_ITS ---
HPI - General General Date of Admission: 11/06/24 HPI Narrative GENNY FELDMAN, is a 29 F who presents for IOL secondary to chtn. no vb lof good fm no regular ctx Maternal Data Information ADA Calculator Estimated Delivery Date Method Current WG Current Estimate 11/27/24 LMP (Certain) 37w 1d PFSH PFSH Medical History depression Headache Chronic hypertension Bone spur of right ankle Contraceptive management Low iron Dermoid cyst Wears glasses PTSD (post-traumatic stress disorder) Depression Ambulates with cane Arthritis Migraine headache Non-smoker Shortness of breath on exertion History of edema Hx of fracture of ankle Dyspareunia Left ovarian cyst Difficulty balancing Anemia Anxiety Home Medications ?Medication ?Instructions ?Recorded ?Last Taken ?Type multivitamin no.47-iron fum 27 1 cap PO 04/25/24 Unknown History mg-folate no.1 1 mg-dha 300 mg capsule (PNV-DHA) promethazine 12.5 mg tablet 12.5 mg PO Q6H PRN headache and 05/29/24 Unknown Rx nausea #30 tabs aspirin 81 mg capsule 81 mg PO DAILY 10/07/24 11/06/24 History labetalol 200 mg tablet 200 mg PO BID #30 tabs 10/14/24 11/06/24 Rx Allergy/AdvReac Type Severity Reaction Status Date / Time iodine Allergy Rash Verified 11/06/24 19:52 Family History Mother Hypertension Cancer leg Grandmother Diabetes Maternal Other Arthritis Surgical History History of ankle surgery S/P ovarian cystectomy Hx of wisdom tooth extraction Hx of cholecystectomy Social History adopted: No household members: spouse and children number of children: 1 current occupational status: employed current occupation: [employer] current occupational exposures/hazards: No pets and animals: Yes (Avoid litterbox) pets and animals: cat(s) history of recent travel: [place] ([place]) out of state: Yes out of country: No sexually active: Yes Smoking Status: Never smoker alcohol intake: never substance use type: does not use well-balanced diet: daily or most days caffeine: No eating out: 1-3 times/week during the past year weight has: increased > 10 lbs what type of physical activity do you participate in: walking and bicycling frequency: 1-2 times per week duration: 45-60 minutes/day britta/jainism: Orthodox seatbelt use: always do you feel safe at home: Yes additional social history: - Harsh History 2 Elective abortions Hx Para 1 Spontaneous abortions Hx # Term Pregnancies Ectopic pregnancies Hx # Pregnancies Multiple births # of living children 1 Past Pregnancies Del. Date Name GA/Weeks Outcome Route Bth Weight Infant Gen Labor Lgth Anesthesia Del Locatn Provider FOB 06/28/18 Yasmin 40 live - full term 6lbs 14oz Female epidural [facility]arsh Visit Details Expected Delivery Route/Plan Labor Preferences- CB/BF classes: [] labor support person: [] labor intervention preferences: no right ankle manipulation pain management options preferred: [] cut cord/dad catch: [] : [] PP control planned: [] discussed possible routes of delivery and associated risks: [] special requests: [] Plans Covid status: [] Flu vaccine: [] Tdap vaccine: [] Rhogam: [] LARC form signed: [] Problem list reviewed and updated with the most current plan of care details and appropriate orders placed. Relevant counseling for the gestational age provided. Continue routine care and follow up unless otherwise noted in visit notes/problem list details OB Flowsheet Initial Weight: 351 lb Date -?-?-?-?-?-?-?-?-?-?-?-?- EGA Weight BP Urine Prot -?-?-?-?-?-?-?-?-?-?-?-?- Glucose FHR FuHt Pres Dilation -?-?-?-?-?-?-?-?-?-?-?-?- Effaced St Visit Note 04/25/24 -?-?-?-?-?-?-?-?-?--?-?-?- 9w 1d 351 lb (+0 oz) 142/80 -?-?-?-?-?-?-?-?-?-?-?-?- 180 -?-?-?-?-?-?-?-?-?-?-?-?- LC- CRL con with LMP. desires nipt. obtain hgba1c with nob labs for obesity. 05/29/24 -?-?-?-?-?-?-?-?-?-?-?-?- 14w 0d 349 lb (-2 lb) 133/82 Negative -?-?--?-?-?-?-?-?-?-?-?-?- Negative 145 -?-?-?-?-?-?-?-?-?-?-?-?- JV-no complaints other than headaches. JV-no complaints other than headaches. will start slow FE. results of new ob labs reviewed. nipt pending. 06/23/24 -?-?-?-?-?-?-?-?-?-?-?-?- 17w 4d 347 lb (-4 lb) 146/64 Trace -?-?-?-?-?-?-?-?-?-?-?-?- Negative 149 -?-?-?-?-?-?-?-?-?-?-?-?- MH-No VB. No he adache today but does have off and on with dizziness. Persistent elevated BP large cuff/electronic and manual. Pre E labs. 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 Reviewed Pre E S&S. Arrange for home BP monitoring. 07/23/24 -?-?-?-?-?-?-?-?-?-?-?-?- 21w 6d 347 lb (-4 lb) 144/85 -?-?-?-?-?-?-?-?-?-?-?-?- 145 -?-?-?-?-?-?-?-?-?-?-?-?- SM- no vb crampi ng, bps at home all WNL. 08/13/24 -?-?-?-?-?-?-?-?-?-?-?-?- 24w 6d 351 lb (+0 oz) 137/79 Negative -?-?-?-?-?-?-?-?-?-?-?-?- Negative 160 -?-?-?-?-?-?-?-?-?--?-?-?- SM- having heada ches, and some intermittent upper abdominal pain intermittently at night. 08/25/24 -?-?-?-?-?-?-?-?-?-?-?-?- 26w 4d 352 lb (+16 oz) 142/88 Negative -?-?-?-?-?-?-?-?-?-?-?-?- Negative 148 -?-?-?-?-?-?-?-?-?-?-?-?- MH-No VB, LOF. W ork in for headache, seeing spots and home BP elevated 175/103 then with rest 155/85. Did not report until this AM. MH-No VB, LOF. Work in for h eadache, seeing spots and home BP elevated 175/103 then with rest 155/85. Did not report until this AM. Pre E labs and to for monitoring. Some dec movement. 09/11/24 -?-?-?-?-?-?-?-?-?-?-?-?- 29w 0d 351 lb (+0 oz) 128/71 Negative -?-?-?-?-?-?-?-?-?-?-?-?- Negative 150 -?-?-?-?-?-?-?-?-?-?-?-?- SM- no vb lof go od fm no regular ctx SM- no vb lof good fm no reg ular ctx bps better with reduced hours, goldman yesterday but resovled. 09/25/24 -?-?-?-?-?-?-?-?-?-?-?-?- 31w 0d 354 lb (+3 lb) 113/74 Negative -?-?-?-?-?-?-?-?-?-?-?-?- Negative 133 -?-?-?-?-?-?-?-?-?-?-?-?- JV- bp's are sta ble. Pt still walking with a cane. No coplaints today. JV- bp's are stable. Pt stil l walking with a cane. No coplaints today. passed 3 hr gtt 10/07/24 -?-?-?-?-?-?-?-?-?-?-?-?- 32w 5d 352 lb 4 oz (+1 lb 4 oz) 138/92 Trace -?-?-?-?-?-?-?-?-?-?-?-?- Negative -?-?-?-?-?-?-?-?-?-?-?-?- MH-Headache toda y not relieved with tylenol. No vision changes. Trace protein in urine and elevated BP: consult : to for prolonged monitoring. Pre E labs pending. 10/14/24 -?-?-?-?-?-?-?-?-?-?-?-?- 33w 5d 356 lb (+5 lb) 128/79 Negative -?-?-?-?-?-?-?-?-?-?-?-?- Negative 143 -?-?-?-?-?-?-?-?-?-?-?-?- JV- pt complains of right leg swelling more and more painful. She injured this leg in the past but she is worried it is something worse. negative Parish sign, no pitting edema, not warm to touch but is tender. ordering a doppler. continue labetalol 200 bid, bpp's weekly. deliver 37 weeks. 10/23/24 -?-?-?-?-?-?-?-?-?-?-?-?- 35w 0d 355 lb 8 oz (+4 lb 8 oz) 130/83 Negative -?-?-?-?-?-?-?-?-?-?-?-?- Negative 140 35 -?-?-?-?-?-?-?-?-?-?-?-?- SM- no vb lof go od fm no regular ctx SM- no vb lof good fm no reg ular ctx gbs collected IOL setup 10/28/24 -?-?-?-?-?-?-?-?-?-?-?-?- 35w 5d 357 lb (+6 lb) 120/74 Trace -?-?-?-?-?-?-?-?-?-?-?-?- Negative 140 36 -?-?-?-?-?-?-?-?-?-?-?-?- SM- no vb lof go od fm no reuglar ctx IOL setup already NST FHR Rate Baby A Baseline: 130 Variability:: Moderate Accelerations:: 15 x 15 Decelerations:: None NST Reactive:: Yes FHR Category:: Category I Uterine Activity:: irregular ROS Constitutional Constitutional: Reports systems reviewed and no addt'l complaints, except as documented Eyes Eyes: Denies change in vision ENT HEENT: Reports systems reviewed and no addt'l complaints, except as documented; Denies headache(s) Cardiovascular Cardiovascular: Reports systems reviewed and no addt'l complaints, except as documented; Denies chest pain or dyspnea Respiratory/Chest Respiratory/Chest: Reports systems reviewed and no addt'l complaints, except as documented Gastrointestinal Gastrointestinal: Reports systems reviewed and no addt'l complaints, except as documented; Denies abdominal pain Genitourinary Genitourinary: Reports systems reviewed and no addt'l complaints, except as documented, contractions Details: present (irregular) and movement Details: present; Denies dysuria or genital lesions Musculoskeletal Musculoskeletal: Reports systems reviewed and no addt'l complaints, except as d ocumented Neurologic Neurologic: Reports systems reviewed and no addt'l complaints, except as documented Endocrine Endocrinology: Reports systems reviewed and no addt'l complaints, except as documented Vital Signs Vital Signs Vital Signs: 11/06/24 19:48 11/06/24 19:48 11/06/24 19:49 Temperature Temperature Source Pulse Rate 88 93 Respiratory Rate Blood Pressure 127/72 H BP Systolic 127 BP Diastolic 72 Pulse Ox 11/06/24 19:49 11/06/24 20:58 11/06/24 20:58 Temperature Temperature Source Pulse Rate 89 Respiratory Rate Blood Pressure 137/72 H BP Systolic 137 BP Diastolic 72 Pulse Ox 98 11/06/24 20:59 11/06/24 20:59 11/06/24 20:59 Temperature Temperature Source Temporal Pulse Rate 88 Respiratory Rate Blood Pressure BP Systolic BP Diastolic Pulse Ox 98 11/06/24 20:59 11/06/24 20:59 11/06/24 20:59 Temperature 97.8 F Temperature Source Temporal Pulse Rate Respiratory Rate 17 Blood Pressure BP Systolic BP Diastolic Pulse Ox 11/06/24 20:59 11/06/24 20:59 11/07/24 01:05 Temperature 97.4 F L Temperature Source Pulse Rate Respiratory Rate 16 Blood Pressure 123/60 H BP Systolic 123 BP Diastolic 60 Pulse Ox 11/07/24 01:05 11/07/24 01:05 11/07/24 01:05 Temperature Temperature Source Temporal Pulse Rate 97 Respiratory Rate 16 Blood Pressure BP Systolic BP Diastolic Pulse Ox 11/07/24 01:05 11/07/24 01:06 11/07/24 01:06 Temperature 97.5 F L Temperature Source Pulse Rate 109 H Respiratory Rate Blood Pressure BP Systolic BP Diastolic Pulse Ox 98 11/07/24 04:59 11/07/24 04:59 11/07/24 04:59 Temperature Temperature Source Temporal Pulse Rate 85 Respiratory Rate Blood Pressure 118/63 BP Systolic 118 BP Diastolic 63 Pulse Ox 11/07/24 04:59 11/07/24 04:59 11/07/24 05:00 Temperature 97.3 F L Temperature Source Pulse Rate 75 Respiratory Rate 19 H Blood Pressure BP Systolic BP Diastolic Pulse Ox 11/07/24 05:00 11/07/24 07:38 11/07/24 07:38 Temperature Temperature Source Pulse Rate 85 Respiratory Rate Blood Pressure BP Systolic BP Diastolic Pulse Ox 100 100 11/07/24 07:38 11/07/24 07:38 11/07/24 07:39 Temperature Temperature Source Temporal Pulse Rate 92 Respiratory Rate Blood Pressure 142/87 H BP Systolic 142 BP Diastolic 87 Pulse Ox 11/07/24 07:39 11/07/24 07:39 11/07/24 07:43 Temperature 97.1 F L Temperature Source Pulse Rate Respiratory Rate 16 Blood Pressure 149/75 H BP Systolic 149 BP Diastolic 75 Pulse Ox 11/07/24 07:43 11/07/24 07:43 Temperature Temperature Source Pulse Rate 95 Respiratory Rate Blood Pressure BP Systolic BP Diastolic Pulse Ox 100 Weight Weight: 363 lb 9.6 oz Body Mass Index (BMI) 60.5 Physical Exam Const alert, oriented x3, no apparent distress and healthy appearing HEENT normocephalic and moist oral mucous membranes Head and Scalp: atraumatic Neck full ROM, no lymphadenopathy, supple and thyroid normal General: trachea midline Lymph Lymphatic: no lymphadenopathy noted Chest inspection of chest normal Resp normal respiratory effort Cardio regular rate GI soft to palpation and non-tender GI Narrative: gravid Inspection: gravid external exam normal Manual OB Exam: estimated gestational size appropriate, presentation cephalic, dilated, effaced and station Extremity normal to inspection General Extremity: Negative for edema Skin no rashes or lesions noted Neuro no focal motor deficits and deep tendon reflexes 2+ bilaterally Motor Exam: strength 5/5 throughout and clonus absent Psych mental status grossly normal Labs Labs Labs: Blood Type O POSITIVE Antibody Screen NEGATIVE Hct 30.2 % (37-47) L Hgb 8.7 g/dL (12.0-15.0) L Obstetrics Ultrasound Syphilis Total Ab Non-reactive VZV IgG Antibody 910 index (Immune >165) Rubella IgG Antibody Reactive (Nonreactive) Hep Bs Antigen Non-Reactive (Nonreactive) Hepatitis C Antibody Non-Reactive (Nonreactive) Chlamydia DNA (TOMAS) Negative (Negative) N.gonorrhoeae DNA (TOMAS) Negative (Negative) HIV 1&2 Antibody Non-Reactive (Nonreactive) Glucose 1 Hr 50 gm 145 mg/dL (70-140) H Gest Glucose Tolerance MG/DL Group B Strep DNA Negative (Negative) Rhogam given: No Assessment & Plan (1) Abnormal glucose: COMMENT: nl 3 hr GTT (2) Obesity affecting : QUALIFIERS: Trimester: second trimester Obesity type affecting : unspecified obesity Qualified Code(s): O99.212 - Obesity complicating , second trimester COMMENT: BMI 58. HgA1C in 1 TM. (3) HTN (hypertension): QUALIFIERS: Hypertension type: unspecified Qualified Code(s): I10 - Essential (primary) hypertension COMMENT: started on labetalol. Pre E labs WNL. Will check at work(pulmonary). Set up home BP monitoring. recommend 81 mg ASA. growth US q 4 weeks. weekly bpp after 32. delivery at 37 weeks (4) Supervision of high-risk : QUALIFIERS: Trimester: second trimester Qualified Code(s): O09.92 - Supervision of high risk , unspecified, second trimester COMMENT: [id number], ADA 11/27/24, IRINEO lemon, Harsh, anatomy at [facility] (5) : QUALIFIERS: Weeks of gestation: 35 weeks Qualified Code(s): Z3A.35 - 35 weeks gestation of COMMENT: Neg GBS. NIPT low risk, discussed carrier testing. nl anatomy (6) THONG (obstructive sleep apnea): COMMENT: AHI 90 (7) Anemia: QUALIFIERS: Anemia type: iron deficiency Iron deficiency anemia type: unspecified iron deficiency Qualified Code(s): D50.9 - Iron deficiency anemia, unspecified COMMENT: iron supplement. repeat cbc in 4 weeks (06/30), iron studies ordered. PLAN: Plan Patient presents IOL, plan management for with cytotec then pit. Pain management: plans epidural. GBS negative. Management of any complications: chtn continue meds I have reviewed the PFSH and made any clinically relevant updates.
[2024-11-07] MEDS: fentaNYL-bupivacaine (epidural) 100 ML BAG EPIDURAL ×4 (08:00→22:00)
[2024-11-07] MEDS: Lactated Ringers 1,000 ML 50 ML IV (08:11)
[2024-11-07] MEDS: Labetalol 200 MG Tablet PO ×2 (10:53→22:00)
[2024-11-07] MEDS: Oxytocin 15 Units/NS 250ml 15 UNITS/250 ML IV.SOLN 2 UNITS IV (10:54)
[2024-11-07] MEDS: Acetaminophen 500 MG Tablet PO (15:17)
[2024-11-07] MEDS: Ondansetron 4 MG/2 ML Vial IV (15:18)
[2024-11-07] MEDS: LACTATED RINGERS 500 ML 999 ML IV (15:38)
[2024-11-07] MEDS: Amnioinfusion- 0.9% NS 1,000 ML IV.SOLN. 1000 ML INTRA-UTER (22:36)
[2024-11-07] MEDS: Lactated Ringers 1,000 ML 200 ML IV (23:15)
[2024-11-08] VITALS (43 sets, daily range): BP systolic 97–140; BP diastolic 52–87; PULSE 71–110; RESP 16; TEMP 36.1–36.8; O2SAT 91–98
[2024-11-08] MEDS: Carboprost Tromethamine 250 MCG/ML Ampul IM (01:21)
[2024-11-08] MEDS: miSOPROStol 200 MCG Tablet 1000 MCG RC (01:23)
--- NOTE | 2024-11-08 01:31 | EX.PCM.OBVAG ---
Assessment & Plan (1) Abnormal glucose: COMMENT: nl 3 hr GTT (2) Obesity affecting : QUALIFIERS: Trimester: second trimester Obesity type affecting : unspecified obesity Qualified Code(s): O99.212 - Obesity complicating , second trimester COMMENT: BMI 58. HgA1C in 1 TM. (3) HTN (hypertension): QUALIFIERS: Hypertension type: unspecified Qualified Code(s): I10 - Essential (primary) hypertension COMMENT: started on labetalol. Pre E labs WNL. Will check at work(pulmonary). Set up home BP monitoring. recommend 81 mg ASA. growth US q 4 weeks. weekly bpp after 32. delivery at 37 weeks (4) Supervision of high-risk : QUALIFIERS: Trimester: second trimester Qualified Code(s): O09.92 - Supervision of high risk , unspecified, second trimester COMMENT: [id number], ADA 11/27/24, IRINEO lemon, Harsh, anatomy at [facility] (5) : QUALIFIERS: Weeks of gestation: 35 weeks Qualified Code(s): Z3A.35 - 35 weeks gestation of COMMENT: Neg GBS. NIPT low risk, discussed carrier testing. nl anatomy (6) THONG (obstructive sleep apnea): COMMENT: AHI 90 (7) Anemia: QUALIFIERS: Anemia type: iron deficiency Iron deficiency anemia type: unspecified iron deficiency Qualified Code(s): D50.9 - Iron deficiency anemia, unspecified COMMENT: iron supplement. repeat cbc in 4 weeks (06/30), iron studies ordered. (8) Vaginal delivery: COMMENT: SM IOL chtn girl shirley Maternal Data Information ADA Calculator Estimated Delivery Date Method Current WG Current Estimate 11/27/24 LMP (Certain) 37w 2d Vaginal Delivery Maternal Presentation Maternal Presentation: see assessment and plan Vaginal Delivery Information Procedure Performed: Spontaneous Vaginal Delivery Surgeon/Practitioner: Ellie Toledo Date of Procedure: 11/08/24 Pre-Procedure Diagnosis: see assessment and plan Post-Procedure Diagnosis: same Type of anesthesia: Epidural Special Medications: hemabate cytotec Estimated Blood Loss: 300 Findings Description of procedure: Patient began pushing and delivered the head in the FREDDY presentation. The head was delivered atraumatically and a loose nuchal cord ?1 was identified and easily reduced over the infant's head. The anterior and posterior shoulders delivered without complication followed by the rest of the infant and the was placed on the maternal abdomen. Delayed cord clamping was employed for approximately 60 seconds. Cord was clamped and cut and gentle traction was applied to the cord and the placenta delivered spontaneously immediately following it was noted to be intact with three-vessel cord. The perineum and vagina were inspected and was noted to have a first -degree laceration that was repaired in the usual fashion with 3-0 vicryl rapide . EBL was 300 mild atony treated with massage and medication. Patient and tolerated delivery well. Presentation: Vertex Placental Delivery Description: Spontaneous Specimen collected: Yes Description of specimen(s) removed: placenta Digital Field Service Technician head piece assembler: No Post Vaginal Deli Medications given after delivery: Other (pitocin) Complication Complications: No Multi Select Codes Urinary/Genital Urinary/Genital CPT Codes: 75192 Vaginal Delivery [facility]
[2024-11-08] MEDS: Oxytocin 15 Units/NS 250ml 15 UNITS/250 ML IV.SOLN 83 UNITS IV (01:32)
--- NOTE | 2024-11-08 01:33 | DCINST_ITS ---
Discharge Instructions Diet Discharge Diet: No restrictions DC O2, CPAP, BIPAP needs Home O2 Discharge instructions: No Dressing / Incision Discharge Activity: Return to Normal Activity, May Not Drive (while taking narcotic pain medications.) and May Shower May resume sexual activity in: 4-6 weeks Dressing / Incision Call your doctor if your incision/area has: Continuous Slow Oozing, Sudden Increased Bleeding, Increased Pain/ Swelling, Increased Redness and Foul Smelling Discharge Follow Up Care Please Follow Up With: Ellie Toledo MD When: Call [phone] to make an appointment with your doctor in 6 weeks. If you had elevated blood pressure or 4th degree laceration, you will need to be seen in 2 weeks. Test Results: Test results from this visit will be discussed in further detail at your follow- up appointment, if applicable. Discharge Plan Admission Admit Date/Time: 11/06/24 19:13 Attending Provider: Ellie Toledo Primary Care Provider: Tyler Mathis Discharge Orders/Prescriptions Prescriptions: No Action PNV-DHA 27 mg iron-1 mg -300 mg capsule 1 cap PO promethazine 12.5 mg tablet 12.5 mg PO Q6H PRN (Reason: headache and nausea) Qty: 30 3RF labetalol 200 mg tablet 200 mg PO BID Qty: 30 6RF aspirin 81 mg capsule 81 mg PO DAILY Referrals / Follow Up: Tyler Mathis MD [Primary Care Provider] - Disposition Disposition (needs filled in before D/C Order can be placed): Home, Self Care
[2024-11-08] MEDS: Loperamide 2 MG Capsule 4 MG PO (04:14)
[2024-11-08 06:14] LABS: Absolute Lymphocyte Count 1.52 X10^3/uL (0.83-4.51); Absolute Neutrophil Count 17.7 X10^3/uL (2.0-7.7); Basophil# 0.05 X10^3/uL; Basophil% 0.2 % (0-1); Eosinophil# 0.01 X10^3/uL; Hematocrit 27.5 % (37-47); Lymphocyte # 1.52 X10^3/ul (0.83-4.51); Lymphocyte % 7.5 % (19-41); Mean Corp Hgb Conc 29.1 g/dL (32-36); Mean Corpuscular Hgb 19.5 pg (27.0-32.0); Mean Corpuscular Volume 66.9 fL (81-99); Mean Platelet Vol. 9.2 fl (6.2-12.0); Monocyte# 0.85 X10^3/uL; Monocyte% 4.2 % (0-10); NRBC Flagged by Analyzer 0 % (0-5); Neutrophil # 17.66 X10^3/uL (2.7-7.7); Neutrophil % 87.1 % (47-70); POSITIVE MORPHOLOGY YES; Platelet Count 383 K/mm3 (150-450); RBC Distribution Width CV 20.4 % (11.6-14.6); RBC Distribution Width SD 48.1 fl (35.1-43.9); Red Blood Count 4.11 M/mm3 (4.2-5.4); White Blood Count 20.3 K/mm3 (4.4-11.0)
[2024-11-08 06:25] LABS: Differential Indicated SCAN CRITERIA MET
[2024-11-08 07:54] LABS: Anisocytosis 2+; Differential Comment SCANNED; Hypochromasia 1+; Microcytosis 2+; Platelet Estimate ADEQUATE (ADEQ); Polychromasia 1+
[2024-11-08 07:56] LABS: Acanthocytes RARE; Ovalocyte 2+; Schistocytes RARE; Target Cells RARE; Tear Drop Cell 1+
[2024-11-08] MEDS: Labetalol 200 MG Tablet PO ×2 (09:08→22:02)
[2024-11-08] MEDS: Naproxen 500 MG Tablet PO (09:08)
--- NOTE | 2024-11-08 10:31 | PCM.PN.CNM ---
Subjective Subjective Patient doing well without complaints. Tolerating PO. Ambulating at baseline with a cane and voiding without difficulty. Feeding well. Denies chest pain, shortness of breath, calf pain/swelling, fevers, chills, lightheadedness. Objective Data Objective Data Vital Signs: Vital Signs Temp Pulse Resp BP Pulse Ox 98.2 F 88 16 121/59 H 94 11/08/24 09:15 11/08/24 09:15 11/08/24 09:15 11/08/24 09:15 11/08/24 03:33 Weight: 363 lb 9.6 oz Body Mass Index (BMI) 60.5 Intake & Output: Intake and Output for Last 24 Hours 11/06/24 11/07/24 11/08/24 23:59 23:59 23:59 Intake Total 2569.10 / 2569.10 762.90 / 762.90 Output Total 500 / 500 1600 / 1600 Balance 2069.10 / 2069.10 -837.10 / -837.10 Lab / Micro Data 11/08/24 06:00 Labs: Laboratory Results - last 24 hr 11/08/24 06:00: WBC 20.3 H, RBC 4.11 L, Hgb 8.0 L, Hct 27.5 L, MCV 66.9 L, MCH 19.5 L, MCHC 29.1 L, RDW Std Deviation 48.1 H, RDW Coeff of Enedina 20.4 H, Plt Count 383, MPV 9.2, Immature Gran % (Auto) 1.000 H, Neut % (Auto) 87.1 H, Lymph % (Auto) 7.5 L, Towns % (Auto) 4.2, Eos % (Auto) 0.0, Baso % (Auto) 0.2, Absolute Neuts (auto) 17.7 H, Absolute Lymphs (auto) 1.52, Nucleated RBC % 0, Differential Comment SCANNED, Platelet Estimate ADEQUATE, Polychromasia 1+, Hypochromasia 1+, Anisocytosis 2+, Microcytosis 2+, Target Cells RARE, Tear Drop Cells 1+, Ovalocytes 2+, Acanthocytes (Spur) RARE, Schistocytes RARE Physical Exam Const alert and oriented x3 Resp normal respiratory effort and no use of accessory muscles GI normal to inspection, nondistended, normoactive bowel sounds Uterus Palpation: uterus fundus firm Extremity normal to inspection and no calf tenderness Skin no rashes or lesions noted Psych mental status grossly normal Assessment & Plan (1) Vaginal delivery: COMMENT: SM IOL chtn girl shirley (2) Obesity affecting : QUALIFIERS: Trimester: second trimester Obesity type affecting : unspecified obesity Qualified Code(s): O99.212 - Obesity complicating , second trimester COMMENT: BMI 58. HgA1C in 1 TM. (3) HTN (hypertension): QUALIFIERS: Hypertension type: unspecified Qualified Code(s): I10 - Essential (primary) hypertension COMMENT: started on labetalol. Pre E labs WNL. Will check at work(pulmonary). Set up home BP monitoring. recommend 81 mg ASA. growth US q 4 weeks. weekly bpp after 32. delivery at 37 weeks (4) Anemia: QUALIFIERS: Anemia type: iron deficiency Iron deficiency anemia type: unspecified iron deficiency Qualified Code(s): D50.9 - Iron deficiency anemia, unspecified COMMENT: iron supplement. repeat cbc in 4 weeks (06/30), iron studies ordered. PLAN: IV venofer PLAN: Plan s/p PPD # 0 1. routine post delivery care 2. breast feeding- support given 3. rh positive 4. rubella immune BP stable, H&H mild drop, asymptomatic. IV venofer
[2024-11-08] MEDS: Iron Sucrose Complex 200 MG in 0.9% Normal Saline (100mL Bag) 100 ML 220 MG IV (11:15)
[2024-11-08] MEDS: Acetaminophen 500 MG Tablet 1000 MG PO ×2 (14:28→20:41)
[2024-11-09] VITALS (9 sets, daily range): BP systolic 107–120; BP diastolic 55–70; PULSE 76–90; RESP 16; TEMP 36.1–36.6; O2SAT 98–100
[2024-11-09] MEDS: Acetaminophen 500 MG Tablet 1000 MG PO (04:40)
--- NOTE | 2024-11-09 09:30 | DS.PCM_ITS ---
Providers Date of Admission: 11/06/24 Primary Care Physician: Dr. Tyler Mathis MD Reason For Visit: VAG Diagnosis Discharge Diagnosis (1) Vaginal delivery: Status: Acute Code(s): O80 - Encounter for full-term uncomplicated delivery (2) Obesity affecting : Status: Acute Code(s): O99.210 - Obesity complicating , unspecified trimester Qualifiers: Trimester: second trimester Obesity type affecting : u nspecified obesity Qualified Code(s): O99.212 - Obesity complicating , second trimester (3) HTN (hypertension): Status: Chronic Code(s): I10 - Essential (primary) hypertension Qualifiers: Hypertension type: unspecified Qualified Code(s): I10 - Essential (primary) hypertension (4) Anemia: Status: Acute Code(s): D64.9 - Anemia, unspecified Qualifiers: Anemia type: iron deficiency Iron deficiency anemia type: unspecified iron deficiency Qualified Code(s): D50.9 - Iron deficiency anemia, unspecified Plan: IV venofer Plan s/p PPD # 0 1. routine post delivery care 2. breast feeding- support given 3. rh positive 4. rubella immune BP stable, H&H mild drop, asymptomatic. IV venofer Medications at Discharge Home Medications multivitamin no.47-iron fum 27 mg-folate no.1 1 mg-dha 300 mg capsule (PNV-DHA) 1 cap PO 04/25/24 promethazine 12.5 mg tablet 12.5 mg PO Q6H PRN headache and nausea #30 tabs 05/29/24 aspirin 81 mg capsule 81 mg PO DAILY 10/07/24 labetalol 200 mg tablet 200 mg PO BID #30 tabs 10/14/24 Hospital Course Operations None Procedures None Summary of Care Provided Minutes Spent on Discharge: 15 Hospital Course: at 37 weeks for IOL for GHTN resulting in . pp H&H asymptomatic anemia, s/p x1 venofer. stable pp course. normal blood pressures. Physical Exam Const alert and oriented x3 Resp normal respiratory effort and no use of accessory muscles GI normal to inspection, nondistended, normoactive bowel sounds Uterus Palpation: uterus fundus firm Extremity normal to inspection and no calf tenderness Skin no rashes or lesions noted Psych mental status grossly normal Weight / BMI Weight Weight: 363 lb 9.6 oz Body Mass Index (BMI) 60.5 ABG / Lab / Microbiology Data 11/08/24 06:00 D/C Instructions Discharge Diet: No restrictions May resume sexual activity in: 4-6 weeks Call your doctor if your incision/area has: Continuous Slow Oozing, Sudden Increased Bleeding, Increased Pain/ Swelling, Increased Redness and Foul Smelling Discharge DC O2, CPAP, BIPAP Needs Home O2 Discharge instructions: No Please Follow Up With: Ellie Toledo MD When: Call [phone] to make an appointment with your doctor in 6 weeks. If you had elevated blood pressure or 4th degree laceration, you will need to be seen in 2 weeks. Meaningful Use Info Meaningful Use Meaningful Use Diagnoses (Choose all that apply): None applicable Ischemic Stroke Statin Dosing Therapy Reference: STATIN DOSE THERAPY REFERENCE: * Patients > 75 years receive moderate or high dose statin therapy. * Patients 75 years or YOUNGER should receive HIGH intensity statin dose unless contraindicated. You will be required to document reason for non-treatment if statin daily dose does not meet guidelines. HIGH DOSE STATIN THERAPY DAILY Atorvastatin > than or = to 40 mg Rosuvastatin > than or = to 20 mg Amlodipine + Atorvastatin > than or = to 2.5/40 mg Ezetimibe + Simvastatin 10/80 mg Simvastatin 80mg Discharge Plan Admission Admit Date/Time: 11/06/24 19:13 Attending Provider: Ellie Toledo Primary Care Provider: Tyler Mathis Discharge Orders/Prescriptions Prescriptions: No Action PNV-DHA 27 mg iron-1 mg -300 mg capsule 1 cap PO promethazine 12.5 mg tablet 12.5 mg PO Q6H PRN (Reason: headache and nausea) Qty: 30 3RF labetalol 200 mg tablet 200 mg PO BID Qty: 30 6RF aspirin 81 mg capsule 81 mg PO DAILY Referrals / Follow Up: Tyler Mathis MD [Primary Care Provider] - Disposition Disposition (needs filled in before D/C Order can be placed): Home, Self Care
--- NOTE | 2024-11-09 10:50 | CASEMGMT ---
Social Work Assessment Labor and Delivery Unit Patient Address: [address] [place] [address] [place] [address] Phone number: Date of Referral: 11/08/2024 Time of Referral: 11:21 Referred By: Ellie Toledo Date of Intervention: 11/09/2024 Time of Intervention: 10:52 Reason for Referral: Mental Health History obtained from: Medical records, mother of baby (MOB) and father of baby (FOB).? Household composition: MOB (Venus, age 27), FOB (Harsh, age 28) and their daughters Yasmin, age 6 and Viktoriya, born on 11/08/2024. Patient's parent/guardian status: MOB and FOB have been together for 7 years and for 1 year . ??Both are actively involved and will be providing care for baby. MOB denied any concerns with domestic violence and described a positive and supportive relationship with the FOB. Medical History: : 2, Para, now 2. MOB received PNC beginning at 9 weeks and 1 day. Visits appeared to have been routine. Apgars: 8 and 8. Weight: 6 pounds, 4 oz. Laminating Press Operator: Not yet named however will be through [facility] [employer] [facility]. MOB calling to get ?s park keeper secured on 10/31/24. ? Educational Status: MOB and FOB denied any issues or concerns with reading or writing. MOB is a High School graduate and has had some college and the FOB reported he has some technical training. Financial Status: MOB and FOB reported their income is sufficient to meet the needs of their family at this time. MOB is currently employed full-time with [employer] and gets 10 weeks of FMLA. 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 The FOB will get one week off. Infant Supplies: MOB and FOB reported they have all the supplies they need for baby at this time including but not limited to: Car seat, bassinet, crib, diapers, breast pump, bottles and clothing. Childcare/Caregiver(s):? MOB reported both she and the FOB will help provide care to while not working and that ?s maternal grandmother (MGM) will provide childcare during the week once the MOB returns back to work. Transportation:? MOB and FOB reported they are both licensed drivers and have a reliable vehicle to take baby to and from all medical appointments. No transportation issues identified. Programs/Agencies Involved: MOB and FOB denied any current programs or agencies involved at this time. Children Services/Legal Issues:? Denied. Behavioral Health Issues: ??Mental Health History: MOB has a history of Depression, Anxiety and PTSD.? MOB reported that she also had PDD with her first born. MOB reported her symptoms have been successfully managed with medications.? MOB went off of her medications once she found out she was and now that she has delivered is planning on getting back on them in the near future. ?The FOB reported he has a history of depression and anxiety and denied being on any medication at this time.? FOB reported symptoms are successfully being managed at this time. ?Substance Use History: Denied. ?Family History: MOB and FOB denied any alcohol or drug abuse on either side of their family.? The FOB stated his paternal aunt has depression and anxiety. ??Drug Screens: ?None obtained at the time of this admission. ?family support worker administered the [place].? MOB?s score was a 4.? family support worker provided verbal education about the screening tool as well as scores to look out for in the future which MOB reported she understood. Family/Social Stressors: ?MOB and FOB denied any current family or social stressors. Support Systems: Ample.? MINOO identified her biggest supports as the FOB as well as her sister and ?s paternal grandmother (PGM). ? Depression/Shaken Baby/Safe Sleeping: family support worker provided verbal and written education on PPD, Safe Sleeping and Shaken Baby.? Parents verbalized an understanding. ??? ASSESSMENT:? MOB and FOB provided consent to social work visit. Upon arrival, MOB was sitting upright in the hospital bed with and the FOB was sitting close-by.? Both MOB and FOB were verbally engaged and social human services assistants observed positive interaction between the MOB, the FOB and MOB towards as she was holding her to her chest throughout the assessment.? MOB was observed to be very gentle with and attentive. At the end of the assessment, social human services assistants requested to speak with the MOB alone which MOB and FOB were both agreeable to.? MOB reported feeling safe in her home, denied any previous or current DV and denied any unmanaged mental health or drug or alcohol use or abuse with either herself or the FOB. Safe Plan of Care for infant related to substance use: N/A; not needed. ? PLAN:? Baby to be discharged home when ready.? family support worker also provided written information on depression, depression resources and Help Me Grow as additional resources offered by social human services assistants which MOB and FOB accepted. No other services requested or indicated. Rosanna Nowak, CORE DROPPER, REGISTERED ACCOUNT ADMINISTRATOR
== END 2024-11-09 11:40 | disposition home or self-care (01) | DRG 807 ==
PROVIDERS: Admitting Provider Obstetrics & Gynecology; PCP Family Medicine; Referring Provider Obstetrics & Gynecology; Visit Provider Obstetrics & Gynecology
DX: O10.02 Pre-existing essential hypertension complicating childbirth (principal); Z37.0 Single live birth; D50.9 Iron deficiency anemia, unspecified; O99.214 Obesity complicating childbirth; Z3A.37 37 weeks gestation of pregnancy; O99.02 Anemia complicating childbirth; O70.0 First degree perineal laceration during delivery; O69.81X0 Labor and delivery complicated by cord around neck, without compression, not applicable or unspecified; Z79.82 Long term (current) use of aspirin; Z79.899 Other long term (current) drug therapy; Z87.59 Personal history of other complications of pregnancy, childbirth and the puerperium
CPT/HCPCS: 59025; 59050; 85025; 86780; 86850; 86900; 86901; 86920; 99221; J1756; A4216; G0378; J2405

== ENCOUNTER → 2025-02-19 | Outpatient (CLI) | payer OTHER, SELFPAY ==
[2025-02-19 17:10] LABS: Absolute Lymphocyte Count 3.24 X10^3/uL (0.83-4.51); Absolute Neutrophil Count 4.7 X10^3/uL (2.0-7.7); Basophil# 0.07 X10^3/uL; Basophil% 0.8 % (0-1); Eosinophil# 0.22 X10^3/uL; Eosinophils% 2.6 % (0-5); Hematocrit 33.9 % (37-47); Hemoglobin 9.8 g/dL (12.0-15.0); Lymphocyte # 3.24 X10^3/ul (0.83-4.51); Lymphocyte % 37.7 % (19-41); Mean Corp Hgb Conc 28.9 g/dL (32-36); Mean Corpuscular Hgb 19.7 pg (27.0-32.0); Mean Corpuscular Volume 68.1 fL (81-99); Mean Platelet Vol. 9.2 fl (6.2-12.0); Monocyte# 0.33 X10^3/uL; Monocyte% 3.8 % (0-10); NRBC Flagged by Analyzer 0 % (0-5); Neutrophil # 4.71 X10^3/uL (2.7-7.7); Neutrophil % 54.8 % (47-70); Platelet Count 455 K/mm3 (150-450); RBC Distribution Width CV 18.6 % (11.6-14.6); RBC Distribution Width SD 45.1 fl (35.1-43.9); Red Blood Count 4.98 M/mm3 (4.2-5.4); White Blood Count 8.6 K/mm3 (4.4-11.0)
[2025-02-19 17:43] LABS: hCG Titer Quant., Serum < 1 mIU/mL (<9 non-preg)
== END | disposition home or self-care (01) ==
LOC: LAB 16:10
PROVIDERS: PCP Family Medicine; Referring Provider Obstetrics & Gynecology; Visit Provider Obstetrics & Gynecology
DX: N93.9 Abnormal uterine and vaginal bleeding, unspecified (principal)
CPT/HCPCS: 36415; 84443; 84702; 85025

== ENCOUNTER → 2025-05-04 | Outpatient (CLI) | payer OTHER, SELFPAY ==
--- NOTE | 2025-05-04 07:43 | US_ITS ---
PROCEDURE: PELVIC W/ TRANSVAGINAL REASON FOR EXAM: POST ; IRREGULAR MENSRUAL BLEEDING TECHNIQUE: PELVIC W/ TRANSVAGINAL COMPARISON: None FINDINGS: Measurements: Uterus: 8.3 cm x 5.4 cm x 4 cm with a volume of 91.82 mL Endometrial Thickness: 5.9 mm. It is trilaminar. Right Ovary: 2.7 cm x 2.5 cm x 1.6 cm with a volume of 5.5 cm mL. Left Ovary: The patient is status post left salpingo-oophorectomy. TRANSABDOMINAL: Uterus: Normal size, myometrial echotexture, and contour. Endometrium: Unremarkable. Right ovary: Normal size and echotexture. Left ovary: Surgically absent. Other: No large pelvic mass identified. Transvaginal sonography was performed to better visualize the endometrium. TRANSVAGINAL: Uterus: Anteverted. Endometrium: Normal echotexture. Right ovary: Normal size and echotexture. Left ovary: Surgically absent. Other adnexal findings: None. Cul-de-sac: No free intraperitoneal fluid identified. Tenderness: No tenderness US/Pelvic w/ Transvaginal IMPRESSION: No acute abnormality is seen. Status post left salpingo-oophorectomy. Reading Location: [facility]
== END | disposition home or self-care (01) ==
LOC: OPUS 07:43
PROVIDERS: PCP Family Medicine; Referring Provider Nurse Practitioner Family; Visit Provider Nurse Practitioner Family
DX: N93.9 Abnormal uterine and vaginal bleeding, unspecified (principal)
CPT/HCPCS: 76830; 76856

== ENCOUNTER → 2025-08-17 | Outpatient (CLI) | payer OTHER, SELFPAY ==
[2025-08-17 12:19] LABS: AST(SGOT) 29 U/L (<=31); Alanine Aminotransfer ALT/SGPT 9 U/L (<=34); Albumin, Serum 4.1 g/dL (3.5-5.0); Alkaline Phosphatase 77 U/L (35-104); Anion Gap 14 (5-15); BUN 10 mg/dL (4-19); BUN/Creat Ratio 13.8 RATIO (10-20); Bilirubin, Direct < 0.08 mg/dL (0.00-0.30); Calcium,Total 9.1 mg/dL (7.6-11.0); Carbon Dioxide 18.1 mmol/L (21.0-32.0); Chloride 105 mmol/L (98-108); Globulin 3.6 g/dL (2.2-4.2); Glucose 84 mg/dL (70-99); Potassium 4.6 mmol/L (3.3-5.1)
[2025-08-17 12:31] LABS: Cholesterol 134 mg/dL (<=200); Low Density Lipoprotein Calc. 71 mg/dL; Triglycerides 106 mg/dL; Very Low Density Lipoprotein 21 mg/dL (5-40); cholesterol:hdl ratio screen 3.21
--- OUTSIDE RECORDS SUMMARY | 2025-08-17 14:11 | XMS RPT_ITS | CCD ---
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 centageOrdered By: Ellie Toledo on 11-08-2024 Nucleated RBC/100 WBC (Bld) [Ratio] 0 % 0-5 [facility] Ovalocytes LM Ql (Bld)Ordere d By: Ellie Toledo on 11-08-2024 Ovalocytes 2+ [facility] Platelet countOrdered By: Camille Toledo on 11-08-2024 Platelets (Bld) [#/Vol] 383 10*3/uL 150-450 [facility] Platelets LM Ql (Bld)Ordered By: Ellie Toledo on 11-08-2024 Platelet Estimate ADEQUATE ADEQ [facility] RBC Auto (Bld) [#/Vol]Ordere d By: Ellie Toledo on 11-08-2024 RBC (Bld) [#/Vol] 4.11 10*6/uL Low 4.2-5.4 [facility] Target cell detectionOrdered By: Ellie Toledo on 11-08-2024 Target Cells RARE Normal [facility] Comment on above: Order Comment: Comme nts: First day Performed By: #### L 100.0100 ####[facility] [address] 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 BRCon 11-06-[address] [facility] Comment on above: Result Comment: [id number] OP RC XM [id number] OP RC XM COMPATIBLE Performed By: #### B RC ####[facility] [address] [place], [address] CBC W/Diff, Automatedon 10-13 MICROCYTIC 2+ Normal [facility] Comment on above: Performed By: #### L 100.0100, BTS ####[facility] [address] [place], [address] [address] [facility] Comment on above: Performed By: #### L 100.0100, BTS ####[facility] [address] [place], [address] [address] RARE Normal [facility] Comment on above: Performed By: #### L 100.0100, BTS ####[facility] [address] [place], [address] Anisocytosis Ql (Bld) 2+ Normal [facility] Comment on above: Performed By: #### L 100.0100, BTS ####[facility] [address] [place], [address] [address] Normal [facility] Comment on above: Performed By: #### L 100.0100, BTS ####[facility] [address] [place], [address] SMEAR COMMENT SCANNED Normal [facility] Comment on above: Performed By: #### L 100.0100, BTS ####[facility] [address] [place], [address] L509.8000on 11-06-2024 Syphilis Abs Non-Reactive Normal [facility] Comment on above: Performed By: #### L 509.8000 ####[facility] [address] [place], [address] Treponema sp Ab Ql (S)Ordere d By: Ellie Toledo on 11-06-2024 Syphilis Total Antibody Non-Reactive [facility] Type AND Screenon 11-06-2024 ABO and Rh group Nom (Bld) Blood group O Rh(D) positive Normal [facility] Comment on above: Order Comment: Labor Performed By: #### L 100.0100, BTS ####[facility] [address] [place], [address] Absolute neutrophil countOrd ered By: Ellie Toledo on 10-29-2024 Neutrophils (Bld) [#/Vol] 6.5 10*3/uL 2.0-7.7 [facility] Basophil percentageOrdered B y: Ellie Toledo on 10-29-2024 Basophils/100 WBC (Bld) 0.6 % 0-1 [facility] Biophysical Prof W/O Non Str eson 10-29-2024 Biophysical Prof W/O Non Stres Normal [facility] CBC W/Diff, Automatedon 10-12 Anisocytosis Ql (Bld) 1+ Normal [facility] Comment on above: Performed By: #### L 100.0100 ####[facility] [address] [place], [address] PLT EST ADEQUATE Normal ADEQ [facility] Comment on above: Performed By: #### L 100.0100 ####[facility] [address] [place], [address] Eosinophil percentageOrdered By: Ellie Toledo on 10-29-2024 Eosinophils/100 WBC (Bld) 1.0 % 0-5 [facility] Erythrocyte distribution wid th (RBC) [Ratio]Ordered By: Ellie Toledo on 10-29-2024 Erythrocyte distribution width (RBC) [Entitic vol] 48.6 fL High 35.1-43.9 [facility] Erythrocyte distribution wid th ratioOrdered By: Ellie Toledo on 10-29-2024 Erythrocyte distribution width (RBC) [Ratio] 20.8 % High 11.6-14.6 [facility] Hematocrit Auto (Bld) [Volum e fraction]Ordered By: Ellie Toledo on 10-29-2024 Hematocrit (Bld) [Volume fraction] 31.8 % Low 37-47 [facility] Hemoglobin measurementOrdere d By: Ellie Toledo on 10-29-2024 Hemoglobin (Bld) [Mass/Vol] 9.1 g/dL Low 12.0-15.0 [facility] Immature granulocytes/100 WB C Auto (Bld)Ordered By: Ellie Toledo on 10-29-2024 Immature granulocytes/100 WBC (Bld) 0.400 % 0.0-0.9 [facility] Comment on above: IG% - Immature Granu locytes (promyelocytes, myelocytes and metamyelocytes) > 1% indicates that a LEFT SHIFT is Present. Laboratory - Hematology and Cell countsOrdered By: Ellie Toledo on 10-29-2024 Anisocytosis Ql (Bld) 1+ [facility] Lymphocytes Auto (Unsp spec) [#/Vol]Ordered By: Ellie Toledo on 10-29-2024 Lymphocytes (Bld) [#/Vol] 2.02 10*3/uL 0.83-4.51 [facility] Lymphocytes/100 WBC Auto (Un sp spec)Ordered By: Ellie Toledo on 10-29-2024 Lymphocytes/100 WBC (Bld) 22.2 % 19-41 [facility] MCV (mean corpuscular volume ) determinationOrdered By: Ellie Toledo on 10-29-2024 MCV (RBC) [Entitic vol] 67.2 fL Low 81-99 [facility] Mean corpuscular hemoglobin (MCH) determinationOrdered By: Ellie Toledo on 10-29-2024 MCH (RBC) [Entitic mass] 19.2 pg Low 27.0-32.0 [facility] Mean corpuscular hemoglobin concentration (MCHC) determinationOrdered By: Ellie Toledo on 10-29-2024 MCHC (RBC) [Mass/Vol] 28.6 g/dL Low 32-36 [facility] Mean platelet volume determi nationOrdered By: Ellie Toeldo on 10-29-2024 Platelet mean volume (Bld) [Entitic vol] 8.6 fL 6.2-12.0 [facility] Monocyte percentageOrdered B y: Ellie Toledo on 10-29-2024 Monocytes/100 WBC (Bld) 4.7 % 0-10 [facility] Neutrophil percentageOrdered By: Ellie Toledo on 10-29-2024 Neutrophils/100 WBC (Bld) 71.1 % High 47-70 [facility] Nucleated red blood cell per centageOrdered By: Ellie Toledo on 10-29-2024 Nucleated RBC/100 WBC (Bld) [Ratio] 0 % 0-5 [facility] OB Limited With Biometricson 10-29-2024 OB Limited With Biometrics Normal [facility] Platelet countOrdered By: Camille Toledo on 10-29-2024 Platelets (Bld) [#/Vol] 424 10*3/uL 150-450 [facility] Platelets LM Ql (Bld)Ordered By: Ellie Toledo on 10-29-2024 Platelet Estimate ADEQUATE ADEQ [facility] RBC Auto (Bld) [#/Vol]Ordere d By: Ellie Toledo on 10-29-2024 RBC (Bld) [#/Vol] 4.73 10*6/uL 4.2-5.4 [facility] White blood cell (WBC) count Ordered By: Ellie Toledo on 10-29-2024 WBC (Bld) [#/Vol] 9.1 10*3/uL 4.4-11.0 [facility] Laboratory - Chemistry and C hemistry - challengeon 10-28-2024 Glucose Ql (U) Negative [facility] Laboratory - Urinalysison Protein Ql (U) Trace [facility] Inspector Barrel Office Visit Reporton 10-28-2024 Inspector Barrel Office Visit Report Normal [facility] Rule out Beta Strep (Grp. B) on 10-25-2024 TING Group B Beta Streptococcus is not isolated. Normal [facility] Comment on above: Performed By: #### M 100.3400 ####[facility] [address] [place], [address] Inspector Barrel Office Visit Reporton 10-23-2024 Inspector Barrel Office Visit Report Normal [facility] Biophysical Prof W/O Non Str eson 10-22-2024 Biophysical Prof W/O Non Stres Normal [facility] Venous Duplex US, Unilateral on 10-22-2024 Venous Duplex US, Unilateral Normal [facility] Biophysical Prof W/O Non Str eson 10-15-2024 Biophysical Prof W/O Non Stres Normal [facility] Inspector Barrel Office Visit Reporton 10-14-2024 Inspector Barrel Office Visit Report Normal [facility] 24 HR UR Creatinine Clearanc yuan 10-08-2024 CREAT CLEARANCE 248 ml/min High 100-200 [facility] Comment on above: Performed By: #### L 500.9000, L500.4507 ####[facility] [address] [place], [address] Creatinine [Mass/Vol] 0.5 mg/dL Low 0.6-1.0 [facility] Comment on above: Performed By: #### L 500.9000, L500.4507 ####[facility] [address] [place], [address] EST GFR - AA 204 mL/min Normal >60 [facility] Comment on above: Result Comment: Afri can Tajik GFR Calc Performed By: #### L 500.9000, L500.4507 ####[facility] [address] [place], [address] GFR/1.73 sq M.predicted among non-blacks MDRD (S/P/Bld) [Vol rate/Area] 169 mL/min/{1.73_m2} Normal >60 [facility] Comment on above: Result Comment: Non- GFR Calc Performed By: #### L 500.9000, L500.4507 ####[facility] [address] [place], [address] UR COLLECT TIME 24.[address] [facility] Comment on above: Performed By: #### L 500.9000, L500.4507 ####[facility] [address] [place], [address] UR TOTAL VOLUME [address] [facility] Comment on above: Performed By: #### L 500.9000, L500.4507 ####[facility] [address] [place], [address] URINE CREAT 224.0 mg/dL Normal NO RANGE EST. [facility] Comment on above: Performed By: #### L 500.9000, L500.4507 ####[facility] [address] [place], [address] CBC W/Diff, Automatedon 11-2 7-2023 Absolute Lymph 1.18 X10 3/uL Normal 0.83-4.51 [facility] Comment on above: Performed By: #### L 100.0100 ####[facility] [address] [place], [address] Absolute Neut 7.9 X10 3/uL High 2.0-7.7 [facility] Comment on above: Performed By: #### L 100.0100 ####[facility] [address] [place], [address] Basophils/100 WBC (Bld) 0.1 % Normal 0-1 [facility] Comment on above: Performed By: #### L 100.0100 ####[facility] [address] [place], [address] Eosinophils/100 WBC (Bld) 0.0 % Normal 0-5 [facility] Comment on above: Performed By: #### L 100.0100 ####[facility] [address] [place], [address] Erythrocyte distribution width (RBC) [Ratio] 18.9 % High 11.6-14.6 [facility] Comment on above: Performed By: #### L 100.0100 ####[facility] [address] [place], [address] Hematocrit (Bld) [Volume fraction] 27.3 % Low 37-47 [facility] Comment on above: Performed By: #### L 100.0100 ####[facility] [address] [place], [address] Hemoglobin (Bld) [Mass/Vol] 8.0 g/dL Low 12.0-15.0 [facility] Comment on above: Performed By: #### L 100.0100 ####[facility] [address] [place], [address] IG% 1.400 High 0.0-0.9 [facility] Comment on above: Result Comment: IG% - Immature Granulocytes (promyelocytes, myelocytes andmetamyelocytes) > 1% indicates that a LEFT SHIFT is Present. Performed By: #### L 100.0100 ####[facility] [address] [place], [address] Lymphocytes/100 WBC (Bld) 12.5 % Low 19-41 [facility] Comment on above: Performed By: #### L 100.0100 ####[facility] [address] [place], [address] MCH (RBC) [Entitic mass] 19.4 pg Low 27.0-32.0 [facility] Comment on above: Performed By: #### L 100.0100 ####[facility] [address] [place], [address] MCHC (RBC) [Mass/Vol] 29.3 g/dL Low 32-36 [facility] Comment on above: Performed By: #### L 100.0100 ####[facility] [address] [place], [address] MCV (RBC) [Entitic vol] 66.1 fL Low 81-99 [facility] Comment on above: Performed By: #### L 100.0100 ####[facility] [address] [place], [address] Monocytes/100 WBC (Bld) 2.8 % Normal 0-[address] [facility] Comment on above: Performed By: #### L 100.0100 ####[facility] [address] [place], [address] Neutrophils/100 WBC (Bld) 83.2 % High 47-70 [facility] Comment on above: Performed By: #### L 100.0100 ####[facility] [address] [place], [address] Nucleated RBC (Bld) [#/Vol] 0 10*3/uL Normal 0-5 [facility] Comment on above: Performed By: #### L 100.0100 ####[facility] [address] [place], [address] Platelet mean volume (Bld) [Entitic vol] 9.0 fL Normal 6.2-12.0 [facility] Comment on above: Performed By: #### L 100.0100 ####[facility] [address] [place], [address] Platelets (Bld) [#/Vol] 385 10*3/uL Normal 150-450 [facility] Comment on above: Performed By: #### L 100.0100 ####[facility] [address] [place], [address] RBC (Bld) [#/Vol] 4.13 10*6/uL Low 4.2-5.4 [facility] Comment on above: Performed By: #### L 100.0100 ####[facility] [address] [place], [address] RDW SD 44.2 fl High 35.1-43.9 [facility] Comment on above: Performed By: #### L 100.0100 ####[facility] [address] [place], [address] WBC (Bld) [#/Vol] 9.5 10*3/uL Normal 4.4-11.0 [facility] Comment on above: Performed By: #### L 100.0100 ####[facility] [address] [place], [address] Comprehensive Metabolic Prof ilon 10-08-2024 Albumin [Mass/Vol] 2.3 g/dL Low 3.2-5.0 [facility] Comment on above: Performed By: #### L 500.4050 ####[facility] [address] [place], [address] Albumin/Globulin [Mass ratio] 0.5 {ratio} Low 0.9-2.4 [facility] Comment on above: Performed By: #### L 500.4050 ####[facility] [address] [place], [address] ALK P 117 U/L Normal 45-117 [facility] Comment on above: Performed By: #### L 500.4050 ####[facility] [address] [place], [address] ALT [Catalytic activity/Vol] 8 U/L Low 13-56 [facility] Comment on above: Performed By: #### L 500.4050 ####[facility] [address] [place], [address] AST [Catalytic activity/Vol] 8 U/L Low 15-37 [facility] Comment on above: Performed By: #### L 500.4050 ####[facility] [address] [place], [address] Bilirubin [Mass/Vol] 0.30 mg/dL Normal 0.20-1.00 [facility] Comment on above: Result Comment: For patients on eltrombopag therapy, use of Dimension Conklin TBIL is not recommended. Performed By: #### L 500.4050 ####[facility] [address] [place], [address] BUN/CRE 16.9 RATIO Normal 10-20 [facility] Comment on above: Performed By: #### L 500.4050 ####[facility] [address] [place], [address] CA,Total 8.7 mg/dL Normal 8.5-10.1 [facility] Comment on above: Performed By: #### L 500.4050 ####[facility] [address] [place], [address] Chloride [Moles/Vol] 111 mmol/L High 98-107 [facility] Comment on above: Performed By: #### L 500.4050 ####[facility] [address] [place], [address] CO2 [Moles/Vol] 20.0 mmol/L Low 21.0-32.0 [facility] Comment on above: Performed By: #### L 500.4050 ####[facility] [address] [place], [address] Creatinine [Mass/Vol] 0.47 mg/dL Low 0.55-1.02 [facility] Comment on above: Result Comment: The validity of the calculated GFR GFRAA in patients over70 years has not been determined. Clinical correlation isessential. Performed By: #### L 500.4050 ####[facility] [address] [place], [address] ECRCL 279.41 ml/min Normal [facility] Comment on above: Performed By: #### L 500.4050 ####[facility] [address] [place], [address] EST GFR - AA 202 mL/min Normal >60 [facility] Comment on above: Result Comment: Afri can Tajik GFR Calc Performed By: #### L 500.4050 ####[facility] [address] [place], [address] GAP 6 Normal 5-15 [facility] Comment on above: Performed By: #### L 500.4050 ####[facility] [address] [place], [address] GFR/1.73 sq M.predicted among non-blacks MDRD (S/P/Bld) [Vol rate/Area] 167 mL/min/{1.73_m2} Normal >60 [facility] Comment on above: Result Comment: Non- GFR Calc Performed By: #### L 500.4050 ####[facility] [address] [place], [address] Globulin (S) [Mass/Vol] 4.4 g/dL High 2.2-4.[address] [facility] Comment on above: Performed By: #### L 500.4050 ####[facility] [address] [place], [address] Glucose [Mass/Vol] 134 mg/dL High 74-106 [facility] Comment on above: Result Comment: Fast ing Glucose result greater than or equal to 126 mg/dLsuggests DIABETES MELLITUS per A.D.A. criteria. Performed By: #### L 500.4050 ####[facility] [address] [place], [address] Potassium [Moles/Vol] 3.8 mmol/L Normal 3.5-5.1 [facility] Comment on above: Performed By: #### L 500.4050 ####[facility] [address] [place], [address] Sodium [Moles/Vol] 137 mmol/L Normal 136-145 [facility] Comment on above: Performed By: #### L 500.4050 ####[facility] [address] [place], [address] T PROT 6.7 g/dL Normal 6.4-8.2 [facility] Comment on above: Performed By: #### L 500.4050 ####[facility] [address] [place], [address] Urea nitrogen [Mass/Vol] 8 mg/dL Normal 7-18 [facility] Comment on above: Performed By: #### L 500.4050 ####[facility] [address] [place], [address] OB Limited With Biometricson 10-08-2024 OB Limited With Biometrics Normal [facility] Protein, Urine 24HRon 2023 24hr UR PROTEIN 210.0 mg/24HR High <150 MG/24HR [facility] Comment on above: Performed By: #### L 500.9000, L500.4507 ####[facility] [address] [place], [address] Protein Ql (U) 28.0 mg/dL High <11.9 [facility] Comment on above: Performed By: #### L 500.9000, L500.4507 ####[facility] [address] [place], [address] 24 HR Urine Creatinineon UR COLLECT TIME Normal 24.0 [facility] Comment on above: Result Comment: HEATHER GUZMAN. SEE 1126:[id number] Performed By: #### L 502.000 ####[facility] [address] [place], [address] UR TOTAL VOLUME Normal [facility] Comment on above: Result Comment: DUPL ICATE. SEE 1126:[id number] Performed By: #### L 502.000 ####[facility] [address] [place], [address] UR.CREAT/24hr Normal 0.70-1.90 [facility] Comment on above: Result Comment: DUPL ICATE. SEE 1126:[id number] Performed By: #### L 502.000 ####[facility] [address] [place], [address] URINE CREAT Normal NO RANGE EST. [facility] Comment on above: Result Comment: DUPL ICATE. SEE 1126:[id number] Performed By: #### L 502.000 ####[facility] [address] [place], [address] Biophysical Prof W/O Non Str eson 10-07-2024 Biophysical Prof W/O Non Stres Normal [facility] CBC W/Diff, Automatedon - Absolute Lymph 2.29 X10 3/uL Normal 0.83-4.51 [facility] Comment on above: Performed By: #### L 500.4050, L100.0100 ####[facility] [address] [place], [address] Absolute Neut 6.7 X10 3/uL Normal 2.0-7.7 [facility] Comment on above: Performed By: #### L 500.4050, L100.0100 ####[facility] [address] [place], [address] Basophils/100 WBC (Bld) 0.4 % Normal 0-1 [facility] Comment on above: Performed By: #### L 500.4050, L100.0100 ####[facility] [address] [place], [address] Eosinophils/100 WBC (Bld) 0.7 % Normal 0-5 [facility] Comment on above: Performed By: #### L 500.4050, L100.0100 ####[facility] [address] [place], [address] Erythrocyte distribution width (RBC) [Ratio] 19.2 % High 11.6-14.6 [facility] Comment on above: Performed By: #### L 500.4050, L100.0100 ####[facility] [address] [place], [address] Hematocrit (Bld) [Volume fraction] 29.9 % Low 37-47 [facility] Comment on above: Performed By: #### L 500.4050, L100.0100 ####[facility] [address] [place], [address] Hemoglobin (Bld) [Mass/Vol] 8.6 g/dL Low 12.0-15.0 [facility] Comment on above: Performed By: #### L 500.4050, L100.0100 ####[facility] [address] [place], [address] IG% 0.400 Normal 0.0-0.9 [facility] Comment on above: Result Comment: IG% - Immature Granulocytes (promyelocytes, myelocytes andmetamyelocytes) > 1% indicates that a LEFT SHIFT is Present. Performed By: #### L 500.4050, L100.0100 ####[facility] [address] [place], [address] Lymphocytes/100 WBC (Bld) 24.2 % Normal 19-41 [facility] Comment on above: Performed By: #### L 500.4050, L100.0100 ####[facility] [address] [place], [address] MCH (RBC) [Entitic mass] 19.1 pg Low 27.0-32.0 [facility] Comment on above: Performed By: #### L 500.4050, L100.0100 ####[facility] [address] [place], [address] MCHC (RBC) [Mass/Vol] 28.8 g/dL Low 32-36 [facility] Comment on above: Performed By: #### L 500.4050, L100.0100 ####[facility] [address] [place], [address] MCV (RBC) [Entitic vol] 66.3 fL Low 81-99 [facility] Comment on above: Performed By: #### L 500.4050, L100.0100 ####[facility] [address] [place], [address] Monocytes/100 WBC (Bld) 4.1 % Normal 0-[address] [facility] Comment on above: Performed By: #### L 500.4050, L100.0100 ####[facility] [address] [place], [address] Neutrophils/100 WBC (Bld) 70.2 % High 47-70 [facility] Comment on above: Performed By: #### L 500.4050, L100.0100 ####[facility] [address] [place], [address] Nucleated RBC (Bld) [#/Vol] 0 10*3/uL Normal 0-5 [facility] Comment on above: Performed By: #### L 500.4050, L100.0100 ####[facility] [address] [place], [address] Platelet mean volume (Bld) [Entitic vol] 8.5 fL Normal 6.2-12.0 [facility] Comment on above: Performed By: #### L 500.4050, L100.0100 ####[facility] [address] [place], [address] Platelets (Bld) [#/Vol] 418 10*3/uL Normal 150-450 [facility] Comment on above: Performed By: #### L 500.4050, L100.0100 ####[facility] [address] [place], [address] RBC (Bld) [#/Vol] 4.51 10*6/uL Normal 4.2-5.4 [facility] Comment on above: Performed By: #### L 500.4050, L100.0100 ####[facility] [address] [place], [address] RDW SD 44.6 fl High 35.1-43.9 [facility] Comment on above: Performed By: #### L 500.4050, L100.0100 ####[facility] [address] [place], [address] WBC (Bld) [#/Vol] 9.5 10*3/uL Normal 4.4-11.0 [facility] Comment on above: Performed By: #### L 500.4050, L100.0100 ####[facility] [address] [place], [address] Comprehensive Metabolic Prof ilon 10-07-2024 Albumin [Mass/Vol] 2.4 g/dL Low 3.2-5.0 [facility] Comment on above: Performed By: #### L 500.4050, L100.0100 ####[facility] [address] [place], [address] Albumin/Globulin [Mass ratio] 0.5 {ratio} Low 0.9-2.4 [facility] Comment on above: Performed By: #### L 500.4050, L100.0100 ####[facility] [address] [place], [address] ALK P 119 U/L High 45-117 [facility] Comment on above: Performed By: #### L 500.4050, L100.0100 ####[facility] [address] [place], [address] ALT [Catalytic activity/Vol] 12 U/L Low 13-56 [facility] Comment on above: Performed By: #### L 500.4050, L100.0100 ####[facility] [address] [place], [address] AST [Catalytic activity/Vol] 8 U/L Low 15-37 [facility] Comment on above: Performed By: #### L 500.4050, L100.0100 ####[facility] [address] [place], [address] Bilirubin [Mass/Vol] 0.40 mg/dL Normal 0.20-1.00 [facility] Comment on above: Result Comment: For patients on eltrombopag therapy, use of Dimension Conklin TBIL is not recommended. Performed By: #### L 500.4050, L100.0100 ####[facility] [address] [place], [address] BUN/CRE 13.8 RATIO Normal 10-20 [facility] Comment on above: Performed By: #### L 500.4050, L100.0100 ####[facility] [address] [place], [address] CA,Total 8.9 mg/dL Normal 8.5-10.1 [facility] Comment on above: Performed By: #### L 500.4050, L100.0100 ####[facility] [address] [place], [address] Chloride [Moles/Vol] 108 mmol/L High 98-107 [facility] Comment on above: Performed By: #### L 500.4050, L100.0100 ####[facility] [address] [place], [address] CO2 [Moles/Vol] 19.0 mmol/L Low 21.0-32.0 [facility] Comment on above: Performed By: #### L 500.4050, L100.0100 ####[facility] [address] [place], [address] Creatinine [Mass/Vol] 0.51 mg/dL Low 0.55-1.02 [facility] Comment on above: Result Comment: The validity of the calculated GFR GFRAA in patients over70 years has not been determined. Clinical correlation isessential. Performed By: #### L 500.4050, L100.0100 ####[facility] [address] [place], [address] EST GFR - AA 187 mL/min Normal >60 [facility] Comment on above: Result Comment: Afri can Tajik GFR Calc Performed By: #### L 500.4050, L100.0100 ####[facility] [address] [place], [address] GAP 9 Normal 5-15 [facility] Comment on above: Performed By: #### L 500.4050, L100.0100 ####[facility] [address] [place], [address] GFR/1.73 sq M.predicted among non-blacks MDRD (S/P/Bld) [Vol rate/Area] 155 mL/min/{1.73_m2} Normal >60 [facility] Comment on above: Result Comment: Non- GFR Calc Performed By: #### L 500.4050, L100.0100 ####[facility] [address] [place], [address] Globulin (S) [Mass/Vol] 4.7 g/dL High 2.2-4.2 [facility] Comment on above: Performed By: #### L 500.4050, L100.0100 ####[facility] [address] [place], [address] Glucose [Mass/Vol] 121 mg/dL High 74-106 [facility] Comment on above: Result Comment: Fast ing Glucose result from 100 to 125 mg/dLsuggests IMPAIRED HOMEOSTASIS per A.D.A. criteria. Performed By: #### L 500.4050, L100.0100 ####[facility] [address] [place], [address] Potassium [Moles/Vol] 3.4 mmol/L Low 3.5-5.1 [facility] Comment on above: Performed By: #### L 500.4050, L100.0100 ####[facility] [address] [place], [address] Sodium [Moles/Vol] 137 mmol/L Normal 136-145 [facility] Comment on above: Performed By: #### L 500.4050, L100.0100 ####[facility] [address] [place], [address] T PROT 7.1 g/dL Normal 6.4-8.2 [facility] Comment on above: Performed By: #### L 500.4050, L100.0100 ####[facility] [address] [place], [address] Urea nitrogen [Mass/Vol] 7 mg/dL Normal 7-18 [facility] Comment on above: Performed By: #### L 500.4050, L100.0100 ####[facility] [address] [place], [address] OB Triage Physician Noteon 1 12-07-2023 OB Triage Physician Note Normal [facility] Inspector Barrel Office Visit Reporton 10-07-2024 Inspector Barrel Office Visit Report Normal [facility] Protein+Creatinine Ratio,Uri neon 10-07-2024 PROT:CRE RATIO 116 mg/g CRE Normal 0-200 [facility] Comment on above: Performed By: #### L 501.0900 ####[facility] [address] [place], [address] Protein (U) [Mass/Vol] 28.4 mg/dL High <11.9 [facility] Comment on above: Performed By: #### L 501.0900 ####[facility] [address] [place], [address] UR CREAT 245.00 mg/dL Normal NO RANGE EST. [facility] Comment on above: Performed By: #### L 501.0900 ####[facility] [address] [place], [address] Biophysical Prof W/O Non Str eson 10-01-2024 Biophysical Prof W/O Non Stres Normal [facility] Inspector Barrel Office Visit Reporton 09-25-2024 Inspector Barrel Office Visit Report Normal [facility] Bedside Glucoseon 09-15-2024 FINGERSTICK GLU 88 mg/dL Normal 74-106 [facility] Comment on above: Result Comment: LESLIE MORRELL OF PATIENT CARE PER NURSING PROTOCOL Performed By: #### L 501.080 ####[facility] [address] [place], [address] Gestational GTT 3HR 100gon 1 11-15-2023 3HR GTT- GEST. Normal [facility] Comment on above: Order Comment: Y Result Comment: FAST ING 91 Col: 09/15/24 0708GLUCOSE TOLERANCE TEST FOR Reference Interval GESTATIONAL DIABETES Fasting <105 mg/dL 1 hour <190 mg/dl 2 hour <165 mg/dl 3 hour <145 mg/dl 1 HR GLU 174 Col: 09/15/24 0810 2 HR GLU 153 Col: 09/15/24 0917 3 HR GLU 140 Col: 09/15/24 1013 Performed By: #### L 500.4710 ####[facility] [address] [place], [address] Glucose Challenge Gest 1H 50 deyvi 09-11-2024 GLU GEST 50g 1H 145 mg/dL High 70-140 [facility] Comment on above: Performed By: #### L 509.8000, L3890.6005, L501.0250 ####[facility] [address] [place], [address] HIV - WCHon 09-11-2024 HIV Non-Reactive Normal Nonreactive [facility] Comment on above: Performed By: #### L 509.8000, L3890.6005, L501.0250 ####[facility] [address] [place], [address] L509.8000on 09-11-2024 Syphilis Abs Non-Reactive Normal [facility] Comment on above: Performed By: #### L 509.8000, L3890.6005, L501.0250 ####[facility] [address] [place], [address] Inspector Barrel Office Visit Reporton 09-11-2024 Inspector Barrel Office Visit Report Normal [facility] AST(SGOT)on 09-03-2024 AST [Catalytic activity/Vol] 8 U/L Low 15-37 [facility] Comment on above: Performed By: #### L 501.1400, L100.0500, L501.4100, L501.4405, L501.1105, L501.0900 ####[facility] [address] [place], [address] Alanine Aminotransferas (SGP T)on 09-03-2024 ALT [Catalytic activity/Vol] 13 U/L Normal 13-56 [facility] Comment on above: Performed By: #### L 501.1400, L100.0500, L501.4100, L501.4405, L501.1105, L501.0900 ####[facility] [address] [place], [address] CBC-Complete Blood Cnt No Di ffon 10-23-2024 Erythrocyte distribution width (RBC) [Ratio] 19.0 % High 11.6-14.6 [facility] Comment on above: Performed By: #### L 501.1400, L100.0500, L501.4100, L501.4405, L501.1105, L501.0900 ####[facility] [address] [place], [address] Hematocrit (Bld) [Volume fraction] 30.9 % Low 37-47 [facility] Comment on above: Performed By: #### L 501.1400, L100.0500, L501.4100, L501.4405, L501.1105, L501.0900 ####[facility] [address] [place], [address] Hemoglobin (Bld) [Mass/Vol] 8.9 g/dL Low 12.0-15.0 [facility] Comment on above: Performed By: #### L 501.1400, L100.0500, L501.4100, L501.4405, L501.1105, L501.0900 ####[facility] [address] [place], [address] MCH (RBC) [Entitic mass] 19.5 pg Low 27.0-32.0 [facility] Comment on above: Performed By: #### L 501.1400, L100.0500, L501.4100, L501.4405, L501.1105, L501.0900 ####[facility] [address] [place], [address] MCHC (RBC) [Mass/Vol] 28.8 g/dL Low 32-36 [facility] Comment on above: Performed By: #### L 501.1400, L100.0500, L501.4100, L501.4405, L501.1105, L501.0900 ####[facility] [address] [place], [address] MCV (RBC) [Entitic vol] 67.8 fL Low 81-99 [facility] Comment on above: Performed By: #### L 501.1400, L100.0500, L501.4100, L501.4405, L501.1105, L501.0900 ####[facility] [address] [place], [address] Platelet mean volume (Bld) [Entitic vol] 9.1 fL Normal 6.2-12.0 [facility] Comment on above: Performed By: #### L 501.1400, L100.0500, L501.4100, L501.4405, L501.1105, L501.0900 ####[facility] [address] [place], [address] Platelets (Bld) [#/Vol] 407 10*3/uL Normal 150-450 [facility] Comment on above: Performed By: #### L 501.1400, L100.0500, L501.4100, L501.4405, L501.1105, L501.0900 ####[facility] [address] [place], [address] RBC (Bld) [#/Vol] 4.56 10*6/uL Normal 4.2-5.4 [facility] Comment on above: Performed By: #### L 501.1400, L100.0500, L501.4100, L501.4405, L501.1105, L501.0900 ####[facility] [address] [place], [address] RDW SD 46.2 fl High 35.1-43.9 [facility] Comment on above: Performed By: #### L 501.1400, L100.0500, L501.4100, L501.4405, L501.1105, L501.0900 ####[facility] [address] [place], [address] WBC (Bld) [#/Vol] 9.3 10*3/uL Normal 4.4-11.0 [facility] Comment on above: Performed By: #### L 501.1400, L100.0500, L501.4100, L501.4405, L501.1105, L501.0900 ####[facility] [address] [place], [address] OB Limited With Biometricson 09-03-2024 OB Limited With Biometrics Normal [facility] OB Triage Physician Noteon 1 OB Triage Physician Note Normal [facility] Protein+Creatinine Ratio,Uri neon 09-03-2024 PROT:CRE RATIO 85 mg/g CRE Normal 0-200 [facility] Comment on above: Performed By: #### L 501.1400, L100.0500, L501.4100, L501.4405, L501.1105, L501.0900 ####[facility] [address] [place], [address] Protein (U) [Mass/Vol] 15.0 mg/dL High <11.9 [facility] Comment on above: Performed By: #### L 501.1400, L100.0500, L501.4100, L501.4405, L501.1105, L501.0900 ####[facility] [address] [place], [address] UR CREAT 176.00 mg/dL Normal NO RANGE EST. [facility] Comment on above: Performed By: #### L 501.1400, L100.0500, L501.4100, L501.4405, L501.1105, L501.0900 ####[facility] [address] [place], [address] Serum Creatinine AND GFRon 1 Creatinine [Mass/Vol] 0.55 mg/dL Normal 0.55-1.02 [facility] Comment on above: Result Comment: The validity of the calculated GFR GFRAA in patients over70 years has not been determined. Clinical correlation isessential. Performed By: #### L 501.1400, L100.0500, L501.4100, L501.4405, L501.1105, L501.0900 ####[facility] [address] [place], [address] EST GFR - AA 170 mL/min Normal >60 [facility] Comment on above: Result Comment: Afri can Tajik GFR Calc Performed By: #### L 501.1400, L100.0500, L501.4100, L501.4405, L501.1105, L501.0900 ####[facility] [address] [place], [address] GFR/1.73 sq M.predicted among non-blacks MDRD (S/P/Bld) [Vol rate/Area] 140 mL/min/{1.73_m2} Normal >60 [facility] Comment on above: Result Comment: Non- GFR Calc Performed By: #### L 501.1400, L100.0500, L501.4100, L501.4405, L501.1105, L501.0900 ####[facility] [address] [place], [address] Uric Acidon 09-03-2024 URIC 2.9 mg/dL Normal 2.6-6.0 [facility] Comment on above: Result Comment: The drugs N-Acetylcysteine and Metamizole may falselydepress this assay. Performed By: #### L 501.1400, L100.0500, L501.4100, L501.4405, L501.1105, L501.0900 ####[facility] [address] [place], [address] Biophysical Prof W/O Non Str eson 08-25-2024 Biophysical Prof W/O Non Stres Normal [facility] CBC W/Diff, Automatedon 08-12 Absolute Lymph 1.91 X10 3/uL Normal 0.83-4.51 [facility] Comment on above: Performed By: #### L 500.4050, L100.0100 ####[facility] [address] [place], [address] Absolute Neut 6.7 X10 3/uL Normal 2.0-7.7 [facility] Comment on above: Performed By: #### L 500.4050, L100.0100 ####[facility] [address] [place], [address] Basophils/100 WBC (Bld) 0.4 % Normal 0-1 [facility] Comment on above: Performed By: #### L 500.4050, L100.0100 ####[facility] [address] [place], [address] Eosinophils/100 WBC (Bld) 1.2 % Normal 0-5 [facility] Comment on above: Performed By: #### L 500.4050, L100.0100 ####[facility] [address] [place], [address] Erythrocyte distribution width (RBC) [Ratio] 18.9 % High 11.6-14.6 [facility] Comment on above: Performed By: #### L 500.4050, L100.0100 ####[facility] [address] [place], [address] Hematocrit (Bld) [Volume fraction] 31.3 % Low 37-47 [facility] Comment on above: Performed By: #### L 500.4050, L100.0100 ####[facility] [address] [place], [address] Hemoglobin (Bld) [Mass/Vol] 8.9 g/dL Low 12.0-15.0 [facility] Comment on above: Performed By: #### L 500.4050, L100.0100 ####[facility] [address] [place], [address] IG% 0.700 Normal 0.0-0.9 [facility] Comment on above: Result Comment: IG% - Immature Granulocytes (promyelocytes, myelocytes andmetamyelocytes) > 1% indicates that a LEFT SHIFT is Present. Performed By: #### L 500.4050, L100.0100 ####[facility] [address] [place], [address] Lymphocytes/100 WBC (Bld) 20.8 % Normal 19-41 [facility] Comment on above: Performed By: #### L 500.4050, L100.0100 ####[facility] [address] [place], [address] MCH (RBC) [Entitic mass] 19.5 pg Low 27.0-32.0 [facility] Comment on above: Performed By: #### L 500.4050, L100.0100 ####[facility] [address] [place], [address] MCHC (RBC) [Mass/Vol] 28.4 g/dL Low 32-36 [facility] Comment on above: Performed By: #### L 500.4050, L100.0100 ####[facility] [address] [place], [address] MCV (RBC) [Entitic vol] 68.5 fL Low 81-[address] [facility] Comment on above: Performed By: #### L 500.4050, L100.0100 ####[facility] [address] [place], [address] Monocytes/100 WBC (Bld) 4.0 % Normal 0-10 [facility] Comment on above: Performed By: #### L 500.4050, L100.0100 ####[facility] [address] [place], [address] Neutrophils/100 WBC (Bld) 72.9 % High 47-70 [facility] Comment on above: Performed By: #### L 500.4050, L100.0100 ####[facility] [address] [place], [address] Nucleated RBC (Bld) [#/Vol] 0 10*3/uL Normal 0-5 [facility] Comment on above: Performed By: #### L 500.4050, L100.0100 ####[facility] [address] [place], [address] Platelet mean volume (Bld) [Entitic vol] 9.2 fL Normal 6.2-12.0 [facility] Comment on above: Performed By: #### L 500.4050, L100.0100 ####[facility] [address] [place], [address] Platelets (Bld) [#/Vol] 399 10*3/uL Normal 150-450 [facility] Comment on above: Performed By: #### L 500.4050, L100.0100 ####[facility] [address] [place], [address] RBC (Bld) [#/Vol] 4.57 10*6/uL Normal 4.2-5.4 [facility] Comment on above: Performed By: #### L 500.4050, L100.0100 ####[facility] [address] [place], [address] RDW SD 46.0 fl High 35.1-43.9 [facility] Comment on above: Performed By: #### L 500.4050, L100.0100 ####[facility] [address] [place], [address] WBC (Bld) [#/Vol] 9.2 10*3/uL Normal 4.4-11.0 [facility] Comment on above: Performed By: #### L 500.4050, L100.0100 ####[facility] [address] [place], [address] Comprehensive Metabolic Prof ilon 08-25-2024 Albumin [Mass/Vol] 2.4 g/dL Low 3.2-5.0 [facility] Comment on above: Performed By: #### L 500.4050, L100.0100 ####[facility] [address] [place], [address] Albumin/Globulin [Mass ratio] 0.5 {ratio} Low 0.9-2.4 [facility] Comment on above: Performed By: #### L 500.4050, L100.0100 ####[facility] [address] [place], [address] ALK P 98 U/L Normal 45-117 [facility] Comment on above: Performed By: #### L 500.4050, L100.0100 ####[facility] [address] [place], [address] ALT [Catalytic activity/Vol] 9 U/L Low 13-56 [facility] Comment on above: Performed By: #### L 500.4050, L100.0100 ####[facility] [address] [place], [address] AST [Catalytic activity/Vol] 8 U/L Low 15-37 [facility] Comment on above: Performed By: #### L 500.4050, L100.0100 ####[facility] [address] [place], [address] Bilirubin [Mass/Vol] 0.20 mg/dL Normal 0.20-1.00 [facility] Comment on above: Result Comment: For patients on eltrombopag therapy, use of Dimension Conklin TBIL is not recommended. Performed By: #### L 500.4050, L100.0100 ####[facility] [address] [place], [address] BUN/CRE 11.2 RATIO Normal 10-20 [facility] Comment on above: Performed By: #### L 500.4050, L100.0100 ####[facility] [address] [place], [address] CA,Total 9.2 mg/dL Normal 8.5-10.1 [facility] Comment on above: Performed By: #### L 500.4050, L100.0100 ####[facility] [address] [place], [address] Chloride [Moles/Vol] 108 mmol/L High 98-107 [facility] Comment on above: Performed By: #### L 500.4050, L100.0100 ####[facility] [address] [place], [address] CO2 [Moles/Vol] 20.0 mmol/L Low 21.0-32.0 [facility] Comment on above: Performed By: #### L 500.4050, L100.0100 ####[facility] [address] [place], [address] Creatinine [Mass/Vol] 0.54 mg/dL Low 0.55-1.02 [facility] Comment on above: Result Comment: The validity of the calculated GFR GFRAA in patients over70 years has not been determined. Clinical correlation isessential. Performed By: #### L 500.4050, L100.0100 ####[facility] [address] [place], [address] EST GFR - AA 175 mL/min Normal >60 [facility] Comment on above: Result Comment: Afri can Tajik GFR Calc Performed By: #### L 500.4050, L100.0100 ####[facility] [address] [place], [address] GAP 7 Normal 5-15 [facility] Comment on above: Performed By: #### L 500.4050, L100.0100 ####[facility] [address] [place], [address] GFR/1.73 sq M.predicted among non-blacks MDRD (S/P/Bld) [Vol rate/Area] 145 mL/min/{1.73_m2} Normal >60 [facility] Comment on above: Result Comment: Non- GFR Calc Performed By: #### L 500.4050, L100.0100 ####[facility] [address] [place], [address] Globulin (S) [Mass/Vol] 4.8 g/dL High 2.2-4.[address] [facility] Comment on above: Performed By: #### L 500.4050, L100.0100 ####[facility] [address] [place], [address] Glucose [Mass/Vol] 112 mg/dL High 74-106 [facility] Comment on above: Result Comment: Fast ing Glucose result from 100 to 125 mg/dLsuggests IMPAIRED HOMEOSTASIS per A.D.A. criteria. Performed By: #### L 500.4050, L100.0100 ####[facility] [id number], [address] Potassium [Moles/Vol] 3.6 mmol/L Normal 3.5-5.1 [facility] Comment on above: Performed By: #### L 500.4050, L100.0100 ####[facility] [id number], [address] Sodium [Moles/Vol] 135 mmol/L Low 136-145 [facility] Comment on above: Performed By: #### L 500.4050, L100.0100 ####[facility] [id number], [address] T PROT 7.2 g/dL Normal 6.4-8.2 [facility] Comment on above: Performed By: #### L 500.4050, L100.0100 ####[facility] [address] [place], [address] Urea nitrogen [Mass/Vol] 6 mg/dL Low 7-18 [facility] Comment on above: Performed By: #### L 500.4050, L100.0100 ####[facility] [address] [place], [address] OB Triage Progress Noteon OB Triage Progress Note Normal [facility] Inspector Barrel Office Visit Reporton 08-25-2024 Inspector Barrel Office Visit Report Normal [facility] Protein+Creatinine Ratio,Uri neon 08-25-2024 PROT:CRE RATIO TNP Normal 0-200 [facility] Comment on above: Performed By: #### L 501.0900 ####[facility] [address] [place], [address] PROTEIN,UR.RAN. < 6.0 Normal <11.9 [facility] Comment on above: Performed By: #### L 501.0900 ####[facility] [address] [place], [address] UR CREAT 23.40 mg/dL Normal NO RANGE EST. [facility] Comment on above: Performed By: #### L 501.0900 ####[facility] [address] [place], [address] CBC W/Diff, Automatedon Absolute Lymph 2.05 X10 3/uL Normal 0.83-4.51 [facility] Comment on above: Performed By: #### L 509.8000, L501.0250, L100.0100, L3890.6005 ####[facility] [address] [place], [address] Absolute Neut 6.4 X10 3/uL Normal 2.0-7.7 [facility] Comment on above: Performed By: #### L 509.8000, L501.0250, L100.0100, L3890.6005 ####[facility] [address] [place], [address] Basophils/100 WBC (Bld) 0.4 % Normal 0-1 [facility] Comment on above: Performed By: #### L 509.8000, L501.0250, L100.0100, L3890.6005 ####[facility] [address] [place], [address] Eosinophils/100 WBC (Bld) 1.0 % Normal 0-5 [facility] Comment on above: Performed By: #### L 509.8000, L501.0250, L100.0100, L3890.6005 ####[facility] [address] [place], [address] Erythrocyte distribution width (RBC) [Ratio] 19.0 % High 11.6-14.6 [facility] Comment on above: Performed By: #### L 509.8000, L501.0250, L100.0100, L3890.6005 ####[facility] [address] [place], [address] Hematocrit (Bld) [Volume fraction] 30.5 % Low 37-47 [facility] Comment on above: Performed By: #### L 509.8000, L501.0250, L100.0100, L3890.6005 ####[facility] [address] [place], [address] Hemoglobin (Bld) [Mass/Vol] 9.2 g/dL Low 12.0-15.0 [facility] Comment on above: Performed By: #### L 509.8000, L501.0250, L100.0100, L3890.6005 ####[facility] [address] [place], [address] IG% 0.300 Normal 0.0-0.9 [facility] Comment on above: Result Comment: IG% - Immature Granulocytes (promyelocytes, myelocytes andmetamyelocytes) > 1% indicates that a LEFT SHIFT is Present. Performed By: #### L 509.8000, L501.0250, L100.0100, L3890.6005 ####[facility] [address] [place], [address] Lymphocytes/100 WBC (Bld) 22.8 % Normal 19-41 [facility] Comment on above: Performed By: #### L 509.8000, L501.0250, L100.0100, L3890.6005 ####[facility] [address] [place], [address] MCH (RBC) [Entitic mass] 20.2 pg Low 27.0-32.0 [facility] Comment on above: Performed By: #### L 509.8000, L501.0250, L100.0100, L3890.6005 ####[facility] [address] [place], [address] MCHC (RBC) [Mass/Vol] 30.2 g/dL Low 32-36 [facility] Comment on above: Performed By: #### L 509.8000, L501.0250, L100.0100, L3890.6005 ####[facility] [address] [place], [address] MCV (RBC) [Entitic vol] 67.0 fL Low 81-99 [facility] Comment on above: Performed By: #### L 509.8000, L501.0250, L100.0100, L3890.6005 ####[facility] [address] [place], [address] Monocytes/100 WBC (Bld) 4.9 % Normal 0-10 [facility] Comment on above: Performed By: #### L 509.8000, L501.0250, L100.0100, L3890.6005 ####[facility] [address] [place], [address] Neutrophils/100 WBC (Bld) 70.6 % High 47-70 [facility] Comment on above: Performed By: #### L 509.8000, L501.0250, L100.0100, L3890.6005 ####[facility] [address] [place], [address] Nucleated RBC (Bld) [#/Vol] 0 10*3/uL Normal 0-5 [facility] Comment on above: Performed By: #### L 509.8000, L501.0250, L100.0100, L3890.6005 ####[facility] [address] [place], [address] Platelet mean volume (Bld) [Entitic vol] 8.6 fL Normal 6.2-12.0 [facility] Comment on above: Performed By: #### L 509.8000, L501.0250, L100.0100, L3890.6005 ####[facility] [address] [place], [address] Platelets (Bld) [#/Vol] 374 10*3/uL Normal 150-450 [facility] Comment on above: Performed By: #### L 509.8000, L501.0250, L100.0100, L3890.6005 ####[facility] [address] [place], [address] RBC (Bld) [#/Vol] 4.55 10*6/uL Normal 4.2-5.4 [facility] Comment on above: Performed By: #### L 509.8000, L501.0250, L100.0100, L3890.6005 ####[facility] [address] [place], [address] RDW SD 44.8 fl High 35.1-43.9 [facility] Comment on above: Performed By: #### L 509.8000, L501.0250, L100.0100, L3890.6005 ####[facility] [address] [place], [address] WBC (Bld) [#/Vol] 9.0 10*3/uL Normal 4.4-11.0 [facility] Comment on above: Performed By: #### L 509.8000, L501.0250, L100.0100, L3890.6005 ####[facility] [address] [place], [address] Glucose Challenge Gest 1H 50 deyvi 08-14-2024 GLU GEST 50g 1H 93 mg/dL Normal 70-140 [facility] Comment on above: Performed By: #### L 509.8000, L501.0250, L100.0100, L3890.6005 ####[facility] [address] [place], [address] HIV - WCHon 08-14-2024 HIV Non-Reactive Normal Nonreactive [facility] Comment on above: Performed By: #### L 509.8000, L501.0250, L100.0100, L3890.6005 ####[facility] [address] [place], [address] L509.8000on 08-14-2024 Syphilis Abs Non-Reactive Normal [facility] Comment on above: Performed By: #### L 509.8000, L501.0250, L100.0100, L3890.6005 ####[facility] [address] [place], [address] Inspector Barrel Office Visit Reporton 08-13-2024 Inspector Barrel Office Visit Report Normal [facility] Inspector Barrel Office Visit Reporton 07-23-2024 Inspector Barrel Office Visit Report Normal [facility] OB Anatomy Scanon 07-11-2024 OB [address] Scan Normal [facility] Ferritinon 06-30-2024 Ferritin [Mass/Vol] 4 ng/mL Low 8-252 [facility] Comment on above: Performed By: #### L 503.6550, L503.6030 ####[facility] [address] [place], [address] Iron+Iron Binding Capacityon 06-30-2024 Iron [Mass/Vol] 25 ug/dL Low 50-170 [facility] Comment on above: Performed By: #### L 503.6550, L503.6030 ####[facility] [address] [place], [address] IRON SATURATION 4.5 Low 15.0-55.0 [facility] Comment on above: Performed By: #### L 503.6550, L503.6030 ####[facility] [address] [place], [address] TIBC 555 ug/dL High 250-450 [facility] Comment on above: Performed By: #### L 503.6550, L503.6030 ####[facility] [address] [place], [address] CBC W/Diff, Automatedon 06-12 Absolute Lymph 2.39 X10 3/uL Normal 0.83-4.51 [facility] Comment on above: Performed By: #### L 501.0900, L100.0100, L500.4050 ####[facility] [address] [place], [address] Absolute Neut 4.3 X10 3/uL Normal 2.0-7.7 [facility] Comment on above: Performed By: #### L 501.0900, L100.0100, L500.4050 ####[facility] [address] [place], [address] Basophils/100 WBC (Bld) 0.4 % Normal 0-1 [facility] Comment on above: Performed By: #### L 501.0900, L100.0100, L500.4050 ####[facility] [address] [place], [address] Eosinophils/100 WBC (Bld) 1.7 % Normal 0-5 [facility] Comment on above: Performed By: #### L 501.0900, L100.0100, L500.4050 ####[facility] [address] [place], [address] Erythrocyte distribution width (RBC) [Ratio] 19.1 % High 11.6-14.6 [facility] Comment on above: Performed By: #### L 501.0900, L100.0100, L500.4050 ####[facility] [address] [place], [address] Hematocrit (Bld) [Volume fraction] 32.2 % Low 37-47 [facility] Comment on above: Performed By: #### L 501.0900, L100.0100, L500.4050 ####[facility] [address] [place], [address] Hemoglobin (Bld) [Mass/Vol] 9.4 g/dL Low 12.0-15.0 [facility] Comment on above: Performed By: #### L 501.0900, L100.0100, L500.4050 ####[facility] [address] [place], [address] IG% 0.400 Normal 0.0-0.9 [facility] Comment on above: Result Comment: IG% - Immature Granulocytes (promyelocytes, myelocytes andmetamyelocytes) > 1% indicates that a LEFT SHIFT is Present. Performed By: #### L 501.0900, L100.0100, L500.4050 ####[facility] [address] [place], [address] Lymphocytes/100 WBC (Bld) 33.3 % Normal 19-41 [facility] Comment on above: Performed By: #### L 501.0900, L100.0100, L500.4050 ####[facility] [address] [place], [address] MCH (RBC) [Entitic mass] 19.8 pg Low 27.0-32.0 [facility] Comment on above: Performed By: #### L 501.0900, L100.0100, L500.4050 ####[facility] [address] [place], [address] MCHC (RBC) [Mass/Vol] 29.2 g/dL Low 32-36 [facility] Comment on above: Performed By: #### L 501.0900, L100.0100, L500.4050 ####[facility] [address] [place], [address] MCV (RBC) [Entitic vol] 67.8 fL Low 81-[address] [facility] Comment on above: Performed By: #### L 501.0900, L100.0100, L500.4050 ####[facility] [address] [place], [address] Monocytes/100 WBC (Bld) 4.3 % Normal 0-10 [facility] Comment on above: Performed By: #### L 501.0900, L100.0100, L500.4050 ####[facility] [address] [place], [address] Neutrophils/100 WBC (Bld) 59.9 % Normal 47-70 [facility] Comment on above: Performed By: #### L 501.0900, L100.0100, L500.4050 ####[facility] [address] [place], [address] Nucleated RBC (Bld) [#/Vol] 0 10*3/uL Normal 0-5 [facility] Comment on above: Performed By: #### L 501.0900, L100.0100, L500.4050 ####[facility] [address] [place], [address] Platelet mean volume (Bld) [Entitic vol] 9.1 fL Normal 6.2-12.0 [facility] Comment on above: Performed By: #### L 501.0900, L100.0100, L500.4050 ####[facility] [address] [place], [address] Platelets (Bld) [#/Vol] 341 10*3/uL Normal 150-450 [facility] Comment on above: Performed By: #### L 501.0900, L100.0100, L500.4050 ####[facility] [address] [place], [address] RBC (Bld) [#/Vol] 4.75 10*6/uL Normal 4.2-5.4 [facility] Comment on above: Performed By: #### L 501.0900, L100.0100, L500.4050 ####[facility] [address] [place], [address] RDW SD 46.6 fl High 35.1-43.9 [facility] Comment on above: Performed By: #### L 501.0900, L100.0100, L500.4050 ####[facility] [address] [place], [address] WBC (Bld) [#/Vol] 7.2 10*3/uL Normal 4.4-11.0 [facility] Comment on above: Performed By: #### L 501.0900, L100.0100, L500.4050 ####[facility] [address] [place], [address] CBC-Complete Blood Cnt No Di ffon 06-23-2024 HCT Normal 37-47 [facility] Comment on above: Result Comment: dupl icate Performed By: #### L 100.0500 ####[facility] [address] [place], [address] HGB Normal 12.0-15.0 [facility] Comment on above: Result Comment: dupl icate Performed By: #### L 100.0500 ####[facility] [address] [place], [address] MCH Normal 27.0-32.0 [facility] Comment on above: Result Comment: dupl icate Performed By: #### L 100.0500 ####[facility] [address] [place], [address] MCHC Normal 32-36 [facility] Comment on above: Result Comment: dupl icate Performed By: #### L 100.0500 ####[facility] [address] [place], [address] MCV Normal 81-99 [facility] Comment on above: Result Comment: dupl icate Performed By: #### L 100.0500 ####[facility] [address] [place], [address] PLT Normal 150-450 [facility] Comment on above: Result Comment: dupl icate Performed By: #### L 100.0500 ####[facility] [address] [place], [address] RBC Normal 4.2-5.4 [facility] Comment on above: Result Comment: dupl icate Performed By: #### L 100.0500 ####[facility] [address] [place], [address] RDW CV Normal 11.6-14.6 [facility] Comment on above: Result Comment: dupl icate Performed By: #### L 100.0500 ####[facility] [address] [place], [address] RDW SD Normal 35.1-43.9 [facility] Comment on above: Result Comment: dupl icate Performed By: #### L 100.0500 ####[facility] [address] [place], [address] WBC Normal 4.4-11.0 [facility] Comment on above: Result Comment: dupl icate Performed By: #### L 100.0500 ####[facility] [address] [place], [address] Comprehensive Metabolic Prof [facility] 06-23-2024 Albumin [Mass/Vol] 2.6 g/dL Low 3.2-5.0 [facility] Comment on above: Performed By: #### L 501.0900, L100.0100, L500.4050 ####[facility] [address] [place], [address] Albumin/Globulin [Mass ratio] 0.6 {ratio} Low 0.9-2.4 [facility] Comment on above: Performed By: #### L 501.0900, L100.0100, L500.4050 ####[facility] [address] [place], [address] ALK P 77 U/L Normal 45-117 [facility] Comment on above: Performed By: #### L 501.0900, L100.0100, L500.4050 ####[facility] [address] [place], [address] ALT [Catalytic activity/Vol] 19 U/L Normal 13-56 [facility] Comment on above: Performed By: #### L 501.0900, L100.0100, L500.4050 ####[facility] [address] [place], [address] AST [Catalytic activity/Vol] 12 U/L Low 15-37 [facility] Comment on above: Performed By: #### L 501.0900, L100.0100, L500.4050 ####[facility] [address] [place], [address] Bilirubin [Mass/Vol] 0.30 mg/dL Normal 0.20-1.00 [facility] Comment on above: Result Comment: For patients on eltrombopag therapy, use of Dimension Conklin TBIL is not recommended. Performed By: #### L 501.0900, L100.0100, L500.4050 ####[facility] [address] [place], [address] BUN/CRE 11.6 RATIO Normal 10-20 [facility] Comment on above: Performed By: #### L 501.0900, L100.0100, L500.4050 ####[facility] [address] [place], [address] CA,Total 9.0 mg/dL Normal 8.5-10.1 [facility] Comment on above: Performed By: #### L 501.0900, L100.0100, L500.4050 ####[facility] [address] [place], [address] Chloride [Moles/Vol] 108 mmol/L High 98-107 [facility] Comment on above: Performed By: #### L 501.0900, L100.0100, L500.4050 ####[facility] [address] [place], [address] CO2 [Moles/Vol] 22.0 mmol/L Normal 21.0-32.0 [facility] Comment on above: Performed By: #### L 501.0900, L100.0100, L500.4050 ####[facility] [address] [place], [address] Creatinine [Mass/Vol] 0.60 mg/dL Normal 0.55-1.02 [facility] Comment on above: Result Comment: The validity of the calculated GFR GFRAA in patients over70 years has not been determined. Clinical correlation isessential. Performed By: #### L 501.0900, L100.0100, L500.4050 ####[facility] [address] [place], [address] EST GFR - AA 154 mL/min Normal >60 [facility] Comment on above: Result Comment: Afri can Tajik GFR Calc Performed By: #### L 501.0900, L100.0100, L500.4050 ####[facility] [address] [place], [address] GAP 7 Normal 5-15 [facility] Comment on above: Performed By: #### L 501.0900, L100.0100, L500.4050 ####[facility] [address] [place], [address] GFR/1.73 sq M.predicted among non-blacks MDRD (S/P/Bld) [Vol rate/Area] 127 mL/min/{1.73_m2} Normal >60 [facility] Comment on above: Result Comment: Non- GFR Calc Performed By: #### L 501.0900, L100.0100, L500.4050 ####[facility] [address] [place], [address] Globulin (S) [Mass/Vol] 4.4 g/dL High 2.2-4.2 [facility] Comment on above: Performed By: #### L 501.0900, L100.0100, L500.4050 ####[facility] [address] [place], [address] Glucose [Mass/Vol] 106 mg/dL Normal 74-106 [facility] Comment on above: Result Comment: Fast ing Glucose result from 100 to 125 mg/dLsuggests IMPAIRED HOMEOSTASIS per A.D.A. criteria. Performed By: #### L 501.0900, L100.0100, L500.4050 ####[facility] [address] [place], [address] Potassium [Moles/Vol] 3.4 mmol/L Low 3.5-5.1 [facility] Comment on above: Performed By: #### L 501.0900, L100.0100, L500.4050 ####[facility] [address] [place], [address] Sodium [Moles/Vol] 137 mmol/L Normal 136-145 [facility] Comment on above: Performed By: #### L 501.0900, L100.0100, L500.4050 ####[facility] [address] [place], [address] T PROT 7.0 g/dL Normal 6.4-8.2 [facility] Comment on above: Performed By: #### L 501.0900, L100.0100, L500.4050 ####[facility] [address] [place], [address] Urea nitrogen [Mass/Vol] 7 mg/dL Normal 7-18 [facility] Comment on above: Performed By: #### L 501.0900, L100.0100, L500.4050 ####[facility] [address] [place], [address] Inspector Barrel Office Visit Reporton 06-23-2024 Inspector Barrel Office Visit Report Normal [facility] Protein+Creatinine Ratio,Uri neon 06-23-2024 PROT:CRE RATIO 73 mg/g CRE Normal 0-200 [facility] Comment on above: Performed By: #### L 501.0900 ####[facility] [address] [place], [address] Protein (U) [Mass/Vol] 20.6 mg/dL High <11.9 [facility] Comment on above: Performed By: #### L 501.0900 ####[facility] [address] [place], [address] UR CREAT 281.00 mg/dL Normal NO RANGE EST. [facility] Comment on above: Performed By: #### L 501.0900 ####[facility] [address] [place], [address] PROT:CRE RATIO Normal 0-200 [facility] Comment on above: Result Comment: DUPL ICATE Performed By: #### L 501.0900, L100.0100, L500.4050 ####[facility] [address] [place], [address] PROTEIN,UR.RAN. Normal <11.9 [facility] Comment on above: Result Comment: DUPL ICATE Performed By: #### L 501.0900, L100.0100, L500.4050 ####[facility] [address] [place], [address] UR CREAT Normal NO RANGE EST. [facility] Comment on above: Result Comment: DUPL ICATE Performed By: #### L 501.0900, L100.0100, L500.4050 ####[facility] [address] [place], [address] Office Visit Reporton 2023 Office Visit Report Normal [facility] Visit Reporton 0 06-20-2024 Urgent Care Visit Report Normal [facility] Inspector Barrel Office Visit Reporton 05-29-2024 Inspector Barrel Office Visit Report Normal [facility] CBC W/Diff, Automatedon 07- Absolute Lymph 2.62 X10 3/uL Normal 0.83-4.51 [facility] Comment on above: Performed By: #### L 3890.6100, L501.9985, L3890.6005, L509.8000, L100.0100, L900.0098, L509.4005, L3890.6300, BTS ####[facility] [address] [place], [address] Absolute Neut 5.2 X10 3/uL Normal 2.0-7.7 [facility] Comment on above: Performed By: #### L 3890.6100, L501.9985, L3890.6005, L509.8000, L100.0100, L900.0098, L509.4005, L3890.6300, BTS ####[facility] [address] [place], [address] Basophils/100 WBC (Bld) 0.6 % Normal 0-1 [facility] Comment on above: Performed By: #### L 3890.6100, L501.9985, L3890.6005, L509.8000, L100.0100, L900.0098, L509.4005, L3890.6300, BTS ####[facility] [address] [place], [address] Eosinophils/100 WBC (Bld) 1.4 % Normal 0-5 [facility] Comment on above: Performed By: #### L 3890.6100, L501.9985, L3890.6005, L509.8000, L100.0100, L900.0098, L509.4005, L3890.6300, BTS ####[facility] [address] [place], [address] Erythrocyte distribution width (RBC) [Ratio] 19.1 % High 11.6-14.6 [facility] Comment on above: Performed By: #### L 3890.6100, L501.9985, L3890.6005, L509.8000, L100.0100, L900.0098, L509.4005, L3890.6300, BTS ####[facility] [address] [place], [address] Hematocrit (Bld) [Volume fraction] 34.6 % Low 37-47 [facility] Comment on above: Performed By: #### L 3890.6100, L501.9985, L3890.6005, L509.8000, L100.0100, L900.0098, L509.4005, L3890.6300, BTS ####[facility] [address] [facility] [place], [address] Hemoglobin (Bld) [Mass/Vol] 10.3 g/dL Low 12.0-15.0 [facility] Comment on above: Performed By: #### L 3890.6100, L501.9985, L3890.6005, L509.8000, L100.0100, L900.0098, L509.4005, L3890.6300, BTS ####[facility] [address] [facility] [place], [address] IG% 0.200 Normal 0.0-0.9 [facility] Comment on above: Result Comment: IG% - Immature Granulocytes (promyelocytes, myelocytes andmetamyelocytes) > 1% indicates that a LEFT SHIFT is Present. Performed By: #### L 3890.6100, L501.9985, L3890.6005, L509.8000, L100.0100, L900.0098, L509.4005, L3890.6300, BTS ####[facility] [address] [facility] [place], [address] Lymphocytes/100 WBC (Bld) 31.2 % Normal 19-41 [facility] Comment on above: Performed By: #### L 3890.6100, L501.9985, L3890.6005, L509.8000, L100.0100, L900.0098, L509.4005, L3890.6300, BTS ####[facility] [address] [place], [address] MCH (RBC) [Entitic mass] 20.2 pg Low 27.0-32.0 [facility] Comment on above: Performed By: #### L 3890.6100, L501.9985, L3890.6005, L509.8000, L100.0100, L900.0098, L509.4005, L3890.6300, BTS ####[facility] [address] [place], [address] MCHC (RBC) [Mass/Vol] 29.8 g/dL Low 32-36 [facility] Comment on above: Performed By: #### L 3890.6100, L501.9985, L3890.6005, L509.8000, L100.0100, L900.0098, L509.4005, L3890.6300, BTS ####[facility] [address] [place], [address] MCV (RBC) [Entitic vol] 67.7 fL Low 81-99 [facility] Comment on above: Performed By: #### L 3890.6100, L501.9985, L3890.6005, L509.8000, L100.0100, L900.0098, L509.4005, L3890.6300, BTS ####[facility] [address] [place], [address] Monocytes/100 WBC (Bld) 4.8 % Normal 0-10 [facility] Comment on above: Performed By: #### L 3890.6100, L501.9985, L3890.6005, L509.8000, L100.0100, L900.0098, L509.4005, L3890.6300, BTS ####[facility] [id number] [place], [address] Neutrophils/100 WBC (Bld) 61.8 % Normal 47-70 [facility] Comment on above: Performed By: #### L 3890.6100, L501.9985, L3890.6005, L509.8000, L100.0100, L900.0098, L509.4005, L3890.6300, BTS ####[facility] [address] [place], [address] Nucleated RBC (Bld) [#/Vol] 0 10*3/uL Normal 0-5 [facility] Comment on above: Performed By: #### L 3890.6100, L501.9985, L3890.6005, L509.8000, L100.0100, L900.0098, L509.4005, L3890.6300, BTS ####[facility] [address] [place], [address] Platelet mean volume (Bld) [Entitic vol] 9.0 fL Normal 6.2-12.0 [facility] Comment on above: Performed By: #### L 3890.6100, L501.9985, L3890.6005, L509.8000, L100.0100, L900.0098, L509.4005, L3890.6300, BTS ####[facility] [address] [place], [address] Platelets (Bld) [#/Vol] 355 10*3/uL Normal 150-450 [facility] Comment on above: Performed By: #### L 3890.6100, L501.9985, L3890.6005, L509.8000, L100.0100, L900.0098, L509.4005, L3890.6300, BTS ####[facility] [address] [place], [place], [phone](303) RBC (Bld) [#/Vol] 5.11 10*6/uL Normal 4.2-5.4 [facility] Comment on above: Performed By: #### L 3890.6100, L501.9985, L3890.6005, L509.8000, L100.0100, L900.0098, L509.4005, L3890.6300, BTS ####[facility] [address] [place], [place], [phone](103) RDW SD 45.1 fl High 35.1-43.9 [facility] Comment on above: Performed By: #### L 3890.6100, L501.9985, L3890.6005, L509.8000, L100.0100, L900.0098, L509.4005, L3890.6300, BTS ####[facility] [address] [place], [place], [phone](079) WBC (Bld) [#/Vol] 8.4 10*3/uL Normal 4.4-11.0 [facility] Comment on above: Performed By: #### L 3890.6100, L501.9985, L3890.6005, L509.8000, L100.0100, L900.0098, L509.4005, L3890.6300, BTS ####[facility] [address] [place], [place], [phone] HIV - WCHon 05-27-2024 HIV Non-Reactive Normal Nonreactive [facility] Comment on above: Order Comment: Reaso n for Exam: Performed By: #### L 3890.6100, L501.9985, L3890.6005, L509.8000, L100.0100, L900.0098, L509.4005, L3890.6300, BTS ####[facility] [address] [place], [address] Hemoglobin A1con 05-27-2024 HbA1c (Bld) [Mass fraction] 4.9 % Normal 3.8-5.6 [facility] Comment on above: Result Comment: Norm al < 5.7 % Prediabetic 5.7 - 6.4 % Diabetic >or= 6.5 % Please note range changes. Performed By: #### L 3890.6100, L501.9985, L3890.6005, L509.8000, L100.0100, L900.0098, L509.4005, L3890.6300, BTS ####[facility] [address] [place], [address] Hepatitis B Surface Antigeno n 05-27-2024 HEP B Surf Ag Non-Reactive Normal Nonreactive [facility] Comment on above: Order Comment: Reaso n for Exam: Performed By: #### L 3890.6100, L501.9985, L3890.6005, L509.8000, L100.0100, L900.0098, L509.4005, L3890.6300, BTS ####[facility] [address] [place], [address] Hepatitis C Antibodyon 05-27 Hepatitis C AB Non-Reactive Normal Nonreactive [facility] Comment on above: Order Comment: Reaso n for Exam: Result Comment: Non Reactive: < 0.8 Equivocal: >/= 0.8 to < 1.0 Reactive: >/= 1.0The CDC requires that a reactive/equivocal HCV antibodyresult be sent out for confirmation. HCV Quant by PCRtesting. Performed By: #### L 3890.6100, L501.9985, L3890.6005, L509.8000, L100.0100, L900.0098, L509.4005, L3890.6300, BTS ####[facility] [address] [place], [address] L509.8000on 07-16-2024 Syphilis Abs Non-Reactive Normal [facility] Comment on above: Order Comment: Reaso n for Exam: Performed By: #### L 3890.6100, L501.9985, L3890.6005, L509.8000, L100.0100, L900.0098, L509.4005, L3890.6300, BTS ####[facility] [address] [place], [address] NATERAon 05-27-2024 NATURA SEE SCANNED REPORT Normal [facility] Comment on above: Performed By: #### L 3890.6100, L501.9985, L3890.6005, L509.8000, L100.0100, L900.0098, L509.4005, L3890.6300, BTS ####[facility] [address] [place], [address] Rubella IgGon 05-27-2024 Rubella IgG Reactive Normal Nonreactive [facility] Comment on above: Order Comment: Reaso n for Exam: Result Comment: Anti body Results Interpretation of Immune Status Non Reactive Presumed Non-Immune Equivocal Equivocal Reactive Presumed Immune Performed By: #### L 3890.6100, L501.9985, L3890.6005, L509.8000, L100.0100, L900.0098, L509.4005, L3890.6300, BTS ####[facility] [address] [place], [place], [id number] Type AND Screenon 05-27-2024 Ab SCREEN GEL Negative Normal [facility] Comment on above: Order Comment: PN Performed By: #### L 3890.6100, L501.9985, L3890.6005, L509.8000, L100.0100, L900.0098, L509.4005, L3890.6300, BTS ####[facility] [address] [place], [place], [id number] ABO and Rh group Nom (Bld) Blood group O Rh(D) positive Normal [facility] Comment on above: Order Comment: PN Performed By: #### L 3890.6100, L501.9985, L3890.6005, L509.8000, L100.0100, L900.0098, L509.4005, L3890.6300, BTS ####[facility] [address] [place], [address] Laboratory - Microbiology an d Antimicrobial susceptibilityon 11-07-2023 SARS-CoV-2 (COVID-19) RNA TOMAS+probe Ql (Unsp spec) Not detected [facility] No Panel Informationon 11-07 POC Nasal Swab Influenza A,B Not detected [facility] POC Nasal Swab RSV Not detected [facility] CNOVon 10-12-2023 CNOV Office Visit (AGPOB1 ) ----- GENNY GOODEN ([id number]) 1995 F Date Time Provider Department 10/12/23 2:00 PM ALEX ESPAÑA AGPOB1 During your visit today, [...] 2021 and it was fixed by Dr. Garrett. She had a pilon fx. Has since followed up and went through the post operative care. Had an ankle scope done by At [facility]. States that did not provide any [...] PAST SURGICAL HISTORY OF Right ankle Dr. Garrett 2021 FAMILY HISTORY Problem Relation Age of [...] habitus. Resp 16 Ht 165.1 cm (5' 5) Wt (!) 146.1 kg (322 lb) LMP 09/12/2017 BMI 53.58 kg/m? Vascular: DP and PT pulses are palpable. CFT less than 3 seconds to all digits bilateral. Skin temperature is warm to warm from proximal to distal bilateral. Hair growth is noted. edema noted b/l. No varicosities noted. Neuro: Light touch intact bilateral. Protective sensation intact at all pedal sites via Willow Ashley 5.07 monofilament bilateral. Derm: Skin texture and turgor within normal limits. Toenails normal in appearance. Webspaces 1-4 clean, dry, intact b/l. No rashes, subcutaneous nodules, or open lesions noted. No hyperkeratotic tissue. Well healed surgical scars around the ankle. Musculoskeletal/Orthopaed ic: +5/5 muscle strength Dorsiflexion, Plantarflexion, Inversion, Eversion [...] (more content not included)... Normal [facility] ----- GENNY GOODEN ([id number]) 1995 F Date Time Provider Department 09/20/23 ALEX ESPAÑA JAY During your visit today, we recorded the following information about you: Salvador Pringle 09/20/2023 11:53 AM Addendum Called to reschedule PT's cancelled appt for 2nd opinion with Dr. España ([facility]). Scheduled 10/12/23. Salvador Pringle ----- Message from Anastasia Dexter sent at 09/20/2023 8:22 AM EST ----- Regarding: Orthopedics / Gerry, Ankle: Pain / Est. Pt. Non RFV Reason/[facility] Contact: Subject Line Format: Orthopedics / [Provider Name or Open AND Body Part] / [Issue] Patient has been identified by name and Date of (Y/N): Y Patient: Genny Gooden Date of : 1995 Previous Provider Seen: Dr Garrett Body Part(s) Identified: Right ankle Diagnosis/Reason For Visit: pain Reason for the call/escalation: can not schedule per tool If reason for call/escalation is discharge from ED/ER or Hospital, which facility was the patient seen at: N Was an appointment scheduled (Y/N): N Person calling if other than patient: PT Return call to if other than patient: PT Best contact number: [phone] Patient would like to see Dr España for a second opinion at the [place] [facility] Thank you, Anastasia Dexter September 20, [...] Trauma [T14.90XA] 11/25/2021 11/27/2021 Encounter Status:Closed by SALVADOR PRINGLE on 09/20/23 [facility] 06-25-2023 CNPN Telephone (AGPOB1) ----- GENNY GOODEN ([id number]) 1995 F Date Time Provider Department 06/25/23 [facility] During your visit today, we recorded the following information about you: Nasima Business Partner Juan RJessica 06/25/2023 3:44 PM Signed ----- Message from Mayelin Enriquez sent at 06/22/2023 3:31 PM EDT ----- Regarding: Orthopedics / Sagar Garrett) R Ankle: Pain / Prev SX - Non RFV Reason Contact: Patient has been identified by name and Date of (Y/N): y Patient: Genny Maynard Wayne Date of : 1995 Previous Provider Seen: Dr Garrett Body Part(s) Identified: Right Ankle Diagnosis/Reason For Visit: R Ankle Reason for the call/escalation: Right Ankle SX 11/25/2021 then went to [facility] and had surgery again January 2023 referred to [facility]/ Please reach out If reason for call/escalation is discharge from ED/ER or Hospital, which facility was the patient seen at: n/a Was an appointment scheduled (Y/N): n Person calling if other than patient: n Return call to if other than patient: n Best contact number: [phone] Thank you, Mayelin Enriquez June 22, 2023 3:31 PM Jessica Gauthier 06/25/2023 3:45 PM Signed Returned call to make the appointment for the 2nd opinion Spoke with patient she need to work out things with her work then call us back Jessica Pete Allergies As of Date: 06/25/2023 Noted Allergy [...] Trauma [T14.90XA] 11/25/2021 11/27/2021 Encounter Status:Closed by JESSICA GAUTHIER on 06/25/23 [facility] Whole blood hemoglobin A1c/t otal hemoglobin ratio (mass fraction)Ordered By: Dr. Mathis on 03-13-2023 HbA1c (Bld) [Mass fraction] 5.2 % 3.8-5.6 [facility] Comment on above: Normal < 5.7 % Predi abetic 5.7 - 6.4 % Diabetic >or= 6.5 % Please note range changes. Laboratory - Chemistry and C hemistry - challengeOrdered By: Dr. Powell on 02-02-2023 HCG ( test) Ql (U) Negative [facility] Comment on above: Very dilute urine sp ecimens, as indicated by a low specificgravity, may not contain in store marketing representative levels of hCG. If is still suspected, a first morning urinespecimen should be collected 48 hours later and tested. Basophil percentageOrdered B y: Dr. Mathis on 01-10-2023 Chloride [Moles/Vol] 109 mmol/L 98-107 [facility] Glucose [Mass/Vol] 111 mg/dL 74-106 [facility] Comment on above: Fasting Glucose resu lt from 100 to 125 mg/dL suggests IMPAIRED HOMEOSTASIS per A.D.A. criteria. Potassium [Moles/Vol] 4.1 mmol/L 3.5-5.1 [facility] Sodium [Moles/Vol] 142 mmol/L 136-145 [facility] WBC (Bld) [#/Vol] 8.8 10*3/uL 4.4-11.0 [facility] Blood erythrocytes count (nu mber/volume)Ordered By: Dr. Mathis on 01-10-2023 RBC (Bld) [#/Vol] 5.35 10*6/uL 4.2-5.4 [facility] Blood hemoglobin measurement (mass/volume)Ordered By: Dr. Mathis on 01-10-2023 Hemoglobin (Bld) [Mass/Vol] 11.5 g/dL 12.0-15.0 [facility] Blood platelet mean volumeOr dered By: Dr. Mathis on 01-10-2023 Platelet mean volume (Bld) [Entitic vol] 9.5 fL 6.2-12.0 [facility] Determination of erythrocyte mean corpuscular volume (MCV)Ordered By: Dr. Mathis on 01-10-2023 MCV (RBC) [Entitic vol] 73.6 fL 81-99 [facility] Hematocrit Auto (Bld) [Volum e fraction]Ordered By: Dr. Mathis on 01-10-2023 Hematocrit (Bld) [Volume fraction] 39.4 % 37-47 [facility] INR in Blood by Coagulation assayOrdered By: Dr. Mathis on 01-10-2023 INR Coag (Bld) [Relative time] 0.9 {INR} [facility] Iron measurement (mass/mass) Ordered By: Dr. Mathis on 01-10-2023 Iron (Unsp spec) [Mass/Mass] 20 ug/dL 50-170 [facility] Laboratory - Chemistry and C hemistry - challengeOrdered By: Dr. Mathis on 01-10-2023 CO2 [Moles/Vol] 26.0 mmol/L 21.0-32.0 [facility] Urea nitrogen/Creatinine [Mass ratio] 15.6 mg/mg 10-20 [facility] Laboratory - CoagulationOrde red By: Dr. Mathis on 01-10-2023 aPTT Coag (Bld) [Time] 30.6 s 24.1-36.2 [facility] PT Coag (PPP) [Time] 12.0 s 11.7-14.9 [facility] Laboratory - Hematology and Cell countsOrdered By: Dr. Mathis on 01-10-2023 Erythrocyte distribution width (RBC) [Entitic vol] 45.3 fL 35.1-43.9 [facility] Erythrocyte distribution width (RBC) [Ratio] 17.2 % 11.6-14.6 [facility] MCH (RBC) [Entitic mass] 21.5 pg 27.0-32.0 [facility] MCHC Auto (RBC) [Mass/Vol]Or dered By: Dr. Mathis on 01-10-2023 MCHC (RBC) [Mass/Vol] 29.2 g/dL 32-36 [facility] No Panel InformationOrdered By: Dr. Mathis on 01-10-2023 Estimated GFR (MDRD) Amer 117 mL/min >60 [facility] Comment on above: GFR Calc Estimated GFR (MDRD) Non-Af Amer 97 mL/min >60 [facility] Comment on above: Non- GFR Calc Vitamin D 25-Hydroxy 14.3 ng/mL [facility] Comment on above: Vitamin D 25(OH) Sta tus Range Deficiency <20 ng/mL (50nmol/L) Insufficiency 20 - 30 ng/mL (50 - 75 nmol/L) Sufficiency 30 - 100 ng/mL (75 - 250 nmol/L) Toxicity >100 ng/mL (>250 nmol/L) Platelets bldOrdered By: Dr. Mathis on 01-10-2023 Platelets (Bld) [#/Vol] 382 10*3/uL 150-450 [facility] Serum or plasma calcium paco urement (mass/volume)Ordered By: Dr. Mathis on 01-10-2023 Calcium [Mass/Vol] 8.8 mg/dL 8.5-10.1 [facility] Serum or plasma creatinine m easurement (mass/volume)Ordered By: Dr. Mathis on 01-10-2023 Creatinine [Mass/Vol] 0.77 mg/dL 0.55-1.02 [facility] Comment on above: The validity of the calculated GFR & GFRAA in patients over 70 years has not been determined. Clinical correlation is essential. Serum or plasma ferritin meg surement (mass/volume)Ordered By: Dr. Mathis on 01-10-2023 Ferritin [Mass/Vol] 13 ng/mL 8-252 [facility] Serum or plasma urea nitroge n measurement (mass/volume)Ordered By: Dr. Mathis on 01-10-2023 Urea nitrogen [Mass/Vol] 12 mg/dL 7-18 [facility] Thin prep Papanicolaou smear with manual screeningOrdered By: Dr. Mathis on 01-10-2023 Thin prep Papanicolaou smear with manual screening 7 5-15 [facility] Laboratory - Microbiology an d Antimicrobial susceptibilityon 10-10-2022 SARS-CoV-2 (COVID-19) RNA TOMAS+probe Ql (Unsp spec) Not detected [facility] Laboratory - Microbiology an d Antimicrobial susceptibilityOrdered By: Dr. Michaels on 10-01-2022 Bacteria identified Cx Nom (Bld) No growth in [address] [facility] Anaerobic cultureOrdered By: Dr. Toledo on 09-30-2022 Bacteria identified Anaer cx Nom (Unsp spec) No anaerobic bacteria isolated. [facility] Bacteria identified Cx Nom ( Wound)Ordered By: Dr. Toledo on 09-30-2022 Wound Culture Staphylococcus epidermidis [facility] Wound Culture Actinomyces neuii [facility] Absolute lymphocyte countOrd ered By: Dr. Toledo on 09-26-2022 Lymphocytes Auto (Unsp spec) [#/Vol] 2.51 10*3/uL 0.83-4.51 [facility] Basophil percentageOrdered B y: Dr. Toledo on 09-26-2022 Basophils/100 WBC (Bld) 0.5 % 0-[address] [facility] Bilirubin [Mass/Vol] 0.60 mg/dL 0.20-1.00 [facility] Comment on above: For patients on eltr ombopag therapy, use of Dimension [place]klin TBIL is not recommended. Chloride [Moles/Vol] 112 mmol/L 98-107 [facility] Eosinophils/100 WBC (Bld) 0.8 % 0-5 [facility] Glucose [Mass/Vol] 129 mg/dL 74-106 [facility] Comment on above: Fasting Glucose resu lt greater than or equal to 126 mg/dL suggests DIABETES MELLITUS per A.D.A. criteria. Neutrophils (Bld) [#/Vol] 8.8 10*3/uL 2.0-7.7 [facility] Neutrophils/100 WBC (Bld) 70.6 % 47-70 [facility] Potassium [Moles/Vol] 3.3 mmol/L 3.5-5.1 [facility] Protein [Mass/Vol] 7.1 g/dL 6.4-8.2 [facility] Sodium [Moles/Vol] 142 mmol/L 136-145 [facility] WBC (Bld) [#/Vol] 12.4 10*3/uL 4.4-11.0 [facility] Blood erythrocytes count (nu mber/volume)Ordered By: Dr. Toledo on 09-26-2022 RBC (Bld) [#/Vol] 4.63 10*6/uL 4.2-5.4 [facility] Blood hemoglobin measurement (mass/volume)Ordered By: Dr. Toledo on 09-26-2022 Hemoglobin (Bld) [Mass/Vol] 10.0 g/dL 12.0-15.0 [facility] Blood lymphocytes/100 leukoc ytesOrdered By: Dr. Toledo on 09-26-2022 Lymphocytes/100 WBC (Bld) 20.2 % 19-41 [facility] Blood monocytes/100 leukocyt esOrdered By: Dr. Toledo on 09-26-2022 Monocytes/100 WBC (Bld) 7.6 % 0-10 [facility] Blood platelet mean volumeOr dered By: Dr. Toledo on 09-26-2022 Platelet mean volume (Bld) [Entitic vol] 9.8 fL 6.2-12.0 [facility] Determination of erythrocyte mean corpuscular volume (MCV)Ordered By: Dr. Toledo on 09-26-2022 MCV (RBC) [Entitic vol] 71.9 fL 81-99 [facility] Gram stain for investigation of transfusion reactionOrdered By: Dr. Toledo on 09-26-2022 Microscopic observation Gram stain Nom (Unsp spec) [facility] Hematocrit Auto (Bld) [Volum e fraction]Ordered By: Dr. Toledo on 09-26-2022 Hematocrit (Bld) [Volume fraction] 33.3 % 37-47 [facility] INR in Blood by Coagulation assayOrdered By: Dr. Toledo on 09-26-2022 INR Coag (Bld) [Relative time] 1.2 {INR} [facility] Laboratory - Chemistry and C hemistry - challengeOrdered By: Dr. Toledo on 09-26-2022 ALP [Catalytic activity/Vol] 73 U/L 45-117 [facility] ALT [Catalytic activity/Vol] 26 U/L 13-56 [facility] CO2 [Moles/Vol] 26.0 mmol/L 21.0-32.0 [facility] Globulin (S) [Mass/Vol] 4.5 g/dL 2.2-4.2 [facility] Urea nitrogen/Creatinine [Mass ratio] 10.3 mg/mg 10-20 [facility] Laboratory - CoagulationOrde red By: Dr. Toledo on 09-26-2022 aPTT Coag (Bld) [Time] 32.9 s 24.1-36.2 [facility] PT Coag (PPP) [Time] 15.0 s 11.7-14.9 [facility] Laboratory - Hematology and Cell countsOrdered By: Dr. Toledo on 09-26-2022 Erythrocyte distribution width (RBC) [Entitic vol] 43.8 fL 35.1-43.9 [facility] Erythrocyte distribution width (RBC) [Ratio] 17.2 % 11.6-14.6 [facility] Immature granulocytes/100 WBC (Bld) 0.300 % 0.0-0.9 [facility] Comment on above: IG% - Immature Granu locytes (promyelocytes, myelocytes and metamyelocytes) > 1% indicates that a LEFT SHIFT is Present. MCH (RBC) [Entitic mass] 21.6 pg 27.0-32.0 [facility] Nucleated RBC/100 WBC (Bld) [Ratio] 0 % 0-5 [facility] MCHC Auto (RBC) [Mass/Vol]Or dered By: Dr. Toledo on 09-26-2022 MCHC (RBC) [Mass/Vol] 30.0 g/dL 32-36 [facility] No Panel InformationOrdered By: Dr. Toledo on 09-26-2022 Estimated Creatinine Clearance Calc 113.80 ml/min [facility] Estimated GFR (MDRD) Amer 136 mL/min >60 [facility] Comment on above: GFR Calc Estimated GFR (MDRD) Non-Af Amer 112 mL/min >60 [facility] Comment on above: Non- GFR Calc Platelets bldOrdered By: Dr. Toledo on 09-26-2022 Platelets (Bld) [#/Vol] 292 10*3/uL 150-450 [facility] Serum or plasma albumin paco urement (mass/volume)Ordered By: Dr. Toledo on 09-26-2022 Albumin [Mass/Vol] 2.6 g/dL 3.2-5.0 [facility] Serum or plasma albumin/glob ulin mass ratioOrdered By: Dr. Toledo on 09-26-2022 Albumin/Globulin [Mass ratio] 0.6 {ratio} 0.9-2.4 [facility] Serum or plasma calcium paco urement (mass/volume)Ordered By: Dr. Toledo on 09-26-2022 Calcium [Mass/Vol] 8.7 mg/dL 8.5-10.1 [facility] Serum or plasma creatinine m easurement (mass/volume)Ordered By: Dr. Toledo on 09-26-2022 Creatinine [Mass/Vol] 0.68 mg/dL 0.55-1.02 [facility] Comment on above: The validity of the calculated GFR & GFRAA in patients over 70 years has not been determined. Clinical correlation is essential. Serum or plasma urea nitroge n measurement (mass/volume)Ordered By: Dr. Toledo on 09-26-2022 Urea nitrogen [Mass/Vol] 7 mg/dL 7-18 [facility] Thin prep Papanicolaou smear with manual screeningOrdered By: Dr. Toledo on 09-26-2022 Thin prep Papanicolaou smear with manual screening 15 U/L 15-37 [facility] Thin prep Papanicolaou smear with manual screening 4 5-15 [facility] Absolute lymphocyte countOrd ered By: Dr. Mathis on 09-25-2022 Lymphocytes Auto (Unsp spec) [#/Vol] 2.87 10*3/uL 0.83-4.51 [facility] Basophil percentageOrdered B y: Dr. Michaels on 09-25-2022 Lactate [Moles/Vol] 0.8 mmol/L 0.4-2.0 [facility] Basophil percentageOrdered B y: Dr. Mathis on 09-25-2022 Basophils/100 WBC (Bld) 0.4 % 0-1 [facility] Eosinophils/100 WBC (Bld) 0.4 % 0-5 [facility] Neutrophils (Bld) [#/Vol] 11.6 10*3/uL 2.0-7.7 [facility] Neutrophils/100 WBC (Bld) 74.3 % 47-70 [facility] WBC (Bld) [#/Vol] 15.5 10*3/uL 4.4-11.0 [facility] Blood erythrocytes count (nu mber/volume)Ordered By: Dr. Mathis on 09-25-2022 RBC (Bld) [#/Vol] 5.39 10*6/uL 4.2-5.4 [facility] Blood hemoglobin measurement (mass/volume)Ordered By: Dr. Mathis on 09-25-2022 Hemoglobin (Bld) [Mass/Vol] 11.6 g/dL 12.0-15.0 [facility] Blood lymphocytes/100 leukoc ytesOrdered By: Dr. Mathis on 09-25-2022 Lymphocytes/100 WBC (Bld) 18.5 % 19-41 [facility] Blood monocytes/100 leukocyt esOrdered By: Dr. Mathis on 09-25-2022 Monocytes/100 WBC (Bld) 5.9 % 0-10 [facility] Blood platelet mean volumeOr dered By: Dr. Mathis on 09-25-2022 Platelet mean volume (Bld) [Entitic vol] 9.7 fL 6.2-12.0 [facility] Determination of erythrocyte mean corpuscular volume (MCV)Ordered By: Dr. Mathis on 09-25-2022 MCV (RBC) [Entitic vol] 71.6 fL 81-99 [facility] Hematocrit Auto (Bld) [Volum e fraction]Ordered By: Dr. Mathis on 09-25-2022 Hematocrit (Bld) [Volume fraction] 38.6 % 37-47 [facility] Laboratory - Hematology and Cell countsOrdered By: Dr. Mathis on 09-25-2022 Erythrocyte distribution width (RBC) [Entitic vol] 43.8 fL 35.1-43.9 [facility] Erythrocyte distribution width (RBC) [Ratio] 17.2 % 11.6-14.6 [facility] Immature granulocytes/100 WBC (Bld) 0.500 % 0.0-0.9 [facility] Comment on above: IG% - Immature Granu locytes (promyelocytes, myelocytes and metamyelocytes) > 1% indicates that a LEFT SHIFT is Present. MCH (RBC) [Entitic mass] 21.5 pg 27.0-32.0 [facility] Nucleated RBC/100 WBC (Bld) [Ratio] 0 % 0-5 [facility] MCHC Auto (RBC) [Mass/Vol]Or dered By: Dr. Mathis on 09-25-2022 MCHC (RBC) [Mass/Vol] 30.1 g/dL 32-36 [facility] No Panel InformationOrdered By: Dr. Michaels on 09-25-2022 Troponin I High Sensitivity 3 pg/mL 3.0-54.0 [facility] Comment on above: Please Note: New Kelsi t Units and Gender Specific Reference Ranges. For more information see Policy Stat Procedure [place] High Sensitivity Troponin (TNIH) and attachments. No Panel InformationOrdered By: Dr. Mathis on 09-25-2022 D-Dimer Quantitative (PE/DVT) 1.49 FEU/ug/m 0.27-0.49 [facility] Comment on above: D-Dimer ELEVATED (>0 .49): Additional studies and clinicalassessments are indicated to conclude diagnosis of:Deep Vein Thrombosis (DVT) or Pulmonary Embolism (PE) Platelets bldOrdered By: Dr. Mathis on 09-25-2022 Platelets (Bld) [#/Vol] 356 10*3/uL 150-450 [facility] Serum or plasma C reactive p rotein measurement (mass/volume)Ordered By: Dr. Mathis on 09-25-2022 CRP [Mass/Vol] 91.40 mg/L 0.0-3.0 [facility] Comment on above: C-Reactive Protein ( CRP) provides useful information for thediagnosis, therapy and monitoring of inflammatory processesand associated diseases. For the evaluation of Relative Riskfor Cardiovascular Disease, a High Sensitivity CRP (HSCRP)should be ordered. Absolute lymphocyte countOrd ered By: Annemarie Cortes on 09-18-2022 Lymphocytes Auto (Unsp spec) [#/Vol] 2.79 10*3/uL 0.83-4.51 [facility] Basophil percentageOrdered B y: Dr. Hinds on 09-18-2022 Basophil percentage 0-5 SEEN /hpf 0-5 [facility] Basophil percentageOrdered B y: Annemarie Cortes on 09-18-2022 Basophils/100 WBC (Bld) 0.5 % 0-1 [facility] Bilirubin [Mass/Vol] 0.60 mg/dL 0.20-1.00 [facility] Comment on above: For patients on eltr ombopag therapy, use of Dimension Conklin TBIL is not recommended. Chloride [Moles/Vol] 109 mmol/L 98-107 [facility] Eosinophils/100 WBC (Bld) 3.5 % 0-5 [facility] Glucose [Mass/Vol] 86 mg/dL 74-106 [facility] Neutrophils (Bld) [#/Vol] 7.0 10*3/uL 2.0-7.7 [facility] Neutrophils/100 WBC (Bld) 65.6 % 47-70 [facility] Potassium [Moles/Vol] 3.4 mmol/L 3.5-5.1 [facility] Protein [Mass/Vol] 8.2 g/dL 6.4-8.2 [facility] Sodium [Moles/Vol] 140 mmol/L 136-145 [facility] WBC (Bld) [#/Vol] 10.7 10*3/uL 4.4-11.0 [facility] Bilirubin Test strip Ql (U)O rdered By: Dr. Hinds on 09-18-2022 Bilirubin Ql (U) Negative Negative [facility] Blood erythrocytes count (nu mber/volume)Ordered By: Annemarie Cortes on 09-18-2022 RBC (Bld) [#/Vol] 5.72 10*6/uL 4.2-5.4 [facility] Blood hemoglobin measurement (mass/volume)Ordered By: Annemarie Cortes on 09-18-2022 Hemoglobin (Bld) [Mass/Vol] 12.6 g/dL 12.0-15.0 [facility] Blood lymphocytes/100 leukoc ytesOrdered By: Annemarie Cortes on 09-18-2022 Lymphocytes/100 WBC (Bld) 26.2 % 19-41 [facility] Blood monocytes/100 leukocyt esOrdered By: Annemarie Cortes on 09-18-2022 Monocytes/100 WBC (Bld) 3.8 % 0-10 [facility] Blood platelet mean volumeOr dered By: Annemarie Cortes on 09-18-2022 Platelet mean volume (Bld) [Entitic vol] 9.7 fL 6.2-12.0 [facility] Determination of erythrocyte mean corpuscular volume (MCV)Ordered By: Annemarie Cortes on 09-18-2022 MCV (RBC) [Entitic vol] 72.2 fL 81-99 [facility] Hematocrit Auto (Bld) [Volum e fraction]Ordered By: Annemarie Cortes on 09-18-2022 Hematocrit (Bld) [Volume fraction] 41.3 % 37-47 [facility] Ketones Test strip Ql (U)Ord ered By: Dr. Hinds on 09-18-2022 Ketones Ql (U) 5 mg/dl Negative [facility] Laboratory - Chemistry and C hemistry - challengeOrdered By: Annemarie Cortes on 09-18-2022 ALP [Catalytic activity/Vol] 88 U/L 45-117 [facility] ALT [Catalytic activity/Vol] 22 U/L 13-56 [facility] CO2 [Moles/Vol] 24.0 mmol/L 21.0-32.0 [facility] Globulin (S) [Mass/Vol] 4.6 g/dL 2.2-4.2 [facility] Urea nitrogen/Creatinine [Mass ratio] 10.3 mg/mg 10-20 [facility] Laboratory - Hematology and Cell countsOrdered By: Annemarie Cortes on 09-18-2022 Erythrocyte distribution width (RBC) [Entitic vol] 44.4 fL 35.1-43.9 [facility] Erythrocyte distribution width (RBC) [Ratio] 17.5 % 11.6-14.6 [facility] Immature granulocytes/100 WBC (Bld) 0.400 % 0.0-0.9 [facility] Comment on above: IG% - Immature Granu locytes (promyelocytes, myelocytes and metamyelocytes) > 1% indicates that a LEFT SHIFT is Present. MCH (RBC) [Entitic mass] 22.0 pg 27.0-32.0 [facility] Nucleated RBC/100 WBC (Bld) [Ratio] 0 % 0-5 [facility] MCHC Auto (RBC) [Mass/Vol]Or dered By: Annemarie Cortes on 09-18-2022 MCHC (RBC) [Mass/Vol] 30.5 g/dL 32-36 [facility] Mucus LM Ql (Urine sed)Order ed By: Dr. Hinds on 09-18-2022 Mucus Ql (Urine sed) 1+ /hpf [facility] Nitrite Test strip Ql (U)Ord ered By: Dr. Hinds on 09-18-2022 Nitrite Ql (U) Negative Negative [facility] No Panel InformationOrdered By: Annemarie Cortes on 09-18-2022 Estimated Creatinine Clearance Calc 79.78 ml/min [facility] Estimated GFR (MDRD) Amer 90 mL/min >60 [facility] Comment on above: GFR Calc Estimated GFR (MDRD) Non-Af Amer 74 mL/min >60 [facility] Comment on above: Non- GFR Calc Platelets bldOrdered By: Guillermo Cortes on 09-18-2022 Platelets (Bld) [#/Vol] 319 10*3/uL 150-450 [facility] Protein Test strip Ql (U)Ord ered By: Dr. Hinds on 09-18-2022 Protein Ql (U) 15 mg/dl Negative [facility] Serum or plasma albumin paco urement (mass/volume)Ordered By: Annemarie Cortes on 09-18-2022 Albumin [Mass/Vol] 3.6 g/dL 3.2-5.0 [facility] Serum or plasma albumin/glob ulin mass ratioOrdered By: Annemarie Cortes on 09-18-2022 Albumin/Globulin [Mass ratio] 0.8 {ratio} 0.9-2.4 [facility] Serum or plasma calcium paco urement (mass/volume)Ordered By: Annemarie Cortes on 09-18-2022 Calcium [Mass/Vol] 9.6 mg/dL 8.5-10.1 [facility] Serum or plasma creatinine m easurement (mass/volume)Ordered By: Annemarie Cortes on 09-18-2022 Creatinine [Mass/Vol] 0.97 mg/dL 0.55-1.02 [facility] Comment on above: The validity of the calculated GFR & GFRAA in patients over 70 years has not been determined. Clinical correlation is essential. Serum or plasma urea nitroge n measurement (mass/volume)Ordered By: Annemarie Cortes on 09-18-2022 Urea nitrogen [Mass/Vol] 10 mg/dL 7-18 [facility] Squamous epithelial cells de tection in urine sediment by light microscopyOrdered By: Dr. Hinds on 09-18-2022 Epithelial cells.squamous LM Ql (Urine sed) 0-5 SEEN /hpf 5-10 [facility] Thin prep Papanicolaou smear with manual screeningOrdered By: Annemarie Cortes on 09-18-2022 Thin prep Papanicolaou smear with manual screening 15 U/L 15-37 [facility] Thin prep Papanicolaou smear with manual screening 7 5-15 [facility] Urine blood detectionOrdered By: Dr. Hinds on 09-18-2022 RBC Ql (U) 10 /ul Negative [facility] RBC Ql (U) 0 SEEN /hpf 0-5 [facility] Urine clarityOrdered By: Dr. Hinds on 09-18-2022 Clarity (U) Clear Clear [facility] Urine color determinationOrd ered By: Dr. Hinds on 09-18-2022 Color (U) Yellow Yellow [facility] Urine glucose detectionOrder ed By: Dr. Hinds on 09-18-2022 Glucose Ql (U) Normal mg/dl Normal [facility] Urine leukocyte esterase det ection by dipstickOrdered By: Dr. Hinds on 09-18-2022 Leukocyte esterase Test strip Ql (U) 100 /ul Negative [facility] Urine pHOrdered By: Dr. Rose cadena on 09-18-2022 pH (U) 6.0 [pH] 5.0 - 8.0 [facility] Urine sediment bacteria coun t by microscopy (number/high power field)Ordered By: Dr. Hinds on 09-18-2022 Bacteria LM.HPF (Urine sed) [#/Area] 1 /[HPF] None Seen [facility] Urine specific gravity measu rementOrdered By: Dr. Hinds on 09-18-2022 Specific gravity (U) [Rel density] 1.025 1.002-1.030 [facility] Urobilinogen Auto test strip Ql (U)Ordered By: Dr. Hinds on 09-18-2022 Urobilinogen Ql (U) Normal mg/dl Normal [facility] Laboratory - Chemistry and C hemistry - challengeOrdered By: Dr. Ramos on 09-15-2022 HCG ( test) Ql (U) Negative [facility] Comment on above: Very dilute urine sp ecimens, as indicated by a low specificgravity, may not contain in store marketing representative levels of hCG. If is still suspected, a first morning urinespecimen should be collected 48 hours later and tested. Basophil percentageOrdered B y: Dr. Toledo on 09-12-2022 WBC (Bld) [#/Vol] 8.9 10*3/uL 4.4-11.0 [facility] Basophil percentageOrdered B y: Dr. Ramos on 09-12-2022 Bilirubin [Mass/Vol] 0.40 mg/dL 0.20-1.00 [facility] Comment on above: For patients on eltr ombopag therapy, use of Dimension Conklin TBIL is not recommended. Chloride [Moles/Vol] 109 mmol/L 98-107 [facility] Glucose [Mass/Vol] 83 mg/dL 74-106 [facility] Potassium [Moles/Vol] 3.8 mmol/L 3.5-5.1 [facility] Protein [Mass/Vol] 7.8 g/dL 6.4-8.2 [facility] Sodium [Moles/Vol] 139 mmol/L 136-145 [facility] Blood erythrocytes count (nu mber/volume)Ordered By: Dr. Toledo on 09-12-2022 RBC (Bld) [#/Vol] 5.33 10*6/uL 4.2-5.4 [facility] Blood hemoglobin measurement (mass/volume)Ordered By: Dr. Toledo on 09-12-2022 Hemoglobin (Bld) [Mass/Vol] 11.7 g/dL 12.0-15.0 [facility] Blood platelet mean volumeOr dered By: Dr. Toledo on 09-12-2022 Platelet mean volume (Bld) [Entitic vol] 9.2 fL 6.2-12.0 [facility] Determination of erythrocyte mean corpuscular volume (MCV)Ordered By: Dr. Toledo on 09-12-2022 MCV (RBC) [Entitic vol] 70.7 fL 81-99 [facility] Direct bilirubinOrdered By: Dr. Ramos on 09-12-2022 Bilirubin.direct [Mass/Vol] 0.14 mg/dL 0.00-0.30 [facility] Hematocrit Auto (Bld) [Volum e fraction]Ordered By: Dr. Toledo on 09-12-2022 Hematocrit (Bld) [Volume fraction] 37.7 % 37-47 [facility] INR in Blood by Coagulation assayOrdered By: Dr. Ramos on 09-12-2022 INR Coag (Bld) [Relative time] 0.9 {INR} [facility] Laboratory - Chemistry and C hemistry - challengeOrdered By: Dr. Ramos on 09-12-2022 ALP [Catalytic activity/Vol] 83 U/L 45-117 [facility] ALT [Catalytic activity/Vol] 20 U/L 13-56 [facility] CO2 [Moles/Vol] 25.0 mmol/L 21.0-32.0 [facility] Globulin (S) [Mass/Vol] 4.3 g/dL 2.2-4.[address] [facility] Urea nitrogen/Creatinine [Mass ratio] 22.1 mg/mg 10-20 [facility] Laboratory - CoagulationOrde red By: Dr. Toledo on 09-12-2022 aPTT Coag (Bld) [Time] 33.2 s 24.1-36.2 [facility] Laboratory - CoagulationOrde red By: Dr. Ramos on 09-12-2022 PT Coag (PPP) [Time] 12.3 s 11.7-14.9 [facility] Laboratory - Hematology and Cell countsOrdered By: Dr. Toledo on 09-12-2022 Erythrocyte distribution width (RBC) [Entitic vol] 43.8 fL 35.1-43.9 [facility] Erythrocyte distribution width (RBC) [Ratio] 17.3 % 11.6-14.6 [facility] MCH (RBC) [Entitic mass] 22.0 pg 27.0-32.0 [facility] MCHC Auto (RBC) [Mass/Vol]Or dered By: Dr. Toledo on 09-12-2022 MCHC (RBC) [Mass/Vol] 31.0 g/dL 32-36 [facility] No Panel InformationOrdered By: Dr. Ramos on 09-12-2022 Estimated GFR (MDRD) Amer 161 mL/min >60 [facility] Comment on above: GFR Calc Estimated GFR (MDRD) Non-Af Amer 133 mL/min >60 [facility] Comment on above: Non- GFR Calc Platelets bldOrdered By: Dr. Toledo on 09-12-2022 Platelets (Bld) [#/Vol] 331 10*3/uL 150-450 [facility] Serum or plasma albumin paco urement (mass/volume)Ordered By: Dr. Ramos on 09-12-2022 Albumin [Mass/Vol] 3.5 g/dL 3.2-5.0 [facility] Serum or plasma calcium paco urement (mass/volume)Ordered By: Dr. Ramos on 09-12-2022 Calcium [Mass/Vol] 9.1 mg/dL 8.5-10.1 [facility] Serum or plasma creatinine m easurement (mass/volume)Ordered By: Dr. Ramos on 09-12-2022 Creatinine [Mass/Vol] 0.59 mg/dL 0.55-1.02 [facility] Comment on above: The validity of the calculated GFR & GFRAA in patients over 70 years has not been determined. Clinical correlation is essential. Serum or plasma urea nitroge n measurement (mass/volume)Ordered By: Dr. Ramos on 09-12-2022 Urea nitrogen [Mass/Vol] 13 mg/dL 7-18 [facility] Thin prep Papanicolaou smear with manual screeningOrdered By: Dr. Ramos on 09-12-2022 Thin prep Papanicolaou smear with manual screening 12 U/L 15-37 [facility] Thin prep Papanicolaou smear with manual screening 5 5-15 [facility] No Panel InformationOrdered By: Dr. Toledo on 08-22-2022 CA 125 Antigen 6.5 U/mL 0.0-38.1 [facility] Comment on above: [employer] El ectrochemiluminescence Immunoassay(ECLIA)Values obtained with different assay methods or kits cannotbe used interchangeably. Results cannot be interpreted asabsolute evidence of the presence or absence of malignantdisease.Performed at: [facility] [employer] [place] [id number] [place], [place] [id number] Director: Fuentes Menon PhD, Phone: [phone] Serum or plasma carcinoembry onic antigen measurement (mass/volume)Ordered By: Dr. Toledo on 08-22-2022 Carcinoembryonic Ag [Mass/Vol] 0.3 ng/mL 0.0-4.7 [facility] Comment on above: Nonsmokers <3.9 Smok ers <5.6[employer] Electrochemiluminescence Immunoassay(ECLIA)Values obtained with different assay methods or kitscannot be used interchangeably. Results cannot beinterpreted as absolute evidence of the presence orabsence of malignant disease. Serum or plasma C reactive p rotein measurement (mass/volume)on 07-07-2022 CRP [Mass/Vol] 6.60 mg/L 0.0-3.0 [facility] Work Phone: Comment on above: C-Reactive Protein ( CRP) provides useful information for thediagnosis, therapy and monitoring of inflammatory processesand associated diseases. For the evaluation of Relative Riskfor Cardiovascular Disease, a High Sensitivity CRP (HSCRP)should be ordered. No Panel Informationon 06-17 Stool Pancreatic Elastase 331 >200 [facility] Work Phone: Comment on above: Result Units: ug Fanny st./g Severe Pancreatic Insufficiency: <100 Moderate Pancreatic Insufficiency: 100 - 200 Normal: >200Performed at: [facility] [address] [id number] Director: Alverto Duron MD, Phone: [phone] Absolute lymphocyte counton 06-16-2022 Lymphocytes Auto (Unsp spec) [#/Vol] 3.16 10*3/uL 0.83-4.51 [facility] Work Phone: Alternaria alternata IgE ser umon 06-16-2022 A. alternata IgE Qn (S) <0.10 kU/L Class 0 [facility] Work Phone: Basophil percentageon 2021 Basophils/100 WBC (Bld) 0.8 % 0-1 [facility] Work Phone: Bilirubin [Mass/Vol] 0.40 mg/dL 0.20-1.00 [facility] Work Phone: Comment on above: For patients on eltr ombopag therapy, use of Dimension Conklin TBIL is not recommended. Chloride [Moles/Vol] 106 mmol/L 98-107 [facility] Work Phone: Eosinophils/100 WBC (Bld) 2.3 % 0-5 [facility] Work Phone: Glucose [Mass/Vol] 86 mg/dL 74-106 [facility] Work Phone: Neutrophils (Bld) [#/Vol] 4.5 10*3/uL 2.0-7.7 [facility] Work Phone: Neutrophils/100 WBC (Bld) 54.2 % 47-70 [facility] Work Phone: Potassium [Moles/Vol] 3.8 mmol/L 3.5-5.1 [facility] Work Phone: Protein [Mass/Vol] 7.8 g/dL 6.4-8.2 [facility] Work Phone: Sodium [Moles/Vol] 137 mmol/L 136-145 [facility] Work Phone: WBC (Bld) [#/Vol] 8.3 10*3/uL 4.4-11.0 [facility] Work Phone: Blood erythrocytes count (nu mber/volume)on 06-16-2022 RBC (Bld) [#/Vol] 5.23 10*6/uL 4.2-5.4 [facility] Work Phone: Blood hemoglobin measurement (mass/volume)on 06-16-2022 Hemoglobin (Bld) [Mass/Vol] 11.3 g/dL 12.0-15.0 [facility] Work Phone: Blood lymphocytes/100 leukoc yteson 06-16-2022 Lymphocytes/100 WBC (Bld) 38.1 % 19-41 [facility] Work Phone: Blood monocytes/100 leukocyt eson 06-16-2022 Monocytes/100 WBC (Bld) 4.2 % 0-10 [facility] Work Phone: Blood platelet mean volumeon 06-16-2022 Platelet mean volume (Bld) [Entitic vol] 9.4 fL 6.2-12.0 [facility] Work Phone: [phone] Determination of erythrocyte mean corpuscular volume (MCV)on 06-16-2022 MCV (RBC) [Entitic vol] 71.5 fL 81-99 [facility] Work Phone: [phone] Erythrocyte sedimentation ra dylon 06-16-2022 ESR (Bld) [Velocity] 67 mm/h 0-[facility] Work Phone: [phone] Hematocrit Auto (Bld) [Volum e fraction]on 06-16-2022 Hematocrit (Bld) [Volume fraction] 37.4 % 37-47 [facility] Work Phone: [phone] Laboratory - Chemistry and C hemistry - challengeon 06-16-2022 ALP [Catalytic activity/Vol] 84 U/L 45-117 [facility] Work Phone: ALT [Catalytic activity/Vol] 19 U/L 13-56 [facility] Work Phone: [phone] CO2 [Moles/Vol] 24.0 mmol/L 21.0-32.0 [facility] Work Phone: [phone] Globulin (S) [Mass/Vol] 4.3 g/dL 2.2-4.2 [facility] Work Phone: [phone] Urea nitrogen/Creatinine [Mass ratio] 16.6 mg/mg 10-20 [facility] Work Phone: Laboratory - Hematology and Cell countson 06-16-2022 Erythrocyte distribution width (RBC) [Entitic vol] 43.5 fL 35.1-43.9 [facility] Work Phone: [phone] Erythrocyte distribution width (RBC) [Ratio] 17.2 % 11.6-14.6 [facility] Work Phone: Immature granulocytes/100 WBC (Bld) 0.400 % 0.0-0.9 [facility] Work Phone: Comment on above: IG% - Immature Granu locytes (promyelocytes, myelocytes and metamyelocytes) > 1% indicates that a LEFT SHIFT is Present. MCH (RBC) [Entitic mass] 21.6 pg 27.0-32.0 [facility] Work Phone: Nucleated RBC/100 WBC (Bld) [Ratio] 0 % 0-5 [facility] Work Phone: Laboratory - Miscellaneous t estson 06-16-2022 Service comment (Unsp spec) [Interp] Comment . [facility] Work Phone: Comment on above: Levels of Specific I gE Class Description of Class ----- < 0.10 0 Negative 0.10 - 0.31 0/I Equivocal/Low 0.32 - 0.55 I Low 0.56 - 1.40 II Moderate 1.41 - 3.90 III High 3.91 - 19.00 IV Very High 19.01 - 100.00 V Very High >100.00 Very High MCHC Auto (RBC) [Mass/Vol]on 06-16-2022 MCHC (RBC) [Mass/Vol] 30.2 g/dL 32-36 [facility] Work Phone: No Panel Informationon 06-16 Aspergillus fumigatus Allergen <0.10 kU/L Class 0 [facility] Work Phone: Common Ragweed (Short) Allergen 0.23 kU/L Class 0/I [facility] Work Phone: Endomysial IgA Antibody Negative Negative [facility] Work Phone: Belgian Plantain Allergen (RAST) <0.10 kU/L Class 0 [facility] Work Phone: Estimated GFR (MDRD) Amer 140 mL/min >60 [facility] Work Phone: Comment on above: GFR Calc Estimated GFR (MDRD) Non-Af Amer 116 mL/min >60 [facility] Work Phone: Comment on above: Non- GFR Calc Maple ([place]) Allergen IgE Ab 0.14 kU/L Class 0/I [facility] Work Phone: Garvin Tree Allergen <0.10 kU/L Class 0 [facility] Work Phone: Platelets bldon 06-16-2022 Platelets (Bld) [#/Vol] 358 10*3/uL 150-450 [facility] Work Phone: Rough pigweed specific IgE a ntibody assayon 06-16-2022 Rough Pigweed IgE Qn (S) <0.10 kU/L Class 0 [facility] Work Phone: Serum Bermuda grass IgE anti body assay (units/volume)on 06-16-2022 Bermuda grass IgE Qn (S) <0.10 kU/L Class 0 [facility] Work Phone: Serum Cladosporium herbarum IgE antibody assay (units/volume)on 06-16-2022 C. herbarum IgE Qn (S) <0.10 kU/L Class 0 [facility] Work Phone: Serum Dermatophagoides farin ae specific IgE antibody assay (units/volume)on 06-16-2022 Tajik house dust mite IgE Qn (S) <0.10 kU/L Class 0 [facility] Work Phone: Serum house dust mi te IgE antibody assay (units/volume)on 06-16-2022 house dust mite IgE Qn (S) <0.10 kU/L Class 0 [facility] Work Phone: Serum IgA measurement (units /volume)on 06-16-2022 IgA Qn (S) 217 mg/dL 87-352 [facility] Work Phone: Comment on above: Performed at: [address] [id number] Director: Fuentes Menon PhD, Phone: [phone] Serum Spenser grass IgE anti body assay (units/volume)on 06-16-2022 Spenser grass IgE Qn (S) <0.10 kU/L Class 0 [facility] Work Phone: Serum Kentucky blue grass Ig E antibody assay (units/volume)on 06-16-2022 Kentucky blue grass IgE Qn (S) <0.10 kU/L Class 0 [facility] Work Phone: Serum Mucor racemosus IgE an tibody assay (units/volume)on 06-16-2022 Mucor racemosus IgE Qn (S) <0.10 kU/L Class 0 [facility] Work Phone: Serum Penicillium notatum Ig E antibody assay (units/volume)on 06-16-2022 P. notatum IgE Qn (S) <0.10 kU/L Class 0 [facility] Work Phone: Serum Periplaneta americana IgE antibody assay (units/volume)on 06-16-2022 Tajik Cockroach IgE Qn (S) <0.10 kU/L Class 0 [facility] Work Phone: Serum bahia grass IgE antibo dy assay (units/volume)on 06-16-2022 Bahia grass IgE Qn (S) <0.10 kU/L Class 0 [facility] Work Phone: Serum cat dander IgE antibod y assay (units/volume)on 06-16-2022 Cat dander IgE Qn (S) <0.10 kU/L Class [address] [facility] Work Phone: Serum dog epithelium IgE ant ibody assay (units/volume)on 06-16-2022 Dog epithelium IgE Qn (S) <0.10 kU/L Class 0 [facility] Work Phone: Serum hazelnut pollen IgE an tibody assay (units/volume)on 06-16-2022 Hazelnut Pollen IgE Qn (S) <0.10 kU/L Class 0 [facility] Work Phone: Serum mountain cedar specifi c IgE antibody assayon 06-16-2022 Mountain Juniper IgE Qn (S) <0.10 kU/L Class 0 [facility] Work Phone: Serum mugwort IgE antibody a ssay (units/volume)on 06-16-2022 Mugwort IgE Qn (S) <0.10 kU/L Class 0 [facility] Work Phone: Serum nettle IgE antibody as say (units/volume)on 06-16-2022 Nettle IgE Qn (S) <0.10 kU/L Class 0 [facility] Work Phone: Comment on above: Performed at: [address] [id number] Director: Alverto Duron MD, Phone: [phone] Serum or plasma albumin paco urement (mass/volume)on 06-16-2022 Albumin [Mass/Vol] 3.5 g/dL 3.2-5.0 [facility] Work Phone: Serum or plasma albumin/glob ulin mass ratioon 06-16-2022 Albumin/Globulin [Mass ratio] 0.8 {ratio} 0.9-2.4 [facility] Work Phone: Serum or plasma calcium paco urement (mass/volume)on 06-16-2022 Calcium [Mass/Vol] 9.2 mg/dL 8.5-10.1 [facility] Work Phone: Serum or plasma creatinine m easurement (mass/volume)on 06-16-2022 Creatinine [Mass/Vol] 0.66 mg/dL 0.55-1.02 [facility] Work Phone: Comment on above: The validity of the calculated GFR & GFRAA in patients over 70 years has not been determined. Clinical correlation is essential. Serum or plasma urea nitroge n measurement (mass/volume)on 06-16-2022 Urea nitrogen [Mass/Vol] 11 mg/dL 7-18 [facility] Work Phone: Serum sheep sorrel IgE antib erin assay (units/volume)on 06-16-2022 Sheep [place] IgE Qn (S) <0.10 kU/L Class 0 [facility] Work Phone: Serum sweet gum IgE radioall ergosorbent test (RAST) class determinationon 06-16-2022 Sweet gum IgE RAST class (S) <0.10 kU/L Class 0 [facility] Work Phone: Serum tissue transglutaminas e IgA antibody assay (units/volume)on 06-16-2022 tTG IgA Qn (S) <2 U/mL 0-3 [facility] Work Phone: Comment on above: Negative 0 - 3 Weak Positive 4 - 10 Positive >10 Tissue Transglutaminase (tTG) has been identified as the endomysial antigen. Studies have demonstr- ated that endomysial IgA antibodies have over 99% specificity for gluten sensitive enteropathy. Serum white elm IgE antibody assay (units/volume)on 06-16-2022 White Elm IgE Qn (S) <0.10 kU/L Class 0 [facility] Work Phone: Serum white hickory IgE anti body assay (units/volume)on 06-16-2022 White [place] IgE Qn (S) <0.10 kU/L Class 0 [facility] Work Phone: Serum white mulberry IgE ant ibody assay (units/volume)on 06-16-2022 White mulberry IgE Qn (S) <0.10 kU/L Class 0 [facility] Work Phone: Serum white oak IgE antibody assay (units/volume)on 06-16-2022 [place] IgE Qn (S) <0.10 kU/L Class 0 [facility] Work Phone: Stemphylium herbarum IgE ser umon 06-16-2022 Stemphylium botryosum IgE Qn (S) <0.10 kU/L Class 0 [facility] Work Phone: Thin prep Papanicolaou smear with manual screeningon 06-16-2022 Thin prep Papanicolaou smear with manual screening 15 U/L 15-37 [facility] Work Phone: Thin prep Papanicolaou smear with manual screening 7 5-15 [facility] Work Phone: No Panel Informationon 03-06 Rubella IgG Antibody Equiv Nonreactive [facility] Work Phone: Comment on above: Antibody Results Int erpretation of Immune Status Non Reactive Presumed Non-Immune Equivocal Equivocal Reactive Presumed Immune Serum Varicella zoster virus IgG antibody assay by immunoassay (units/volume)on 03-06-2022 VZV IgG IA Qn (S) 910 index Immune >165 [facility] Work Phone: Comment on above: Negative <135 Equivo raven 135 - 165 Positive >165A positive result generally indicates exposure to thepathogen or administration of specific immunoglobulins,but it is not indication of active infection or stageof disease. Serum measles virus IgG anti body assay (units/volume)on 03-06-2022 MeV IgG Qn (S) 49.0 AU/mL Immune >16.4 [facility] Work Phone: Comment on above: Negative <13.5 Equiv ocal 13.5 - 16.4 Positive >16.4Presence of antibodies to Rubeola is presumptive evidenceof immunity except when acute infection is suspected.Performed at: [facility] [id number] [place], [place] [id number] Director: Fuentes Menon PhD, Phone: [phone] Serum mumps virus IgG antibo dy assay (units/volume)on 03-06-2022 MuV IgG Qn (S) 28.8 AU/mL Immune >10.9 [facility] Work Phone: Comment on above: Negative <9.0 Equivo raven 9.0 - 10.9 Positive >10.9A positive result generally indicates past exposure toMumps virus or previous vaccination. CNPNon 12-05-2021 CNPN Telephone (PODCCP) ----- GENNY GOODEN ([id number]) 1995 F Date Time Provider Department 12/05/21 AARTI CALVO During your visit today, we recorded the following information about you: Aarti Calvo RN 12/05/2021 11:28 AM Signed PATIENT INFORMATION Record ID: [id number] Patient Name: Genny Gooden Hospital: [facility] [place]: [facility] Attending: Jose Alberto Desir Center: General Surgery [facility] INSTRUCTIONS All Clear SN to remind patient of next upcoming appointment date, time, location All Clear All Clear All Clear SURVEY INFORMATION Medical/Nurse Salesperson Furniture: Aarti Calvo 1. Your discharge instructions are important in [...] Reason for Visit: Follow Up Phone Call [8030] Cmt: All Clear. Prescriptions as of 12/05/2021 [...] [T14.90XA] 11/25/2021 11/27/2021 Encounter Status:Closed by AARTI CALVO on 12/05/21 [facility] CNCRITCRon 11-24-2021 CNCRITCR Critical Care Transp ort (CCT) ----- GENNY GOODEN ([id number]) 1995 F Date Time Provider Department 11/24/21 MCKENZIE SIDHU During your visit today, we recorded the following information about you: Mckenzie Sidhu APRN.SOLDERING TECHNICIAN 11/24/2021 7:10 PM Signed Critical Care Transport Note Patient Name: Genny Gooden Service Date: 11/24/21 Referring Physician: Andrea Referring Facility: [facility] Accepting Physician: Alma Accepting Facility: [facility] SUBJECTIVE/CHIEF COMPLAINT: Right LE/ankle pain REASON FOR TRANSPORT: Specialized tertiary and quaternary care for the patient's acute trauma condition not available at the referring facility. History of Present Illness: The following history is what was known to CCT team at time of given care and summarized through review of available medical records, patient/family interview and from referring physician and nursing report. Genny Gooden is a 26 year old female with a past medical history significant for anemia, anxiety, fatigue, headache, and balance difficulty. She presented to [facility] ED on today for evaluation after [...] and cefazolin abx coverage. CT imaging of head/neck/c-spine/chest/a bd/pelvis all negative for acute injury. Xray of R ankle noted acute comminuted open fracture of distal tibia with significant distal and lateral displacement of the distal tibia and fibula. She was given benadryl [address] as she has hx of iodine allergy. She has remained hemodynamically stable. At this time, the physician managing the patient requested transfer to [facility] for tertiary and/or quaternary services unavailable at the referring facility. The physician managing the patient requested the [facility] Critical Care Transport Team transport and treat [...] SURGICAL HISTORY Procedure Laterality Date - LAP CHOLECYSTECT/CHOLANGIOGRA PHY 11-10-13 ALLERGIES: Iodine SOCIAL HISTORY: Social History Tobacco Use - Smoking status: Never Smoker - Smokeless tobacco: Never Used Substance Use Topics - Alcohol use: No - Drug use: No FAMILY HISTORY: Unknown to [facility] at the time of transport HOME MEDICATIONS: Norplant - L arm Other home meds not known to [facility] at the time of transport Medications Administered [...] 3. Qu (more content not included)... Normal [facility] CNOVon 06-07-2021 CNOV Office Visit ([facility] ) ----- GOODENGENNY JARVIS ([id number]) 1995 F Date Time Provider Department 06/07/21 12:15 PM JUSTIN WHEELER [facility] During your visit today, we recorded the following information about you: Temperature Pulse Respiration Blood pressure 99.1 degrees 122/minute 18/minute 110/76 Weight 138.1 kg Justin Vasquezdomi, MANISH.SOLDERING TECHNICIAN 06/07/2021 12:54 PM Signed Subjective HPI Nontoxic-appearing [...] SURGICAL HISTORY Procedure Laterality Date - LAP CHOLECYSTECT/CHOLANGIOGRA PHY 11-10-13 ALLERGIES Iodine MEDICATIONS etonogestrel (NEXPLANON) 68 mg impl subdermal implant 68 mg by SUBDERMAL route. fluticasone (FLONASE) 50 mcg/actuation nasal spray Use 1 Ewen in each nostril once daily. medroxyprogesterone acetate (DEPO-PROVERA INTRAMUSC.) Inject intramuscularly. Brompheniramine-Pseudoeph -DM (BROMFED DM) 2-30-10 mg/5 mL syrup Take [...] with palpatio (more content not included)... Normal [facility] Bacteria identified Anaer cx Nom (Unsp spec) Anaerobic microbial culture No anaerobic bacteria isolated. [facility] Work Phone: Bacteria identified Cx Nom ( Wound) Wound Culture Staphylococcus epidermidis [facility] Work Phone: Wound Culture Actinomyces neuii [facility] Work Phone: Gram stain for investigation of transfusion reaction Microscopic observation Gram stain Nom (Unsp spec) [facility] Work Phone: Laboratory - Microbiology an d Antimicrobial susceptibility Bacteria identified Cx Nom (Bld) No growth in [address] [facility] Work Phone: No Panel Information [facility] Vital Signs Date Time Vital Sign Value Performing Clinician Lai ti 04-25-2025 10:43-0400 Body temperature 97.9 [degF] Dr. Ashley Mathis MD Work Phone: [facility] 04-25-2025 10:43-0400 Diastolic blood pressure 82 mm[Hg] Dr. Ashley Mathis MD Work Phone: [facility] 04-25-2025 10:43-0400 Heart rate 85 /min Dr. Ashley Mathis MD Work Phone: [facility] 04-25-2025 10:43-0400 Respiratory rate 16 /min Dr. Ashley Mathis MD Work Phone: [facility] 04-25-2025 10:43-0400 SaO2% (BldA) [Mass fraction] 96 % Dr. Ashley Mathis MD Work Phone: [facility] 04-25-2025 10:43-0400 Systolic blood pressure 126 mm[Hg] Dr. Ashley Mathis MD Work Phone: 2(820)375-658782 [place] [address] 04-23-2025 13:34-0400 Body height 165.[address] Ashley Mathis MD Work Phone: 5(309)104-565682 [place] [address] 04-23-2025 13:34-0400 Body mass index (BMI) [Ratio] 53.2 kg/m2 Dr. Ashley Mathis MD Work Phone: 4(952)756-601060 [place] [address] 04-23-2025 13:34-0400 Body weight 145.[address] Ashley Mathis MD Work Phone: 6(443)308-397560 [place] [address] 04-23-2025 13:34-0400 Diastolic blood pressure 71 mm[Hg] Dr. Ashley Mathis MD Work Phone: 5(797)580-649782 [place] [address] 04-23-2025 13:34-0400 Systolic blood pressure 121 mm[Hg] Dr. Ashley Mathis MD Work Phone: 4(285)013-369182 [place] [address] 12-31-2024 10:01-0500 Body height 165.[address] Ashley Mathis MD Work Phone: 4(388)319-482295 [address] 12-31-2024 10:01-0500 Body mass index (BMI) [Ratio] 56.6 kg/m2 Dr. Ashley Mathis MD Work Phone: 5(814)790-142082 [place] [address] 12-31-2024 10:01-0500 Body weight 154.[address] Ashley Mathis MD Work Phone: 0(635)245-133460 [place] [address] 12-31-2024 10:01-0500 Diastolic blood pressure 80 mm[Hg] Dr. Ashley Mathis MD Work Phone: 8(138)636-749282 [place] [address] 12-31-2024 10:01-0500 Systolic blood pressure 117 mm[Hg] Dr. Ashley Mathis MD Work Phone: 3(170)660-826182 [place] [address] 12-22-2024 11:05-0500 Diastolic blood pressure 86 mm[Hg] Dr. Ashley Mathis MD Work Phone: [facility] 12-22-2024 11:05-0500 Systolic blood pressure 136 mm[Hg] Dr. Ashley Mathis MD Work Phone: [facility] 12-22-2024 11:03-0500 Body mass index (BMI) [Ratio] 56.2 kg/m2 Dr. Ashley Mathis MD Work Phone: [facility] 12-22-2024 11:03-0500 Body weight 153.[address] Ashley Mathis MD Work Phone: 7(040)403-573295 [address] 11-21-2024 11:15-0500 Diastolic blood pressure 83 mm[Hg] Dr. Ashley Mathis MD Work Phone: 8(818)669-978495 [address] 11-21-2024 11:15-0500 Systolic blood pressure 123 mm[Hg] Dr. Ashley Mathis MD Work Phone: [facility] 11-21-2024 11:15-0500 Body mass index (BMI) [Ratio] 54.9 kg/m2 Dr. Ashley Mathis MD Work Phone: [facility] 11-21-2024 11:15-0500 Body weight 149.[address] Ashley Mathis MD Work Phone: [facility] 11-09-2024 11:08-0500 Diastolic blood pressure 70 mm[Hg] Dr. Ashley Mathis MD Work Phone: [facility] 11-09-2024 11:08-0500 Systolic blood pressure 107 mm[Hg] Dr. Ashley Mathis MD Work Phone: [facility] 11-09-2024 10:58-0500 Heart rate 90 /min Dr. Ashley Mathis MD Work Phone: [facility] 11-09-2024 09:31-0500 Body temperature 98 [degF] Dr. Ashley Mathis MD Work Phone: [facility] 11-09-2024 09:31-0500 Respiratory rate 16 /min Dr. Ashley Mathis MD Work Phone: [facility] 11-09-2024 09:31-0500 SaO2% (BldA) [Mass fraction] 100 % Dr. Ashley Mathis MD Work Phone: 3(565)794-110382 [place] [address] 11-06-2024 19:08-0500 Body mass index (BMI) [Ratio] 60.5 kg/m2 Dr. Ashley Mathis MD Work Phone: 8(541)478-830895 [address] 11-06-2024 19:08-0500 Body weight 164.[address] Ashley Mathis MD Work Phone: 2(370)820-941695 [address] 10-28-2024 12:56-0500 Body mass index (BMI) [Ratio] 59.3 kg/m2 Dr. Ashley Mathis MD Work Phone: 6(393)325-989695 [address] 10-28-2024 12:56-0500 Body weight 161.[address] Ashley Mathis MD Work Phone: 3(611)980-688995 [address] 10-28-2024 12:56-0500 Diastolic blood pressure 74 mm[Hg] Dr. Ashley Mathis MD Work Phone: 3(816)210-909360 [place] [address] 10-28-2024 12:56-0500 Systolic blood pressure 120 mm[Hg] Dr. Ashley Mathis MD Work Phone: 3(976)491-114982 [place] [address] 01-07-2024 07:31-0500 Body height 165.[address] Ashley Mathis Work Phone: 8(419)414-888660 [place] [address] 01-07-2024 07:31-0500 Body mass index (BMI) [Ratio] 57.2 kg/m2 Dr. Ashley Mathis Work Phone: 0(599)709-152995 [address] 01-07-2024 07:31-0500 Body temperature 98.6 [degF] Dr. Ashley Mathis Work Phone: 7(166)332-165495 [address] 01-07-2024 07:31-0500 Body weight 156.[address] Ashley Mathis Work Phone: [facility] 01-07-2024 07:31-0500 Diastolic blood pressure 78 mm[Hg] Dr. Ashley Mathis Work Phone: [facility] 01-07-2024 07:31-0500 Heart rate 115 /min Dr. Ashley Mathis Work Phone: [facility] 01-07-2024 07:31-0500 Respiratory rate 20 /min Dr. Ashley Mathis Work Phone: [facility] 01-07-2024 07:31-0500 SaO2% (BldA) [Mass fraction] 98 % Dr. Ashley Mathis Work Phone: [facility] 01-07-2024 07:31-0500 Systolic blood pressure 136 mm[Hg] Dr. Ashley Mathis Work Phone: [facility] 11-19-2023 15:53-0500 Body mass index (BMI) [Ratio] 56.9 kg/m2 Dr. Ashley Mathis Work Phone: [facility] 11-19-2023 15:53-0500 Body weight 155.[address] Ashley Mathis Work Phone: [facility] 11-19-2023 15:53-0500 Diastolic blood pressure 79 mm[Hg] Dr. Ashley Mathis Work Phone: [facility] 11-19-2023 15:53-0500 Systolic blood pressure 110 mm[Hg] Dr. Ashley Mathis Work Phone: [facility] 11-07-2023 15:59-0500 Body temperature 98.2 [degF] Dr. Ashley Mathis Work Phone: [facility] 11-07-2023 15:59-0500 Diastolic blood pressure 84 mm[Hg] Dr. Ashley Mathis Work Phone: [facility] 11-07-2023 15:59-0500 Heart rate 105 /min Dr. Ashley Mathis Work Phone: [facility] 11-07-2023 15:59-0500 Respiratory rate 17 /min Dr. Ashley Mathis Work Phone: [facility] 11-07-2023 15:59-0500 SaO2% (BldA) [Mass fraction] 98 % Dr. Ashley Mathis Work Phone: [facility] 11-07-2023 15:59-0500 Systolic blood pressure 112 mm[Hg] Dr. Ashley Mathis Work Phone: [facility] 08-21-2023 15:21-0400 Body temperature 97.6 [degF] Dr. Zbigniew Mathis Work Phone: [facility] 08-21-2023 15:21-0400 Diastolic blood pressure 94 mm[Hg] Dr. Zbigniew Mathis Work Phone: [facility] 08-21-2023 15:21-0400 Heart rate 95 /min Dr. Zbigniew Mathis Work Phone: [facility] 08-21-2023 15:21-0400 Respiratory rate 17 /min Dr. Zbigniew Mathis Work Phone: [facility] 08-21-2023 15:21-0400 SaO2% (BldA) [Mass fraction] 98 % Dr. Zbigniew Mathis Work Phone: [facility] 08-21-2023 15:21-0400 Systolic blood pressure 136 mm[Hg] Dr. Zbigniew Mathis Work Phone: [facility] 02-02-2023 12:00-0400 Body temperature 98.3 [degF] Dr. Zbigniew Mathis Work Phone: [facility] 02-02-2023 12:00-0400 Diastolic blood pressure 63 mm[Hg] Dr. Zbigniew Mathis Work Phone: [facility] 02-02-2023 12:00-0400 Heart rate 88 /min Dr. Zbigniew Mathis Work Phone: [facility] 02-02-2023 12:00-0400 Respiratory rate 18 /min Dr. Zbigniew Mathis Work Phone: [facility] 02-02-2023 12:00-0400 SaO2% (BldA) [Mass fraction] 98 % Dr. Zbigniew Mathis Work Phone: [facility] 02-02-2023 12:00-0400 Systolic blood pressure 133 mm[Hg] Dr. Zbigniew Mathis Work Phone: [facility] 02-02-2023 06:21-0400 Body height 165.[address] Zbigniew Mathis Work Phone: [facility] 02-02-2023 06:21-0400 Body mass index (BMI) [Ratio] 56.8 kg/m2 Dr. Zbigniew Mathis Work Phone: [facility] 02-02-2023 06:21-0400 Body weight [address] Zbigniew Mathis Work Phone: [facility] 10-02-2022 15:04-0500 Body height 165.[address] Zbigniew Mathis Work Phone: [facility] 10-02-2022 15:04-0500 Body mass index (BMI) [Ratio] 53.4 kg/m2 Dr. Zbigniew Mathis Work Phone: [facility] 10-02-2022 15:04-0500 Body weight 145.[address] Zbigniew Mathis Work Phone: [facility] 10-02-2022 15:04-0500 Diastolic blood pressure 87 mm[Hg] Dr. Zbigniew Mathis Work Phone: [facility] 10-02-2022 15:04-0500 Systolic blood pressure 139 mm[Hg] Dr. Zbigniew Mathis Work Phone: [facility] 09-28-2022 12:32-0500 Body mass index (BMI) [Ratio] 53.1 kg/m2 Dr. Zbigniew Mathis Work Phone: [facility] 09-28-2022 12:32-0500 Body weight 144.[address] Zbigniew Mathis Work Phone: [facility] 09-26-2022 14:45-0500 Body temperature 99.2 [degF] Dr. Zbigniew Mathis Work Phone: [facility] 09-26-2022 14:45-0500 Diastolic blood pressure 73 mm[Hg] Dr. Zbigniew Mathis Work Phone: [facility] 09-26-2022 14:45-0500 Heart rate 107 /min Dr. Zbigniew Mathis Work Phone: [facility] 09-26-2022 14:45-0500 Respiratory rate 18 /min Dr. Zbigniew Mathis Work Phone: [facility] 09-26-2022 14:45-0500 SaO2% (BldA) [Mass fraction] 96 % Dr. Zbigniew Mathis Work Phone: [facility] 09-26-2022 14:45-0500 Systolic blood pressure 135 mm[Hg] Dr. Zbigniew Mathis Work Phone: [facility] 09-26-2022 09:10-0500 Inhaled oxygen flow rate 2 L/min Dr. Zbigniew Mathis Work Phone: [facility] 09-26-2022 08:36-0500 Body height 165.[address] Zbigniew Mathis Work Phone: [facility] Work Phone: 09-26-2022 08:36-0500 Body mass index (BMI) [Ratio] 53.1 kg/m2 Dr. Zbigniew Mathis Work Phone: [facility] 09-26-2022 08:36-0500 Body weight 144.[address] Zbigniew Mathis Work Phone: [facility] 09-26-2022 00:26-0500 Body temperature 99.5 [degF] Dr. Zbigniew Mathis Work Phone: [facility] Work Phone: 09-26-2022 00:26-0500 Diastolic blood pressure 90 mm[Hg] Dr. Zbigniew Mathis Work Phone: [facility] Work Phone: 09-26-2022 00:26-0500 Heart rate 130 /min Dr. Zbigniew Mathis Work Phone: [facility] Work Phone: 09-26-2022 00:26-0500 Respiratory rate 21 /min Dr. Zbigniew Mathis Work Phone: [facility] Work Phone: 09-26-2022 00:26-0500 SaO2% (BldA) [Mass fraction] 97 % Dr. Zbigniew Mathis Work Phone: [facility] Work Phone: 09-26-2022 00:26-0500 Systolic blood pressure 149 mm[Hg] Dr. Zbigniew Mathis Work Phone: [facility] Work Phone: 09-25-2022 19:48-0500 Body height 165.[address] Zbigniew Mathis Work Phone: [facility] Work Phone: 09-25-2022 19:48-0500 Body mass index (BMI) [Ratio] 53.2 kg/m2 Dr. Zbigniew Mathis Work Phone: [facility] Work Phone: 09-25-2022 19:48-0500 Body weight 145.[address] Zbigniew Mathis Work Phone: [facility] Work Phone: 09-20-2022 13:01-0500 Body mass index (BMI) [Ratio] 52.8 kg/m2 Dr. Zbigniew Mathis Work Phone: [facility] 09-20-2022 13:01-0500 Body weight 143.[address] Zbigniew Mathis Work Phone: [facility] 09-20-2022 13:01-0500 Diastolic blood pressure 74 mm[Hg] Dr. Zbigniew Mathis Work Phone: [facility] 09-20-2022 13:01-0500 Systolic blood pressure 122 mm[Hg] Dr. Zbigniew Mathis Work Phone: [facility] 09-18-2022 19:45-0500 Body temperature 98 [degF] Dr. Zbigniew Mathis Work Phone: [facility] 09-18-2022 19:45-0500 Diastolic blood pressure 90 mm[Hg] Dr. Zbigniew Mathis Work Phone: [facility] 09-18-2022 19:45-0500 Heart rate 141 /min Dr. Zbigniew Mathis Work Phone: [facility] 09-18-2022 19:45-0500 Respiratory rate 18 /min Dr. Zbigniew Mathis Work Phone: [facility] 09-18-2022 19:45-0500 SaO2% (BldA) [Mass fraction] 97 % Dr. Zbigniew Mathis Work Phone: [facility] 09-18-2022 19:45-0500 Systolic blood pressure 169 mm[Hg] Dr. Zbigniew Mathis Work Phone: [facility] 09-18-2022 19:32-0500 Body height 165.[address] Zbigniew Mathis Work Phone: [facility] Work Phone: 09-18-2022 19:32-0500 Body mass index (BMI) [Ratio] 53.4 kg/m2 Dr. Zbigniew Mathis Work Phone: [facility] 09-18-2022 19:32-0500 Body weight 145.[address] Zbigniew Mathis Work Phone: [facility] 09-15-2022 14:52-0400 Body temperature 98 [degF] Dr. Zbigniew Mathis Work Phone: [facility] 09-15-2022 14:52-0400 Diastolic blood pressure 63 mm[Hg] Dr. Zbigniew Mathis Work Phone: [facility] 09-15-2022 14:52-0400 Heart rate 89 /min Dr. Zbigniew Mathis Work Phone: [facility] 09-15-2022 14:52-0400 Respiratory rate 20 /min Dr. Zbigniew Mathis Work Phone: [facility] 09-15-2022 14:52-0400 SaO2% (BldA) [Mass fraction] 99 % Dr. Zbigniew Mathis Work Phone: [facility] 09-15-2022 14:52-0400 Systolic blood pressure 113 mm[Hg] Dr. Zbigniew Mathis Work Phone: [facility] 09-15-2022 09:50-0400 Body height 165.[address] Zbigniew Mathis Work Phone: [facility] Work Phone: 09-15-2022 09:50-0400 Body mass index (BMI) [Ratio] 53.5 kg/m2 Dr. Zbigniew Mathis Work Phone: [facility] 09-15-2022 09:50-0400 Body weight [address] Zbigniew Mathis Work Phone: [facility] 08-28-2022 16:30-0400 Body mass index (BMI) [Ratio] 55.1 kg/m2 Dr. Zbigniew Mathis Work Phone: [facility] 08-28-2022 16:30-0400 Body weight 150.[address] Zbigniew Mathis Work Phone: [facility] 08-28-2022 16:30-0400 Diastolic blood pressure 85 mm[Hg] Dr. Zbigniew Mathis Work Phone: [facility] 08-28-2022 16:30-0400 Systolic blood pressure 133 mm[Hg] Dr. Zbigniew Mathis Work Phone: [facility] 08-10-2022 15:16-0400 Body height 165.1 cm Sagar Garrett MD Work Phone: [facility] 08-10-2022 15:16-0400 Body weight 146.06 kg Sagar Garrett MD Work Phone: [facility] 08-10-2022 15:16-0400 Respiratory rate 20 /min Sagar Garrett MD Work Phone: [facility] 08-03-2022 11:20-0400 Body height 165.[address] Zbigniew Mathis Work Phone: [facility] Work Phone: 08-03-2022 11:18-0400 Body mass index (BMI) [Ratio] 53.8 kg/m2 Dr. Zbigniew Mathis Work Phone: [facility] Work Phone: 08-03-2022 11:18-0400 Body weight 146.[address] Zbigniew Mathis Work Phone: [facility] Work Phone: 08-03-2022 11:18-0400 Diastolic blood pressure 84 mm[Hg] Dr. Zbigniew Mathis Work Phone: [facility] Work Phone: 08-03-2022 11:18-0400 Systolic blood pressure 146 mm[Hg] Dr. Zbigniew Mathis Work Phone: [facility] Work Phone: 04-20-2022 13:57-0400 Body height 165.1 cm Sagar Garrett MD Work Phone: [facility] 04-20-2022 13:57-0400 Body weight 134.26 kg Sagar Garrett MD Work Phone: [facility] 04-20-2022 13:57-0400 Respiratory rate 20 /min Sagar Garrett MD Work Phone: [facility] 02-16-2022 14:03-0400 Body height 165.1 cm Sagar Garrett MD Work Phone: [facility] 02-16-2022 14:03-0400 Body weight 134.26 kg Sagar Garrett MD Work Phone: [facility] 02-16-2022 14:03-0400 Respiratory rate 16 /min Sagar Garrett MD Work Phone: [facility] Encounters Encounter Date Encounter Type Care Provider Facility Start: 05-04-2025 End: 05-04-[address] Ashley Mathis MD Work Phone: [facility] Start: 05-04-2025 End: 05-04-2025 Patient encounter procedure Mariel FOLEY -[facility] Work Phone: Start: 05-04-2025 End: 05-04-2025 ambulatory Ashley Mathis Facility:[facility] Start: 04-25-2025 End: 04-25-[address] Ashley Mathis MD Work Phone: [facility] Work Phone: Start: 04-25-2025 End: 04-25-2025 Patient encounter procedure Gregory Duarte ID -[facility] Work Phone: Start: 04-23-2025 End: 04-23-2025 Patient encounter procedure Mariel FOLEY -[facility] Work Phone: Start: 04-23-2025 End: 04-23-[address] Ashley Mathis MD Work Phone: [facility] Work Phone: Start: 02-19-2025 End: 02-19-[address] Ashley Mathis MD Work Phone: [facility] Work Phone: Start: 02-19-2025 End: 02-19-[address] Ellie Toledo MD -Laboratory Work Phone: Start: 02-19-2025 End: 02-19-2025 ambulatory Ellie Toledo Facility:[facility] Start: 12-31-2024 End: 12-31-2024 Patient encounter procedure Kate FLORES -[facility] Work Phone: Start: 12-31-2024 End: 12-31-2024 ambulatory Heriberto [place] town Facility:[facility] Start: 12-22-2024 End: 12-22-2024 Patient encounter procedure Kate Floyd FLORES -[facility] Work Phone: Start: 12-22-2024 End: 12-22-2024 [facility] [place] [facility] Start: 11-21-2024 End: 11-21-2024 Patient encounter procedure Kate FLORES -[facility] Work Phone: Start: 11-21-2024 End: 11-21-2024 ambulatory Ashley [place] town Facility:[facility] Start: 11-09-2024 Non-patient / Non-visit Luisa olmos CNM -[facility] Start: 11-08-2024 Non-patient / Non-visit Dr. Camille Toledo MD -[facility] Start: 11-07-2024 Non-patient / Non-visit Dr. Camille Toledo MD -[facility] Start: 11-06-2024 End: 11-09-2024 Evaluation and management of inpatient Dr. Ellie Toledo MD -[facility] Work Phone: Start: 11-06-2024 ambulatory Ellie Toledo Faci lity:[facility] Start: 10-29-2024 End: 10-29-[address] Ellie Toledo MD -Ultrasound, [facility] Work Phone: Start: 10-28-2024 End: 10-28-[address] Ellie Toledo MD -[facility] Work Phone: Start: 10-28-2024 End: 10-29-2024 ambulatory Christkaren Mathis Facility:[facility] Start: 10-23-2024 End: 10-23-2024 ambulatory Ellieglory Tamezony Facility:[facility] Start: 10-22-2024 End: 10-23-2024 [facility] [place] Start: 10-22-2024 End: 10-22-2024 ambulatory [facility] [place] Facility[facility] Start: 10-14-2024 End: 10-15-2024 ambulatory Ellie Marcstevieony Facility:[facility] Start: 10-08-2024 ambulatory Ellie Marcstevieony Faci lity:[facility] Start: 10-07-2024 End: 10-08-2024 ambulatory Ellie Marcanthony Facility:[facility] Start: 10-01-2024 End: 10-01-2024 ambulatory Ellie Marcanthony Facility:[facility] Start: 09-25-2024 End: 09-25-2024 ambulatory Rosanna Hudson Facility:[facility] Start: 09-15-2024 End: 09-15-2024 ambulatory Ellie Marcanthony Facility:[facility] Start: 09-11-2024 End: 09-11-2024 ambulatory Ellie Marcanthony Facility:[facility] Start: 09-11-2024 End: 09-11-2024 ambulatory Ellie Marcanthony Facility:[facility] Start: 09-03-2024 ambulatory Ellie Marcstevieony Faci lity:[facility] Start: 09-03-2024 End: 09-03-2024 ambulatory Ellieglory Tamezony Facility:[facility] Start: 08-25-2024 ambulatory Kate Barrientos Facility :[facility] Start: 08-25-2024 End: 08-25-2024 ambulatory Kate Barrientos Facility:[facility] Start: 08-25-2024 End: 08-25-2024 ambulatory Mckenzie Mcknight Facility:[facility] Start: 08-13-2024 End: 08-14-2024 ambulatory Ellie Toledo Facility:[facility] Start: 07-28-2024 End: 07-28-2024 ambulatory ASHLEY MATHIS [facility] Start: 07-23-2024 End: 07-23-2024 ambulatory Ashley Mathis Facility:[facility] Start: 07-11-2024 End: 07-11-2024 ambulatory Rosanna Hudson Facility:[facility] Start: 06-30-2024 End: 06-30-2024 ambulatory Rosanna Rachid Pierre Facility:[facility] Start: 06-25-2024 ambulatory Patient Link Program Fa cility:[facility] Start: 06-23-2024 End: 06-23-2024 ambulatory Mckenziesaroj Mcknight Facility:[facility] Start: 06-23-2024 End: 06-23-2024 ambulatory Mckenzie Montgomery Facility:[facility] Start: 06-20-2024 End: 06-20-2024 ambulatory Josiah GUAMAN Facility:[facility] Start: 05-29-2024 End: 05-29-2024 ambulatory Rosanna Rachid Pierre Facility:[facility] Start: 05-27-2024 End: 05-27-2024 ambulatory Luisa Allen Facility:[facility] Start: 02-12-2024 End: 02-12-[address] Ashley Mathis Work Phone: [facility] Work Phone: Start: 02-12-2024 End: 02-12-[address] Ashley Mathis Work Phone: [facility] Work Phone: Start: 01-07-2024 End: 01-07-[address] Ashley Mathis Work Phone: [facility] Work Phone: Start: 11-19-2023 End: 11-19-[address] Ashley Mathis Work Phone: [facility] Work Phone: Start: 11-07-2023 End: 11-07-[address] Ashley Mathis Work Phone: [facility] Work Phone: Start: 10-16-2023 End: 10-16-[address] Zbigniew Mathis Work Phone: [facility] Work Phone: Start: 10-16-2023 End: 10-16-[address] Zbigniew Mathis Work Phone: [facility] Ultrasound Work Phone: Start: 10-12-2023 End: 10-12-2023 ambulatory ALEX ESPAÑA Facility:[facility] Start: 09-20-2023 Telephone encounter Alex España DPM Work Phone: [facility] Comment on above: Appointment Start: 08-21-2023 End: 08-21-[address] Zbigniew Mathis Work Phone: [facility] Work Phone: Start: 07-02-2023 End: 07-02-[address] Zbigniew Mathis Work Phone: [facility] Work Phone: Start: 07-02-2023 End: 07-02-[address] Zbigniew Mathis Work Phone: [facility]Physical Therapy Work Phone: Start: 06-25-2023 Telephone encounter Alex España DPM Work Phone: [facility] Comment on above: Appointment Start: 03-16-2023 Registered Recurring [facility] Start: 03-13-2023 End: 03-13-[address] [facility] Work Phone: Start: 03-13-2023 End: 03-13-[address] [facility]Laboratory[facility] Pav[facility] Start: 02-02-2023 End: 02-02-2023 Admission to same day surgery center Dr. Zbigniew Mathis Work Phone: [facility] Start: 02-02-2023 End: 02-02-[address] Zbigniew Mathis Work Phone: [facility] Work Phone: Start: 01-10-2023 End: 01-10-[address] Zbigniew Mathis Work Phone: [facility] Work Phone: Start: 01-10-2023 End: 01-10-[address] Zbigniew Mathis Work Phone: [facility]Laboratory[facility] Start: 12-15-2022 End: 12-15-[address] Zbigniew Mathis Work Phone: [facility] Work Phone: Start: 12-15-2022 End: 12-15-[address] Zbigniew Mathis Work Phone: [facility]-Cat Scan, [facility] Start: 11-24-2022 End: 11-24-[address] Zbigniew Mathis Work Phone: [facility] Work Phone: Start: 11-24-2022 End: 11-24-[address] Zbigniew Mathis Work Phone: [facility]-MRI - [facility] Start: 10-10-2022 End: 10-10-[address] Zbigniew Mtahis Work Phone: [facility] Start: 10-02-2022 End: 10-02-[address] Zbigniew Mathis Work Phone: [facility] Start: 09-28-2022 End: 09-28-[address] Zbigniew Mathis Work Phone: [facility] Start: 09-26-2022 Non-patient / Non-visit Dr. Fernanda Mathis Work Phone: [facility] Start: 09-26-2022 End: 09-26-2022 Evaluation and management of inpatient Dr. Zbigniew Mathis Work Phone: [facility]-Medical Surgical 3 Start: 09-25-2022 End: 09-25-[address] Zbigniew Mathis Work Phone: [facility] Work Phone: Start: 09-25-2022 End: 09-25-[address] Zbigniew Mathis Work Phone: [facility] Start: 09-20-2022 End: 09-20-[address] Zbigniew Mathis Work Phone: [facility] Start: 09-18-2022 End: 09-18-2022 Emergency department patient visit Dr. Zbigniew Mathis Work Phone: [facility]Emergency Department Start: 09-15-2022 Non-patient / Non-visit Dr. Fernanda Mathis Work Phone: [facility] Start: 09-15-2022 End: 09-15-2022 Admission to same day surgery center [facility]igniew Math[facility] Start: 09-15-2022 End: 09-15-[address] Zbigniew Mathis Work Phone: [facility] Work Phone: Start: 09-11-2022 End: 09-15-2022 Non-patient / Non-visit Dr. Zbigniew Mathis Work Phone: [facility] Start: 08-28-2022 End: 08-28-[address] Zbigniew Mathis Work Phone: [facility] Start: 08-22-2022 End: 08-22-[address] Zbigniew Mathis Work Phone: [facility] Work Phone: Start: 08-22-2022 End: 08-22-[address] Zbigniew Mathis Work Phone: [facility] Start: 08-16-2022 End: 08-16-[address] Zbigniew Mathis Work Phone: [facility] Work Phone: Start: 08-16-2022 End: 08-16-[address] Zbigniew Mathis Work Phone: [facility] Start: 08-10-2022 End: 08-10-2022 Patient encounter procedure Sagar Garrett MD Work Phone: [facility] Comment on above: Type I or II open di splaced pilon fracture of right tibia with routine healing, subsequent encounter (Primary Dx); Post-traumatic arthritis of ankle, right Start: 08-04-2022 Telephone encounter Ag Orth Work Phone: [facility] Comment on above: Xray Results Start: 08-03-2022 End: 08-03-[address] Zbigniew Mathis Work Phone: [facility] Start: 2022 End: [address] Zbigniew Mathis Work Phone: [facility] Start: 07-07-2022 End: 07-07-[address] [facility] Work Phone: Start: 07-07-2022 End: 07-07-[address] [facility] Start: 06-20-2022 End: 06-20-[address] Zbigniew Mathis Work Phone: [facility] Therapy Start: 06-20-2022 [facility] Start: 06-19-2022 Telephone encounter Ag Orth Work Phone: [facility] Comment on above: Letter Start: 06-17-2022 End: 06-17-[address] [facility] Specimen Start: 06-16-2022 End: 06-16-2022 [facility] Start: 06-06-2022 End: 06-06-[address] [facility], [facility] Start: 06-02-2022 Telephone encounter Ag Orth Work Phone: [facility] Comment on above: Patient Update Start: 05-24-2022 [facility] Start: 04-20-2022 End: 04-20-2022 Patient encounter procedure Sagar Garrett MD Work Phone: [facility] Comment on above: Type I or II open di splaced pilon fracture of right tibia with routine healing, subsequent encounter (Primary Dx) Start: 03-16-2022 Telephone encounter Sagar Garrett MD Work Phone: [facility] Comment on above: Patient Request Start: 03-06-2022 [facility]istered [facility] Start: 03-06-2022 Registered Recurring [facility] Start: 02-16-2022 End: 02-16-2022 Patient encounter procedure Sagar Garrett MD Work Phone: [facility] Comment on above: Type I or II open di splaced pilon fracture of right tibia with routine healing, subsequent encounter (Primary Dx) Start: 10-30-2017 End: 10-31-2017 Ambulatory Tree Ibanez [place] [place] Date Procedure Procedure Detail Performing Clinician Start: 05-04-[address] Naheed Mathis MD Work Phone: Start: 10-29-2024 Ultrasonography for biophysical profile without non-stress testing Dr. Ashley Mathis MD Work Phone: Start: 10-16-[address] Naheed Mathis Work Phone: Start: 02-02-[address] Zbigniew Mathis Work Phone: Start: 12-15-2022 MRI of lower extremity Dr. Zbigniew Mathis Work Phone: Start: 11-24-2022 MRI of joint of lowe r extremity Dr. Zbigniew Mathis Work Phone: Start: 09-26-[address] phy guidance [address] Zbigniew Mathis Work Phone: Start: 09-25-2022 CT angiography of ch est with contrast Dr. Zbigniew Mathis Work Phone: Start: 09-25-2022 Computed tomography of abdomen and pelvis with intravenous contrast Dr. Zbigniew Mathis Work Phone: Start: 09-25-2022 Plain chest X-ray Dr. Naheed Mathis Work Phone: Start: 09-15-2022 Left salpingo-oophorectomy Dr. Zbigniew Mathis Work Phone: Start: 08-16-[address] Naheed Mathis Work Phone: Start: 08-16-[address] Zbigniew Mathis Work Phone: Start: [address] Lázaro Mathis Work Phone: Start: 06-06-2022 Diagnostic radiograp hy of abdomen Start: 04-20-2022 Radex ankle complete minimum 3 views Sagar Garrett MD Work Phone: Start: 03-01-2022 Radex ankle complete minimum 3 views Sagar Garrett MD Work Phone: Start: 06-22-2017 Adult depression scr eening assessment Sagar Garrett MD Work Phone: Anaerobic microbial culture Dr. Zbigniew Mathis Work Phone: Anaerobic microbial culture Dr. Zbigniew Mathis Work Phone: Bacteria identified in Blood by Culture Dr. Zbigniew Mathis Work Phone: Bacteria identified in Blood by Culture Dr. Zbigniew Mathis Work Phone: H/O: surgery H/O oophorectomy Dr. Subhash Mathis Work Phone: Comment on above: LSO dermoid H/O: surgery H/O oophorectomy Dr. Subhash Mathis Work Phone: H/O: surgery H/O oophorectomy Dr. Subhash Mathis Work Phone: H/O: surgery H/O oophorectomy Dr. Subhash Mathis Work Phone: Investigation of transfusion reaction Dr. Zbigniew Mathis Work Phone: Investigation of transfusion reaction Dr. Zbigniew Mathis Work Phone: Microbial culture, routine D aquiles Mathis Work Phone: Microbial culture, routine D aquiles Mathis Work Phone: Plan of Treatment Date Care Activity Detail Author Start: 11-24-2031 Urine microalbumin profile DTaP,Tdap,Td Vaccine (5 - Td or Tdap) [facility] Start: 11-15-[address] [facility] Start: 11-09-[address] [facility] Start: 11-08-2024 Documentation procedure [facility] Start: 11-08-[address] [facility] Start: 11-08-2024 Application of ice collar, cap or bag [facility] Start: 11-08-2024 Catheterization of vein [facility] Start: 11-08-2024 Introduction of urinary catheter [facility] Start: 11-08-2024 Measuring intake and output [facility] Start: 11-08-2024 Notification of physician [facility] Start: 11-08-[address] [facility] Start: 11-08-2024 Provision of activity privileges [facility] Start: 11-08-2024 Vital signs measurements [facility] Start: 11-08-2024 End: 11-08-2024 [facility] Start: 11-08-[address] [facility] Start: 11-06-2024 End: 11-06-2024 [facility] Start: 01-13-2024 PAP TESTING PAP TESTING [facility] Start: 07-13-2023 Covid-19 Vaccine ( season) Covid-19 Vaccine () [facility] Start: 07-13-2023 Influenza vaccination [facility] Start: 02-02-2023 Anesthesia arthroscopic procedure ankle & foot ANESTH ANKLE/FT ARTHROSCOPY [facility] Start: 02-02-2023 Arthroscopy ankle surgical debridement limited ANKLE ARTHROSCOPY/SURGERY [facility] Start: 02-02-2023 Injection aa&/strd sciatic nerve NJX AA&/STRD SCIATIC NRV IMG [facility] Start: 02-02-2023 Unlisted procedure arthroscopy UNLISTED PX ARTHROSCOPY [facility] Start: 02-02-[address] [facility] Start: 11-12-2022 DEPRESSION ASSESSMENT DEPRESSION ASSESSMENT [facility] Start: 09-26-[address] [facility] Start: 09-26-2022 End: 09-26-2022 [facility] Start: 09-26-2022 Catheterization of vein [facility] Start: 09-26-[address] [facility] Start: 09-26-2022 Vital signs measurements [facility] Start: 09-26-2022 Application of intermittent pneumatic compression device [facility] Start: 09-26-2022 Following clinical pathway protocol [facility] Start: 09-26-[address] Guidance Abscess Drg w/Cath [facility] Work Phone: Start: 09-26-[address] [facility] Work Phone: Start: 09-26-[address] [facility] Start: 09-26-2022 [facility] Start: 09-25-2022 End: 09-25-[address] [facility] Work Phone: Start: 09-15-2022 Anesthesia intraperitoneal lower abd w/laps nos ANESTH SURG LOWER ABDOMEN [facility] Start: 09-15-2022 Laparoscopy w/rmvl adnexal structures LAPAROSCOPY REMOVE ADNEXA [facility] Start: 09-15-[address] [facility] Start: 09-15-[address] [facility] Start: 09-15-[address] [facility] Start: 09-15-[address] [facility] Start: 09-15-2022 Taking patient vital signs [facility] Start: 09-15-2022 Vital signs measurements [facility] Start: 09-15-2022 [facility] Start: 07-13-2022 Influenza vaccination [facility] Start: 06-16-2022 [facility] Work Phone: Start: 05-03-2022 COVID-19 VACCINE (2 - Moderna series) COVID-19 VACCINE (2 - Moderna series) [facility] Start: 04-05-2022 COVID-19 VACCINE (2 - Moderna series) COVID-19 VACCINE (2 - Moderna series) [facility] Start: 11-12-2021 DEPRESSION ASSESSMENT DEPRESSION ASSESSMENT [facility] Start: 06-22-2018 Adult depression screening assessment DEPRESSION SCREENING [facility] Start: 2016 Urine microalbumin profile DTAP,TDAP,TD (1 - Tdap) [facility] Start: 2015 HEPATITIS C SCREENING HEPATITIS C SCREENING [facility] Start: 2015 HIV SCREENING HIV SCREENING [facility] Start: 2011 PEDS TO ADULT TRANSITION ANNUAL ASSESSMENT PEDS TO ADULT TRANSITION ANNUAL ASSESSMENT [facility] Start: 2009 PEDS TO ADULT TRANSITION INITIAL DISCUSSION PEDS TO ADULT TRANSITION INITIAL DISCUSSION [facility] Start: 2008 HPV VACCINE (1 - 2-dose series) HPV VACCINE (1 - 2-dose series) [facility] Start: 2007 MENINGOCOCCAL B: Consider based on risk (1 of 2 - Risk Bexsero 2-dose series) MENINGOCOCCAL B: Consider based on risk (1 of 2 - Risk Bexsero 2-dose series) [facility] Start: 2006 HPV VACCINE (1 - 2-dose series) HPV VACCINE (1 - 2-dose series) [facility] Start: 2002 COVID-19 VACCINE (1) [facility] Start: 1997 HEPATITIS B (1 of 3 - 3-dose series) HEPATITIS B (1 of 3 - 3-dose series) [facility] Start: 1997 Hepatitis B Vaccine (1 of 3 - 3-dose series) Hepatitis B Vaccine (1 of 3 - 3-dose series) [facility] Alternaria alternata IgE Ab [Units/volume] in Serum [facility] Work Phone: Tajik Cockroach I gE Ab [Units/volume] in Serum [facility] Work Phone: Tajik house dust mite IgE Ab [Units/volume] in Serum [facility] Work Phone: Anaerobic Culture Anaerobic Culture [facility] Work Phone: Aspergillus fumigatus [facility] Work Phone: Bacteria identified in Blood by Culture Blood Culture [facility] Work Phone: Bacteria identified in Unspecified specimen by Anaerobe culture [facility] Work Phone: Bahia grass IgE Ab [Units/volume] in Serum [facility] Work Phone: Berm[place] grass IgE Ab [Units/volume] in Serum [facility] Work Phone: Blood culture [facility] Work Phone: Box elder RAST [facility] Work Phone: Cat dander IgE Ab [Units/volume] in Serum [facility] Work Phone: Cladosporium herbaru m IgE Ab [Units/volume] in Serum [facility] Work Phone: Common Ragweed IgE A b [Units/volume] in Serum [facility] Work Phone: Dog epithelium IgE A b [Units/volume] in Serum [facility] Work Phone: house dust mite IgE Ab [Units/volume] in Serum [facility] Work Phone: Hazelnut Pollen IgE Ab [Units/volume] in Serum [facility] Work Phone: Spenser grass IgE Ab [Units/volume] in Serum [facility] Work Phone: [place] blue grass IgE Ab [Units/volume] in Serum [facility] Work Phone: Microscopic observat ion [Identifier] in Body fluid by Cyto stain [facility] Work Phone: Mountain Juniper IgE Ab [Units/volume] in Serum [facility] Work Phone: Mucor racemosus IgE Ab [Units/volume] in Serum [facility] Work Phone: Mugwort IgE Ab [Units/volume] in Serum [facility] Work Phone: Dona Ana [facility] Work Phone: Nettle IgE Ab [Units/volume] in Serum [facility] Work Phone: Patient Education [facility] Work Phone: Patient referral [facility] Work Phone: Penicillium notatum IgE Ab [Units/volume] in Serum [facility] Work Phone: Plantain (Belgian) [facility] Work Phone: Rough Pigweed IgE Ab [Units/volume] in Serum [facility] Work Phone: Sheep [place] IgE Ab [Units/volume] in Serum [facility] Work Phone: Stemphylium botryosu m IgE Ab [Units/volume] in Serum [facility] Work Phone: Sweet gum [facility] Work Phone: Tree pollen [facility] Work Phone: US Pelvis [facility] White Elm IgE Ab [Units/volume] in Serum [facility] Work Phone: White [place] IgE Ab [Units/volume] in Serum [facility] Work Phone: [place] IgE Ab [Units/volume] in Serum [facility] Work Phone: Wound Culture Wound Culture [facility] Work Phone: [place] Immunizations Immunization Date Immunization Notes Care Provider [facility] 09-11-2024 tetanus toxoid, reduced diphtheria toxoid, and acellular pertussis vaccine, adsorbed Dr. Ashley Mathis MD Work Phone: [facility] 04-12-2022 measles, mumps and rubella virus vaccine [facility] 03-08-2022 Covid (Moderna) Dr. Sofiya Mathis Work Phone: [facility] 11-24-2021 tetanus toxoid, reduced diphtheria toxoid, and acellular pertussis vaccine, adsorbed [facility] 04-05-2018 tetanus toxoid, reduced diphtheria toxoid, and acellular pertussis vaccine, adsorbed [facility] 11-21-2017 influenza, injectabl e, quadrivalent, preservative free Dr. Zbigniew Mathis Work Phone: [facility] 11-21-2017 influenza, seasonal, injectable [facility] 11-21-2017 influenza virus vaccine, unspecified formulation Alex España DPM Work Phone: [facility] 07-11-2002 measles, mumps and rubella virus vaccine [facility] Payers Date Payer Category Payer Self-pay [id number] 2022 Private Health Insurance [employer] [id number] 2022-Present [phone] [address] [place] [address] PPO [id number] 2022 Unknown [id number] 2020 Unknown [employer] CARD PPO OOS [id number] 2020-Present [phone] [address] [place] [address] PPO [id number] 2017 Unknown 2012 Unknown [id number] 1997 Unknown [id number] 79 Medicaid [id number] Private Health Insurance [id number] Unknown [id number] Unknown [id number] 2.16.840.1.763849.3.579.2.4 62 Unknown [id number] 2.16840.1.339646.3.579.2.4 62 Unknown [id number] 2.16840.1.325700.3.579.2.4 62 Unknown [id number] 2.16.840.1.966213.3.579.2.4 62 Unknown [id number] 2.16.840.1.155468.3.579.2.4 62 Unknown [id number] 2.16.840.1.057842.3.579.2.4 62 Unknown [id number] 2.16.840.1.283904.3.579.2.4 62 Unknown [id number] 2.16.840.1.892563.3.579.2.4 62 Unknown [id number] 2.16.840.1.308484.3.579.2.4 62 Unknown [id number] 2.16.840.1.625031.3.579.2.4 62 Unknown [id number] 2.16.840.1.525033.3.579.2.4 62 Unknown [id number] 2.16.840.1.060359.3.579.2.4 62 Unknown [id number] 2.16.840.1.811324.3.579.2.4 62 Unknown [id number] 2.16.840.1.139856.3.579.2.4 62 Unknown [id number] 2.16.840.1.434398.3.579.2.4 62 Unknown [id number] 2.16.840.1.624933.3.579.2.4 62 Unknown [id number] 2.16.840.1.465365.3.579.2.4 62 Unknown [id number] 2.16.840.1.389003.3.579.2.4 62 Unknown [id number] 2.16.840.1.407788.3.579.2.4 62 Unknown [id number] 2.16.840.1.003834.3.579.2.4 62 Unknown [id number] 2.16.840.1.542270.3.579.2.4 62 Unknown [id number] 2.16.840.1.994775.3.579.2.4 62 Unknown [id number] 2.16.840.1.579852.3.579.2.4 62 Unknown [id number] 2.16.840.1.177490.3.579.2.4 62 Unknown [id number] 2.16.840.1.260939.3.579.2.4 62 Unknown [id number] 2.16.840.1.606490.3.579.2.4 62 Unknown [id number] 2.16.840.1.012851.3.579.2.4 62 Unknown [id number] 2.16.840.1.666108.3.579.2.4 62 Unknown [id number] 2.16.840.1.033368.3.579.2.4 62 Unknown [id number] 2.16.840.1.380800.3.579.2.4 62 Unknown [id number] 2.16.840.1.987140.3.579.2.4 62 Unknown [id number] 2.16.840.1.972094.3.579.2.4 62 Unknown [id number] 2.16.840.1.843456.3.579.2.4 62 Unknown [id number] 2.16.840.1.426172.3.579.2.4 62 Unknown [id number] 2.16.840.1.616869.3.579.2.4 62 Unknown [id number] 2.16.840.1.462902.3.579.2.4 62 Unknown [id number] 2.16.840.1.305644.3.579.2.4 62 Unknown [id number] 2.16.840.1.553522.3.579.2.4 62 Unknown [id number] 2.16.840.1.785194.3.579.2.4 62 Unknown [id number] 2.16.840.1.869407.3.579.2.4 62 Unknown [id number] 2.16.840.1.048942.3.579.2.4 62 Unknown [id number] 2.16.840.1.409651.3.579.2.4 62 Unknown [id number] 2.16.840.1.288903.3.579.2.4 62 Unknown [id number] 2.16.840.1.663640.3.579.2.4 62 Unknown [id number] 2.16.840.1.748345.3.579.2.4 62 Unknown [id number] 2.16.840.1.395536.3.579.2.4 62 Unknown [id number] 2.16.840.1.869223.3.579.2.4 62 Unknown [id number] 2.16.840.1.227008.3.579.2.4 62 Unknown [id number] 2.16.840.1.890135.3.579.2.4 62 Unknown [id number] 2.16.840.1.347991.3.579.2.4 62 Social History Date Type Detail Facility Start: 10-23-2013 End: 11-10-2024 Tobacco smoking status NHIS Never smoked tobacco [facility] Work Phone: Start: 10-23-2013 End: 08-10-2022 Tobacco use and exposure Smokeless tobacco non-user [facility] Work Phone: Start: 02-16-2022 End: 08-10-2022 Alcohol intake Current non-drinker of alcohol (finding) [facility] Start: 1995 Sex Assigned At Not on file [facility] Start: 02-06-2022 End: 08-10-2022 Exposure to SARS-CoV-2 (event) Not sure [facility] Start: 11-24-2021 End: 01-07-2024 Tobacco smoking status IDIS Unknown if ever smoked [facility] Start: 06-28-2018 None [facility] Start: 1995 Sex Assigned At Female [facility] Start: 07-28-2022 End: 08-07-2022 Exposure to SARS-CoV-2 (event) Unable to assess [facility] Start: 08-10-2022 End: 09-20-2023 History of Social function [facility] Start: 08-10-2022 End: 09-20-2023 Tobacco use panel [facility] National Score (1-100), lower number is lower risk 70 [facility] Start: 02-24-2025 Sex Female (finding) [facility] NEGATED: Highlighted row [facility] Medical Equipment Procedure Code Equipment Code Equipment Origin al Text Equipment Identifier Dates Stabilization, ankle, arthroscopic Plant polysaccharide haemostatic agent, bioabsorbable ([id number] FDA Start: 02-02-2023 Medial Distal Ti douglas Plate 8 Hole [id number] Start: 11-25-2021 Screw Lcp 3.5mm Stainless Steel 24mm Bone Self Tapping Small Fragment - [id number] Start: 11-25-2021 Screw Dcp Lc-Dcp 3.5mm Stainless Steel 28mm Bone Self Tapping Hexagonal - [id number] Start: 11-25-2021 Screw Lc-Dcp Dcp 3.5mm 6mm Full Thread Hexagon Stainless Steel 30mm Bone - [id number] Start: 11-25-2021 Screw Lcp 3.5mm T15 Full Thread Cone Low Profile Stainless Steel 35mm Bone - [id number] Start: 11-25-2021 Screw Lcp 3.5mm Full Thread Stainless Steel 36mm Bone T15 Stardrive Self - [id number] Start: 11-25-2021 Screw Lcp 3.5mm Full Thread Stainless Steel 38mm Bone T15 Stardrive Self - [id number] Start: 11-25-2021 Screw Lcp 3.5mm Full Thread Stainless Steel 45mm Bone Stardrive Self Tap - [id number] Start: 11-25-2021 Plant polysaccha ride haemostatic agent, bioabsorbable ([id number] FDA Start: 09-15-2022 Goals Date Patient Goal Desired Activity /State Functional Status Date Assessment Result Facility 09-26-2022 Functional status Up ad campos;Bathroom Priv ilege [facility] Work Phone: Mental Status Date Assessment Result Facility 02-02-2023 Cognitive function [facility] Work Phone: 09-26-2022 Cognitive function [facility] Work Phone: 09-15-2022 Cognitive function [facility] Work Phone: Clinical Notes 06-07-2021 to 05-04-2025 Note Date & Type Note Facility 05-04-2025 Radiology Diagnostic study note [facility] Imaging Services [address] [place], [place] [address] Pelvic w/ Transvaginal MR#: [id number] Acct: [id number] Name: GENNY FELDMAN Rep #: [id number] : 1995 F 29 From: Javier Collins MD PCP: Dr. Ashley Mathis MD Status: REG CLI Study:Pelvic w/ Transvaginal Date of Exam: 05/04/25 Exam# [id number] Ordering Dr: Mariel Sales PREMIX OPERATOR CONCENTRATE-C PROCEDURE: PELVIC W/ TRANSVAGINAL REASON FOR EXAM: POST ; IRREGULAR MENSRUAL BLEEDING TECHNIQUE: PELVIC W/ TRANSVAGINAL COMPARISON: None FINDINGS: Measurements: Uterus: 8.3 cm x 5.4 cm x 4 cm with a volume of 91.82 mL Endometrial Thickness: 5.9 mm. It is trilaminar. Right Ovary: 2.7 cm x 2.5 cm x 1.6 cm with a volume of 5.5 cm mL. Left Ovary: The patient is status post left salpingo-oophorectomy. TRANSABDOMINAL: Uterus: Normal size, myometrial echotexture, and contour. Endometrium: Unremarkable. Right ovary: Normal size and echotexture. Left ovary: Surgically absent. Other: No large pelvic mass identified. Transvaginal sonography was performed to better visualize the endometrium. TRANSVAGINAL: Uterus: Anteverted. Endometrium: Normal echotexture. Right ovary: Normal size and echotexture. Left ovary: Surgically absent. Other adnexal findings: None. Cul-de-sac: No free intraperitoneal fluid identified. Tenderness: No tenderness US/Pelvic w/ Transvaginal IMPRESSION: No acute abnormality is seen. Status post left salpingo-oophorectomy. Reading Location: [id number] CC: OG Sales; Dr. Ashley Mathis MD ~ Property Developer: Signed [facility] 04-23-2025 Evaluation note Diagnosis Onset Date Resolution Abnormal vaginal bleeding acute April 23, 2025 1:31pm Impetigo acute April 25 10:43am [facility] Work Phone: 1(330) 901-489606-12-2025 Progress [facility] Women[facility] [address], [address] [place] [address] OFFICE VISIT Date of Service: 04/23/25 MR#: [id number] Acct: [id number] Name: GENNY FELDMAN Rep #: [id number] : 1995 Provider: OG Sales Age/Sex: 29/F Location: [facility] Status: Signed Intake Vital Signs 12/31/24 10:01 04/23/25 13:34 Height 5 ft 5 in 5 ft 5 in Weight: 340 lb 2 oz 320 lb BMI 56.6 53.2 BP 117/80 121/71 H Intake Visit Reasons: Bleeding after intercourse Substation Designer Required: No Is patient in pain?: No Allergies iodine Allergy (Verified 04/23/25 13:38) Rash Medications ?Medication ?Instructions ?Recorded ?Confirmed ?Type sertraline 50 mg tablet 50 mg PO QDAY 04/23/2504/23 History Is last menstrual period known: Yes Last Menstrual Period: 04/09/25 Post menopausal: No Patient : No : No Control Method: nexplanon- 01/06 Nurse's Note: pt states she has bleeding every time she has intercourse. almost seems like this kickstarts her period as she bleeds for days after. notes sometimes experiencing pain during intercourse but no othercomplaints. had baby in october so currently 6 months . [facility] Medical History Contraceptive management depression Headache Chronic hypertension Bone spur of right ankle Contraceptive management Low iron Dermoid cyst Wears glasses PTSD (post-traumatic stress disorder) Depression Ambulates with cane Arthritis Migraine headache Non-smoker Shortness of breath on exertion History of edema Hx of fracture of ankle Dyspareunia Left ovarian cyst Difficulty balancing Anemia Anxiety Surgical History History of ankle surgery S/P ovarian cystectomy Hx of wisdom tooth extraction Hx of cholecystectomy Family History Mother Hypertension Cancer leg Grandmother Diabetes Maternal Other Arthritis Social History adopted: No household members: spouse and children number of children: 1 current occupational status: employed current occupation: [employer] current occupational exposures/hazards: No pets and animals: Yes (Avoid litterbox) pets and animals: cat(s) history of recent travel: [place] ([place]) out of state: Yes out of country: No sexually active: Yes Smoking Status: Never smoker alcohol intake: never substance use type: does not use well-balanced diet: daily or most days caffeine: No eating out: 1-3 times/week during the past year weight has: increased > 10 lbs what type of physical activity do you participate in: walking and bicycling frequency: 1-2 times per week duration: 45-60 minutes/day britta/yarsani: Scientology seatbelt use: always do you feel safe at home: Yes additional social history: - Harsh HPI Bleeding after intercourse Details: GNENY FELDMAN is a 29 year old who presents for irregular menses and bleeding after intercourse. She reports since having her child she has had bleeding that comes and goes; shewill start with a menses and then have intercourse after her menses stops and starts back up with bleeding. She is unable to tell us when her menses are at now due to the irregularity of the bleeding. She denies dizziness or vision changes. Her bleeding after intercourse typically starts the next day with cramping andlasts as long as if she was having a period. Denies concerns for STD's. She recently had labs in February that were stable-mild but overall better than history of anemia. Thyroid stable. HCG negative. Female Reproductive History Last Menstrual Period: 04/09/25 Questions: metorrhagia: No, sexually active: Yes, dyspareunia: No and PCB: No History 2 Elective abortions Hx Para 2 Spontaneous abortions Hx # Term Pregnancies Ectopic pregnancies Hx # Pregnancies Multiple births # of living children 2 Past Pregnancies Del. Date Name GA/Weeks Outcome Route Bth Weight Gen Labor Lgth Anesthesia Del Locatn Provider FOB 06/28/18 Yasmin 40 live - full term 6lbs 14oz Female epidural [facility] ROSA ELENA Harsh 11/08/24 Shirley 37 live - full term 6lb 5oz Female ep idural [facility] Ellie [place] Harsh Delivery Date: 11/08/24 Last Updated by: Ivon Bautista see problem list for complications, and iol chtn sm 37 girl shirley ROS Const Constitutional: Reports system reviewed and no additional complaints, except as documented Cardio Card: Reports system reviewed and no additional complaints, except as documented Resp Resp: Reports system reviewed and no additional complaints, except as documented GI GI: Reports system reviewed and no additional complaints, except as documented : Reports system reviewed and no additional complaints, except as documented Musc Musc: Reports system reviewed and no additional complaints, except as documented Skin Skin/Breast: Reports system reviewed and no additional complaints, except as documented Neuro Neuro: Reports system reviewed and no additional complaints, except as documented Psych Psych: Reports system reviewed and no additional complaints, except as documented Endo Endo: Reports system reviewed and no additional complaints, except as documented Yohan/Lymph Hematologic/Lymphatic: Reports system reviewed and no additional complaints, except as documented Aller/Immun Allergic/Immunologic: Reports system reviewed and no additional complaints, except as documented Exam Const General: cooperative, healthy appearing and comfortable Neck Neck: normal visual inspection and full ROM Resp Effort & Inspection: normal respiratory effort, able to speak in complete sentences and symmetric chest movement GI Inspection: normal to inspection Palpation: soft Neuro General: patient alert, patient awake and patient oriented x3 Cognition: normal cognition Speech: speech normal Gait: normal gait Extrem General: normal to inspection and full ROM Psych Appearance: grossly normal and well kempt Mental Status: mental status grossly normal Mood: congruent mood Affect: normal affect Speech and Movement: speech and movement normal Attitude: cooperative Thought Process: normal Thought Content: normal Coding Level of Care Code Established Pt Off vis,est,level 3 Patient Type Established Diagnoses Abnormal vaginal bleeding N93.9 Assessment and Plan Assessment and Plan (1) Abnormal vaginal bleeding: Status: Acute Plan: Has nexplanon. Labs reviewed. thyroid stable. Proceed with ultrasound. Final plan with results. Bleeding precautions advised. Orders: Orders Pelvic w/ Transvaginal Today N93.9 - Abnormal uterine and vaginal bleeding, unspecified 04/23/25 1403 n OG> Date _ Mariel Julesjacky OG Cosigner Signature: Date (if applicable) CC: ~ [facility]06-12-2025 Progress note Author Mariel Sales [facility] Services Note Date/Time April 23, 2025 2:03 pm [facility] Women[facility] [address], [address] [place] [address] OFFICE VISIT Date of Service: 04/23/25 MR#: [id number] Acct: [id number] Name: GENNY FELDMAN Rep #: [id number] : 1995 Provider: OG Sales Age/Sex: 29/F Location: [facility] Status: Signed Intake Vital Signs 12/31/24 10:01 04/23/25 13:34 Height 5 ft 5 in 5 ft 5 in Weight: 340 lb 2 oz 320 lb BMI 56.6 53.2 BP 117/80 121/71 H Intake Visit Reasons: Bleeding after intercourse Substation Designer Required: No Is patient in pain?: No Allergies iodine Allergy (Verified 04/23/25 13:38) Rash Medications ?Medication ?Instructions ?Recorded ?Confirmed ?Type sertraline 50 mg tablet 50 mg PO QDAY 04/23/2504/23 History Is last menstrual period known: Yes Last Menstrual Period: 04/09/25 Post menopausal: No Patient : No : No Control Method: nexplanon- 01/06 Nurse's Note: pt states she has bleeding every time she has intercourse. almost seems like this kickstarts her period as she bleeds for days after. notes sometimes experiencing pain during intercourse but no other complaints. had baby in october so currently 6 months . [facility] Medical History Contraceptive management depression Headache Chronic hypertension Bone spur of right ankle Contraceptive management Low iron Dermoid cyst Wears glasses PTSD (post-traumatic stress disorder) Depression Ambulates with cane Arthritis Migraine headache Non-smoker Shortness of breath on exertion History of edema Hx of fracture of ankle Dyspareunia Left ovarian cyst Difficulty balancing Anemia Anxiety Surgical History History of ankle surgery S/P ovarian cystectomy Hx of wisdom tooth extraction Hx of cholecystectomy Family History Mother Hypertension Cancer leg Grandmother Diabetes Maternal Other Arthritis Social History adopted: No household members: spouse and children number of children: 1 current occupational status: employed current occupation: [employer] current occupational exposures/hazards: No pets and animals: Yes (Avoid litterbox) pets and animals: cat(s) history of [place]: [place]) out of state: Yes out of country: No sexually active: Yes Smoking Status: Never smoker alcohol intake: never substance use type: does not use well-balanced diet: daily or most days caffeine: No eating out: 1-3 times/week during the past year weight has: increased > 10 lbs what type of physical activity do you participate in: walking and bicycling frequency: 1-2 times per week duration: 45-60 minutes/day britta/yarsani: Scientology seatbelt use: always do you feel safe at home: Yes additional social history: - Harsh HPI Bleeding after intercourse Details: GENNY FELDMAN is a 29 year old who presents for irregular menses and bleeding after intercourse. She reports since having her child she has had bleeding that comes and goes; shewill start with a menses and then have intercourse after her menses stops and starts back up with bleeding. She is unable to tell us when her menses are at now due to the irregularity of the bleeding. She denies dizziness or vision changes. Her bleeding after intercourse typically starts the next day with cramping and lasts as long as if she was having a period. Denies concerns for STD's. She recently had labs in February that were stable-mild but overall better than history of anemia. Thyroid stable. HCG negative. Female Reproductive History Last Menstrual Period: 04/09/25 Questions: metorrhagia: No, sexually active: Yes, dyspareunia: No and PCB: No History 2 Elective abortions Hx Para 2 Spontaneous abortions Hx # Term Pregnancies Ectopic pregnancies Hx # Pregnancies Multiple births # of living children 2 Past Pregnancies Del. Date Name GA/Weeks Outcome Route Bth Weight Infant Gen Labor Lgth Anesthesia Del Locatn Provider FOB 06/28/18 [place] 40 live - full term 6lbs 14oz Female epidural [facility] ROSA ELENA Harsh 11/08/24 Shirley 37 live - full term 6lb 5oz Female ep idural [facility] Ellie Tre Harsh Delivery Date: 11/08/24 Last Updated by: Ivon Bautista see problem list for complications, and iol chtn sm 37 girl shirley ROS Const Constitutional: Reports system reviewed and no additional complaints, except as documented Cardio Card: Reports system reviewed and no additional complaints, except as documented Resp Resp: Reports system reviewed and no additional complaints, except as documented GI GI: Reports system reviewed and no additional complaints, except as documented : Reports system reviewed and no additional complaints, except as documented Musc Musc: Reports system reviewed and no additional complaints, except as documented Skin Skin/Breast: Reports system reviewed and no additional complaints, except as documented Neuro Neuro: Reports system reviewed and no additional complaints, except as documented Psych Psych: Reports system reviewed and no additional complaints, except as documented Endo Endo: Reports system reviewed and no additional complaints, except as documented Yohan/Lymph Hematologic/Lymphatic: Reports system reviewed and no additional complaints, except as documented Aller/Immun Allergic/Immunologic: Reports system reviewed and no additional complaints, except as documented Exam Const General: cooperative, healthy appearing and comfortable Neck Neck: normal visual inspection and full ROM Resp Effort & Inspection: normal respiratory effort, able to speak in complete sentences and symmetric chest movement GI Inspection: normal to inspection Palpation: soft Neuro General: patient alert, patient awake and patient oriented x3 Cognition: normal cognition Speech: speech normal Gait: normal gait Extrem General: normal to inspection and full ROM Psych Appearance: grossly normal and well kempt Mental Status: mental status grossly normal Mood: congruent mood Affect: normal affect Speech and Movement: speech and movement normal Attitude: cooperative Thought Process: normal Thought Content: normal Coding Level of Care Code Established Pt Off vis,est,level 3 Patient Type Established Diagnoses Abnormal vaginal bleeding N93.9 Assessment and Plan Assessment and Plan (1) Abnormal vaginal bleeding: Status: Acute Plan: Has nexplanon. Labs reviewed. thyroid stable. Proceed with ultrasound. Final plan with results. Bleeding precautions advised. Orders: Orders Pelvic w/ Transvaginal Today N93.9 - Abnormal uterine and vaginal bleeding, unspecified 04/23/25 1403 <Electronically signed by Mariel FOLEY> Date _ Mariel FOLEY Cosigner Signature: Date (if applicable) CC: ~ [facility] Work Phone: 1(563) 315-580602-19-2025 Evaluation note* Diagnosis Onset Date Resolution Status Admit Date Nexplanon insertion acute 2024 9:52am Abnormal vaginal bleeding acute April 23, 2025 1:31pm [facility] Work Phone: 1(269) 530-627212-29-2024 [facility]12-17-2024 Evaluation note* Diagnosis Onset Date Resolution Status Admit Date Abnormal glucose acute October 28, 2024 12:43pm Anemia acute October 28, 2024 12:43pm Obesity affecting acute October 28, 2024 12:43pm THONG (obstructive sleep apnea) acute October 28, 2024 12:43pm acute October 28, 2024 12:43pm Supervision of high-risk acute October 28, 024 12:43pm HTN (hypertension) chronic [facility] er 2023 12:43pm Abnormal glucose acute November 06, 2024 7:13pm Anemia acute November 06, 2024 7:13pm Obesity affecting acute November 06, 2024 7:13pm THONG (obstructive sleep apnea) acute November 06, 2024 7:13pm acute November 06, 2024 7:13pm Supervision of high-risk acute November 06 024 7:13pm Vaginal delivery acute November 06, 2024 7:13pm HTN (hypertension) chronic [facility] er 2023 7:13pm Nexplanon insertion acute 2024 9:52am [facility] Work Phone: 1(107) 219-709712-01-2023 NoteHNO ID: [id number] Author: Florinda Ronquillo LPN Service: ? Author Type: LICENSED NURSE Type: Progress Notes Filed: 10/17/2023 10:11 AM Note Text: Prepared 3 cc syringe with 2 cc Bupivacaine and 0.5 cc Depo Medrol and 0.5 cc Kenalog with 25 gauge needle and gave to MD for injection - Florinda Ronquillo [facility]12-01-2023 NoteHNO ID: [id number] Author: Alex España DPM Service: ? Author Type: Physician Type: Progress Notes Filed: 10/17/2023 10:11 AM Note Text: Chief Complaint: right ankle pain HPI: This 28 year old female with PMH indicated below presents complaining of right ankle pain for second opinion. She states that she broke the ankle in November 2021 and it was fixed by Dr. Garrett. She had a pilon fx. Has since followed up and went through the post operative care. Had an ankle scope done by At [facility]. States that did not provide any [...] PAST SURGICAL HISTORY OF Right ankle Dr. Garrett 2021 FAMILY HISTORY Problem Relation Age of [...] habitus. Resp 16 Ht 165.1 cm (5' 5) Wt (!) 146.1 kg (322 lb) LMP 09/12/2017 BMI 53.58 kg/m? Vascular: DP and PT pulses are palpable. CFT less than 3 seconds to all digits bilateral. Skin temperature is warm to warm from proximal to distal bilateral. Hair growth is noted. edema noted b/l. No varicosities noted. Neuro: Light touch intact bilateral. Protective sensation intact at all pedal sites via Willow Ashley 5.07 monofilament bilateral. Derm: Skin texture [...] ankle joint Informed Consent Consent Obtained: Verbal [place] Protocol SIGN IN Sign in communication not applicable due to emergent procedure. Special Equipment: N/A Patient/Surrogate Stated/Verified: Patient name, Date of , Relevant allergies and In (more content not included)...[facility] 09-20-2023 Miscellaneous Notes* Telephone Encounter - Salvador Pringle - 09/20/2023 11:52 AM EST Called to reschedule PT's cancelled appt for 2nd opinion with Dr. España ([facility] PT). Fphkaverc57/1/23. Salvador Pringle ----- Message from Anastasia Dexter sent at 09/20/2023 8:22 AM EST ----- Regarding: Orthopedics / Gerry, Ankle: Pain / Est. Pt. Non RFV Reason/Taco Contact: Subject Line Format: Orthopedics / [Provider Name or Open & Body Part] / [Issue] Patient has been identified by name and Date of (Y/N): Y Patient: Genny Gooden Date of : 1995 Previous Provider Seen: Dr Garrett Body Part(s) Identified: Right ankle Diagnosis/Reason For Visit: pain Reason for the call/escalation: can not schedule per tool If reason for call/escalation is discharge from ED/ER or Hospital, which facility was the patient seen at: N Was an appointment scheduled (Y/N): N Person calling if other than patient: PT Return call to if other than patient: PT Best contact number: [phone] Patient would like to see Dr España for a second opinion at the [place] [facility] Thank you, Anastasia Dexter September 20, 2023 8:22 AM [facility] Miscellaneous Notes* Telephone Encounter - Jessica Gauthier - 06/25/2023 3:44 PM EDT Returned call to make the appointment for the 2nd opinion Spoke with patient she need to work out things with her work then call us back Jessica Pete * Telephone Encounter - Jessica Gauthier - 06/25/2023 3:44 PM EDT ----- Message from Mayelin Enriquez sent at 06/22/2023 3:31 PM EDT ----- Regarding: Orthopedics / Sgaar Garrett) R Ankle: Pain / Prev SX - Non RFV Reason Contact: Patient has been identified by name and Date of (Y/N): y Patient: Genny Gooden Date of : 1995 Previous Provider Seen: Dr Garrett Body Part(s) Identified: Right Ankle Diagnosis/Reason For Visit: R Ankle Reason for the call/escalation: Right Ankle SX 11/25/2021 then went to [facility] and had surgery again January 2023 referred to [facility]/ Please reach out If reason for call/escalation is discharge from ED/ER or Hospital, which facility was the patient seen at: n/a Was an appointment scheduled (Y/N): n Person calling if other than patient: n Return call to if other than patient: n Best contact number: [phone] Thank you, Mayelin Mina June 22, 2023 3:31 PM documented in this encounterFirelands Regional Medical Center03-24-2023 Procedure [facility]09-29-2022 Instructions* Patient Instructions* Sagar Garrett MD - 08/10/2022 3:47 PM EDT Office will contact you with information for the [facility] referral or follow-up withone of our foot and ankle surgeons. documented in this encounterFirelands Regional Medical Center09-29-2022 History of Present illness Narrative* Sagar Garrett MD - 08/10/2022 3:15 PM EDT Images from the original note were not included. ORTHOPAEDIC OFFICE NOTE CHIEF COMPLAINT: right ankle stiffness, swelling HISTORY OF PRESENT ILLNESS: Genny Gooden is a 27 year old female who [...] No wound problems, including redness and drainage. Nonew injury mechanism. 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 Reviewed nursing note and current pain scale. PAST MEDICAL HISTORY Diagnosis Date Migraine PAST SURGICAL HISTORY Procedure Laterality Date LAPS SURG CHOLECYSTECTOMY W/CHOLANGIOGRAPHY 11/10/2013 PAST SURGICAL HISTORY OF Right ankle Dr. Garrett 2021 FAMILY HISTORY Problem Relation Age of [...] Reviewed risks and benefits. Discussed short versus care home use, would try not to take as chronic medication. Administered prescription. Fragility Fracture: Not applicable. Additional: Again reviewed severity of joint injury with patient and progression to post-traumatic arthritis. Discussed care home ramifications in context of joint appearance, weight, activity. May respond to corticosteroid injection but will not change joint appearance. May benefit from brace wear. Recommended referral to foot/ankle surgeon; patient wants to remain close to home and requests referral to [facility] [place] (they are not known). If that facility is unable to provide care, recommended available foot/ankle surgeons at [facility]. Answered all questions. Return if symptoms worsen or fail to improve. Medical Decision Making: Problems: Moderate: 1+ chronic illnesses with change Data: Unique source(s) for external note(s) reviewed: 1 Risk: Low: Low risk from testing/treatment Moderate: Drug management Medical Decision Making Level: 4 - Moderate Sagar Garrett MD documented in this encounterFirelands Regional Medical Center09-26-2022 Miscellaneous Notes* Telephone Encounter - Maria Del Carmen Hernandez [place] [facility] - 08/07/2022 8:39 AM EDT Patient contacted and scheduled in office on 08/10/22 at 3:15 pm. Maria Del Carmen Hernandez [place] [facility] August 07, 2022 8:41 AM * [facility] - [facility]/07/[facility]22 8:31 AM EDT Images from the original note were not included. 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 NJD * [facility] - [facility] - 08/04/2022 4:17 PM EDT Patient's ankle xrays from [place] are in Epic and viewable. Would you still like to see her in office? [facility] August 04, 2022 4:18 PM documented in this encounterFirelands Regional Medical Center08-11-2022 Miscellaneous Notes* Telephone Encounter - [facility] - 06/22/2022 10:14 AM EDT Letter completed and routed in [employer] to the patient. [facility] June 22, 2022 10:15 AM * Telephone Encounter - [facility] - 06/19/2022 3:30 PM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 Date NEXPLANON INSERTION December 31, 2024 9:52am INT LAB ORDERS February 19, 2025 4:0 9pm Bleeding after intercourse April 23 1:31pm Reason for Visit Admit Date Nexplanon insertion December 31, 2024 9:52am Abnormal vaginal bleeding April 23 1:31pm Chief Complaint Admit Date NEXPLANON INSERTION December 31, 2024 9:52am INT LAB ORDERS February 19, 2025 4:0 9pm Bleeding after intercourse April 23 1:31pm RASH ON SIDE OF L NOSTRIL April 25 10:43am Chief Complaint Admit Date INT LAB ORDERS February 19, 2025 4:0 9pm Bleeding after intercourse April 23 1:31pm RASH ON SIDE OF L NOSTRIL April 25 10:43am DYSPAREUNIA May 04, 2025 7:42 am Reason for Visit Admit Date Abnormal vaginal bleeding April 23 1:31pm Impetigo April 25, 2025 10:4 3am Additional Source Comments INFORMATION SOURCE (unrecogn ized section and content) DATE CREATED AUTHOR 05/07/2018 [facility] DATE CREATED AUTHOR AUTHOR'S ORGANIZ ATION 01/01/2022 [facility] DATE CREATED AUTHOR AUTHOR'S ORGANIZ ATION 10/19/2023 [facility] DATE CREATED AUTHOR AUTHOR'S ORGANIZ ATION 07/29/2024 [facility] DATE CREATED AUTHOR AUTHOR'S ORGANIZ ATION 05/09/[address] [facility] Source Comments (unrecognize d section and content) In the event this informatio n is protected by the Federal Confidentiality of Alcohol and Drug Abuse Patient Records regulations: The Federal rules restrict any use of the information to criminally investigate or prosecute any alcohol or drug abuse patient.[facility] the event this information is protected by the Federal Confidentiality of Alcohol and Drug Abuse Patient Records regulations: The Federal rules restrict any use of the information to criminally investigate or prosecute any alcohol or drug abuse patient.[facility] the event this information is protected by the Federal Confidentiality of Alcohol and Drug Abuse Patient Records regulations: The Federal rules restrict any use of the information to criminally investigate or prosecute any alcohol or drug abuse patient.[facility] the event this information is protected by the Federal Confidentiality of Alcohol and Drug Abuse Patient Records regulations: The Federal rules restrict any use of the information to criminally investigate or prosecute any alcohol or drug abuse patient.[facility] the event this information is protected by the Federal Confidentiality of Alcohol and Drug Abuse Patient Records regulations: The Federal rules restrict any use of the information to criminally investigate or prosecute any alcohol or drug abuse patient.[facility] the event this information is protected by the Federal Confidentiality of Alcohol and Drug Abuse Patient Records regulations: The Federal rules restrict any use of the information to criminally investigate or prosecute any alcohol or drug abuse patient.[facility] the event this information is protected by the Federal Confidentiality of Alcohol and Drug Abuse Patient Records regulations: The Federal rules restrict any use of the information to criminally investigate or prosecute any alcohol or drug abuse patient.[facility] the event this information is protected by the Federal Confidentiality of Alcohol and Drug Abuse Patient Records regulations: The Federal rules restrict any use of the information to criminally investigate or prosecute any alcohol or drug abuse patient.[facility] the event this information is protected by the Federal Confidentiality of Alcohol and Drug Abuse Patient Records regulations: The Federal rules restrict any use of the information to criminally investigate or prosecute any alcohol or drug abuse patient.[facility] Reason for Visit (unrecogniz ed section and content) Reason Comments Established Patient Reason Comments Patient Request Reason Comments Follow Up Reason Comments Patient Update Reason Comments Letter Reason Comments Xray Results Reason Comments Established Patient Follow Up Reason Comments Appointment Care Teams (unrecognized sec tion and content) 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 Specialty Start Date End Date Ashley Mathis MD [address] [place] [address] PCP - General Family Practice 11/25/21 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 Specialty Start Date End Date Ashley Mathis MD [address] [place] [address] PCP - General Family Practice 11/25/21 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 Specialty Start Date End Date Ashley Mathis MD [address] [facility] [place] [address] PCP - General Family Practice 11/25/21 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 Specialty Start Date End Date Ashley Mathis MD [address] [place] [address] PCP - General Family Practice 11/25/21 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 Zbigniew Mathis MD Primary Care Provider Activ e Team Status: Inactive Member Role Status Dates Dr. Zbigniew Mathis MD Primary Care Provider, Refe rring Provider Active Dr. Ellie Toledo MD Attending Provider Active Team Status: Active Member Role Status Dates Dr. Zbigniew Mathis MD Primary Care Provider Activ e Dr. Ellie Toledo MD Attending Pr ovider, Referring Provider, Other Provider Active Dr. Karri Ramos MD Other Provider Active Team Status: Inactive Member Role Status Dates Dr. Zbigniew Mathis MD Primary Care Provider, Refe rring Provider Active Mckenzie Mcknight PREMIX OPERATOR CONCENTRATE, PREMIX OPERATOR CONCENTRATE-C Attending Provider Active Team Status: Active Member Role Status Dates Dr. Zbigniew Mathis MD Primary Care Provider Activ e Dr. Lennox Michaels MD Emergency Provider Active Dr. Ellie Toledo MD Admit Provid er, Attending Provider, Other Provider Active Team Status: Active Member Role Status Dates Dr. Zbigniew Mathis MD Primary Care Provider Activ e Dr. Sree Mccoy MD Attending Provider Active Dr. Ellie Toledo MD Referring Provider Active Team Status: Inactive Member Role Status Dates Dr. Zbigniew Mathis MD Primary Care Provider, Refe rring Provider Active Tomás Okeefe PA, PA Attending Provider Active Team Status: Inactive Member Role Status Dates Dr. Zbigniew Mathis MD Primary Care Provider Activ e Dr. Ellie Toledo MD Attending Provider, Referr ing Provider Active Team Status: Inactive Member Role Status Dates Dr. Zbigniew Mathis MD Primary Care Provider Activ e Dr. Ellie Toledo MD Attending Provider Active Team Status: Inactive Member Role Status Dates Dr. Zbigniew Mathis MD Primary Care Provider Activ e Dr. Ellie Toledo MD Attending Provider, Referr ing Provider Active Dr. Karri Ramos MD Other Provider Active Team Status: Inactive Member Role Status Dates Dr. Zbigniew Mathis MD Primary Care Provider Activ e Dr. Zack Hinds DO Attending Provider, Emergency P rovider Active Team Status: Inactive Member Role Status Dates Dr. Zbigniew Mathis MD Primary Care Provider, Attending Provider, Referring Provider Active Team Status: Inactive Member Role Status Dates Dr. Zbigniew Mathis MD Primary Care Provider Activ e Dr. Lenonx Michaels MD Emergency Provider Active Dr. Ellie Toledo MD Admit Provider, Attending Provider Active Team Status: Inactive Member Role Status Dates Dr. Zbigniew Mathis MD Primary Care Provider Activ e Dr. Francisco Goodrich , [place] Attending Provider, Referring Provider Active Team Status: Inactive Member Role Status Dates Dr. Francisco Goodrich DPM Attending Provider, Referring Provider Active Dr. Zbigniew Mathis MD Primary Care Provider Activ e Team Status: Active Member Role Status Dates Dr. Zbigniew Mathis MD Primary Care Provider Activ e Dr. Francisco Goodrich , YOUNGM Attending Provider, Referring Provider Active 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 Specialty Start Date End Date Ashley Mathis MD [address] [facility] [place] [address] PCP - General Family Medicine 11/25/21 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 Specialty Start Date End Date Ashley Mathis MD [address] [facility] [place] [address] PCP - General Family Medicine 11/25/21 Team Status: Inactive Member Role Status Dates Dr. Zbigniew Mathis MD Primary Care Provider Activ e Dr. Ana Paula Salas MD Attending Provider, Referring P rovider Active Team Status: Active Member Role Status Dates Cheli Simms PREMIX OPERATOR CONCENTRATE, PREMIX OPERATOR CONCENTRATE-C Family Provider Active Dr. Ashley Mathis MD Primary Care Provider Acti ve Team Status: Inactive Member Role Status Dates Dr. Ashley Mathis MD Primary Care Provider, Ref erring Provider Active Dr. Rosanna Vande Velde , DO Attending Provider Activ e Team Status: Inactive Member Role Status Dates Dr. Ashley Mathis MD Primary Care Provider, Ref erring Provider Active Josiah Cortes PA, PA Attending Provider Active Team Status: Inactive Member Role Status Dates Dr. Ashley Mathis MD Primary Care Provider, Ref erring Provider Active Adriana Carrera PREMIX OPERATOR CONCENTRATE, PREMIX OPERATOR CONCENTRATE-C Attending Provider Active Team Status: Inactive Member Role Status Dates Dr. Ashley Mathis MD Primary Care Provider Acti ve Adriana Carrera PREMIX OPERATOR CONCENTRATE, PREMIX OPERATOR CONCENTRATE-C Attending Provider, Referrin g Provider Active Team Status: Inactive Member Role Status Dates Dr. Ashley Mathis MD Primary Care Provider Acti ve Start: October 28, 2024 End: October 28, 2024 Dr. Ashley Mathis MD Referring Provider Active Start: October 28, 2024 End: October 28, 2024 Dr. Ellie Toledo MD Attending Provider Active Start: October 28, 2024 End: October 28, 2024 Team Status: Inactive Member Role Status Dates Dr. Ashley Mathis MD Primary Care Provider Acti ve Start: October 29, 2024 End: October 29, 2024 Dr. Ellie Toledo MD Attending Provider Active Start: October 29, 2024 End: October 29, 2024 Dr. Ellie Toledo MD Referring Provider Active Start: October 29, 2024 End: October 29, 2024 Team Status: Inactive Member Role Status Dates Dr. Ashley Mathis MD Primary Care Provider Acti ve Start: November 06, 2024 End: November 09, 2024 Dr. Ellie Toledo MD Admit Provider Active Start: November 06, 2024 End: November 09, 2024 Dr. Ellie Toledo MD Attending Provider Active Start: November 06, 2024 End: November 09, 2024 Dr. Ellie Toledo MD Referring Provider Active Start: November 06, 2024 End: November 09, 2024 Team Status: Active Member Role Status Dates Dr. Ashley Mathis MD Primary Care Provider Acti ve Start: November 07, 2024 Dr. Ellie Toledo MD Admit Provider Active Start: November 07, 2024 Dr. Ellie Toledo MD Attending Provider Active Start: November 07, 2024 Dr. Ellie Toledo MD Referring Provider Active Start: November 07, 2024 Dr. Ellie Toledo MD Other Provider Active Start: November 07, 2024 Team Status: Active Member Role Status Dates Dr. Ashley Mathis MD Primary Care Provider Acti ve Start: November 08, 2024 Dr. Ellie Toledo MD Admit Provider Active Start: November 08, 2024 Dr. Ellie Toledo MD Attending Provider Active Start: November 08, 2024 Dr. Ellie Toledo MD Referring Provider Active Start: November 08, 2024 Dr. Ellie Toledo MD Other Provider Active Start: November 08, 2024 Team Status: Active Member Role Status Dates Dr. Ashley Mathis MD Primary Care Provider Acti ve Start: November 09, 2024 Dr. Ellie Toledo MD Admit Provider Active Start: November 09, 2024 Dr. Ellie Toledo MD Referring Provider Active Start: November 09, 2024 Dr. Ellie Toledo MD Other Provider Active Start: November 09, 2024 Luisa lAlen CNM Attending Provider Active Start: November 09, 2024 Team Status: Inactive Member Role Status Dates Dr. Ashley Mathis MD Primary Care Provider Acti ve Start: November 21, 2024 End: November 21, 2024 Dr. Ashley Mathis MD Referring Provider Active Start: November 21, 2024 End: November 21, 2024 Ktae Barrientos CNM Attending Provider Active S tart: November 21, 2024 End: November 21, 2024 Team Status: Inactive Member Role Status Dates Dr. Ashley Mathis MD Primary Care Provider Acti ve Start: December 22, 2024 End: December 22, 2024 Dr. Ashley Mathis MD Referring Provider Active Start: December 22, 2024 End: December 22, 2024 Kate Barrientos CNM Attending Provider Active S tart: December 22, 2024 End: December 22, 2024 Team Status: Inactive Member Role Status Dates Dr. Ashley Mathis MD Primary Care Provider Acti ve Start: December 31, 2024 End: December 31, 2024 Dr. Ashley Mathis MD Referring Provider Active Start: December 31, 2024 End: December 31, 2024 Kate Barrientos CNM Attending Provider Active S tart: December 31, 2024 End: December 31, 2024 Team Status: Inactive Member Role Status Dates Dr. Ashley Mathis MD Primary Care Provider Acti ve Start: February 19, 2025 End: February 19, 2025 Dr. Ellie Toledo MD Attending Provider Active Start: February 19, 2025 End: February 19, 2025 Dr. Ellie Toledo MD Referring Provider Active Start: February 19, 2025 End: February 19, 2025 Team Status: Inactive Member Role Status Dates Dr. Ashley Mathis MD Primary Care Provider Acti ve Start: April 23, 2025 End: April 23, 2025 Dr. Ashley Mathis MD Referring Provider Active Start: April 23, 2025 End: April 23, 2025 OG Gleason Attending Provider Active Start: April 23, 2025 End: April 23, 2025 Team Status: Active Member Role Status Dates Dr. Ashley Mathis MD Primary Care Provider Acti ve Team Status: Inactive Member Role Status Dates Dr. Ashley Mathis MD Primary Care Provider Acti ve Start: April 25, 2025 End: April 25, 2025 Dr. Ashley Mathis MD Referring Provider Active Start: April 25, 2025 End: April 25, 2025 DENIZ Kern Attending Provider Active Start: April 25, 2025 End: April 25, 2025 Team Status: Active Member Role/Relationship Status Dates Dr. Ashley Mathis MD Primary Care Provider Acti ve Team Status: Inactive Member Role/Relationship Status Dates Dr. Ashley Mathis MD Primary Care Provider Acti ve Start: February 19, 2025 End: February 19, 2025 Dr. Ellie Toledo MD Attending Provider Active Start: February 19, 2025 End: February 19, 2025 Dr. Ellie Toledo MD Referring Provider Active Start: February 19, 2025 End: February 19, 2025 Team Status: Inactive Member Role/Relationship Status Dates Dr. Ashley Mathis MD Primary Care Provider Acti ve Start: April 23, 2025 End: April 23, 2025 Dr. Ashley Mathis MD Referring Provider Active Start: April 23, 2025 End: April 23, 2025 OG Gleason Attending Provider Active Start: April 23, 2025 End: April 23, 2025 Team Status: Inactive Member Role/Relationship Status Dates Dr. Ashley Mathis MD Primary Care Provider Acti ve Start: April 25, 2025 End: April 25, 2025 Dr. Ashley Mathis MD Referring Provider Active Start: April 25, 2025 End: April 25, 2025 DENIZ Kern Attending Provider Active Start: April 25, 2025 End: April 25, 2025 Team Status: Inactive Member Role/Relationship Status Dates Dr. Ashley Mathis MD Primary Care Provider Acti ve Start: May 04, 2025 End: May 04, 2025 OG Gleason Attending Provider Active Start: May 04, 2025 End: May 04, 2025 OG Gleason Referring Provider Active Start: May 04, 2025 End: May 04, 2025 Goals (unrecognized section and content) Goals may be documented in a n alternate sectionGoals may be documented in an alternate sectionGoals may be documented in an alternate sectionGoals may be documented in an alternate sectionGoals may be documented in an alternate sectionGoals may be documented in an alternate sectionGoals may be documented in an alternate sectionGoals may be documented in an alternate sectionGoals may be documented in an alternate sectionGoals may be documented in an alternate sectionGoals may be documented in an alternate sectionGoals may be documented in an alternate section FOR RECORDS PERTAINING TO PATIENTS WHO ARE [...] BE BASED ON THE PRIMARY CLINICAL RECORDS. [employer] [facility]. provides no warranty or guarantee of the accuracy or completeness of information in this document.
== END | disposition home or self-care (01) ==
PROVIDERS: PCP Family Medicine; Referring Provider Family Medicine; Visit Provider Family Medicine
DX: Z13.1 Encounter for screening for diabetes mellitus (principal); Z13.220 Encounter for screening for lipoid disorders; E55.9 Vitamin D deficiency, unspecified; E66.9 Obesity, unspecified
CPT/HCPCS: 36415; 80048; 80061; 80076

== ENCOUNTER → 2025-10-22 | Outpatient (CLI) | payer OTHER, SELFPAY ==
[2025-10-22 15:27] LABS: Hematocrit 39.6 % (37-47); Hemoglobin 11.5 g/dL (12.0-15.0); Immature Granulocytes Count 0.040 X10^3/uL (0.0-0.0); Mean Corp Hgb Conc 29.0 g/dL (32-36); Mean Corpuscular Volume 68.6 fL (81-99); Mean Platelet Vol. 9.3 fl (6.2-12.0); NRBC Flagged by Analyzer 0 % (0-5); Platelet Count 458 K/mm3 (150-450); RBC Distribution Width CV 19.6 % (11.6-14.6); RBC Distribution Width SD 45.7 fl (35.1-43.9); Red Blood Count 5.77 M/mm3 (4.2-5.4); White Blood Count 10.3 K/mm3 (4.4-11.0)
[2025-10-22 16:09] LABS: AST(SGOT) 13 U/L (<=31); Alanine Aminotransfer ALT/SGPT 11 U/L (<=34); Albumin, Serum 4.3 g/dL (3.5-5.0); Alkaline Phosphatase 81 U/L (35-104); Anion Gap 12 (5-15); BUN 12 mg/dL (4-19); BUN/Creat Ratio 13.3 RATIO (10-20); Calcium,Total 9.5 mg/dL (7.6-11.0); Carbon Dioxide 23.8 mmol/L (21.0-32.0); Chloride 103 mmol/L (98-108); Globulin 3.4 g/dL (2.2-4.2); Glucose 86 mg/dL (70-99); Potassium 4.0 mmol/L (3.3-5.1)
== END | disposition home or self-care (01) ==
LOC: LAB 14:21
PROVIDERS: PCP Family Medicine; Referring Provider Nurse Practitioner Family; Visit Provider Nurse Practitioner Family
DX: R42 Dizziness and giddiness (principal)
CPT/HCPCS: 36415; 80053; 85025